=== PATIENT | male | born 1955 | race African-American/Black ===

== ENCOUNTER 2021-04-16 12:46 | Observation (INO) | payer OTHER, SELFPAY ==
[2021-04-16] VITALS (10 sets, daily range): BP systolic 133–192; BP diastolic 94–118; PULSE 87–108; RESP 16–20; TEMP 36.3–36.4; O2SAT 94–100
--- NOTE | ~2021-04-16 | US_ITS ---
EXAMINATION: US arterial ankle brachial ind DATE: 04/17/2021 14:16 INDICATION: Wounds at the bilateral lower limbs TECHNIQUE: Segmental pressures and plethysmographic and Doppler waveforms of the brachial and lower e xtremity arteries were obtained. COMPARISON: None. FINDINGS: Right and left brachial artery pressures of 91 mm Hg and 89 mm Hg, respectively, are concordant (norm al difference <= 30 mmHg). The right ankle-brachial index (HOLDEN) is 1.09 (normal >= 0.9-1.0). The right great toe-brachial index (TBI) is 0.36 (normal >= 0.65). Arterial Doppler waveforms are biphasic with brisk systolic upstrokes at both the right posterior tibial and dorsalis pedis arteries. The left HOLDEN is 1.18. The left TBI is 0.37. Arterial Doppler waveforms are biphasic with brisk systol ic upstrokes at both the left posterior tibial and dorsalis pedis arteries. IMPRESSION: 1. Arterial occlusive disease to the bilateral lower limbs with normal bilateral ABIs but moderately decreased bilateral TBIs Reviewed, dictated and finalized at location A. NT SERVICE ADMINISTRATOR IMPRESSION: 1. Arterial occlusive disease to the bilateral lower limbs with normal bilatera l ABIs but moderately decreased bilateral TBIs
--- NOTE | ~2021-04-16 | XR_ITS ---
EXAMINATION: XR chest 1V portable DATE: 04/17/2021 14:40 INDICATION: Shortness of breath TECHNIQUE: frontal view of the chest was obtained. COMPARISON: Chest radiograph dated 04/16/2021 FINDINGS: Of likely symmetric bilateral nipple shadows project over the anterior fifth ribs. No airspace opacit ies, pulmonary edema, pleural effusion or pneumothorax. The cardiomediastinal silhouette is normal. L eft pectoral implantable brazer furnace. IMPRESSION: 1. No acute cardiopulmonary disease. Reviewed, dictated and finalized at location A. I TUBE BENDER
--- NOTE | ~2021-04-16 | CT_ITS ---
EXAMINATION: CT brain wo con EXAM DATE: 04/16/2021 13:51 INDICATION: Altered mental status. Fell yesterday, found unresponsive today. TECHNIQUE: Spiral CT of the head was performed without contrast. Axial, coronal and sagittal images were reviewed. The dose-length product (DLP) for this examination was 756.67 mGy-cm. The exposure w as tailored according to patient size, and iterative reconstruction (ASIR) was used as additional dos e reduction technique. There is no prior study for comparison. FINDINGS: There is region of decreased attenuation in the right frontoparietal region, possibly a mod erate-sized acute infarction, but there our limitations from patient motion and patient's arm behind his head. There is an old small left frontal lobe infarction. No acute intracranial hemorrhage. Front al scalp contusion/hematoma without swelling. No extra-axial collections or obstructive hydrocephalus suspected. IMPRESSION: 1. Suspect moderate-sized right frontoparietal lobe acute infarction. 2. Old left frontal lobe infarction. 3. Frontal scalp contusion. Reviewed, dictated and finalized at location B. ING MANAGER
--- NOTE | ~2021-04-16 | US_ITS ---
EXAMINATION: US carotid duplex BI EXAM DATE: 04/17/2021 14:34 INDICATION: Stroke TECHNIQUE: Grayscale, color and pulsed Doppler images of the cervical carotid arteries were obtained . The degree of vessel stenosis is placed in one of the following categories: normal, <50% stenosis, 50-69% stenosis, >=70% stenosis but less than near-occlusion, near-occlusion, or occlusion. Note that percent stenosis relative to normal distal artery lumen diameter is indirectly measured from velocit y measurements as described by Quan, et al. Radiology 2003; 229:340-346. There is no prior study fo r comparison. FINDINGS: RIGHT SIDE: Right common carotid artery peak systolic velocity (PSV in cm/s): 97 Right bulb/internal carotid artery peak systolic velocity (PSV in cm/s): 64 Right internal carotid artery end diastolic velocity (EDV in cm/s): 31 Right ICA/CCA peak systolic ratio: 0.7 Right external carotid artery peak systolic velocity (PSV in cm/s): 114 Right vertebral artery antegrade flow: yes There is minimal carotid bulb plaque. Velocity and Doppler waveforms in the common and internal carotid arteries is normal. LEFT SIDE: Left common carotid artery peak systolic velocity (PSV in cm/s): 90 Left bulb/internal carotid artery peak systolic velocity (PSV in cm/s): 75 Left internal carotid artery end diastolic velocity (EDV in cm/s): 15 Left ICA/CCA peak systolic ratio: 0.8 Left external carotid artery peak systolic velocity (PSV in cm/s): 92 Left vertebral artery antegrade flow: yes There is mild to moderate carotid bulb plaque. Velocity and Doppler waveforms in the common and internal carotid arteries is normal. IMPRESSION: 1. Less than 50 percent stenosis in the right internal carotid artery. 2. Less than 50 percent stenosis in the left internal carotid artery. > Reviewed, dictated and finalized at location B. RIAL WORKER
--- NOTE | ~2021-04-16 | XR_ITS ---
EXAMINATION: XR chest 1V portable EXAM DATE: 04/16/2021 14:46 INDICATION: Transient alteration of awareness. TECHNIQUE: Portable AP frontal chest x-ray was obtained. There is no prior study for comparison. FINDINGS: There is left-sided cardiac monitoring device. The lungs are clear. There are no pleural e ffusions. Cardiac silhouette is prominent but magnified on this AP technique. There is no pneumoth orax suspected. The bones and soft tissues are unremarkable. IMPRESSION: No acute cardiopulmonary findings. Reviewed, dictated and finalized at location B. ERCIAL REAL ESTATE AGENT
--- NOTE | ~2021-04-16 | US_ITS ---
EXAMINATION: US venous doppler LE EXAM DATE: 04/18/2021 09:30 INDICATION: Stroke. Leg wounds. TECHNIQUE: Multiple grayscale, color flow and Doppler images of the lower extremity deep venous syste ms bilaterally were obtained and reviewed. There is no prior study for comparison. FINDINGS: Right side: The right common femoral, femoral and profunda veins demonstrate normal color flow, respi ratory variation, augmentation and compressibility. Compressibility, color flow confirmed within the right popliteal, posterior tibial, peroneal, and greater saphenous veins. Reactive right inguinal l ymph nodes. Left side: The left common femoral, femoral and profunda veins demonstrate normal color flow, respira tory variation, augmentation and compressibility. Compressibility, color flow confirmed within the l eft popliteal, posterior tibial, peroneal, and greater saphenous veins. IMPRESSION: 1. No lower extremity deep venous thrombosis bilaterally. Reviewed, dictated and finalized at location B. L DATABASE ADMINISTRATOR
--- NOTE | 2021-04-16 13:30 | ECG_ITS ---
Measurements Intervals [place] Rate: 79 P: 65 W[place]: 165 QRS: 63 QRSD: 108 T: 69 QT: 412 QTc: 474 Interpretive Statements SINUS RHYTHM POSSIBLE LEFT VENTRICULAR HYPERTROPHY BASELINE ARTIFACT- I, II, III, AVR, AVL, AVF, V1-V6 BORDERLINE ECG Electronically Signed On 04-16-2021 15:03:48 HOUSE FURNISHINGS SUPERVISOR by Forrest Jade D.O.
--- NOTE | 2021-04-16 13:34 | PC.NURSE ---
PT'S DAUGHTER CALLED FOR UPDATE ON HER FATHER. STATES WILL COME VISIT A LITTLE LATER TODAY
--- NOTE | 2021-04-16 14:18 | ED.GENADULT ---
HPI - General Adult General Chief complaint: Altered Mental Status <Zachary Maldonado PA-C - Last Filed: 04/16/21 19:47> Stated complaint: AMS <Zachary Maldonado PA-C - Last Filed: 04/16/21 19:47> Time Seen by Provider: 04/16/21 12:53 <Zachary Maldonado PA-C - Last Filed: 04/16/21 19:47> Source: family (daughter) and EMS <Zachary Maldonado PA-C - Last Filed: 04/16/21 19:47> Mode of arrival: EMS <Zachary Maldonado PA-C - Last Filed: 04/16/21 19:47> Limitations: dementia <Zachary Maldonado PA-C - Last Filed: 04/16/21 19:47> History of Present Illness HPI narrative: Patient is a 66 yo male with dementia who at baseline isn't generally a&ox1. He was seen at [facility] yesterday after falling out of the bed. Patient had a CT performed, which daughter states was normal, and patient was sent back to the alf. She states he is generally alert with speech that doesn't make sense and not follow ing commands at baseline but at breakfast they called and told her he was unresponsive so they brought him to [place] due to being closer. They report the patient woke up when IV was placed and has been alert since. Patient is awake at this time. She denies being informed of an additional fall. <Zachary Maldonado PA-C - Last Filed: 04/16/21 19:47> Related Data Home medications: Home Medications Medication Instructions Recorded Confirmed amoxicillin 500 mg PO QID 04/16/21 04/16/21 aspirin [Adult Aspirin EC Low 81 mg PO DAILY 04/16/21 04/16/21 Strength] docusate sodium [Colace] 100 mg PO DAILY 04/16/21 04/16/21 doxycycline monohydrate 100 mg PO BID 04/16/21 04/16/21 famotidine 20 mg PO BID 04/16/21 04/16/21 insulin NPH isoph U-100 human 6 unit SUBCUT Q8H 04/16/21 04/16/21 [Humulin N NPH Insulin KwikPen] insulin lispro 1 sliding scale dose SUBCUT 04/16/21 04/16/21 USEASDIRECTD lisinopril 20 mg PO DAILY 04/16/21 04/16/21 metoprolol tartrate 25 mg PO BID 04/16/21 04/16/21 multivit with min-folic acid 1 tablet PO DAILY 04/16/21 04/16/21 [Adult One Daily Multivitamin] polyethylene glycol 1 ea MISCELLANEOUS DAILY 04/16/21 04/16/21 silver sulfadiazine [Silvadene] 1 applic TOPICAL DAILY 04/16/21 04/16/21 <Zachary Maldonado PA-C - Last Filed: 04/16/21 19:47> Allergies/adverse reactions: Allergies Allergy/AdvReac Type Severity Reaction Status Date / Time No Known Allergies Allergy Verified 04/16/21 15:39 <Zachary Maldonado PA-C - Last Filed: 04/16/21 19:47> Review of Systems Review of Systems: CONSTITUTIONAL: Denies fever, chills, or sweats. EYES: Denies visual changes, redness, or discharge. ENT: Denies rhinorrhea, congestion, sore throat, or otalgia. CARDIOVASCULAR: Denies chest pain, palpitations, or edema. RESPIRATORY: Denies cough or dyspnea. GASTROINTESTINAL: Denies abdominal pain, nausea, vomiting, or diarrhea. GENITOURINARY: Denies dysuria or hematuria. SKIN: Denies rash or itching. MUSCULOSKELETAL: Denies back pain, joint pain, or myalgia. NEUROLOGIC: Reports unresponsive episode denies headache, numbness, dizziness, or weakness. PSYCHIATRIC: Denies anxiety or depression. <Zachary Maldonado PA-C - Last Filed: 04/16/21 19:47> [facility] Family History Family History: Family History (Updated 04/16/21 @ 21:31 by Hailey Sequeira RN) Other Unknown family medical history <Zachary Maldonado PA-C - Last Filed: 04/16/21 19:47> Social History Social History: Social History Smoking status: Unknown if ever smoked Alcohol intake: unknown Substance use: unknown Substance use type: unknown Spiritual care concerns: No <Zachary Maldonado PA-C - Last Filed: 04/16/21 19:47> Exam Narrative: GENERAL: Appears elderly, frail, slightly unkempt. HEAD: Swelling to parietal area. EYES: PERRLA and EOMI. ENT: Nares clear, no rhinorrhea or epistaxis. Mucous membranes moist. Oropharynx without tonsillar hypertrophy exudate or other lesions. TM normal CHEST: Clear to
[2021-04-16 14:40] LABS: Basophils Percent Auto 0.2 % (0.2-1.2); Eosinophils Absolute Auto 0.1 K/mm3 (0-0.3); Eosinophils Percent Auto 0.9 % (0-4.4); Hematocrit 33.3 % (42.0-52.0); Hemoglobin 10.7 g/dL (14.0-18.0); Immature Granulocyte Absolute 0.04 K/mm3 (0.00-0.031); Immature Granulocyte Percent A 0.5 % (0-0.5); Lymphocytes Absolute Auto 2.17 K/mm3 (0.9-3.2); Lymphocytes Percent Auto 25.7 % (18.3-44.2); Mean Corpuscular HGB Conc 32.1 g/dl (32-36); Mean Corpuscular Hemoglobin 28.7 pg (26-34); Mean Corpuscular Volume 89.3 fl (80-100); Mean Platelet Volume 8.9 fl (7.4-10.4); Monocytes Absolute Auto 0.7 K/mm3 (0.1-0.6); Monocytes Percent Auto 7.9 % (2.6-8.5); Neutrophils Absolute Auto 5.5 K/mm3 (1.3-6.7); Neutrophils Percent Auto 64.8 % (45.5-73.1); Platelet Count Result 376 k/mm3 (150-375); Red Blood Count 3.73 M/mm3 (4.6-6.20); Red Cell Distribution Width 15.9 % (11.5-14.5); White Blood Count 8.5 K/mm3 (4.5-10.0)
[2021-04-16 15:00] LABS: Alanine Aminotransferase 41 U/L (4-50); Albumin Level 4.1 g/dL (3.5-5.1); Alkaline Phosphatase 114 U/L (38-126); Anion Gap 5 mmol/L (8-16); Aspartate Amino Transferase 39 U/L (17-59); Bilirubin,Total 0.5 mg/dL (0.2-1.3); Blood Urea Nitrogen 19 mg/dL (9-20); Calcium 9.5 mg/dL (8.4-10.2); Carbon Dioxide 27 mmol/L (22-30); Chloride 103 mmol/L (98-107); Estimated Glomerular Filt Rate > 60; Glucose 48 mg/dL (65-110); Potassium 3.8 mmol/L (3.4-5.0); Sodium 135 mmol/L (137-145)
[2021-04-16] MEDS: DEXTROSE 5%/0.45% SOD CHL 1,000 ML 100 ML IV CONT (15:44)
[2021-04-16 17:16] LABS: Add Urine Microscopic? YES; Appearance Urine Clear (Clear); Bacteria Urine Trace /hpf; Bilirubin Urine Negative (Negative); Blood Urine Negative (Negative); Calcium Oxalate Crystals Urine Present /hpf; Color Urine Yellow (Yellow); Glucose Urine UA 1+ mg/dL (Negative); Ketones Urine Negative (Negative); Leukocyte Esterase Ur Negative LEU/UL (Negative); Mucus Urine Rare /lpf; Nitrate Urine Negative (Negative); Protein Urine 1+ mg/dL (Negative); Specific Grav Ur 1.018 (1.001-1.035); Squamous Epithelial Cell Urine Rare /hpf (Few); Urobilinogen Urine Negative mg/dL (<2.0); WBC Urine 0-3 /hpf
[2021-04-16 19:13] LABS: Glucose Point of Care 122 mg/dl (65-105)
[2021-04-16 20:19] LABS: SARS-CoV-2 RNA PCR Negative
[2021-04-16] MEDS: hydrALAZINE HCL 20 MG/ML VIAL 10 MG IV PUSH (20:57)
--- NOTE | 2021-04-16 21:31 | ADMGEN ---
This patient, Norman Hickey, was admitted to Medical Room 242-. Patient/family oriented to hospital policies and general routines including ID bracelet, bed and alarms, visiting hours, pain management, procedures, bathroom and other care routines, personal items, smoking policy, room service/diet, and visiting hours. Information on how to activate the Rapid Response Team has been discussed. Patient/Family are encouraged to report perceived risks to care and to ask questions if they do not understand what they are told or what they should do.
[2021-04-16 23:17] LABS: Glucose Point of Care 153 mg/dl (65-105)
--- NOTE | 2021-04-17 | ECHO_ITS ---
Patient Info Name: Norman Hickey Age: 66 years : 1955 Gender: Male Ht: 67 in Wt: 128 lbs BSA: 1.65 m2 HR: 91 bpm BP: 124 / 79 mmHg Technical Quality: Good Exam Date: 04/17/2021 9:49 AM Exam Location: [facility] Patient Status: Outpatient Admit Date: 04/16/2021 Staff Ordering Physician: Pardeep Ford MD Corrective Therapy Aide Teacher: Tayla Ghotra RDCS Attending Provider: Karley Camacho MD Referring Physician: [facility] ; Exam Type: CA echo doppler color flow Study Info Indications - STROKE Complete two-dimensional, color flow and Doppler transthoracic echocardiogram is performed. Summary 1. Complete two-dimensional, color flow and Doppler transthoracic echocardiogram is performed. 2. Left ventricular systolic function is normal, estimated at 50-55%. Hypokinesis of anteroseptum. Limited views. 3. There is mildly increased left ventricular wall thickness. 4. The left ventricular diastolic function is grade I diastolic dysfunction. 5. There is mild aortic valve sclerosis. 6. There is mild tricuspid valve regurgitation. 7. No pulmonary hypertension, estimated pulmonary arterial systolic pressure is 34 mmHg. Left Ventricle Left ventricular chamber dimension is normal. Left ventricular systolic function is normal, estimated at 50-55%. Hypokinesis of anteroseptum. Limited views. There is mildly increased left ventricular wall thickness. Left ventricular septal wall motion is normal. The left ventricular diastolic function is grade I diastolic dysfunction. Right Ventricle Right ventricular chamber dimension is normal. Right ventricular systolic function is normal. Left Atria Left atrial chamber dimension is normal. Right Atria Right atrial chamber dimension is normal. Atrial Septum Intact interatrial septum visualized by color flow imaging. Aortic Valve The aortic valve is trileaflet. There is mild aortic valve sclerosis. There is no aortic valve stenosis. There is no aortic valve regurgitation. Pulmonic Valve The pulmonic valve is normal. There is no pulmonic valve stenosis. There is no pulmonic regurgitation. Mitral Valve The mitral valve has normal leaflets. There is no mitral valve stenosis. There is no mitral valve regurgitation. Tricuspid Valve The tricuspid valve leaflets are normal. There is no significant tricuspid valve stenosis. There is mild tricuspid valve regurgitation. No pulmonary hypertension, estimated pulmonary arterial systolic pressure is 34 mmHg. Pericardium/Pleural The pericardium appears normal. There is no pericardial effusion. Inferior Vena Cava Normal inferior vena cava with >50% collapse upon inspiration consistent with normal right atrial pressure, 5 mmHg. Aorta The aortic root size at the sinus of Valsalva is normal. The prox ascending aorta size is normal. Left Ventricular Outflow Tract Name Value Normal LVOT 2D LVOT Diameter 2.0 cm LVOT Doppler LVOT Peak Gradient 10 mmHg LVOT Mean Gradient 5 mmHg LVOT VTI 22 cm
[2021-04-17] MEDS: SODIUM CHLORIDE 0.9% IV 1,000 ML 60 ML IV CONT ×2 (00:34→20:39)
--- NOTE | 2021-04-17 01:17 | PM.IMHP ---
H&P: HPI History of Present Illness Date/Time: 04/16/2021 11:30 PM Chief Complaint: Altered mental status Narrative: Patient is a 66 yo male with dementia who at baseline is a&ox1. He apparently fell out of bed yesterday and was taken to [facility] where CT head was done reported to be normal. He was then sent back to the long-term. Today he was noted to have garbled speech and increased confusion not following commands and hence was brought to the hospital for further evaluation. Patient is confused and very poor historian and hence most of the history is taken from the medical records. He was unresponsive when he was brought to the ER however when IV line was placed that woke him up and he became more alert and awake since then. He is noted to have multiple source and his body. Evaluation in the ED reveals stable vitals except for hypertension. Chest x-ray with no acute cardiopulmonary findings. Mild anemia at 10.7 blood glucose of 48 which was treated with dextrose SARs COVID negative. CT head was positive for suspected moderate size right frontoparietal lobe acute infarction. There is also old left frontal lobe infarction along with frontal scalp contusion. He is getting admitted for further evaluation and management. Review of Systems Review of Systems: ROS unobtainable: Yes unobtainable due to mental status [facility] Family History Family History (Updated 04/16/21 @ 21:31 by Hailey Sequeira RN) Other Unknown family medical history Social History Social History Smoking status: Unknown if ever smoked Alcohol intake: unknown Substance use: unknown Substance use type: unknown Spiritual care concerns: No Meds Home Medications and Allergies Home Medications Medication Instructions Recorded Confirmed Type amoxicillin 500 mg PO QID 04/16/21 04/16/21 History aspirin [Adult Aspirin EC Low 81 mg PO DAILY 04/16/21 04/16/21 History Strength] docusate sodium [Colace] 100 mg PO DAILY 04/16/21 04/16/21 History doxycycline monohydrate 100 mg PO BID 04/16/21 04/16/21 History famotidine 20 mg PO BID 04/16/21 04/16/21 History insulin NPH isoph U-100 human 6 unit SUBCUT Q8H 04/16/21 04/16/21 History [Humulin N NPH Insulin KwikPen] insulin lispro 1 sliding scale dose SUBCUT 04/16/21 04/16/21 History USEASDIRECTD lisinopril 20 mg PO DAILY 04/16/21 04/16/21 History metoprolol tartrate 25 mg PO BID 04/16/21 04/16/21 History multivit with min-folic acid 1 tablet PO DAILY 04/16/21 04/16/21 History [Adult One Daily Multivitamin] polyethylene glycol 1 ea MISCELLANEOUS DAILY 04/16/21 04/16/21 History silver sulfadiazine [Silvadene] 1 applic TOPICAL DAILY 04/16/21 04/16/21 History Allergies Allergy/AdvReac Type Severity Reaction Status Date / Time No Known Allergies Allergy Verified 04/16/21 15:39 Vital Signs Vital Signs - 24 hr 04/16/21 12:45 04/16/21 12:50 04/16/21 15:45 Temperature 97.3 F L Pulse Rate Respiratory Rate 18 Blood Pressure 133/94 H 133/94 H 170/99 H Pulse Oximetry 95 100 04/16/21 16:30 04/16/21 17:31 04/16/21 19:09 Temperature Pulse Rate 95 Respiratory Rate 19 Blood Pressure 192/113 H 147/107 H 164/113 H Pulse Oximetry 04/16/21 20:45 04/16/21 20:59 04/16/21 21:05 Temperature Pulse Rate 108 H 99 99 Respiratory Rate 20 17 18 Blood Pressure 169/118 H 150/107 H 150/107 H Pulse Oximetry 99 100 99 04/16/21 21:29 Temperature 97.6 F Pulse Rate 87 Respiratory Rate 16 Blood Pressure 152/109 H Pulse Oximetry 94 Exam Narrative: GENERAL: Appears elderly, frail, unkempt confused HEAD: Normocephalic some swelling to the parietal area EYES: PERRLA and EOMI. ENT: Nares clear, no rhinorrhea or epistaxis. Mucous membranes dry. CHEST: Clear to auscultation. No respiratory distress. No wheezes rales or rhonchi HEART: Regular rate and rhythm. S1-S2 ABDOMEN: Soft, nontender, nondistended, normal active bowel sounds. EXT
[2021-04-17] MEDS: ASPIRIN 325 MG TABLET PO (03:40)
[2021-04-17 05:26] VITALS: BP 124/79; PULSE 91; RESP 16; TEMP 36.6; O2SAT 99
[2021-04-17 06:03] LABS: Basophils Percent Auto 0.5 % (0.2-1.2); Eosinophils Absolute Auto 0.1 K/mm3 (0-0.3); Eosinophils Percent Auto 2.2 % (0-4.4); Hemoglobin 9.6 g/dL (14.0-18.0); Immature Granulocyte Absolute 0.02 K/mm3 (0.00-0.031); Immature Granulocyte Percent A 0.3 % (0-0.5); Lymphocytes Absolute Auto 1.98 K/mm3 (0.9-3.2); Lymphocytes Percent Auto 30.6 % (18.3-44.2); Mean Corpuscular Hemoglobin 28.6 pg (26-34); Mean Corpuscular Volume 89.3 fl (80-100); Monocytes Absolute Auto 0.6 K/mm3 (0.1-0.6); Monocytes Percent Auto 9.4 % (2.6-8.5); Neutrophils Absolute Auto 3.7 K/mm3 (1.3-6.7); Platelet Count Result 355 k/mm3 (150-375); Red Blood Count 3.36 M/mm3 (4.6-6.20); Red Cell Distribution Width 15.7 % (11.5-14.5); White Blood Count 6.5 K/mm3 (4.5-10.0)
[2021-04-17 06:18] LABS: Anion Gap 5 mmol/L (8-16); Blood Urea Nitrogen 12 mg/dL (9-20); Calcium 9.5 mg/dL (8.4-10.2); Carbon Dioxide 27 mmol/L (22-30); Chloride 104 mmol/L (98-107); Cholesterol 136 mg/dL (0-200); Estimated CRCL calculation 66 ml/min; Estimated Glomerular Filt Rate > 60; Glucose 89 mg/dL (65-110); HDL Direct 45 mg/dL; Potassium 3.9 mmol/L (3.4-5.0); Sodium 136 mmol/L (137-145); Triglycerides 76 mg/dL (<150)
[2021-04-17 06:24] LABS: LDL Cholesterol Direct 63 mg/dL
[2021-04-17 07:48] LABS: Glucose Point of Care 97 mg/dl (65-105)
[2021-04-17 08:37] VITALS: PULSE 86
[2021-04-17] MEDS: lisinopriL 20 MG TABLET PO (08:37)
[2021-04-17] MEDS: FAMOTIDINE 20 MG TABLET PO ×2 (08:37→17:00)
[2021-04-17] MEDS: ENOXAPARIN 40 MG/0.4 ML SYRINGE SUB-Q (08:37)
[2021-04-17] MEDS: METOPROLOL TARTRATE 25 MG TABLET PO ×2 (08:37→20:02)
[2021-04-17] MEDS: THERAPEUTIC MULTIVITAMINS/MINERALS TAB (*BKC) 1 TABLET PO (08:39)
[2021-04-17] MEDS: polyethylene glycoL 3350 17 GM POWD.PACK PO (08:39)
[2021-04-17] MEDS: SILVER SULFADIAZINE 1% CR 400 GM JAR (*BKC) 1 APPLIC TOPICAL (08:39)
[2021-04-17] MEDS: DOCUSATE SODIUM LIQ 100 MG/10 ML UDC PO (08:39)
--- NOTE | 2021-04-17 09:00 | PM.IMPN ---
Progress Note: A&P Assessment and Plan (1) Acute ischemic stroke: Code(s): I63.9 - Cerebral infarction, unspecified Status: Acute Assessment and Plan: fall 04/15/[address] Right frontoparietal lobe acute stroke and old left frontal lobe infarct Continue aspirin will give 325 mg daily Atorvastatin 40mg PO at night MRI brain ordered and pending Echo and carotid duplex ordered and pending Neurology consultation thank you for consultation Fall precautions PT/OT (2) Head injury: Qualifiers: Encounter type: initial encounter Qualified Code(s): S09.90XA - Unspecified injury of head, initial encounter Code(s): S09.90XA - Unspecified injury of head, initial encounter Status: Acute Assessment and Plan: See above (3) Dementia: Code(s): F03.90 - Unspecified dementia without behavioral disturbance Status: Acute Assessment and Plan: Does not seem to be on any home medications Trend mood and behavior Consider adding therapy if indication (4) Hypertension: Code(s): I10 - Essential (primary) hypertension Status: Acute Assessment and Plan: Current BP 124/79 Continue home lisinopril and metoprolol Trend blood pressure Ok to be a bit high due to current diagnosis adjust therapy as indicated (5) Type 2 diabetes mellitus: Code(s): E11.9 - Type 2 diabetes mellitus without complications Status: Acute Assessment and Plan: hypoglycemic at 49 upon admission Current glucose is 89 hold home insulin NPH 6 units Q8hr sliding scale insulin if needed low-dose trend glucose adjust therapy as indicated (6) Long-term insulin use: Code(s): Z79.4 - moth exterminator (current) use of insulin Status: Acute Assessment and Plan: See above (7) Pressure ulcer: Code(s): L89.90 - Pressure ulcer of unspecified site, unspecified stage Status: Acute Assessment and Plan: Multiple ulcers noted bilateral legs Wound care consult thank you for your help Follow wound care recommendation Frequent turning Multiple wounds noted (8) Schizophrenia: Code(s): F20.9 - Schizophrenia, unspecified Status: Acute Assessment and Plan: Hx of schizophrenia No home medications Assess for psychosis consider adding medication as indicated (9) Hypoglycemia: Code(s): E16.2 - Hypoglycemia, unspecified Status: Acute Assessment and Plan: Glucose 49 upon admission Currently 89 Home insulins on hold Continue to trend glucose Q4h accu-cheks hypoglycemia protocol (10) Anemia: Code(s): D64.9 - Anemia, unspecified Status: Acute Assessment and Plan: H/H 9.3/30.0 anemia labs Supplement if indicated Trend H/H transfuse if below 7 (11) Urinary obstruction: Code(s): N13.9 - Obstructive and reflux uropathy, unspecified Status: Acute Assessment and Plan: Chronic urinary catheter Catheter changed on 04/17/21 Found to be in the urethra blocking outflow Catheter changed out Trend output Look like clear yellow drainage (12) PAD (peripheral artery disease): Code(s): I73.9 - Peripheral vascular disease, unspecified Status: Acute Assessment and Plan: Brachial index and arterial Doppler ordered Seems to be the problem since the patient has multiple well approximated wounds bilateral lower extremities Time Spent With Patient Time with patient: Greater than 35 minutes Subjective Date/time seen: 04/17/21 0900 Interval history: Date/Time: 04/16/2021 11:30 PM Narrative: Patient is a 66 yo male with dementia who at baseline is a&ox1. He apparently fell out of bed yesterday and was taken to [facility] where CT head was done reported to be normal. [facility] Today
--- NOTE | 2021-04-17 09:00 | P.PNIM_ITS ---
Progress Note: A&P Assessment and Plan (1) Acute ischemic stroke: Code(s): I63.9 - Cerebral infarction, unspecified Status: Acute Assessment and Plan: * fall 04/15/2021 * Head CT Right frontoparietal lobe acute stroke and old left frontal lobe infarct * Continue aspirin will give 325 mg daily * Atorvastatin 40mg PO at night * MRI brain ordered and pending * Echo and carotid duplex ordered and pending * Neurology consultation thank you for consultation * Fall precautions * PT/OT (2) Head injury: Qualifiers: Encounter type: initial encounter Qualified Code(s): S09.90XA - Unspecified injury of head, initial encounter Code(s): S09.90XA - Unspecified injury of head, initial encounter Status: Acute Assessment and Plan: * See above (3) Dementia: Code(s): F03.90 - Unspecified dementia without behavioral disturbance Status: Acute Assessment and Plan: * Does not seem to be on any home medications * Trend mood and behavior * Consider adding therapy if indication (4) Hypertension: Code(s): I10 - Essential (primary) hypertension Status: Acute Assessment and Plan: * Current BP 124/79 * Continue home lisinopril and metoprolol * Trend blood pressure * Ok to be a bit high due to current diagnosis * adjust therapy as indicated (5) Type 2 diabetes mellitus: Code(s): E11.9 - Type 2 diabetes mellitus without complications Status: Acute Assessment and Plan: * hypoglycemic at 49 upon admission * Current glucose is 89 * hold home insulin NPH 6 units Q8hr * sliding scale insulin if needed low-dose * trend glucose * adjust therapy as indicated (6) Long-term insulin use: Code(s): Z79.4 - retirement (current) use of insulin Status: Acute Assessment and Plan: * See above (7) Pressure ulcer: Code(s): L89.90 - Pressure ulcer of unspecified site, unspecified stage Status: Acute Assessment and Plan: * Multiple ulcers noted bilateral legs * Wound care consult thank you for your help * Follow wound care recommendation * Frequent turning * Multiple wounds noted (8) Schizophrenia: Code(s): F20.9 - Schizophrenia, unspecified Status: Acute Assessment and Plan: * Hx of schizophrenia * No home medications * Assess for psychosis * consider adding medication as indicated (9) Hypoglycemia: Code(s): E16.2 - Hypoglycemia, unspecified Status: Acute Assessment and Plan: * Glucose 49 upon admission * Currently 89 * Home insulins on hold * Continue to trend glucose * Q4h accu-cheks * hypoglycemia protocol (10) Anemia: Code(s): D64.9 - Anemia, unspecified Status: Acute Assessment and Plan: * H/H 9.3/30.0 * anemia labs * Supplement if indicated * Trend H/H * transfuse if below 7 (11) Urinary obstruction: Code(s): N13.9 - Obstructive and reflux uropathy, unspecified Status: Acute Assessment and Plan: * Chronic urinary catheter * Catheter changed on 04/17/21 * Found to be in the urethra blocking outflow * Catheter changed out * Trend output * Look like clear yellow drainage (12) PAD (peripheral artery disease): Code(s): I73.9 - Peripheral vas
--- NOTE | 2021-04-17 09:53 | WPDNEURCNPN ---
Assessment and Plan Additional Plan 1 Right hemispheric stroke with visual neglect and plantar responses abnormal on the left. 2. As per the CT scan old left frontal lobe infarction as well 3. SARS-CoV-2 id negative 4. Plan is to obtain the Doppler study of the carotid and echocardiogram and in the meantime continue the aspirin 81 mg daily and also the diabetic care Consult date: 04/17/21 HPI: Norman Hickey is a 66 year old maleHas been admitted to the hospital through the emergency room with the complaints of change in the mental status with ongoing diagnosis of dementia. Reportedly he fell out of bed day before was taken to [facility] where his CT scan was done and was reportedly normal he was [facility] where he was noted to have garbled speech with increasing confusion and unable to follow the verbal commands Debra was brought to the hospital for again further evaluation on initial evaluation he was confused very poor historian most of the history was taken from the medical records he was unresponsive and was brought to the ER however when IV line was placed that woke him up and became more alert and awake he was noted to multiple sores on his body initial evaluation in the emergency room revealed hypertension, chest x-ray was negative, mild anemia on the CBC blood sugar 48 and starts COVID was negative, patient has been on the medication such as amoxicillin 500 q.i.d. aspirin 81 mg daily insulin for the diabetes. Review of Systems Review of Systems: All systems reviewed & are unremarkable except as noted in HPI and below PMFSH Family History Family History Other Unknown family medical history Social History Social History Smoking status: Unknown if ever smoked Alcohol intake: unknown Substance use: unknown Substance use type: unknown Spiritual care concerns: No Meds Home Medications and Allergies Home Medications Medication Instructions Recorded Confirmed Type amoxicillin 500 mg PO QID 04/16/21 04/16/21 History aspirin [Adult Aspirin EC Low 81 mg PO DAILY 04/16/21 04/16/21 History Strength] docusate sodium [Colace] 100 mg PO DAILY 04/16/21 04/16/21 History doxycycline monohydrate 100 mg PO BID 04/16/21 04/16/21 History famotidine 20 mg PO BID 04/16/21 04/16/21 History insulin NPH isoph U-100 human 6 unit SUBCUT Q8H 04/16/21 04/16/21 History [Humulin N NPH Insulin KwikPen] insulin lispro 1 sliding scale dose SUBCUT 04/16/21 04/16/21 History USEASDIRECTD lisinopril 20 mg PO DAILY 04/16/21 04/16/21 History metoprolol tartrate 25 mg PO BID 04/16/21 04/16/21 History multivit with min-folic acid 1 tablet PO DAILY 04/16/21 04/16/21 History [Adult One Daily Multivitamin] polyethylene glycol 1 ea MISCELLANEOUS DAILY 04/16/21 04/16/21 History silver sulfadiazine [Silvadene] 1 applic TOPICAL DAILY 04/16/21 04/16/21 History Allergies Allergy/AdvReac Type Severity Reaction Status Date / Time No Known Allergies Allergy Verified 04/16/21 15:39 Vital Signs Vital Signs - 24 hr 04/16/21 12:45 04/16/21 12:50 04/16/21 15:45 Temperature 36.3 C L Pulse Rate Respiratory Rate 18 Blood Pressure 133/94 H 133/94 H 170/99 H Pulse Oximetry 95 100 04/16/21 16:30 04/16/21 17:31 04/16/21 19:09 Temperature Pulse Rate 95 Respiratory Rate 19 Blood Pressure 192/113 H 147/107 H 164/113 H Pulse Oximetry 04/16/21 20:45 04/16/21 20:59 04/16/21 21:05 Temperature Pulse Rate 108 H 99 99 Respiratory Rate 20 17 18 Blood Pressure 169/118 H 150/107 H 150/107 H Pulse Oximetry 99 100 99 04/16/21 21:29 04/17/21 05:26 04/17/21 08:37 Temperature 36.4 C 36.6 C Pulse Rate 87 91 86 Respiratory Rate 16 16 Blood Pressure 152/109 H 124/79 Pulse Oximetry 94 99 Exam Narrative: Awake alert cooperative in no obvious acute distress but intermitte
[2021-04-17 12:04] LABS: Glucose Point of Care 97 mg/dl (65-105)
[2021-04-17 13:35] LABS: Iron 38 ug/dL (49-181)
[2021-04-17 13:50] LABS: Percent Iron Saturation 19 % (20-50)
[2021-04-17 14:00] VITALS: BP 94/62; PULSE 83; RESP 16; TEMP 36.2; O2SAT 97
[2021-04-17 14:06] LABS: Thyroid Stimulating Hormone Reflex 0.763 uIU/mL (0.465-4.68)
[2021-04-17 14:54] LABS: Lactate Dehydrogenase 532 U/L (313-618); Transferrin 155 mg/dL (206-381)
--- NOTE | 2021-04-17 15:06 | PC.NURSE ---
On 04/17/21, the student, [Antonino Abraham], provided care and completed [facility] documentation on this patient. I have reviewed the student's documentation and agree with the findings.
[2021-04-17 15:37] LABS: Folic Acid > 20.0 ng/mL (2.76->20)
[2021-04-17 16:39] LABS: Glucose Point of Care 90 mg/dl (65-105)
[2021-04-17 20:02] VITALS: PULSE 72
[2021-04-17] MEDS: ATORVASTATIN 40 MG TABLET PO (20:02)
[2021-04-17 20:10] VITALS: O2SAT 92
[2021-04-17 22:00] VITALS: BP 145/87; PULSE 83; RESP 16; TEMP 37.2; O2SAT 100
[2021-04-17 22:20] LABS: Glucose Point of Care 79 mg/dl (65-105)
[2021-04-18 06:00] VITALS: BP 122/79; PULSE 94; RESP 16; TEMP 36.6; O2SAT 100
[2021-04-18 06:09] LABS: Basophils Percent Auto 0.8 % (0.2-1.2); Eosinophils Absolute Auto 0.1 K/mm3 (0-0.3); Eosinophils Percent Auto 2.9 % (0-4.4); Hematocrit 28.2 % (42.0-52.0); Immature Granulocyte Absolute 0.03 K/mm3 (0.00-0.031); Immature Granulocyte Percent A 0.6 % (0-0.5); Lymphocytes Absolute Auto 2.25 K/mm3 (0.9-3.2); Lymphocytes Percent Auto 46.2 % (18.3-44.2); Mean Corpuscular HGB Conc 31.9 g/dl (32-36); Mean Corpuscular Hemoglobin 29.2 pg (26-34); Mean Corpuscular Volume 91.6 fl (80-100); Mean Platelet Volume 9.4 fl (7.4-10.4); Monocytes Absolute Auto 0.6 K/mm3 (0.1-0.6); Monocytes Percent Auto 11.7 % (2.6-8.5); Neutrophils Absolute Auto 1.8 K/mm3 (1.3-6.7); Neutrophils Percent Auto 37.8 % (45.5-73.1); Platelet Count Result 324 k/mm3 (150-375); Red Blood Count 3.08 M/mm3 (4.6-6.20); Red Cell Distribution Width 15.9 % (11.5-14.5); White Blood Count 4.9 K/mm3 (4.5-10.0)
--- NOTE | 2021-04-18 06:16 | P.PNIM_ITS ---
Progress Note: A&P Assessment and Plan (1) Acute ischemic stroke: Code(s): I63.9 - Cerebral infarction, unspecified Status: Acute Assessment and Plan: * fall 04/15/2021 * Head CT Right frontoparietal lobe acute stroke and old left frontal lobe infarct * Continue aspirin will give 325 mg daily * Atorvastatin 40mg PO at night * MRI brain patient is unable to get completed as he looks to have a loop recorder * Echo EF is 50-55% with grade 1 diastolic dysfunction * Carotid duplex <50% stenosed bilaterally * Venous doppler ordered * Neurology consultation thank you for consultation * Fall precautions * PT/OT (2) Head injury: Qualifiers: Encounter type: initial encounter Qualified Code(s): S09.90XA - Unspecified injury of head, initial encounter Code(s): S09.90XA - Unspecified injury of head, initial encounter Status: Acute Assessment and Plan: * See above (3) Dementia: Code(s): F03.90 - Unspecified dementia without behavioral disturbance Status: Acute Assessment and Plan: * Does not seem to be on any home medications * Trend mood and behavior * Consider adding therapy if indication (4) Hypertension: Code(s): I10 - Essential (primary) hypertension Status: Acute Assessment and Plan: * Current BP 145/87 * Continue home lisinopril and metoprolol * Trend blood pressure * Seems to be stable at this time * adjust therapy as indicated (5) Type 2 diabetes mellitus: Code(s): E11.9 - Type 2 diabetes mellitus without complications Status: Acute Assessment and Plan: * hypoglycemic at 49 upon admission * Current glucose is 88 * hold home insulin NPH 6 units Q8hr * sliding scale insulin if needed low-dose * trend glucose * adjust therapy as indicated (6) Long-term insulin use: Code(s): Z79.4 - alf (current) use of insulin Status: Acute Assessment and Plan: * See above (7) Pressure ulcer: Code(s): L89.90 - Pressure ulcer of unspecified site, unspecified stage Status: Acute Assessment and Plan: * Multiple ulcers noted bilateral legs * Wound care consult thank you for your help * Follow wound care recommendation * Frequent turning * Multiple wounds noted (8) Schizophrenia: Code(s): F20.9 - Schizophrenia, unspecified Status: Acute Assessment and Plan: * Hx of schizophrenia * No home medications * No psychosis noted * consider adding medication as indicated (9) Hypoglycemia: Code(s): E16.2 - Hypoglycemia, unspecified Status: Acute Assessment and Plan: * Glucose 49 upon admission * Currently 88 * Home insulins on hold * Continue to trend glucose * Q4h accu-cheks * hypoglycemia protocol (10) Anemia: Code(s): D64.9 - Anemia, unspecified Status: Acute Assessment and Plan: * H/H 9.0/28.2 * anemia labs: iron 38, TIBC 200, % saturation 19, Transferrin 155, Ferritin 277, B12 937, Folate >20.0 * Ferrous sulfate 324mg PO BID * Trend H/H * transfuse if below 7 (11) Urinary obstruction: Code(s): N13.9 - Obstructive and reflux uropathy, unspecified Status: Acute Assessment and Plan: * Chronic urinary catheter * Catheter changed on 04/17/21 * Found to be in the
--- NOTE | 2021-04-18 06:16 | PM.IMPN ---
Progress Note: A&P Assessment and Plan (1) Acute ischemic stroke: Code(s): I63.9 - Cerebral infarction, unspecified Status: Acute Assessment and Plan: fall 04/15/[address] Right frontoparietal lobe acute stroke and old left frontal lobe infarct Continue aspirin will give 325 mg daily Atorvastatin 40mg PO at night MRI brain patient is unable to get completed as he looks to have a loop recorder Echo EF is 50-55% with grade 1 diastolic dysfunction Carotid duplex <50% stenosed bilaterally Venous doppler ordered Neurology consultation thank you for consultation Fall precautions PT/OT (2) Head injury: Qualifiers: Encounter type: initial encounter Qualified Code(s): S09.90XA - Unspecified injury of head, initial encounter Code(s): S09.90XA - Unspecified injury of head, initial encounter Status: Acute Assessment and Plan: See above (3) Dementia: Code(s): F03.90 - Unspecified dementia without behavioral disturbance Status: Acute Assessment and Plan: Does not seem to be on any home medications Trend mood and behavior Consider adding therapy if indication (4) Hypertension: Code(s): I10 - Essential (primary) hypertension Status: Acute Assessment and Plan: Current BP 145/87 Continue home lisinopril and metoprolol Trend blood pressure Seems to be stable at this time adjust therapy as indicated (5) Type 2 diabetes mellitus: Code(s): E11.9 - Type 2 diabetes mellitus without complications Status: Acute Assessment and Plan: hypoglycemic at 49 upon admission Current glucose is 88 hold home insulin NPH 6 units Q8hr sliding scale insulin if needed low-dose trend glucose adjust therapy as indicated (6) Long-term insulin use: Code(s): Z79.4 - residential (current) use of insulin Status: Acute Assessment and Plan: See above (7) Pressure ulcer: Code(s): L89.90 - Pressure ulcer of unspecified site, unspecified stage Status: Acute Assessment and Plan: Multiple ulcers noted bilateral legs Wound care consult thank you for your help Follow wound care recommendation Frequent turning Multiple wounds noted (8) Schizophrenia: Code(s): F20.9 - Schizophrenia, unspecified Status: Acute Assessment and Plan: Hx of schizophrenia No home medications No psychosis noted consider adding medication as indicated (9) Hypoglycemia: Code(s): E16.2 - Hypoglycemia, unspecified Status: Acute Assessment and Plan: Glucose 49 upon admission Currently 88 Home insulins on hold Continue to trend glucose Q4h accu-cheks hypoglycemia protocol (10) Anemia: Code(s): D64.9 - Anemia, unspecified Status: Acute Assessment and Plan: H/H 9.0/28.2 anemia labs: iron 38, TIBC 200, % saturation 19, Transferrin 155, Ferritin 277, B12 937, Folate >20.0 Ferrous sulfate 324mg PO BID Trend H/H transfuse if below 7 (11) Urinary obstruction: Code(s): N13.9 - Obstructive and reflux uropathy, unspecified Status: Acute Assessment and Plan: Chronic urinary catheter Catheter changed on 04/17/21 Found to be in the urethra blocking outflow Catheter changed out Trend output Look like clear yellow drainage (12) PAD (peripheral artery disease): Code(s): I73.9 - Peripheral vascular disease, unspecified Status: Acute Assessment and Plan: Brachial index and arterial Doppler found Arterial occlusive disease to the bilateral lower limbs with normal bilateral ABIs but moderately decreased bilateral TBIs Left HOLDEN 1.18, TBI 0.37 Would probably benefit from vascular follow up, however, due to current health status, would not seem to be a good candidate for any type of intervention Seems to be the problem since the
[2021-04-18 06:20] LABS: Alanine Aminotransferase 30 U/L (4-50); Albumin Level 3.4 g/dL (3.5-5.1); Alkaline Phosphatase 96 U/L (38-126); Anion Gap 5 mmol/L (8-16); Aspartate Amino Transferase 34 U/L (17-59); Bilirubin,Total 0.6 mg/dL (0.2-1.3); Blood Urea Nitrogen 15 mg/dL (9-20); Calcium 9.4 mg/dL (8.4-10.2); Carbon Dioxide 30 mmol/L (22-30); Chloride 101 mmol/L (98-107); Estimated CRCL calculation 74 ml/min; Estimated Glomerular Filt Rate > 60; Glucose 88 mg/dL (65-110); Magnesium 1.8 mg/dL (1.6-2.3); Potassium 4.1 mmol/L (3.4-5.0); Sodium 136 mmol/L (137-145)
[2021-04-18 07:59] LABS: Glucose Point of Care 89 mg/dl (65-105)
[2021-04-18] MEDS: MAGNESIUM SULF 2 GM/WATER 50ML 2 GM/50 ML BAG IVPB (08:32)
[2021-04-18] MEDS: ENOXAPARIN 40 MG/0.4 ML SYRINGE SUB-Q (08:33)
[2021-04-18] MEDS: COLLAGENASE OINT 30 GM TUBE 1 APPLIC TOPICAL (08:33)
[2021-04-18] MEDS: ASPIRIN 325 MG TABLET PO (08:33)
[2021-04-18] MEDS: DOCUSATE SODIUM LIQ 100 MG/10 ML UDC PO (08:33)
[2021-04-18] MEDS: FERROUS SULFATE 324 MG TABLET PO ×2 (08:33→17:51)
[2021-04-18 08:34] VITALS: PULSE 84
[2021-04-18] MEDS: METOPROLOL TARTRATE 25 MG TABLET PO (08:34)
[2021-04-18] MEDS: THERAPEUTIC MULTIVITAMINS/MINERALS TAB (*BKC) 1 TABLET PO (08:34)
[2021-04-18] MEDS: FAMOTIDINE 20 MG TABLET PO ×2 (08:34→17:51)
[2021-04-18] MEDS: polyethylene glycoL 3350 17 GM POWD.PACK PO (08:34)
[2021-04-18] MEDS: lisinopriL 20 MG TABLET PO (08:34)
[2021-04-18 10:09] VITALS: O2SAT 94
--- NOTE | 2021-04-18 10:27 | WPDNEUROPN ---
Progress Note: A&P Additional Plan will need the continuation of the treatment as such with further physical therapy Time Spent With Patient Time with patient: 15 - 25 minutes Subjective Date/time seen: 04/18/21 10:27Right hemispheric stroke with visual neglect and abnormal plantar responses on the left in addition to the CT scan revealing left frontal lobe infarct and additionally COVID test negative since admission routine lab studies are fairly unremarkable except the hemoglobin of 9.0, normal BMP, UA with 1+ protein and glucose only 6 to 10 RBCs, CT of the head with moderate size right frontoparietal lobe acute infarct in addition to old left frontal lobe infarct, Doppler study of the carotids less than 50% stenosis bilaterally involving the internal carotid arteries, ultrasound venous Doppler lower extremities bilaterally negative, remains otherwise stable and at present on aspirin MRI of the brain cannot be obtained because of the loop recorder echo with 50 to 55% grade 1 systolic dysfunction, and ongoing diagnosis of schizophrenia for which he is not receiving any home medications additional chronic urinary catheter, peripheral arterial disease Review of Systems Review of Systems: All systems reviewed & are unremarkable except as noted in HPI and below Exam Narrative: remains in no obvious acute distress, neck is supple with no thyromegaly no lymphadenopathy no restriction of the range of motions, heart regular lungs without rhonchi or crepitations, abdomen soft nontender, and neurological examination reveals him to be not very responsive to the verbal commands or to the visitor, response to the visual stimuli moves upper and lower extremities spontaneously, reflexes are sluggish and plantars are questionable Objective Data Vital Signs Vital Signs: Vital Signs - 24 hr 04/17/21 14:00 04/17/21 20:02 04/17/21 20:10 Temperature 36.2 C L Pulse Rate 83 72 Respiratory Rate 16 Blood Pressure 94/62 L Pulse Oximetry 97 92 04/17/21 22:00 04/18/21 06:00 04/18/21 08:34 Temperature 37.2 C 36.6 C Pulse Rate 83 94 84 Respiratory Rate 16 16 Blood Pressure 145/87 H 122/79 Pulse Oximetry 100 100 Intake/Output Intake/Output: Intake & Output 04/15/21 04/16/21 04/17/21 04/18/21 23:59 23:59 23:59 23:59 Intake Total 1000 2860 780 Output Total 3100 1800 Balance 1000 -240 -1020 Meds/Results Medications: Active Medications Generic Name Dose Route Start Last Admin Trade Name Freq PRN Reason Stop Dose Admin Aspirin 325 mg 04/17/21 02:40 04/18/21 08:33 Aspirin 325 Mg Tablet PO 325 mg DAILY@0800 ALVARO Administration Atorvastatin Calcium 40 mg 04/17/21 21:00 04/17/21 20:02 Atorvastatin 40 Mg Tablet PO 40 mg HS ALVARO Administration Collagenase 1 applic 04/18/21 09:00 04/18/21 08:33 Collagenase Oint 30 Gm Tube TOPICAL 1 applic QAM ALVARO Administration Dextrose 12.5 gm 04/17/21 04:19 Dextrose 50% 25 Gm/50 Ml Syringe IV PUSH PRN PRN Hypoglycemia Protocol Docusate Sodium 100 mg 04/17/21 09:00 04/18/21 08:33 Docusate Sodium Liq 100 Mg/10 Ml Udc PO 100 mg DAILY ALVARO Administration Enoxaparin Sodium 40 mg 04/17/21 09:00 04/18/21 08:33 Enoxaparin 40 Mg/0.4 Ml Syringe SUB-Q 40 mg DAILY ALVARO Administration Famotidine 20 mg 04/17/21 09:00 04/18/21 08:34 Famotidine 20 Mg Tablet PO 20 mg BID ALVARO Administration Ferrous Sulfate 324 mg 04/18/21 08:00 04/18/21 08:33 Ferrous Sulfate 324 Mg Tablet PO 324 mg BIDWM ALVARO Administration Glucagon 1 mg 04/17/21 04:19 Glucagon For Inj 1 Mg Vial IM PRN PRN Hypoglycemia Protocol Glucose 15 gm 04/17/21 04:19 Glucose Oral Gel 15 Gm Of Glucse In 37.5 Gm Tube PO PRN PRN Hypoglycemia Protocol Sodium Chloride 1,000 mls @ 60 mls/hr 04/17/21 00:15 04/17/21 20:39 Normal Saline Iv IV CONT 60 mls/hr .[id number] ALVARO Administration Dextrose 1,000 mls
[2021-04-18 11:05] LABS: Glucose Point of Care 121 mg/dl (65-105)
--- NOTE | 2021-04-18 11:49 | WPDNEUROLOGY ---
Neurology EEG Report General Information Date of Study: 04/17/21 TEST eeg DIAGNOSIS change in mental status CONDITION OF RECORDING awake drowsy and sleep EEG NUMBER [id number] CLINICAL HISTORY patient reportedly confused and unable to give any history EEG DESCRIPTION background rhythm consists of low-voltage 15 to 21 hertz per 2nd beta admixed with intermittent low to medium voltage 3 to 4 hertz per 2nd delta activity and superimposed by intermittent regular EKG artifact. Bihemispheric symmetrical sleep activity seen during sleep admixed with low to medium voltage 3 to 4 hertz per 2nd delta activity intermittently. Hyperventilation not done. Photic stimulation not done. Non paroxysmal. Nonfocal. Nonlateralizing. IMPRESSION Abnormal record due to the presence of bihemispheric delta activity these abnormalities are suggestive of underlying organic a metabolic encephalopathy clinical correlation recommended. There is no evidence of paroxysmal discharge on this tracing
--- NOTE | 2021-04-18 13:04 | PM.DS ---
DS: Admitting Diagnosis Discharge Date 04/18/21 1300 Admitting Diagnosis Acute CVA DS: Discharge Diagnosis Discharge Diagnosis (1) Acute ischemic stroke: Code(s): I63.9 - Cerebral infarction, unspecified Status: Acute Assessment and Plan: fall 04/15/[address] Right frontoparietal lobe acute stroke and old left frontal lobe infarct Continue aspirin will give 325 mg daily Atorvastatin 40mg PO at night MRI brain patient is unable to get completed as he looks to have a loop recorder Echo EF is 50-55% with grade 1 diastolic dysfunction Carotid duplex <50% stenosed bilaterally Venous doppler ordered Neurology consultation thank you for consultation Fall precautions PT/OT (2) Head injury: Qualifiers: Encounter type: initial encounter Qualified Code(s): S09.90XA - Unspecified injury of head, initial encounter Code(s): S09.90XA - Unspecified injury of head, initial encounter Status: Acute Assessment and Plan: See above (3) Dementia: Code(s): F03.90 - Unspecified dementia without behavioral disturbance Status: Acute Assessment and Plan: Does not seem to be on any home medications Trend mood and behavior Consider adding therapy if indication (4) Hypertension: Code(s): I10 - Essential (primary) hypertension Status: Acute Assessment and Plan: Current BP 145/87 Continue home lisinopril and metoprolol Trend blood pressure Seems to be stable at this time adjust therapy as indicated (5) Type 2 diabetes mellitus: Code(s): E11.9 - Type 2 diabetes mellitus without complications Status: Acute Assessment and Plan: hypoglycemic at 49 upon admission Current glucose is 88 hold home insulin NPH 6 units Q8hr sliding scale insulin if needed low-dose trend glucose adjust therapy as indicated (6) Long-term insulin use: Code(s): Z79.4 - exterminator (current) use of insulin Status: Acute Assessment and Plan: See above (7) Pressure ulcer: Code(s): L89.90 - Pressure ulcer of unspecified site, unspecified stage Status: Acute Assessment and Plan: Multiple ulcers noted bilateral legs Wound care consult thank you for your help Follow wound care recommendation Frequent turning Multiple wounds noted (8) Schizophrenia: Code(s): F20.9 - Schizophrenia, unspecified Status: Acute Assessment and Plan: Hx of schizophrenia No home medications No psychosis noted consider adding medication as indicated (9) Hypoglycemia: Code(s): E16.2 - Hypoglycemia, unspecified Status: Acute Assessment and Plan: Glucose 49 upon admission Currently 88 Home insulins on hold Continue to trend glucose Q4h accu-cheks hypoglycemia protocol (10) Anemia: Code(s): D64.9 - Anemia, unspecified Status: Acute Assessment and Plan: H/H 9.0/28.2 anemia labs: iron 38, TIBC 200, % saturation 19, Transferrin 155, Ferritin 277, B12 937, Folate >20.0 Ferrous sulfate 324mg PO BID Trend H/H transfuse if below 7 (11) Urinary obstruction: Code(s): N13.9 - Obstructive and reflux uropathy, unspecified Status: Acute Assessment and Plan: Chronic urinary catheter Catheter changed on 04/17/21 Found to be in the urethra blocking outflow Catheter changed out Trend output Look like clear yellow drainage (12) PAD (peripheral artery disease): Code(s): I73.9 - Peripheral vascular disease, unspecified Status: Acute Assessment and Plan: Brachial index and arterial Doppler found Arterial occlusive disease to the bilateral lower limbs with normal bilateral ABIs but moderately decreased bilateral TBIs Left HOLDEN 1.18, TBI 0.37 Would probably benefit from vascular follow up, however, due to current health status, would n
--- NOTE | 2021-04-18 13:04 | P.DS_ITS ---
DS: Admitting Diagnosis Discharge Date 04/18/21 1300 Admitting Diagnosis Acute CVA DS: Discharge Diagnosis Discharge Diagnosis (1) Acute ischemic stroke: Code(s): I63.9 - Cerebral infarction, unspecified Status: Acute Assessment and Plan: * fall 04/15/2021 * Head CT Right frontoparietal lobe acute stroke and old left frontal lobe infarct * Continue aspirin will give 325 mg daily * Atorvastatin 40mg PO at night * MRI brain patient is unable to get completed as he looks to have a loop re vicente * Echo EF is 50-55% with grade 1 diastolic dysfunction * Carotid duplex <50% stenosed bilaterally * Venous doppler ordered * Neurology consultation thank you for consultation * Fall precautions * PT/OT (2) Head injury: Qualifiers: Encounter type: initial encounter Qualified Code(s): S09.90XA - Unspecified injury of head, initial encounter Code(s): S09.90XA - Unspecified injury of head, initial encounter Status: Acute Assessment and Plan: * See above (3) Dementia: Code(s): F03.90 - Unspecified dementia without behavioral disturbance Status: Acute Assessment and Plan: * Does not seem to be on any home medications * Trend mood and behavior * Consider adding therapy if indication (4) Hypertension: Code(s): I10 - Essential (primary) hypertension Status: Acute Assessment and Plan: * Current BP 145/87 * Continue home lisinopril and metoprolol * Trend blood pressure * Seems to be stable at this time * adjust therapy as indicated (5) Type 2 diabetes mellitus: Code(s): E11.9 - Type 2 diabetes mellitus without complications Status: Acute Assessment and Plan: * hypoglycemic at 49 upon admission * Current glucose is 88 * hold home insulin NPH 6 units Q8hr * sliding scale insulin if needed low-dose * trend glucose * adjust therapy as indicated (6) Long-term insulin use: Code(s): Z79.4 - jail (current) use of insulin Status: Acute Assessment and Plan: * See above (7) Pressure ulcer: Code(s): L89.90 - Pressure ulcer of unspecified site, unspecified stage Status: Acute Assessment and Plan: * Multiple ulcers noted bilateral legs * Wound care consult thank you for your help * Follow wound care recommendation * Frequent turning * Multiple wounds noted (8) Schizophrenia: Code(s): F20.9 - Schizophrenia, unspecified Status: Acute Assessment and Plan: * Hx of schizophrenia * No home medications * No psychosis noted * consider adding medication as indicated (9) Hypoglycemia: Code(s): E16.2 - Hypoglycemia, unspecified Status: Acute Assessment and Plan: * Glucose 49 upon admission * Currently 88 * Home insulins on hold * Continue to trend glucose * Q4h accu-cheks * hypoglycemia protocol (10) Anemia: Code(s): D64.9 - Anemia, unspecified Status: Acute Assessment and Plan: * H/H 9.0/28.2 * anemia labs: iron 38, TIBC 200, % saturation 19, Transferrin 155, Ferritin 277, B12 937, Folate >20.0 * Ferrous sulfate 324mg PO BID * Trend H/H * transfuse if below 7 (11) Urinary obstruction: Code(s): N13.9 - Obstructive and reflux uropathy, unspecified Status: Acute
[2021-04-18 14:00] VITALS: BP 135/89; PULSE 75; RESP 16; TEMP 36.7; O2SAT 100
[2021-04-18 15:32] LABS: EDCOVIDSCREEN Negative (Negative)
[2021-04-18 16:53] LABS: Glucose Point of Care 128 mg/dl (65-105)
== END 2021-04-18 18:00 | disposition home or self-care (01) ==
LOC: ANHED 17:58 → ANH2MED 04-17 09:35
PROVIDERS: Family Medicine; Internal Medicine; Nurse Practitioner; Physician Assistant; Admitting Provider Family Medicine; Emergency Provider Family Medicine; PCP Internal Medicine; Visit Provider Hospitalist
DX: I63.9 Cerebral infarction, unspecified (principal); S09.90XA Unspecified injury of head, initial encounter; I10 Essential (primary) hypertension; E11.649 Type 2 diabetes mellitus with hypoglycemia without coma; E11.51 Type 2 diabetes mellitus with diabetic peripheral angiopathy without gangrene; E11.59 Type 2 diabetes mellitus with other circulatory complications; F20.9 Schizophrenia, unspecified; N13.9 Obstructive and reflux uropathy, unspecified; K21.9 Gastro-esophageal reflux disease without esophagitis; D64.9 Anemia, unspecified; L89.899 Pressure ulcer of other site, unspecified stage; F03.90 Unspecified dementia, unspecified severity, without behavioral disturbance, psychotic disturbance, mood disturbance, and anxiety; Z91.81 History of falling; I36.1 Nonrheumatic tricuspid (valve) insufficiency; I35.8 Other nonrheumatic aortic valve disorders; Z66 Do not resuscitate; Z79.82 Long term (current) use of aspirin; Z79.4 Long term (current) use of insulin; Z96.0 Presence of urogenital implants; Z86.14 Personal history of Methicillin resistant Staphylococcus aureus infection; Z20.822 Contact with and (suspected) exposure to COVID-19
CPT/HCPCS: 36415; 70450; 71045; 80048; 80053; 80061; 81001; 82607; 82728; 82746; 82948; 83540; 83550; 83615; 83735; 84443; 84466; 85025; 87426; 92523; 93005; 93306; 93880; 93922; 93970; 95816; 96360; 96361; 96372; 96374; 97161; 97165; 99285; A9270; C9803; G0378; J0360; J1650; J3475; J7030; U0003; U0005

== ENCOUNTER 2021-05-02 13:29 | Emergency (ER) | payer OTHER, SELFPAY ==
[2021-05-02] VITALS (9 sets, daily range): BP systolic 110–128; BP diastolic 78–103; PULSE 80–105; RESP 14–19; TEMP 36.3; O2SAT 75–94
--- NOTE | ~2021-05-02 | CT_ITS ---
EXAMINATION: CT cervical spine wo con DATE: 05/02/2021 13:51 INDICATION: Head injury. TECHNIQUE: Computed tomography (CT) of the cervical spine was performed without intravenous contrast. Automated exposure control and iterative reconstruction technique were employed. The dose-length pro duct was 312.79 mGy-cm. COMPARISON: None FINDINGS: There is mild emphysema. There is kyphosis of cervical spine. Vertebral body heights are no rmal. There is severely decreased disc height at C5-C6 and C6-C7 with endplate remodeling. There is o ssification of posterior longitudinal ligament at C5 and C6. Osseous central spinal canal is developm entally small from C1 to C6. The following disc levels are specifically discussed: C2-C3: There is mild right and moderate left uncovertebral joint osteoarthritis. There is mild right and severe left facet joint osteoarthritis. There is mild left neural foraminal stenosis. There is mi ld central canal stenosis. C3-C4: There is mild bilateral uncovertebral joint osteoarthritis. There is mild bilateral facet join t osteoarthritis. There is no neural foraminal stenosis. There is mild central canal stenosis. C4-C5: There is no uncovertebral joint osteoarthritis. There is mild bilateral facet joint osteoarthr itis. There is no neural foraminal stenosis. There is mild central canal stenosis. C5-C6: There is severe bilateral uncovertebral joint osteoarthritis. There is mild bilateral facet vishnu int osteoarthritis. There is mild bilateral neural foraminal stenosis. There is mild central canal st enosis. C6-C7: There is severe bilateral uncovertebral joint osteoarthritis. There is mild right and moderate left facet joint osteoarthritis. There is mild right and moderate left neural foraminal stenosis. Th ere is mild central canal stenosis. C7-T1: There is no uncovertebral joint osteoarthritis. There is mild bilateral facet joint osteoarthr itis. There is no neural foraminal stenosis. There is no central canal stenosis. IMPRESSION: 1. No fracture. 2. Severe cervical spondylosis. Reviewed, dictated and finalized at location A. DRY MANAGER
--- NOTE | ~2021-05-02 | CT_ITS ---
EXAMINATION: CT brain wo con DATE: 05/02/2021 13:51 INDICATION: Head injury TECHNIQUE: Computed tomography (CT) of the head was performed without intravenous contrast. The dose- length product was 605.33 mGy-cm. Automated exposure control and iterative reconstruction technique w ere employed. COMPARISON: None FINDINGS: There are chronic bilateral parietal lobe infarctions with encephalomalacia. There is a chr onic right lacunar infarction. There are scattered mild periventricular and subcortical white matter changes, most likely related to small vessel ischemic disease (microangiopathy). No acute intracrania l hemorrhage, infarction, mass or mass effect. No ventriculomegaly or midline shift. Basilar cisterns are patent. Paranasal sinuses and mastoids are pneumatized. There is a small left mastoid effusion. No depressed skull fractures. There is intracranial atherosclerosis. IMPRESSION: 1. No acute intracranial abnormality. 2: Chronic bilateral parietal lobe and right lacunar infarctions. 3: Chronic age-related findings. Reviewed, dictated and finalized at location B. TECHNICIAN
--- NOTE | 2021-05-02 13:39 | ED.HEATRA ---
HPI - Head Injury General Chief complaint: Head Injury Stated complaint: fall History of Present Illness HPI Narrative: 66-year-old wheelchair-bound patient presents to the emergency room status post head injury. Patient states he was transferring to the wheelchair to his bed when he slipped and struck his head. Denies LOC, dizziness, or lightheadedness. Denies vision or hearing changes. Denies nausea. Denies neck pain. No other injuries. Related Data Home Medications Medication Instructions Recorded Confirmed docusate sodium 100 mg PO DAILY 04/16/21 04/16/21 famotidine 20 mg PO BID 04/16/21 04/16/21 insulin lispro 1 sliding scale dose SUBCUT 04/16/21 04/16/21 USEASDIRECTD lisinopril 20 mg PO DAILY 04/16/21 04/16/21 metoprolol tartrate 25 mg PO BID 04/16/21 04/16/21 multivit with min-folic acid 1 tablet PO DAILY 04/16/21 04/16/21 polyethylene glycol 1 ea MISCELLANEOUS DAILY 04/16/21 04/16/21 silver sulfadiazine [Silvadene] 1 applic TOPICAL DAILY 04/16/21 04/16/21 Allergies Allergy/AdvReac Type Severity Reaction Status Date / Time No Known Allergies Allergy Verified 04/16/21 15:39 Review of Systems Review of Systems: CONSTITUTIONAL: Denies fever, chills, or sweats. EYES: Denies visual changes, redness, or discharge. ENT: Denies rhinorrhea, congestion, sore throat, or otalgia. CARDIOVASCULAR: Denies chest pain, palpitations, or edema. RESPIRATORY: Denies cough or dyspnea. GASTROINTESTINAL: Denies abdominal pain, nausea, vomiting, or diarrhea. GENITOURINARY: Denies dysuria or hematuria. SKIN: Denies rash or itching. MUSCULOSKELETAL: Denies back pain, joint pain, or myalgia. NEUROLOGIC: Denies headache, numbness, dizziness, or weakness. PSYCHIATRIC: Denies anxiety or depression. [facility] Family History Family History Other Unknown family medical history Social History Social History Smoking status: Unknown if ever smoked Alcohol intake: unknown Substance use: unknown Substance use type: unknown Spiritual care concerns: No Exam Narrative: GENERAL: Well-appearing, well-nourished, and in no acute distress. HEAD: Normocephalic, large hematoma to right frontal scalp. EYES: PERRLA and EOMI. ENT: Nares clear, no rhinorrhea or epistaxis. Mucous membranes moist. Oropharynx without tonsillar hypertrophy exudate or other lesions. Bilateral TMs pearly pate nonbulging NECK: Supple. No adenopathy or masses. No carotid bruits or JVD CHEST: Clear to auscultation. No respiratory distress. No wheezes rales or rhonchi HEART: Regular rate and rhythm. No murmur heard. Normal peripheral pulses. ABDOMEN: Soft, nontender, nondistended, normal active bowel sounds. EXTREMITIES: Normal range of motion. No edema. SKIN: Warm, dry, no rash. NEURO: No focal deficits. Alert and oriented x3. PSYCH: Normal mood and affect. Course Course Emergency Course: Head CT C-spine CT both demonstrate no acute abnormalities. Will discharge patient back to long-term care facility with fall precautions. Vital Signs Vital signs: Vital Signs Temperature 36.3 C L 05/02/21 13:32 Pulse Rate 99 05/02/21 13:32 Respiratory Rate 16 05/02/21 13:32 Blood Pressure 110/78 05/02/21 13:32 Pulse Oximetry 94 05/02/21 13:32 Temperature 36.3 C L 05/02/21 13:32 Pulse Rate 105 H 05/02/21 13:32 Respiratory Rate 17 05/02/21 13:32 Blood Pressure 110/78 05/02/21 13:32 Pulse Oximetry 92 05/02/21 13:32 Discharge Plan Discharge Clinical Impression: Head injury Qualifiers: Encounter type: initial encounter Qualified Code(s): S09.90XA - Unspecified injury of head, initial encounter Fall with injury Qualifiers: Encounter type: initial encounter Qualified Code(s): W19.XXXA - Unspecified fall, initial encounter Prescriptions: No Action polyethylene glycol Powder 1 ea miscellaneous DAILY RF: 0
--- NOTE | 2021-05-02 16:11 | PC.NURSE ---
made contact with [facility] to transfer pt to [facility]. ETA 1800
--- NOTE | 2021-05-02 16:35 | PC.NURSE ---
[facility] has arrived
--- NOTE | 2021-05-02 16:40 | PC.NURSE ---
This nurse gave report to Karla at [facility].
== END 2021-05-02 16:53 ==
LOC: ANHED 14:18
PROVIDERS: Emergency Provider Nurse Practitioner Family; PCP Internal Medicine
DX: S09.90XA Unspecified injury of head, initial encounter (principal); Z79.4 Long term (current) use of insulin; Z99.3 Dependence on wheelchair; W05.0XXA Fall from non-moving wheelchair, initial encounter
CPT/HCPCS: 70450; 72125; 99284

== ENCOUNTER 2021-05-30 09:11 | Outpatient (CLI) | payer OTHER, SELFPAY | END 2021-05-30 09:12 | disposition home or self-care (01) | LOC: ANHAUDIO 09:12 | PROVIDERS: PCP Internal Medicine; Visit Provider Internal Medicine | DX: H90.3 Sensorineural hearing loss, bilateral (principal) | CPT/HCPCS: 92557; 92567 ==

== ENCOUNTER 2022-01-06 17:37 | Emergency (ER) | payer OTHER, SELFPAY ==
[2022-01-06 17:28] VITALS: BP 105/82; PULSE 88; RESP 18; TEMP 36.1; O2SAT 100
[2022-01-06] MEDS: LIDOCAINE HCL 2% GEL UROJET 10 ML PKG MUCOUS MEM (18:45)
[2022-01-06 18:48] LABS: Appearance Urine Cloudy (Clear); Bilirubin Urine Negative (Negative); Blood Urine 2+ (Negative); Color Urine Yellow (Yellow); Glucose Urine UA Negative (Negative); Ketones Urine Trace mg/dL (Negative); Leukocyte Esterase Ur 3+ LEU/UL (Negative); Nitrate Urine Negative (Negative); Protein Urine 2+ mg/dL (Negative); Urobilinogen Urine 0.2 mg/dL (<2.0); pH Urine >=9.0 (5.0-9.0)
[2022-01-06 18:54] LABS: Bacteria Urine 3+ /hpf; Mucus Urine Rare /lpf; RBC Urine >75 /hpf (0-2); Squamous Epithelial Cell Urine Rare /hpf (Few); WBC Urine >75 /hpf
[2022-01-06 18:56] LABS: Add Urine Microscopic? YES
--- NOTE | 2022-01-06 19:23 | PC.NURSE ---
[facility]ya ems was call at 1914. Will be here at 2000.
--- NOTE | 2022-01-06 19:26 | ED.MALEGU ---
HPI - Male Genitourinary General Chief complaint: Urogenital-Male Stated complaint: pulled out urinary catheter History of Present Illness HPI Narrative: Pt had rendon catheter removed and attempted to reinsert and pt complained of pain to tip of penis. Pt was able to void afterwards somewhat and complained of burning when he did. Pt was sent here for reinsertion of catheter and UA. Related Data Home Medications Medication Instructions Recorded Confirmed docusate sodium 50 mg/5 mL oral 100 mg PO DAILY 04/16/21 04/16/21 liquid famotidine 20 mg tablet 20 mg PO BID 04/16/21 04/16/21 insulin lispro 100 unit/mL 1 sliding scale dose subcut 04/16/21 04/16/21 subcutaneous solution USEASDIRECTD lisinopril 20 mg tablet 20 mg PO DAILY 04/16/21 04/16/21 metoprolol tartrate 25 mg tablet 25 mg PO BID 04/16/21 04/16/21 multivitamin with minerals-folic 1 tablet PO DAILY 04/16/21 04/16/21 acid 0.4 mg tablet polyethylene glycol 1 ea miscellaneous DAILY 04/16/21 04/16/21 silver sulfadiazine 1 % topical 1 applic topical DAILY 04/16/21 04/16/21 cream (Silvadene) Allergies Allergy/AdvReac Type Severity Reaction Status Date / Time No Known Allergies Allergy Verified 04/16/21 15:39 Review of Systems Review of Systems: All systems reviewed & are unremarkable except as noted in HPI and below PMFSH Family History Family History Other Unknown family medical history Social History Social History Smoking status: Unknown if ever smoked Alcohol intake: unknown Substance use: unknown Substance use type: unknown Spiritual care concerns: No Exam Const: General: healthy appearing Nutritional Appearance: well nourished Limitations: no limitations Resp: Effort & Inspection: normal respiratory effort Auscultation: clear to auscultation bilaterally Cardio: Rate: regular rate Rhythm: regular rhythm GI: GI Palp: Yes Soft to palpation Auscultation: normal bowel sounds Skin: General skin exam: normal color Rashes: no rashes Neuro: General: patient oriented x3, moves all extremities, no meningeal signs and no focal motor deficits Cranial nerves: Yes CN's II-XII intact bilaterally Speech: normal speech Extrem: General: normal to inspection and no clubbing, cyanosis or edema Psych: Mental Status: mental status grossly normal Affect: normal affect Attitude: cooperative Course Vital Signs Vital signs: Vital Signs Temperature 97 F L 01/06/22 17:28 Pulse Rate 88 01/06/22 17:28 Respiratory Rate 18 01/06/22 17:28 Blood Pressure 105/82 01/06/22 17:28 Pulse Oximetry 100 01/06/22 17:28 Temperature 97 F L 01/06/22 17:28 Pulse Rate 74 01/06/22 20:08 Respiratory Rate 16 01/06/22 20:08 Blood Pressure 107/74 01/06/22 20:08 Pulse Oximetry 98 01/06/22 20:08 MDM - Male Genitourinary Lab Data Labs: Lab Results 01/06/22 Range/Units 18:41 Urine Color Yellow (Yellow) Urine Appearance Cloudy H (Clear) Urine pH >=9.0 H (5.0-9.0) Ur Specific [place] 1.010 (1.001-1.035) Urine Protein 2+ H (Negative) mg/dL Urine Glucose (UA) Negative (Negative) mg/dL Urine Ketones Trace (Negative) mg/dL Ur Blood (Man) 2+ H (Negative) Urine Nitrate Negative (Negative) Urine Bilirubin Negative (Negative) Urine Urobilinogen 0.2 (<2.0) mg/dL Leukocyte Esterase Rfl 3+ H (Negative) ULYSSES/UL Urine RBC >75 H (0-2) /hpf Urine WBC >75 H /hpf Ur Squamous Epith Cells Rare (Few) /hpf Urine Bacteria 3+ H /hpf Urine Mucus Rare /lpf Urine Characteristics Cloudy Discharge Plan Discharge Clinical Impression: Urinary tract infection Patient Disposition: Home, Self-Care Condition: Stable Instructions: Antibiotic Form, Urinary Tract Infection in Men (ED) Prescriptions:
[2022-01-06 20:08] VITALS: BP 107/74; PULSE 74; RESP 16; O2SAT 98
== END 2022-01-06 20:15 ==
PROVIDERS: Emergency Provider Emergency Medicine; PCP Internal Medicine
DX: N39.0 Urinary tract infection, site not specified (principal); E11.9 Type 2 diabetes mellitus without complications; Z79.4 Long term (current) use of insulin
CPT/HCPCS: 51702; 81001; 87077; 87086; 87186; 99283

== ENCOUNTER 2022-06-10 16:23 | Emergency (ER) | payer OTHER, SELFPAY ==
[2022-06-10] VITALS (9 sets, daily range): BP systolic 124–131; BP diastolic 84–107; PULSE 55–81; RESP 18; TEMP 36.4; O2SAT 100
--- NOTE | 2022-06-10 17:40 | ED.MALEGU ---
HPI - Male Genitourinary General Chief complaint: Urogenital-Male Stated complaint: Rendon cath has blood in urine after changing rendon Time Seen by Provider: 06/10/22 16:23 History of Present Illness HPI Narrative: Pt had rendon catheter changed today ant [place] and they noted blood in bag later today. Pt says has some pressure in bladder. Related Data Home Medications Medication Instructions Recorded Confirmed docusate sodium 50 mg/5 mL oral 100 mg PO DAILY 04/16/21 04/16/21 liquid famotidine 20 mg tablet 20 mg PO BID 04/16/21 04/16/21 insulin lispro 100 unit/mL 1 sliding scale dose subcut 04/16/21 04/16/21 subcutaneous solution USEASDIRECTD lisinopril 20 mg tablet 20 mg PO DAILY 04/16/21 04/16/21 metoprolol tartrate 25 mg tablet 25 mg PO BID 04/16/21 04/16/21 multivitamin with minerals-folic 1 tablet PO DAILY 04/16/21 04/16/21 acid 0.4 mg tablet polyethylene glycol 1 ea miscellaneous DAILY 04/16/21 04/16/21 silver sulfadiazine 1 % topical 1 applic topical DAILY 04/16/21 04/16/21 cream (Silvadene) Allergies Allergy/AdvReac Type Severity Reaction Status Date / Time No Known Allergies Allergy Verified 06/10/22 16:34 Review of Systems Review of Systems: All systems reviewed & are unremarkable except as noted in HPI and below PMFSH Family History Family History Other Unknown family medical history Social History Social History Smoking status: Unknown if ever smoked Alcohol intake: unknown Substance use: unknown Substance use type: unknown Spiritual care concerns: No Exam Const: General: healthy appearing and no acute distress Resp: Effort & Inspection: normal respiratory effort Auscultation: clear to auscultation bilaterally Cardio: Rate: regular rate Rhythm: regular rhythm GI: GI Palp: Yes Soft to palpation and Yes Tenderness to palpation present (GI) (minimal suprapubic tenderness) Skin: General skin exam: normal color Wounds: no wounds Neuro: General: patient oriented x3 and moves all extremities Speech: normal speech Extrem: General: normal to inspection Psych: Mental Status: mental status grossly normal Affect: normal affect Course Vital Signs Vital signs: Vital Signs Temperature 97.6 F 06/10/22 16:29 Pulse Rate 81 06/10/22 16:29 Respiratory Rate 18 06/10/22 16:29 Pulse Oximetry 100 06/10/22 16:29 Oxygen Delivery Room Air 06/10/22 16:29 Temperature 97.6 F 06/10/22 16:29 Pulse Rate 81 06/10/22 16:29 Respiratory Rate 18 06/10/22 16:29 Blood Pressure 124/84 06/10/22 16:33 Pulse Oximetry 100 06/10/22 16:29 Oxygen Delivery Room Air 06/10/22 16:29 MDM - Male Genitourinary MDM Narrative Medical decision making narrative: will order ua to determine if traumatic or uti. ua looks like uti with positive LE and >100wbc. will treat for uti Lab Data Labs: Lab Results 06/10/22 Range/Units 17:56 Urine Color Margaux (Yellow) Urine Appearance Cloudy H (Clear) Urine pH 6.0 (5.0-9.0) Ur Specific [place] >= 1.030 (1.001-1.035) Urine Protein 3+ H (Negative) mg/dL Urine Glucose (UA) Negative (Negative) mg/dL Urine Ketones Negative (Negative) mg/dL Ur Blood (Man) 3+ H (Negative) Urine Nitrate Negative (Negative) Urine Bilirubin 1+ H (Negative) Urine Urobilinogen 1.0 (<2.0) mg/dL Leukocyte Esterase Rfl 2+ H (Negative) ULYSSES/UL Urine RBC >100 H (0-2) /hpf Urine WBC >100 H /hpf Ur Squamous Epith Cells None seen (Few) /hpf Urine Bacteria None seen /hpf Urine Casts 0-2 Urine Characteristics Clots,Cloudy Discharge Plan Discharge Clinical Impression: Acute UTI, Hematuria Patient Disposition: Home, Self-Care Condition: Stable Instructions: Antibiotic Form, Urinary Tract Infection in Men (ED) Pr
[2022-06-10 18:06] LABS: Bacteria Urine None Seen /hpf; Non Pathogenic Casts 0-2; RBC Urine >100 /hpf (0-2); Squamous Epithelial Cell Urine None seen /hpf (Few); WBC Urine >100 /hpf
[2022-06-10 18:28] LABS: Appearance Urine Cloudy (Clear); Bilirubin Urine 1+ (Negative); Blood Urine 3+ (Negative); Color Urine Amber (Yellow); Glucose Urine UA Negative (Negative); Ketones Urine Negative (Negative); Leukocyte Esterase Ur 2+ LEU/UL (Negative); Nitrate Urine Negative (Negative); Protein Urine 3+ mg/dL (Negative); Specific Grav Ur >= 1.030 (1.001-1.035)
[2022-06-10 18:39] LABS: Add Urine Microscopic? YES
--- NOTE | 2022-06-10 19:03 | PC.NURSE ---
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
--- NOTE | 2022-06-10 20:31 | PC.NURSE ---
Kya here with transfer back to [facility]. Pt moved self from stretcher to EMS stretcher at this time without issues. [facility] notified at this time of ETA and that pt is leaving facility.
--- NOTE | 2022-06-10 22:07 | PC.NURSE ---
Daughter notified of pt d/c and transfer back to facility at this time.
== END 2022-06-10 20:33 | disposition home or self-care (01) ==
PROVIDERS: Emergency Provider Emergency Medicine; PCP Internal Medicine
DX: N39.0 Urinary tract infection, site not specified (principal); R31.9 Hematuria, unspecified
CPT/HCPCS: 81001; 87086; 87088; 99283

== ENCOUNTER 2023-10-05 13:46 | Emergency (ER) | payer OTHER, SELFPAY ==
[2023-10-05] VITALS (11 sets, daily range): BP systolic 96–139; BP diastolic 64–96; PULSE 85; RESP 16; TEMP 36.2; O2SAT 97–100
--- NOTE | 2023-10-05 15:49 | ED.RECABL ---
HPI - Recheck/Abnormal Lab/Rx General Chief Complaint: Recheck/Abnormal Lab/Rx <PAPITO Corado Last Filed: 10/05/23 15:51> Stated Complaint: abnormal kidney funct labs <PAPITO Corado Last Filed: 10/05/23 15:51> Time Seen by Provider: 10/05/23 15:45 <PAPITO Corado Last Filed: 10/05/23 15:51> Focused HPI: Patient is a 68-year-old male who presents to the ED via EMS for abnormal labs. Patient is resident of [facility]. Per EMS report patient had outpatient labs drawn yesterday which showed elevated creatinine compared to baseline. He was noted to be slightly hypotensive at the facility and facility doctor ordered fluids overnight however they were unable to give these. Patient is a poor historian. Reports pain and swelling to his L lower jaw over the past few days. No other complaints. GENERAL: Elderly, frail, thin, and in no acute distress. HEAD: Normocephalic, atraumatic. ENT: Diffuse dental decay, scattered dental caries. L lower gumline with area of fluctuance, induration, focal TTP - concerning for abscess. MMs dry. CHEST: Clear to auscultation. ?No respiratory distress. HEART: Regular rate and rhythm.? NEURO: ?Alert and oriented x3. Patient screened in triage and initial orders placed.? ?Additional care and disposition to be based upon?diagnostic testing and treatment. <Sakshi Melendez PA-C - Last Filed: 10/05/23 15:51> Source: patient and old records reviewed <PAPITO Corado Last Filed: 10/05/23 15:51> Mode of arrival: EMS <PAPITO Corado Last Filed: 10/05/23 15:51> Limitations: no limitations <PAPITO Corado Last Filed: 10/05/23 15:51> History of Present Illness HPI narrative: This is a 68-year-old male presenting from his skilled care facility for concerns of some dehydration. Patient had laboratory studies that showed a moderately elevated creatinine at 2.1 which is above his baseline. Patient was ordered to get IV fluids at his care facility however they were unable to do this as a symptom into the ED for hydration. Patient is awake alert answers my questions appropriately. He states he has no acute complaints and otherwise has been in his normal state of health. Denies any fever, chills, rigors. Denies any urinary complaints. Cc been eating and drinking appropriately. <Lyle Suggs MD - Last Filed: 10/05/23 23:19> Related Data Home Medications: Home Medications Medication Instructions Recorded Confirmed docusate sodium 50 mg/5 mL oral 100 mg PO DAILY 04/16/21 04/16/21 liquid famotidine 20 mg tablet 20 mg PO BID 04/16/21 04/16/21 insulin lispro 100 unit/mL 1 sliding scale dose subcut 04/16/21 04/16/21 subcutaneous solution USEASDIRECTD lisinopril 20 mg tablet 20 mg PO DAILY 04/16/21 04/16/21 metoprolol tartrate 25 mg tablet 25 mg PO BID 04/16/21 04/16/21 multivitamin with minerals-folic 1 tablet PO DAILY 04/16/21 04/16/21 acid 0.4 mg tablet polyethylene glycol 1 ea miscellaneous DAILY 04/16/21 04/16/21 silver sulfadiazine 1 % topical 1 applic topical DAILY 04/16/21 04/16/21 cream (Silvadene) <Sakshi Melendez PA-C - Last Filed: 10/05/23 15:51> Allergies/Adverse Reactions: Allergies Allergy/AdvReac Type Severity Reaction Status Date / Time No Known Allergies Allergy Verified 06/10/22 16:34 <Sakshi Melendez PA-C - Last Filed: 10/05/23 15:51> Review of Systems Review of Systems: As reviewed above in the HPI <Lyle Suggs MD - Last Filed: 10/05/23 23:19> [facility] Family History Family History: Family History Other Unknown family medical history <Sakshi Melendez PA-C - Last Filed: 07/30/24 15:51> Social History Social History: Social History Smoking stat
[2023-10-05 16:01] LABS: Basophils Percent Auto 0.5 % (0.2-1.2); Eosinophils Absolute Auto 0.2 K/mm3 (0-0.3); Eosinophils Percent Auto 2.7 % (0-4.4); Hematocrit 39.1 % (42.0-52.0); Hemoglobin 12.3 g/dL (14.0-18.0); Immature Granulocyte Absolute 0.02 K/mm3 (0.00-0.031); Immature Granulocyte Percent A 0.3 % (0-0.5); Lymphocytes Absolute Auto 2.16 K/mm3 (0.9-3.2); Lymphocytes Percent Auto 33.8 % (18.3-44.2); Mean Corpuscular HGB Conc 31.5 g/dl (32-36); Mean Corpuscular Hemoglobin 28.1 pg (26-34); Mean Corpuscular Volume 89.5 fl (80-100); Mean Platelet Volume 9.8 fl (7.4-10.4); Monocytes Absolute Auto 0.7 K/mm3 (0.1-0.6); Monocytes Percent Auto 10.3 % (2.6-8.5); Neutrophils Absolute Auto 3.4 K/mm3 (1.3-6.7); Neutrophils Percent Auto 52.4 % (45.5-73.1); Platelet Count Result 318 k/mm3 (150-375); Red Blood Count 4.37 M/mm3 (4.6-6.20); Red Cell Distribution Width 13.9 % (11.5-14.5); White Blood Count 6.4 K/mm3 (4.5-10.0)
[2023-10-05 16:13] LABS: Appearance Urine Cloudy (Clear); Bacteria Urine 4+ /hpf; Bilirubin Urine Negative (Negative); Blood Urine Negative (Negative); Color Urine Yellow (Yellow); Glucose Urine UA Negative (Negative); Ketones Urine Negative (Negative); Leukocyte Esterase Ur 2+ LEU/UL (Negative); Need Manual Microscopic Reviewed; Nitrate Urine Positive (Negative); Protein Urine Trace mg/dL (Negative); Specific Grav Ur 1.019 (1.001-1.035); Squamous Epithelial Cell Urine Occasional /hpf (Few); pH Urine 5.5 (5.0-9.0)
[2023-10-05 16:14] LABS: Add Urine Microscopic? YES
[2023-10-05] MEDS: SODIUM CHLORIDE 0.9% IV 1,000 ML 999 ML IV CONT ×2 (16:50→18:02)
--- NOTE | 2023-10-05 17:16 | ED.RECABL ---
HPI - Recheck/Abnormal Lab/Rx General Chief Complaint: Recheck/Abnormal Lab/Rx Stated Complaint: abnormal kidney funct labs Time Seen by Provider: 10/05/23 15:45 Source: patient and old records reviewed Mode of arrival: EMS Limitations: no limitations Related Data Home Medications Medication Instructions Recorded Confirmed docusate sodium 50 mg/5 mL oral 100 mg PO DAILY 04/16/21 04/16/21 liquid famotidine 20 mg tablet 20 mg PO BID 04/16/21 04/16/21 insulin lispro 100 unit/mL 1 sliding scale dose subcut 04/16/21 04/16/21 subcutaneous solution USEASDIRECTD lisinopril 20 mg tablet 20 mg PO DAILY 04/16/21 04/16/21 metoprolol tartrate 25 mg tablet 25 mg PO BID 04/16/21 04/16/21 multivitamin with minerals-folic 1 tablet PO DAILY 04/16/21 04/16/21 acid 0.4 mg tablet polyethylene glycol 1 ea miscellaneous DAILY 04/16/21 04/16/21 silver sulfadiazine 1 % topical 1 applic topical DAILY 04/16/21 04/16/21 cream (Silvadene) Allergies Allergy/AdvReac Type Severity Reaction Status Date / Time No Known Allergies Allergy Verified 06/10/22 16:34 [facility] Family History Family History Other Unknown family medical history Social History Social History Smoking status: Unknown if ever smoked Alcohol intake: unknown Substance use: unknown Substance use type: unknown Spiritual care concerns: No Course Vital Signs Vital signs: Vital Signs Temperature 36.2 C L 10/05/23 13:58 Pulse Rate 85 10/05/23 13:58 Respiratory Rate 16 10/05/23 13:58 Blood Pressure 96/64 L 10/05/23 13:58 Pulse Oximetry 99 10/05/23 13:58 Oxygen Delivery Room Air 10/05/23 13:58 Temperature 36.2 C L 10/05/23 13:58 Pulse Rate 85 10/05/23 13:58 Respiratory Rate 16 10/05/23 13:58 Blood Pressure 96/64 L 10/05/23 13:58 Pulse Oximetry 99 10/05/23 13:58 Oxygen Delivery Room Air 10/05/23 13:58 MDM - Recheck/Abnormal Lab/Rx Lab Data 10/05/23 15:54 10/05/23 17:29 Labs: Lab Results 10/05/23 10/05/23 Range/Units 15:54 17:29 WBC 6.4 (4.5-10.0) K/mm3 RBC 4.37 L (4.6-6.20) M/mm3 Hgb 12.3 L D (14.0-18.0) g/dL Hct 39.1 L (42.0-52.0) % MCV 89.5 (80-100) fl MCH 28.1 (26-34) pg MCHC 31.5 L (32-36) g/dl RDW 13.9 (11.5-14.5) % Plt Count 318 (150-375) k/mm3 MPV 9.8 (7.4-10.4) fl Immature Gran % (Auto) 0.3 (0-0.5) % Neut % (Auto) 52.4 (45.5-73.1) % Lymph % (Auto) 33.8 (18.3-44.2) % [place] % (Auto) 10.3 H (2.6-8.5) % Eos % (Auto) 2.7 (0-4.4) % Baso % (Auto) 0.5 (0.2-1.2) % Lymph # (Auto) 2.16 (0.9-3.2) K/mm3 [place] # (Auto) 0.7 H (0.1-0.6) K/mm3 Eos # (Auto) 0.2 (0-0.3) K/mm3 Baso # (Auto) 0.0 (0.0-0.1) K/mm3 Abs Immat Gran (auto) 0.02 (0.00-0.031) K/mm3 Absolute Neuts (auto) 3.4 (1.3-6.7) K/mm3 Absolute Nucleated RBC 0.000 (0.0-0.012) K/mm3 Nucleated RBC % 0.0 (0.0-0.2) % Sodium 138 (137-145) mmol/L Potassium 4.4 (3.4-5.0) mmol/L Chloride 101 (98-107) mmol/L Carbon Dioxide 28 (22-30) mmol/L Anion Gap 9 (4-12) mmol/L BUN 53 H D (9-20) mg/dL Creatinine 1.60 H (0.7-1.3) mg/dL Estim Creat Clear Calc 39 ml/min Estimated GFR 53 L (59 - ) Glucose 97 (65-110) mg/dL Calcium 8.8 (8.4-10.2) mg/dL Magnesium Cancelled 2.6 H Total Bilirubin 0.6 (0.2-1.3) mg/dL AST 31 (17-59) U/L ALT 26 (6-50) U/L Alkaline Phosphatase 98 (38-126) U/L Total Creatine Kinase Cancelled 158 Total Protein 8.0 (6.3-8.2) g/dL Albumin 4.3 (3.5-5.1) g/dL Urine Color Yellow (Yellow) Urine Appearance Cloudy H (Clear) Urine pH 5.5 (5.0-9.0) Ur Specific [place] 1.019 (1.001-1.035) Urine Protein Trace (Negative) mg/dL Urine Glucose (UA) Negative (Negative) mg/dL Urine Ketones Negative (Negative) mg/dL Ur Blood
[2023-10-05 17:53] LABS: Alanine Aminotransferase 26 U/L (6-50); Albumin Level 4.3 g/dL (3.5-5.1); Alkaline Phosphatase 98 U/L (38-126); Anion Gap 9 mmol/L (4-12); Aspartate Amino Transferase 31 U/L (17-59); Bilirubin,Total 0.6 mg/dL (0.2-1.3); Blood Urea Nitrogen 53 mg/dL (9-20); Calcium 8.8 mg/dL (8.4-10.2); Carbon Dioxide 28 mmol/L (22-30); Chloride 101 mmol/L (98-107); Creatine Kinase 158 U/L (55-170); Estimated CRCL calculation 39 ml/min; Estimated Glomerular Filt Rate 53; Glucose 97 mg/dL (65-110); Magnesium 2.6 mg/dL (1.6-2.3); Potassium 4.4 mmol/L (3.4-5.0); Sodium 138 mmol/L (137-145)
[2023-10-05] MEDS: SULFAMETHOXAZOLE/TRIMETHOPRIM 800/160 MG DS TABLET 1 TAB PO (19:26)
== END 2023-10-05 20:15 ==
PROVIDERS: Physician Assistant; Emergency Provider Student in an Organized Health Care Education/Training Program; PCP Internal Medicine
DX: N39.0 Urinary tract infection, site not specified (principal); E86.0 Dehydration; E11.9 Type 2 diabetes mellitus without complications; I10 Essential (primary) hypertension; Z79.4 Long term (current) use of insulin; Z79.82 Long term (current) use of aspirin; Z79.899 Other long term (current) drug therapy
CPT/HCPCS: 36415; 80053; 81001; 82550; 83735; 85025; 87077; 87086; 87088; 87186; 96360; 99283; A9270; J7030

== ENCOUNTER 2024-08-21 08:00 | Inpatient (IN) | payer OTHER, SELFPAY ==
[2024-08-21] VITALS (21 sets, daily range): BP systolic 76–139; BP diastolic 46–82; PULSE 99–155; RESP 18–30; TEMP 36.8–38.8; O2SAT 97–100; BMI 21.4
--- NOTE | ~2024-08-21 | XR_ITS ---
EXAMINATION: XR chest 1V portable DATE: 08/21/2024 08:50 INDICATION: Weakness TECHNIQUE: frontal view of the chest was obtained. COMPARISON: Chest radiograph dated 04/17/2021 FINDINGS: Discoid atelectasis/scarring at the right costophrenic angle. No other airspace opacities, pulmonary edema, pleural effusion or pneumothorax. The cardiomediastinal silhouette is normal. Left pectoral im plantable cardiac monitor technician. IMPRESSION: 1. Mild right basilar discoid atelectasis. Reviewed, dictated and finalized at location A.
--- NOTE | ~2024-08-21 | XR_ITS ---
MODIFIED ESOPHAGRAM HISTORY: Dysphagia. TECHNIQUE: Modified barium esophagram was performed on 08/28/2024. I administered fluoroscopy and perf ormed the exam with speech pathologist. Patient was seated for lateral fluoroscopic imaging for kamar stion of thin liquids, pudding, solids and quantified amounts, followed by thin liquids in uncontroll ed amounts. This was recorded on tape. A single fluoroscopic spot image was also recorded. The DAP fo r this procedure was 2.089 Gycm2. The amount of fluoroscopy time used during this procedure was 2.3 m inutes. FINDINGS: Oral stage: Adequate function. Pharyngeal stage: Reduced laryngeal adduction. Single episode of laryngeal penetration and aspiration with thin liquids.. Cervical/esophageal stage: Adequate function. 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 Please correlate with speech pathologist findings and specific feeding recommendations. Reviewed, dictated and finalized at location A. IMPRESSION: Congenital dysphagia with single episode of laryngeal penetration a nd aspiration with thin liquids. Please correlate with speech pathologist find ings and specific feeding recommendations.
--- NOTE | ~2024-08-21 | XR_ITS ---
XR retrograde pyelo w/stent LT Ordering provider: Gareth Kent MD History: . CYSTO LT RETROGRADE LT STENT PLACEMENT . Comparison: None. FINDINGS/impression: Left retrograde with stent placement was noted. Fluoroscopy time is 80 seconds. Cumulative dose is 23.35 mGy. Reviewed, dictated and finalized at location A.
--- NOTE | ~2024-08-21 | XR_ITS ---
XR abdomen/kub 1V Ordering provider: Sary Harris History: . ureteral calculus s/p stent placement . Comparison: None. FINDINGS: BOWEL: Nonobstructive bowel gas pattern. ORGANOMEGALY: None. SIGNIFICANT PATHOLOGIC CALCIFICATIONS: Left double-J stent. OTHER: No free air is seen under the diaphragm. IMPRESSION: NO ACUTE ABDOMINAL FINDINGS. Left double-J stent. Reviewed, dictated and finalized at location A.
--- NOTE | ~2024-08-21 | CT_ITS ---
CT Scan of the Chest without Contrast: Clinical Indication: Aspiration pneumonia Technique: Contiguous sections were acquired throughout the chest without intravenous contrast. Dose reduction technique was used on this scan by utilizing automated exposure control and iterative recon struction technique. The dose-length product (DLP) was 246.77 mGy-cm. COMPARISON: 08/22/2024 Findings: There is no evidence of any significant mediastinal, hilar or axillary lymphadenopathy. The mediastin al soft tissues appear normal. No pericardial effusion. Small bilateral pleural effusions are present. Stable 8 mm right upper lobe pulmonary nodule (axial i mage 37). There is mild right basilar atelectatic change. Images through the upper abdomen reveal moderate left hydronephrosis with left ureteral stent in plac e. Impression: Small bilateral pleural effusions with bibasilar atelectatic change. Stable 8 mm right upper lobe pulmonary nodule. Moderate left hydronephrosis with left ureteral stent. Reviewed, dictated and finalized at location . Impression: Small bilateral pleural effusions with bibasilar atelectatic change. Stable 8 mm right upper lobe pulmonary nodule. Moderate left hydronephrosis with left ureteral stent.
--- NOTE | ~2024-08-21 | CT_ITS ---
Non-contrast CT scan of the Abdomen and Pelvis Clinical indication: Ureteral stone, stent placement Technique: 2.5 mm axial scans were obtained through the abdomen and pelvis without intravenous or or al contrast. Dose reduction technique was used on this scan by utilizing automated exposure control a nd iterative reconstruction technique. The dose-length product (DLP) was 469.46 mGy-cm. COMPARISON: 08/22/2024 Findings: Images through the lung bases reveal increasing small bilateral pleural effusions, with mi nimal bibasilar atelectatic change. Minimal pericardial effusion present. Left ureteral stent in place. There is moderate left hydroureteronephrosis. 5 mm distal ureteral ston e present adjacent to the stent (axial image 148). There is an additional possible 3 mm stone just di stal to this also within the left ureter (axial image 153). Stable 1.3 cm left renal hyperdense cyst versus other mass. Right kidney unremarkable. Right ureter unremarkable. The liver, spleen, pancreas, gallbladder, and adrenals appear normal. There are atherosclerotic calci fications of the aorta. . There is no evidence of bowel obstruction. Images through the pelvis were performed. There is no evidence of ascites or lymphadenopathy. Walker c atheter present in the urinary bladder with questionable wall thickening versus underdistention. No p elvic mass seen. No ascites. Impression: Moderate left hydroureteronephrosis with left ureteral stent in place. 5 mm and 3 mm stones are prese nt in the distal left ureter. Suspected cystitis versus bladder underdistention. Correlate with urinalysis and clinical symptomatol ogy. Increasing small bilateral pleural effusions. Reviewed, dictated and finalized at location . Impression: Moderate left hydroureteronephrosis with left ureteral stent in place. 5 mm and 3 mm stones are present in the distal left ureter. Suspected cystitis versus bladder underdistention. Correlate with urinalysis an d clinical symptomatology. Increasing small bilateral pleural effusions.
--- NOTE | ~2024-08-21 | CT_ITS ---
Clinical Indication: Septic shock, abnormal LFTs CT Scan of the Chest, Abdomen, and Pelvis without Contrast: Technique: Contiguous sections were acquired throughout the chest, abdomen, and pelvis without IV con trast administration. Dose reduction technique was used on this scan by utilizing automated exposure control and iterative reconstruction technique. The dose-length product (DLP) was 482.47 mGy-cm. Findings: There is no evidence of any significant mediastinal, hilar or axillary lymphadenopathy. Coronary john ry calcifications are present. Minimal pericardial fluid present. There are also minimal bilateral pleural effusions. 8 mm medial right upper lobe pulmonary nodule present (axial image 37). 4 mm left basilar pulmonary n odule present (axial image 110). There is mild emphysema in the upper lobes. The liver, spleen, pancreas, gallbladder, adrenals and right kidney are within normal limits. 7 mm di stal left ureteral stone present, with moderate left hydroureteronephrosis. 1.3 cm hyperdense lesion at the peripheral aspect of left kidney most likely represents a hyperdense cyst. No evidence of aort ic aneurysm. No lymphadenopathy. No bowel obstruction or bowel wall thickening. There is no evidence to suggest acute appendicitis. Possible urinary bladder wall thickening, despite Walker catheter decompression. No pelvic mass eviden t. No ascites. Impression: 7 mm distal left ureteral stone with moderate left hydroureteronephrosis. 1.3 cm probable hyperdense left renal cysts, though solid mass is not excluded. Consider follow-up pr e and postcontrast MR to further evaluate. Possible cystitis versus under distention of the urinary bladder. Correlate with urinalysis. Pulmonary nodules, largest measuring 8 mm, as above. According to Fleischner Society criteria, for a low-risk patient, recommend follow-up CT scan in 3-6 months, then consider additional 18-[address] For a high-risk patient, follow-up CT scans at both 3-6 months and 18-24 months are recommended. Minimal bilateral pleural effusions. Reviewed, dictated and finalized at [facility]. Impression: 7 mm distal left ureteral stone with moderate left hydroureteronephrosis. 1.3 cm probable hyperdense left renal cysts, though solid mass is not excluded. Consider follow-up pre and postcontrast MR to further evaluate. Possible cystitis versus under distention of the urinary bladder. Correlate wit h urinalysis. Pulmonary nodules, largest measuring 8 mm, as above. According to Fleischner So ciety criteria, for a low-risk patient, recommend follow-up CT scan in 3-6 david hs, then consider additional 18-[address] For a high-risk patient, follow-up CT scans at both 3-6 months and 18-24 months are recommended. Minimal bilateral pleural effusions.
--- NOTE | 2024-08-21 08:04 | ECG_ITS ---
Test Date: 2024-08-21 08:10:43 Measurements Intervals [place] Rate: 142 P: 74 WA: 144 QRS: 71 QRSD: 88 T: 71 QT: 277 QTc: 426 Interpretive Statements SINUS TACHYCARDIA, POSSIBLE ATRIAL FLUTTER DELAYED PRECORDIAL R/S TRANSITION BORDERLINE ST-T WAVE ABNORMALITY- LATERAL LEADS BASELINE ARTIFACT- I, II, III, AVR, AVL, AVF, V1-V2, V5-V6 ABNORMAL ECG No previous ECG available for comparison Electronically Signed On 08-21-2024 08:33:56 CDT by Forrest Jade D.O.
--- OUTSIDE RECORDS SUMMARY | 2024-08-21 08:18 | XMS_ITS | Encounter Summary ---
Author Organization [facility] Healthcare Address [address] [place] [address] Care Team Providers Care Grips Name Role Phone Ean Lane MD Primary Care Provider [phone] Delia Merritt RN Unavailable Unavailabl Roslyn Alonso LCSW Unavailable Unavaila Bg Stern MD Unavailable [phone] Sharmila Oconnor MD Unavailable [phone] Lucio Jenkins MD Unavailable [phone] MD Primary Care Provider [phone] Encounter Details Date Type Department Care Team (Late st Contact Info) Description 03/16/2024 Telephone [facility] [address] [place] [address] [address] [place] [address] Helena Sharma Social History Tobacco Use Types Packs/Day Years Used Date Smoking Tobacco: Never Assessed [facility] Utilities Answer Date Recorded In the past 12 months has [employer], gas, oil, or water [employer] threatened to shut off services in your home? No 03/16/2024 Social Connection and Isolat ion Panel [NHANES] Answer Date Recorded In a typical week, how many times do you talk on the phone with family, friends, or neighbors? More than three times a week 03/16/2024 How often do you get togethe r with friends or relatives? More than three times a week 03/16/2024 How often do you attend chur ch or latter-day services? Never 03/16/2024 Do you belong to any clubs o r organizations such as episcopalian groups, unions, fraternal or athletic groups, or school groups? No 03/16/2024 How often do you attend meet ings of the clubs or organizations you belong to? Never 03/16/2024 Are you , , di vorced, , never , or living with a partner? Never 03/16/2024 AUDIT-C Answer Date Recorded Q1: How often do you have a drink containing alc ohol? Never 08/14/2021 Average Number of Drinks Not on file 022 Q3: How often do you have si x or more drinks on one occasion? Never 08/14/2021 Overall Financial Resource Strain (CARDIA) Answe r Date Recorded How hard is it for you to pa y for the very basics like food, housing, medical care, and heating? Not hard at all 03/16/2024 PHQ-2 Answer Date Recorded PHQ-2 Total Score 0 03/16/2024 Hunger Vital Sign Answer Date Recorded Within the past 12 months, y ou worried that your food would run out before you got the money to buy more. Never true 03/16/19 25 Within the past 12 months, t he food you bought just didn't last and you didn't have money to get more. Never true 03/16/2024 PRAPARE - Transportation Answer Date Re corded In the past 12 months, has l ack of transportation kept you from medical appointments or from getting medications? No 11/2024 In the past 12 months, has l ack of transportation kept you from meetings, work, or from getting things needed for daily living? No 03/16/2024 Housing Stability Vital Sign Answer James e Recorded In the last 12 months, was t here a time when you were not able to pay the mortgage or rent on time? No 03/16/2024 In the past 12 months, how m any times have you moved where you were living? 0 03/16/2024 At any time in the past 12 m [facility], were you homeless or living in a chcf (including now)? 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 [address] [place] [address] Medical Oncologist/Advertising Dispatch Clerk Medical Oncology 03/17/24 Sharmila Oconnor MD [address] [facility] OT[facility], [address] [place] [id number] Referring Physician Otolaryngology 03/17/24 Lucio Jenkins MD [address] [address] Radiation Oncologist Radiation Oncology 05/22/24 documented as of this encounter
--- OUTSIDE RECORDS SUMMARY | 2024-08-21 08:18 | XMS_ITS | Referral Summary ---
Author Organization [facility] Address [address] [place] [address] Care Team Providers Care Design Teacher Name Role Phone Delia Merritt RN Unavailable UnavailRoslyn Reyez LCSW Unavailable Unavaila Bg Stern MD Unavailable Sharmila Oconnor MD Unavailable [phone] Lucio Jenkins MD Unavailable [phone] MD Primary Care Provider [phone] Encounters Date Type Department Care Team Description 08/16/2024 Telephone [facility] [address] [facility] Advanced Medicine 8th [place] [address] [place] [phone] Morris Baeza 08/16/2024 Telephone [facility] [address] [facility] Advanced Medicine 8th [place] [address] [place] [address] Liliana Hinojosa 08/14/2024 Telephone [facility] [address] [facility] 4th [place] [address] Delia Merritt, supervisor dental laboratory Treatment End Check In 07/17/2024 Completion of Therapy [facility] Medical Office Building 2 Radiation Oncology [address] [place] [address] [phone] Lucio Jenkins MD 07/17/2024 Orders Only RAD ONC TREATMENTS Miscellaneous, Not In File 07/17/2024 3:45 PM CDT Treatment [facility] Medical Office Building 2 Radiation Oncology [address] [place] [address] [phone] Lucio Jenkins MD 07/14/2024 OTV [facility] Medical Office Building 2 Radiation Oncology [address] [place] [address] [phone] Lucio Jenkins MD 07/14/2024 Orders Only RAD ONC TREATMENTS Miscellaneous, Not In File 07/14/2024 8:45 AM CDT Treatment [facility] Medical Office Building 2 Radiation Oncology [address] [place] [address] [phone] 07/13/2024 Orders Only RAD ONC TREATMENTS Miscellaneous, Not In File 07/13/2024 8:45 AM CDT Treatment [facility] Medical Office Building 2 Radiation Oncology [address] [place] [address] 18748 07/12/2024 Orders Only RAD ONC TREATMENTS Miscellaneous, Not In File 07/12/2024 9:00 AM CDT Clinical Support [facility] Office Building 2 Radiation Oncology [address] [place] [address] 67858 Malignant neoplasm of larynx, unspecified (HCC) (Primary Dx); Moderate malnutrition (CMS/HCC) 07/12/2024 8:45 AM CDT Treatment [facility] Office Building 2 Radiation Oncology [address] [place] [address] 24554 07/11/2024 Orders Only RAD ONC TREATMENTS Miscellaneous, Not In File 07/11/2024 8:45 AM CDT Treatment [facility] Medical Office Building 2 Radiation Oncology [address] [place] [address] 80756 07/10/2024 Orders Only RAD ONC TREATMENTS Miscellaneous, Not In File 07/10/2024 Telephone [facility] [address] [place] [phone] Delia Merritt, supervisor dental laboratory Treatment Check In 07/10/2024 3:45 PM CDT Treatment [facility] Medical Office Building 2 Radiation Oncology [address] [place] [address] [phone] 07/07/2024 OTV [facility] Medical Office Building 2 Radiation Oncology [address] [place] [address] 43955 Lucio Jenkins MD 07/07/2024 Orders Only RAD ONC TREATMENTS Miscellaneous, Not In File 07/07/2024 8:45 AM CDT Treatment [facility] Medical Office Building 2 Radiation Oncology [address] [place] [address] 10090 07/06/2024 Orders Only RAD ONC TREATMENTS Miscellaneous, Not In File 07/06/2024 8:45 AM CDT Treatment [facility] Office Building 2 Radiation Oncology [address] [place] [address] 97856 07/05/2024 Documentation [facility] Office Building 2 Radiation Oncology [address] [place] [address] [phone] Renata Escobar RN Difficulty Urinating 07/05/2024 Orders Only RAD ONC TREATMENTS Miscellaneous, Not In File 07/05/2024 8:45 AM CDT Treatment [facility] Medical Office Building 2 Radiation Oncology [address] [place] [address] 94175 07/04/2024 Orders Only RAD ONC TREATMENTS Miscellaneous, Not In File 07/04/2024 8:45 AM CDT Treatment [facility] Office Building 2 Radiation Oncology [address] [place] [address] 68054 07/03/2024 Orders Only RAD ONC TREATMENTS Miscellaneous, Not In File 07/03/2024 9:00 AM CDT Clinical Support [facility] Medical Office Building 2 Radiation Oncology [address] [place] [address] 85469 Malignant neoplasm of larynx, unspecified (HCC) (Primary Dx); Altered mental status, unspecified altered mental status type 07/03/2024 8:45 AM CDT Treatment [facility] Office Building 2 Radiation Oncology [address] [place] [address] 55856 06/30/2024 Orders Only [facility] Office Building 2 Radiation Oncology [address] [place] [address] [phone] Lucio Jenkins MD 06/30/2024 9:15 AM CDT [facility] at [address] [phone] Malignant neoplasm of larynx, unspecified (HCC) (Primary Dx) 06/30/2024 Orders Only [facility] Office Building 2 Radiation Oncology [address] [place] [address] 61798 Lucio Jenkins MD Malignant neoplasm of larynx, unspecified (HCC) (Primary Dx) 06/30/2024 OTV [facility] Medical Office Building 2 Radiation Oncology [address] [place] [address] 19414 Lucio Jenkins MD 06/30/2024 Orders Only RAD ONC TREATMENTS Miscellaneous, Not In File 06/30/2024 8:45 AM CDT Treatment [facility] Medical Office Building 2 Radiation Oncology [address] [place] [address] 25865 06/29/2024 Orders Only RAD ONC TREATMENTS Miscellaneous, Not In File 06/29/2024 2:30 PM CDT Treatment [facility] Medical Office Building 2 Radiation Oncology [address] [place] [address] 79461 06/27/2024 Orders Only RAD ONC TREATMENTS Miscellaneous, Not In File 06/27/2024 8:45 AM CDT Treatment [facility] Office Building 2 Radiation Oncology [address] [place] [address] 25412 06/26/2024 Orders Only RAD ONC TREATMENTS Miscellaneous, Not In File 06/26/2024 8:45 AM CDT Treatment [facility] Office Building 2 Radiation Oncology [address] [place] [address] 14365 [facility] [address] [place] [address] 34935 Lucio Jenkins MD 06/23/2024 Orders Only RAD ONC TREATMENTS Miscellaneous, Not In File 06/23/2024 9:00 AM CDT Clinical Support [facility] Office Building 2 Radiation Oncology [address] [place] [address] 25277 Malignant neoplasm of larynx, unspecified (HCC) (Primary Dx); Moderate malnutrition (CMS/HCC) 06/23/2024 8:45 AM CDT Treatment [facility] Medical Office Building 2 Radiation Oncology [address] [place] [address] 06857 06/22/2024 Orders Only RAD ONC TREATMENTS Miscellaneous, Not In File 06/22/2024 8:45 AM CDT Treatment [facility] Office Building 2 Radiation Oncology [address] [place] [address] 98330 06/21/2024 Orders Only RAD ONC TREATMENTS Miscellaneous, Not In File 06/21/2024 2:00 PM CDT Treatment [facility] Medical Office Building 2 Radiation Oncology [address] [place] [address] 19277 06/20/2024 Orders Only RAD ONC TREATMENTS Miscellaneous, Not In File 06/20/2024 8:45 AM CDT Treatment [facility] Office Building 2 Radiation Oncology [address] [place] [address] 69685 06/19/2024 Orders Only RAD ONC TREATMENTS Miscellaneous, Not In File 06/19/2024 8:45 AM CDT Treatment [facility] Office Building 2 Radiation Oncology [address] [place] [address] [phone] 06/16/2024 Orders Only [facility] Office Building 2 Radiation Oncology [address] [place] [address] [phone] Lucio Jenkins MD Larynx cancer (HCC) (Primary Dx) 06/16/2024 OTV [facility] Medical Office Building 2 Radiation Oncology [address] [place] [address] [phone] Lucio Jenkins MD 06/16/2024 Orders Only RAD ONC TREATMENTS Miscellaneous, Not In File 06/16/2024 8:45 AM CDT Treatment [facility] Office Building 2 Radiation Oncology [address] [place] [address] 83175 06/15/2024 Orders Only RAD ONC TREATMENTS Miscellaneous, Not In File 06/15/2024 7:45 AM CDT Treatment [facility] Medical Office Building 2 Radiation Oncology [address] [place] [address] 84751 06/14/2024 Orders Only RAD ONC TREATMENTS Miscellaneous, Not In File 06/14/2024 8:45 AM CDT Treatment [facility] Medical Office Building 2 Radiation Oncology [address] [place] [address] 43448 06/13/2024 Orders Only RAD ONC TREATMENTS Miscellaneous, Not In File 06/13/2024 9:00 AM CDT Clinical Support [facility] Office Building 2 Radiation Oncology [address] [place] [address] 17156 Moderate malnutrition (CMS/HCC) (Primary Dx); Malignant neoplasm of larynx, unspecified (HCC) 06/13/2024 8:45 AM CDT Treatment [facility] Medical Office Building 2 Radiation Oncology [address] [place] [address] 44349 06/12/2024 Orders Only RAD ONC TREATMENTS Miscellaneous, Not In File 06/12/2024 2:45 PM CDT Treatment [facility] Office Building 2 Radiation Oncology [address] [place] [address] [phone] Lucio Jenkins MD 06/12/2024 2:30 PM CDT Treatment [facility] Office Building 2 Radiation Oncology [address] [place] [address] 32241 Lucio Jenkins MD 06/09/2024 Telephone [facility] [address] [place] [phone] Delia Merritt, supervisor dental laboratory Treatment Start Check In 06/06/2024 7:30 PM CDT Treatment [facility] Office Building 2 Radiation Oncology [address] [place] [address] 48236 05/29/2024 3:30 PM CDT Treatment [facility] Office Building 2 Radiation Oncology [address] [place] [address] 15559 Lucio Jenkins MD 05/29/2024 2:00 PM CDT Clinical Support [facility] Office Building 2 Radiation Oncology [address] [place] [address] 85029 Moderate malnutrition (CMS/HCC) (Primary Dx); Malignant neoplasm of larynx, unspecified (HCC); Larynx cancer (HCC) 05/29/2024 2:30 PM CDT Consult [facility] Medical Office Building 2 Radiation Oncology [address] [place] [address] [phone] Lucio Jenkins MD Supraglottic mass (Primary Dx) 05/25/2024 Telephone [facility] [address] [place] [address] from Last 3 Months Allergies No known active allergies Medications multivit with min-folic acid (Adult One Daily Multivitamin) 0.4 mg tablet Take 1 tablet by mouth daily 2 Active aspirin 81 mg chewable tablet Take 1 tablet (81 mg total) by mouth daily 2 Active docusate (COLACE) liquid 50 mg/5 mLIndications:const ipation Take 10 mL (100 mg total) by mouth daily 473 mL 1 2 Active doxycycline monohydrate (MONODOX) 100 mg capsuleIndications: Blood Stream/Endovascular Infection Take 1 capsule (100 mg total) by mouth 2 (two) times a day 8 capsule 2 Active famotidine (PEPCID) 20 mg tabletIndications:P revention of Stress Ulcer Take 1 tablet (20 mg total) by mouth 2 (two) times a day 60 tablet 11 2 Active lisinopriL (PRINIVIL,ZESTRIL) 20 mg tablet Take 1 tablet (20 mg total) by mouth daily 30 tablet 11 2 Active metoprolol tartrate (LOPRESSOR) 25 mg immediate release tablet Take 1 tablet (25 mg total) by mouth 2 (two) times a day 60 tablet 11 2 Active polyethylene glycol (MIRALAX) 17 gram packetIndications:c onstipation Take 1 packet (17 g total) by mouth daily 30 packet 1 2 Active atorvastatin (LIPITOR) 20 mg tablet Take 1 tablet (20 mg total) by mouth daily Active ondansetron ODT (ZOFRAN-ODT) 4 mg disintegrating tabletIndications:L arynx cancer (HCC) Take 1 tablet (4 mg total) by mouth every 8 (eight) hours as needed for nausea or vomiting 20 tablet 5 Active oxyCODONE (ROXICODONE) 5 mg immediate release tabletIndications:P ain Take 1 tablet (5 mg total) by mouth every 4 (four) hours as needed for pain 30 tablet 5 Active Active Problems Problem Noted Date Diagnosed Date LAD (lymphadenopathy) 04/03/2024 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 Malignant neoplasm of larynx, unspecified 2024 Cancer Staging:Clinical stage from 03/15/2024:Stage III(cT3, cN0, cM0) - Unsigned Stricture of urethral meatus in male 08/13/2021 Cardiomyopathy, idiopathic 03/27/2021 Bacteremia 03/27/2021 Essential hypertension, benign 03/27/2021 Mixed hyperlipidemia 03/27/2021 Moderate malnutrition 03/23/2021 Altered mental status 03/21/2021 Social History Tobacco Use Types Packs/Day Years Used Date Smoking Tobacco: Every Day Cigarettes 0.1 53.5 Started: 1970 Smokeless Tobacco: Never Tobacco Cessation:Ready to Q uit: Not Asked; Counseling Given: Not Answered [facility] Utilities Answer Date Recorded In the past 12 months has [employer], [employer], or water [employer] threatened to shut off services in your [...] week 03/16/2024 How often do you attend [facility] or quaker services? Never 03/16/2024 Do you belong to any clubs o r organizations such as advent groups, unions, fraternal or athletic groups, or school groups? No 03/16/2024 How often do you attend meet ings of the clubs or organizations you belong to? Never 03/16/2024 Are you , , di vorced, , never , or living with a partner? Never 03/16/2024 AUDIT-C Answer Date Recorded Q1: How often do you have a drink containing alcohol? Never 05/29/2024 Q2: How many drinks containi ng alcohol do you have on a typical day when you are drinking? Patient does not drink Frequency of Binge Drinking Not on file 05/07 Overall Financial Resource Strain (CARDIA) Answe r [...] the money to buy more. Never true 04/10/19 25 Within the past 12 months, t he food you bought just didn't last and you didn't have money to get more. Never true 04/10/2024 PRAPARE - Transportation Answer Date Re corded [...] any time in the past 12 m [facility], were you homeless or living in a long term (including now)? No 03/16/2024 Personal Safety Answer Date Recorded Have you ever been in or are you currently in a harmful physical or emotional relationship or is someone making you feel afraid or unsafe? Denies 04/10/2024 Sex and Gender Information Value Date Recorded Sex Assigned at Not on file Legal Sex Male 8:39 PM [employer] Gender Identity Not on file Sexual Orientation Not on file Last Filed Vital Signs Vital Sign Reading Time Taken Comments Blood Pressure 86/56 07/14/2024 8:56 AM CDT Pulse 81 07/14/2024 8:56 AM CDT Temperature 37.1 C (98.7 F) 06/30/2024 9:43 AM CDT Respiratory Rate 16 06/30/2024 9:43 AM CDT Oxygen Saturation 100% 07/14/2024 8:56 AM CDT Inhaled Oxygen Concentration - - Weight 71.3 kg (157 lb 3.2 oz) 06/30/2024 9:43 A M CDT w/shoes Height 177.8 cm (5' 10) 04/13/2024 3:35 PM [employer] Body Mass Index 22.56 04/13/2024 3:35 PM [employer] Plan of Treatment Not on file Procedures Procedure Name Priority Date/Time Associated Diagnosis Comments RAD ONC ARIA SESSION SUMMARY 07/17/2024 4:04 PM CDT RAD ONC ARIA SESSION SUMMARY 07/14/2024 8:52 AM CDT RAD ONC ARIA SESSION SUMMARY 07/13/2024 9:00 AM CDT RAD ONC ARIA SESSION SUMMARY 07/12/2024 8:44 AM CDT RAD ONC ARIA SESSION SUMMARY 07/11/2024 8:50 AM CDT RAD ONC ARIA SESSION SUMMARY 07/10/2024 3:57 PM CDT RAD ONC ARIA SESSION SUMMARY 07/07/2024 8:49 AM CDT RAD ONC ARIA SESSION SUMMARY 07/06/2024 8:44 AM CDT RAD ONC ARIA SESSION SUMMARY 07/05/2024 8:47 AM CDT RAD ONC ARIA SESSION SUMMARY 07/04/2024 8:49 AM CDT RAD ONC ARIA SESSION SUMMARY 07/03/2024 8:54 AM CDT RAD ONC ARIA SESSION SUMMARY 06/30/2024 8:56 AM CDT RAD ONC ARIA SESSION SUMMARY 06/29/2024 2:49 PM CDT RAD ONC ARIA SESSION SUMMARY 06/27/2024 8:52 AM CDT RAD ONC ARIA SESSION SUMMARY 06/26/2024 8:50 AM CDT RAD ONC ARIA SESSION SUMMARY 06/23/2024 8:44 AM CDT RAD ONC ARIA SESSION SUMMARY 06/22/2024 8:47 AM CDT RAD ONC ARIA SESSION SUMMARY 06/21/2024 2:26 PM CDT RAD ONC ARIA SESSION SUMMARY 06/20/2024 9:01 AM CDT RAD ONC ARIA SESSION SUMMARY 06/19/2024 9:03 AM CDT RAD ONC ARIA SESSION SUMMARY 06/16/2024 8:58 AM CDT RAD ONC ARIA SESSION SUMMARY 06/15/2024 7:47 AM CDT RAD ONC ARIA SESSION SUMMARY 06/14/2024 8:59 AM CDT RAD ONC ARIA SESSION SUMMARY 06/13/2024 9:08 AM CDT RAD ONC ARIA SESSION SUMMARY 06/12/2024 2:26 PM CDT POCT CREATININE FOR CONTRAST EVALUATION Routine 05/29/2024 3:[address] ABDOMEN PELVIS W CONTRAST ED 08/13/2021 4:14 PM CDT from Last 3 Months or Most Recently Relevant to Health Maintenance Results * RAD ONC ARIA SESSION SUMMARY (07/17/2024 4:04 PM CDT) Course Name [id number] ARIA Course Plan Date 05/29/2024 4:39 PM ARIA Elapsed Days 35 ARIA Treatment Start Date 06/12/2024 ARIA Treatment Site BILAT HN ARIA Dose Given To Date (cGy) 6,000 ARIA Session Dosage Given (cGy) 240 ARIA Plan ID BILAT HN ARIA Fractions Treated 25 ARIA Prescribed Dose Per Fraction (cGy) 240 ARIA Prescribed Total Dose (cGy) 6,000 ARIA 07/17/2024 4:04 PM CDT us Not In File Miscellaneous RADIATION ONCOLOGY ORD ERABLES Final Result Performing Organization Address City/[facility] Co de Phone Number ARINoemi * RAD ONC ARIA SESSION SUMMARY (07/14/2024 8:52 AM CDT) Course Name ARIA Course Plan Date 05/29/2024 4:39 PM ARIA Elapsed Days 32 ARIA Treatment Start Date 06/12/2024 ARIA Treatment Site BILAT HN ARIA Dose Given To Date (cGy) 5,760 ARIA Session Dosage Given (cGy) 240 ARIA Plan ID BILAT HN ARIA Fractions Treated 24 ARIA Prescribed Dose Per Fraction (cGy) 240 ARIA Prescribed Total Dose (cGy) 6,000 ARIA 07/14/2024 8:52 AM CDT us Not In File Miscellaneous RADIATION ONCOLOGY ORD ERABLES Final Result JAMAA * RAD ONC ARIA SESSION SUMMARY (07/13/2024 9:00 AM CDT) Course Name ARIA Course Plan Date 05/29/2024 4:39 PM ARIA Elapsed Days 31 ARIA Treatment Start Date 06/12/2024 ARIA Treatment Site BILAT HN ARIA Dose Given To Date (cGy) 5,520 ARIA Session Dosage Given (cGy) 240 ARIA Plan ID BILAT HN ARIA Fractions Treated 23 ARIA Prescribed Dose Per Fraction (cGy) 240 ARIA Prescribed Total Dose (cGy) 6,000 ARIA 07/13/2024 9:00 AM CDT us Not In File Miscellaneous RADIATION ONCOLOGY ORD ERABLES Final Result ARIA * RAD ONC ARIA SESSION SUMMARY (07/12/2024 8:44 AM CDT) Course Name [id number] ARIA Course Plan Date 05/29/2024 4:39 PM ARIA Elapsed Days 30 ARIA Treatment Start Date 06/12/2024 ARIA Treatment Site BILAT HN ARIA Dose Given To Date (cGy) 5,280 ARIA Session Dosage Given (cGy) 240 ARIA Plan ID BILAT HN ARIA Fractions Treated 22 ARIA Prescribed Dose Per Fraction (cGy) 240 ARIA Prescribed Total Dose (cGy) 6,000 ARIA 07/12/2024 8:44 AM CDT us Not In File Miscellaneous RADIATION ONCOLOGY ORD ERABLES Final Result ARIA * RAD ONC ARIA SESSION SUMMARY (07/11/2024 8:50 AM CDT) Course Name [id number] ARIA Course Plan Date 05/29/2024 4:39 PM ARIA Elapsed Days 29 ARIA Treatment Start Date 06/12/2024 ARIA Treatment Site BILAT HN ARIA Dose Given To Date (cGy) 5,040 ARIA Session Dosage Given (cGy) 240 ARIA Plan ID BILAT HN ARIA Fractions Treated 21 ARIA Prescribed Dose Per Fraction (cGy) 240 ARIA Prescribed Total Dose (cGy) 6,000 ARIA 07/11/2024 8:50 AM CDT us Not In File Miscellaneous RADIATION ONCOLOGY ORD ERABLES Final Result JAMAA * RAD ONC ARIA SESSION SUMMARY (07/10/2024 3:57 PM CDT) Course Name [id number] ARIA Course Plan Date 05/29/2024 4:39 PM ARIA Elapsed Days 28 ARIA Treatment Start Date 06/12/2024 ARIA Treatment Site BILAT HN ARIA Dose Given To Date (cGy) 4,800 ARIA Session Dosage Given (cGy) 240 ARIA Plan ID BILAT HN ARIA Fractions Treated 20 ARIA Prescribed Dose Per Fraction (cGy) 240 ARIA Prescribed Total Dose (cGy) 6,000 ARIA 07/10/2024 3:57 PM CDT us Not In File Miscellaneous RADIATION ONCOLOGY ORD ERABLES Final Result ARIA * RAD ONC ARIA SESSION SUMMARY (07/07/2024 8:49 AM CDT) Course Name [id number] ARIA Course Plan Date 05/29/2024 4:39 PM ARIA Elapsed Days 25 ARIA Treatment Start Date 06/12/2024 ARIA Treatment Site BILAT HN ARIA Dose Given To Date (cGy) 4,560 ARIA Session Dosage Given (cGy) 240 ARIA Plan ID BILAT HN ARIA Fractions Treated 19 ARIA Prescribed Dose Per Fraction (cGy) 240 ARIA Prescribed Total Dose (cGy) 6,000 ARIA 07/07/2024 8:49 AM CDT us Not In File Miscellaneous RADIATION ONCOLOGY ORD ERABLES Final Result ARIA * RAD ONC ARIA SESSION SUMMARY (07/06/2024 8:44 AM CDT) Course Name [id number] ARIA Course Plan Date 05/29/2024 4:39 PM ARIA Elapsed Days 24 ARIA Treatment Start Date 06/12/2024 ARIA Treatment Site BILAT HN ARIA Dose Given To Date (cGy) 4,320 ARIA Session Dosage Given (cGy) 240 ARIA Plan ID BILAT HN ARIA Fractions Treated 18 ARIA Prescribed Dose Per Fraction (cGy) 240 ARIA Prescribed Total Dose (cGy) 6,000 ARIA 07/06/2024 8:44 AM CDT us Not In File Miscellaneous RADIATION ONCOLOGY ORD ERABLES Final Result RENÉ * RAD ONC ARIA SESSION SUMMARY (07/05/2024 8:47 AM CDT) Course Name [id number] ARIA Course Plan Date 05/29/2024 4:39 PM ARIA Elapsed Days 23 ARIA Treatment Start Date 06/12/2024 ARIA Treatment Site BILAT HN ARIA Dose Given To Date (cGy) 4,080 ARIA Session Dosage Given (cGy) 240 ARIA Plan ID BILAT HN ARIA Fractions Treated 17 ARIA Prescribed Dose Per Fraction (cGy) 240 ARIA Prescribed Total Dose (cGy) 6,000 ARIA 07/05/2024 8:47 AM CDT us Not In File Miscellaneous RADIATION ONCOLOGY ORD ERABLES Final Result ARINoeim * RAD ONC ARIA SESSION SUMMARY (07/04/2024 8:49 AM CDT) Course Name [id number] ARIA Course Plan Date 05/29/2024 4:39 PM ARIA Elapsed Days 22 ARIA Treatment Start Date 06/12/2024 ARIA Treatment Site BILAT HN ARIA Dose Given To Date (cGy) 3,840 ARIA Session Dosage Given (cGy) 240 ARIA Plan ID BILAT HN ARIA Fractions Treated 16 ARIA Prescribed Dose Per Fraction (cGy) 240 ARIA Prescribed Total Dose (cGy) 6,000 ARIA 07/04/2024 8:49 AM CDT us Not In File Miscellaneous RADIATION ONCOLOGY ORD ERABLES Final Result JAMAA * RAD ONC ARIA SESSION SUMMARY (07/03/2024 8:54 AM CDT) Course Name [id number] ARIA Course Plan Date 05/29/2024 4:39 PM ARIA Elapsed Days 21 ARIA Treatment Start Date 06/12/2024 ARIA Treatment Site BILAT HN ARIA Dose Given To Date (cGy) 3,600 ARIA Session Dosage Given (cGy) 240 ARIA Plan ID BILAT HN ARIA Fractions Treated 15 ARIA Prescribed Dose Per Fraction (cGy) 240 ARIA Prescribed Total Dose (cGy) 6,000 ARIA 07/03/2024 8:54 AM CDT us Not In File Miscellaneous RADIATION ONCOLOGY ORD ERABLES Final Result ARIA * RAD ONC ARIA SESSION SUMMARY (06/30/2024 8:56 AM CDT) Course Name [id number] ARIA Course Plan Date 05/29/2024 4:39 PM ARIA Elapsed Days 18 ARIA Treatment Start Date 06/12/2024 ARIA Treatment Site BILAT HN ARIA Dose Given To Date (cGy) 3,360 ARIA Session Dosage Given (cGy) 240 ARIA Plan ID BILAT HN ARIA Fractions Treated 14 ARIA Prescribed Dose Per Fraction (cGy) 240 ARIA Prescribed Total Dose (cGy) 6,000 ARIA 06/30/2024 8:56 AM CDT us Not In File Miscellaneous RADIATION ONCOLOGY ORD ERABLES Final Result ARIA * RAD ONC ARIA SESSION SUMMARY (06/29/2024 2:49 PM CDT) Course Name [id number] ARIA Course Plan Date 05/29/2024 4:39 PM ARIA Elapsed Days 17 ARIA Treatment Start Date 06/12/2024 ARIA Treatment Site BILAT HN ARIA Dose Given To Date (cGy) 3,120 ARIA Session Dosage Given (cGy) 240 ARIA Plan ID BILAT HN ARIA Fractions Treated 13 ARIA Prescribed Dose Per Fraction (cGy) 240 ARIA Prescribed Total Dose (cGy) 6,000 ARIA 06/29/2024 2:49 PM CDT us Not In File Miscellaneous RADIATION ONCOLOGY ORD ERABLES Final Result ARIA * RAD ONC ARIA SESSION SUMMARY (06/27/2024 8:52 AM CDT) Course Name [id number] ARIA Course Plan Date 05/29/2024 4:39 PM ARIA Elapsed Days 15 ARIA Treatment Start Date 06/12/2024 ARIA Treatment Site BILAT HN ARIA Dose Given To Date (cGy) 2,880 ARIA Session Dosage Given (cGy) 240 ARIA Plan ID BILAT HN ARIA Fractions Treated 12 ARIA Prescribed Dose Per Fraction (cGy) 240 ARIA Prescribed Total Dose (cGy) 6,000 ARIA 06/27/2024 8:52 AM CDT us Not In File Miscellaneous RADIATION ONCOLOGY ORD ERABLES Final Result ARIA * RAD ONC ARIA SESSION SUMMARY (06/26/2024 8:50 AM CDT) Course Name C1HN ARIA Course Plan Date 05/29/2024 4:39 PM ARIA Elapsed Days 14 ARIA Treatment Start Date 06/12/2024 ARIA Treatment Site BILAT HN ARIA Dose Given To Date (cGy) 2,640 ARIA Session Dosage Given (cGy) 240 ARIA Plan ID BILAT HN ARIA Fractions Treated 11 ARIA Prescribed Dose Per Fraction (cGy) 240 ARIA Prescribed Total Dose (cGy) 6,000 ARIA 06/26/2024 8:50 AM CDT us Not In File Miscellaneous RADIATION ONCOLOGY ORD ERABLES Final Result ARIA * RAD ONC ARIA SESSION SUMMARY (06/23/2024 8:44 AM CDT) Course Name C1_HN ARIA Course Plan Date 05/29/2024 4:39 PM ARIA Elapsed Days 11 ARIA Treatment Start Date 06/12/2024 ARIA Treatment Site BILAT HN ARIA Dose Given To Date (cGy) 2,400 ARIA Session Dosage Given (cGy) 240 ARIA Plan ID BILAT HN ARIA Fractions Treated 10 ARIA Prescribed Dose Per Fraction (cGy) 240 ARIA Prescribed Total Dose (cGy) 6,000 ARIA 06/23/2024 8:44 AM CDT us Not In File Miscellaneous RADIATION ONCOLOGY ORD ERABLES Final Result Performing Organization Address [facility] Co de Phone Number ARIA * RAD ONC ARIA SESSION SUMMARY (06/22/2024 8:47 AM CDT) Course Name C1_HN ARIA Course Plan Date 05/29/2024 4:39 PM ARIA Elapsed Days 10 ARIA Treatment Start Date 06/12/2024 ARIA Treatment Site BILAT HN ARIA Dose Given To Date (cGy) 2,160 ARIA Session Dosage Given (cGy) 240 ARIA Plan ID BILAT HN ARIA Fractions Treated 9 ARIA Prescribed Dose Per Fraction (cGy) 240 ARIA Prescribed Total Dose (cGy) 6,000 ARIA 06/22/2024 8:47 AM CDT us Not In File Miscellaneous RADIATION ONCOLOGY ORD ERABLES Final Result ARIA * RAD ONC ARIA SESSION SUMMARY (06/21/2024 2:26 PM CDT) Course Name C1HN ARIA Course Plan Date 05/29/2024 4:39 PM ARIA Elapsed Days 9 ARIA Treatment Start Date 06/12/2024 ARIA Treatment Site BILAT HN ARIA Dose Given To Date (cGy) 1,920 ARIA Session Dosage Given (cGy) 240 ARIA Plan ID BILAT HN ARIA Fractions Treated 8 ARIA Prescribed Dose Per Fraction (cGy) 240 ARIA Prescribed Total Dose (cGy) 6,000 ARIA 06/21/2024 2:26 PM CDT us Not In File Miscellaneous RADIATION ONCOLOGY ORD ERABLES Final Result Performing Organization Address [facility] Co de Phone Number ARIA * RAD ONC ARIA SESSION SUMMARY (06/20/2024 9:01 AM CDT) Course Name C1HN ARIA Course Plan Date 05/29/2024 4:39 PM ARIA Elapsed Days 8 ARIA Treatment Start Date 06/12/2024 ARIA Treatment Site BILAT HN ARIA Dose Given To Date (cGy) 1,680 ARIA Session Dosage Given (cGy) 240 ARIA Plan ID BILAT HN ARIA Fractions Treated 7 ARIA Prescribed Dose Per Fraction (cGy) 240 ARIA Prescribed Total Dose (cGy) 6,000 ARIA 06/20/2024 9:01 AM CDT us Not In File Miscellaneous RADIATION ONCOLOGY ORD ERABLES Final Result ARIA * RAD ONC ARIA SESSION SUMMARY (06/19/2024 9:03 AM CDT) Course Name C1HN ARIA Course Plan Date 05/29/2024 4:39 PM ARIA Elapsed Days 7 ARIA Treatment Start Date 06/12/2024 ARIA Treatment Site BILAT HN ARIA Dose Given To Date (cGy) 1,440 ARIA Session Dosage Given (cGy) 240 ARIA Plan ID BILAT HN ARIA Fractions Treated 6 ARIA Prescribed Dose Per Fraction (cGy) 240 ARIA Prescribed Total Dose (cGy) 6,000 ARIA 06/19/2024 9:03 AM CDT us Not In File Miscellaneous RADIATION ONCOLOGY ORD ERABLES Final Result RENÉ * RAD ONC ARIA SESSION SUMMARY (06/16/2024 8:58 AM CDT) Course Name C1_HN ARIA Course Plan Date 05/29/2024 4:39 PM ARIA Elapsed Days 4 ARIA Treatment Start Date 06/12/2024 ARIA Treatment Site BILAT HN ARIA Dose Given To Date (cGy) 1,200 ARIA Session Dosage Given (cGy) 240 ARIA Plan ID BILAT HN ARIA Fractions Treated 5 ARIA Prescribed Dose Per Fraction (cGy) 240 ARIA Prescribed Total Dose (cGy) 6,000 ARIA 06/16/2024 8:58 AM CDT us Not In File Miscellaneous RADIATION ONCOLOGY ORD ERABLES Final Result Performing Organization Address [facility] de Phone Number RENÉ * RAD ONC ARIA SESSION SUMMARY (06/15/2024 7:47 AM CDT) Course Name C1_HN ARIA Course Plan Date 05/29/2024 4:39 PM ARIA Elapsed Days 3 ARIA Treatment Start Date 06/12/2024 ARIA Treatment Site BILAT HN ARIA Dose Given To Date (cGy) 960 ARIA Session Dosage Given (cGy) 240 ARIA Plan ID BILAT HN ARIA Fractions Treated 4 ARIA Prescribed Dose Per Fraction (cGy) 240 ARIA Prescribed Total Dose (cGy) 6,000 ARIA 06/15/2024 7:47 AM CDT us Not In File Miscellaneous RADIATION ONCOLOGY ORD ERABLES Final Result ARIA * RAD ONC ARIA SESSION SUMMARY (06/14/2024 8:59 AM CDT) Course Name C1HN ARIA Course Plan Date 05/29/2024 4:39 PM ARIA Elapsed Days 2 ARIA Treatment Start Date 06/12/2024 ARIA Treatment Site BILAT HN ARIA Dose Given To Date (cGy) 720 ARIA Session Dosage Given (cGy) 240 ARIA Plan ID BILAT HN ARIA Fractions Treated 3 ARIA Prescribed Dose Per Fraction (cGy) 240 ARIA Prescribed Total Dose (cGy) 6,000 ARIA 06/14/2024 8:59 AM CDT us Not In File Miscellaneous RADIATION ONCOLOGY ORD ERABLES Final Result Performing Organization Address [facility] de Phone Number ARIA * RAD ONC ARIA SESSION SUMMARY (06/13/2024 9:08 AM CDT) Course Name C1HN ARIA Course Plan Date 05/29/2024 4:39 PM ARIA Elapsed Days 1 ARIA Treatment Start Date 06/12/2024 ARIA Treatment Site BILAT HN ARIA Dose Given To Date (cGy) 480 ARIA Session Dosage Given (cGy) 240 ARIA Plan ID BILAT HN ARIA Fractions Treated 2 ARIA Prescribed Dose Per Fraction (cGy) 240 ARIA Prescribed Total Dose (cGy) 6,000 ARIA 06/13/2024 9:08 AM CDT us Not In File Miscellaneous RADIATION ONCOLOGY ORD ERABLES Final Result Performing Organization Address City/State/[facility] Co de Phone Number ARIA * RAD ONC ARIA SESSION SUMMARY (06/12/2024 2:26 PM CDT) Course Name C1_HN ARIA Course Plan Date 05/29/2024 4:39 PM ARIA Elapsed Days 0 ARIA Treatment Start Date 06/12/2024 ARIA Treatment Site BILAT HN ARIA Dose Given To Date (cGy) 240 ARIA Session Dosage Given (cGy) 240 ARIA Plan ID BILAT HN ARIA Fractions Treated 1 ARIA Prescribed Dose Per Fraction (cGy) 240 ARIA Prescribed Total Dose (cGy) 6,000 ARIA 06/12/2024 2:26 PM CDT us Not In File Miscellaneous RADIATION ONCOLOGY ORD ERABLES Final Result RENÉ * (ABNORMAL) POCT creatinine for contrast evaluation (05/29/2024 3:34 PM CDT) Creatinine POC 1.40(H) 0.80 - 1.30 mg/dL Comment:Testing performed by : [facility], [address] [place] [address]., [address] Blood 05/29/2024 3:34 PM CDT 05/29/2024 3:34 PM CDT us Lucio Jenkins MD POINT OF CARE TEST ORDERABLES Final Result [place] [id number] [facility] Department [place] [address] * CT Abdomen Pelvis W Contrast (08/13/2021 4:14 PM CDT) Anatomical Region Laterality Modality Body N/A Computed Tomogra phy 08/13/2021 4:17 PM CDT Narrative 08/13/2021 4:32 PM CDT EXAM DESCRIPTION: CT ABDOMEN PELVIS W CONTRAST REASON FOR STUDY: Hematuria. Recent unsuccessful Walker catheter placement today. Unable to urinate. TECHNIQUE: CT scan of the abdomen and pelvis performed with intravenous and without oral contrast using helical scanning technique with dynamic intravenous contrast injection. Reconstructed coronal and sagittal MPR images reviewed. All images stored on PACS. Automated exposure control was used as a dose optimization technique for this examination. CONTRAST TYPE/DOSE: 100mL of IOVERSOL 350 MG IODINE/ML INTRAVENOUS SYRINGE injected via intravenous COMPARISON: CT abdomen and pelvis 03/21/2021 FINDINGS: LOWER CHEST: No significant pulmonary abnormalities. No effusion. LIVER: Normal size. No identified cystic or solid masses. GALLBLADDER: Normal. BILE DUCTS: No intrahepatic or extrahepatic ductal dilatation. SPLEEN: Normal size. 1.4 cm hypodense lesion in the superior upper pole of the spleen, could be a cyst. PANCREAS: No identified cystic or solid masses. No significant calcifications. No adjacent inflammation or peripancreatic fluid collections. Pancreatic duct not dilated. ADRENALS: Normal. KIDNEYS/URINARY TRACT: No hydronephrosis. Parenchymal scar posterior mid left kidney. 3 mm nonobstructing stone posterior mid left kidney. 7 mm hypodense cortical lesion posterior lower pole left kidney axial image 63, could be a hemorrhagic or proteinaceous cyst, but is technically indeterminate. Consider follow-up left renal ultrasound for further characterization. No ureteral dilatation. Diffuse urinary bladder wall thickening, likely accentuated by bladder decompression. There is also mild fat stranding about the bladder. Findings are consistent with cystitis. Recommend correlation to urinalysis. GI: No bowel dilatation. Normal appendix. Moderate amount of stool in the colon and rectum. PERITONEUM: No ascites or free air. RETROPERITONEUM: No mass or adenopathy. REPRODUCTIVE: Patchy hyperdensity along the peroneal margin of the base of the penis, measuring close to 3.5 cm in maximal dimension, axial image 159. This could be secondary to hemorrhage or blood pooling. Correlation to physical exam findings and patient's symptoms is recommended. VASCULATURE: Severe atherosclerotic stenosis proximal left superficial femoral artery axial image 180. MUSCULOSKELETAL: No significant abnormality. OTHER: No other abnormality. IMPRESSION: Diffuse urinary bladder wall thickening with adjacent fat stranding, compatible with cystitis. Recommend correlation to urinalysis. The bladder is decompressed. No hydronephrosis. Patchy hyperdensity along the peroneal margin of the base of the penis measures close to 3.5 cm in maximal dimension, and could be secondary to hemorrhage, or blood pooling. Correlation to physical exam findings and the patient's symptoms is recommended. 7 mm indeterminate cortical lesion posterior lower pole left kidney could be hemorrhagic or proteinaceous cyst. Consider nonemergent follow-up left renal ultrasound for further characterization. THIS IS AN ELECTRONICALLY VERIFIED FINAL REPORT 08/13/2021 4:32 PM - Electronically signed by Franklin Addison M.D. DL T: Report ID: [id number] Reading Location: [place] [address] Procedure Note Franklin Addison MD - 08/13/2021 EXAM DESCRIPTION: CT ABDOMEN PELVIS W CONTRAST REASON FOR STUDY: Hematuria. Recent unsuccessful Walker catheter placement today. Unable to urinate. TECHNIQUE: CT scan of the abdomen and pelvis performed with intravenousand without oral contrast using helical scanning technique with dynamic intravenous contrast injection. Reconstructed coronal and sagittal MPRimages reviewed. All images stored on PACS. Automated exposure control was used as a dose optimization technique forthis examination. CONTRAST TYPE/DOSE: 100mL of IOVERSOL 350 MG IODINE/ML INTRAVENOUSSYRINGE injected via intravenous COMPARISON: CT abdomen and pelvis 03/21/2021 FINDINGS: LOWER CHEST: No significant pulmonary abnormalities. Noeffusion. LIVER: Normal size. No identified cystic or solid masses. GALLBLADDER: Normal. BILE DUCTS: No intrahepatic or extrahepatic ductal dilatation. SPLEEN: Normal size. 1.4 cm hypodense lesion in the superior upper poleof the spleen, could be a cyst. PANCREAS: No identified cystic or solid masses. No significant calcifications. No adjacent inflammation or peripancreatic fluidcollections. Pancreatic duct not dilated. ADRENALS: Normal. KIDNEYS/URINARY TRACT: No hydronephrosis. Parenchymal scar posteriormid left kidney. 3 mm nonobstructing stone posterior mid left kidney. 7 mm hypodense cortical lesion posterior lower pole left kidney axial image 63, could be a hemorrhagic or proteinaceous cyst, but is technically indeterminate. Consider follow-up left renal ultrasound for further characterization. No ureteral dilatation. Diffuse urinary bladder wall thickening, likely accentuated by bladder decompression. There is alsomild fat stranding about the bladder. Findings are consistent with cystitis. Recommend correlation to urinalysis. GI: No bowel dilatation. Normal appendix. Moderate amount of stool inthe colon and rectum. PERITONEUM: No ascites or free air. RETROPERITONEUM: No mass or adenopathy. REPRODUCTIVE: Patchy hyperdensity along the peroneal margin of the baseof the penis, measuring close to 3.5 cm in maximal dimension, axial . This could be secondary to hemorrhage or blood pooling. Correlation to physical exam findings and patient's symptoms is recommended. VASCULATURE: Severe atherosclerotic stenosis proximal left superficial femoral artery axial image 180. MUSCULOSKELETAL: No significant abnormality. OTHER: No other abnormality. IMPRESSION: Diffuse urinary bladder wall thickening with adjacent fat stranding, compatible with cystitis. Recommend correlation to urinalysis. The bladder is decompressed. No hydronephrosis. Patchy hyperdensity along the peroneal margin of the base of the penis measures close to 3.5 cm in maximal dimension, and could be secondary to hemorrhage, or blood pooling. Correlation to physical exam findings andthe patient's symptoms is recommended. 7 mm indeterminate cortical lesion posterior lower pole left kidney couldbe hemorrhagic or proteinaceous cyst. Consider nonemergent follow-up leftrenal ultrasound for further characterization. THIS IS AN ELECTRONICALLY VERIFIED FINAL REPORT 08/13/2021 4:32 PM - Electronically signed by Franklin HAMMOND T: Report ID: [id number] Reading Location: [place] [address] Anita Arriola DO IMG CT PROCEDURES Final Result from Last 3 Months or Most Recently Relevant to Health Maintenance Insurance [facility] Advance Directives For more information, please contact: [phone] Documents on File Type Date Recorded Patient Solutions Analyst Expl anation Power of Public Health Microbiologist 08/13/2021 5:19 PM * Full Code (Latest Code Status on File) Date Activated Date Inactivated Comments 03/22/2021 10:55 AM 04/08/2021 5:12 AM Care Teams Design Teacher Relationship Specialty Start Date End Date Ean Lane MD [address] [place] [id number] PCP - General Internal Medicine 05/29/24 Deila Merritt RN Nurse Navigator 03/16/24 Roslyn Burnham LCSW Sales Teacher 03/16/24 Bg Ireland MD [address] [facility] [address] [place] [address] Medical Oncologist/Structural Analyst Medical Oncology 03/17/24 Sharmila Oconnor MD [address] [facility] OT[facility]OLOGY, [address] [place] [address] Referring Physician Otolaryngology 03/17/24 Lucio Jenkins MD [address] [place] [id number] Radiation Oncologist Radiation Oncology 05/22/24
--- OUTSIDE RECORDS SUMMARY | 2024-08-21 08:18 | XMS_ITS ---
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 Malignant neoplasm of larynx, unspecified 2024 Cancer Staging:Clinical stage from 03/15/2024:Stage III(cT3, cN0, cM0) - Unsigned Stricture of urethral meatus in male 08/13/2021 Cardiomyopathy, idiopathic 03/27/2021 Bacteremia 03/27/2021 Essential hypertension, benign 03/27/2021 Mixed hyperlipidemia 03/27/2021 Moderate malnutrition 03/23/2021 Altered mental status 03/21/2021 Current Treatment and Therapy Plans Hydration Therapy Plan* Plan Start Date:06/30/2024 Plan Provider:Lucio Jenkins MD Linked Problems Malignant neoplasm of larynx , unspecified (HCC) Treatment Medications No medications scheduled. Past Treatment and Therapy Plans Oncology Chemotherapy Treatment Plan Name Start Date Discontinue Date Treatment Medications Discontinue Reason Plan Provider Cycles Cetuximab Weekly (D1, D8, D15, D22) 28 day Cycles - Head and Neck 04/13/2024 cetuximab (ERBITUX) Patient Preference Bg Ireland MD Treatment not started Current Radiation Episodes * Radiation Oncology - Radiation Therapy - May 2024Overview* First Treatment Date Latest Treatment Date Treatment Site Technique Goal Episode Provider 06/12/2024 07/17/2024 Treatment Courses* Course [id number]/12/2024 - 07/17/2024 Treatment Period Fraction Dose Fractions Total Dose Plans Planned BIL HN 06/12/2024 - 07/17/2024 240 25 / 6 ,000 Reference Points Delivered BIL HN 06/12/2024 - 07/17/2024 6,000 Lifetime Dose Tracking * Chemical Lifetime Dose Automatic Entry Manual Entr y DLP 3,629.1 mGycm 3,629.1 mGycm 0 mGycm
--- OUTSIDE RECORDS SUMMARY | 2024-08-21 08:18 | XMS_ITS | Encounter Summary ---
Author Organization [facility] Address [address] [place] [address] Phone Care Team Providers Care Drill Runner Helper Name Role Phone Delia Merritt RN Unavailable Unavailabl Roslyn Alonso LCSW Unavailable Unavaila Bg Stern MD Unavailable [phone] Sharmila Oconnor MD Unavailable [phone] Lucio Jenkins MD Unavailable [phone] MD Primary Care Provider [phone] Encounter Details Date Type Department Care Team (Late st Contact Info) Description 08/16/2024 Telephone [facility] Cardiology [address] [facility] 8th [place] [address] [place] [address] Morris Baeza Social History Tobacco Use Types Packs/Day Years Used Date Smoking Tobacco: Every Day Cigarettes 0.1 53.5 Started: 1970 Smokeless Tobacco: Never [facility] Utilities Answer Date Recorded In the past 12 months has [employer], gas, oil, or water [employer] threatened to shut off services in your [...] 03/16/2024 How often do you attend chur or restorationism services? Never 03/16/2024 Do you belong to any clubs o r organizations such as tenriism groups, unions, fraternal or athletic groups, or [...] any time in the past 12 m [facility], were you homeless or living in a fpc (including now)? No 03/16/2024 Personal Safety Answer Date Recorded Have you ever been in or are you currently in a harmful physical or emotional relationship or is someone making you feel afraid or unsafe? Denies 04/10/2024 Sex and Gender Information Value Date Recorded Sex Assigned at Not on file Legal Sex Male 8:39 PM DEPOSITION OPERATOR Gender Identity Not on file Sexual Orientation Not on file documented as of this encounter Plan of Treatment Not on file documented as of this encounter Visit Diagnoses Not on filedocumented in this encounter Care Teams Drill Runner Helper Relationship Specialty Start Date End Date Ean Lane MD [address] [place] [address] PCP - General Internal Medicine 05/29/24 Delia Merritt, RN Nurse Navigator 03/16/24 Roslyn Burnham LCSW Position Classifier 03/16/24 Bg Ireland MD [address] [facility] [address] [place] [address] Medical Oncologist/Ornamental Brick Installer Medical Oncology 03/17/24 Sharmila Oconnor MD [address] [facility] OT[facility]OLOGY, [address] [place] [address] Referring Physician Otolaryngology 03/17/24 Lucio Jenkins MD [address] [address] Radiation Oncologist Radiation Oncology 05/22/24 documented as of this encounter
--- OUTSIDE RECORDS SUMMARY | 2024-08-21 08:18 | XMS_ITS | Clinical Summary ---
Author Organization [facility] Address [address] [place] [address] Care Team Providers Care Teacher Private Name Role Phone Delia Merritt RN Unavailable UnavailRoslyn Reyez LCSW Unavailable Unavaila Bg Stern MD Unavailable [phone] Sharmila Oconnor MD Unavailable [phone] Lucio Jenkins MD Unavailable [phone] MD Primary Care Provider [phone] Allergies No known active allergies Medications multivit [...] Moderate malnutrition 03/23/2021 Altered mental status 03/21/2021 Encounters Date Type Department Care Team Description 08/16/2024 Telephone [facility] [address] [facility] 8th [place] [address] [place] [address] Morris Baeza 08/16/2024 Telephone [facility] [address] [facility] Advanced [facility] 8th [place] [address] [place] [address] Liliana Hinojosa 08/14/2024 Telephone [facility] [address] [facility] 4th [place] [address] Delia Merritt, business systems analyst Treatment End Check In 07/17/2024 3:45 PM CDT Treatment [facility] 2 Radiation Oncology [address] [place] [address] 11926 Lucio Jenkins MD 07/17/2024 Completion of Therapy [facility] 2 Radiation Oncology [address] [place] [address] 65401 Lucio Jenkins MD 07/17/2024 Orders Only RAD ONC TREATMENTS Miscellaneous, Not In File 07/14/2024 8:45 AM CDT Treatment [facility] 2 Radiation Oncology [address] [place] [address] 45668 07/14/2024 OTV [facility] 2 Radiation Oncology [address] [place] [address] 30484 Lucio Jenkins MD 07/14/2024 Orders Only RAD ONC TREATMENTS Miscellaneous, Not In File 07/13/2024 8:45 AM CDT Treatment [facility] 2 Radiation Oncology [address] [place] [address] 49446 07/13/2024 Orders Only RAD ONC TREATMENTS Miscellaneous, Not In File 07/12/2024 9:00 AM CDT Clinical Support [facility] 2 Radiation Oncology [address] [place] [address] 91382 Malignant neoplasm of larynx, unspecified (HCC) (Primary Dx); Moderate malnutrition (CMS/HCC) 07/12/2024 8:45 AM CDT Treatment [facility] 2 Radiation Oncology [address] [place] [address] 76338 07/12/2024 Orders Only RAD ONC TREATMENTS Miscellaneous, Not In File 07/11/2024 8:45 AM CDT Treatment [facility] 2 Radiation Oncology [address] [place] [address] 69933 07/11/2024 Orders Only RAD ONC TREATMENTS Miscellaneous, Not In File 07/10/2024 3:45 PM CDT Treatment [facility] 2 Radiation Oncology [address] [place] [address] 27224 07/10/2024 Orders Only RAD ONC TREATMENTS Miscellaneous, Not In File 07/10/2024 Telephone [facility] [address] [address] Delia Merritt, business systems analyst Treatment Check In 07/07/2024 8:45 AM CDT Treatment [facility] 2 Radiation Oncology [address] [place] [address] 51678 07/07/2024 OTV [facility] 2 Radiation Oncology [address] [place] [address] 92814 Lucio Jenkins MD 07/07/2024 Orders Only RAD ONC TREATMENTS Miscellaneous, Not In File 07/06/2024 8:45 AM CDT Treatment [facility] 2 Radiation Oncology [address] [place] [address] 47965 07/06/2024 Orders Only RAD ONC TREATMENTS Miscellaneous, Not In File 07/05/2024 8:45 AM CDT Treatment [facility] 2 Radiation Oncology [address] [place] [address] 64501 07/05/2024 Documentation [facility] 2 Radiation Oncology [address] [place] [address] 76744 Renata Escobar RN Difficulty Urinating 07/05/2024 Orders Only RAD ONC TREATMENTS Miscellaneous, Not In File 07/04/2024 8:45 AM CDT Treatment [facility] 2 Radiation Oncology [address] [place] [address] 25348 07/04/2024 Orders Only RAD ONC TREATMENTS Miscellaneous, Not In File 07/03/2024 9:00 AM CDT Clinical Support [facility] 2 Radiation Oncology [address] [place] [address] 71704 Malignant neoplasm of larynx, unspecified (HCC) (Primary Dx); Altered mental status, unspecified altered mental status type 07/03/2024 8:45 AM CDT Treatment [facility] 2 Radiation Oncology [address] [place] [address] 94136 07/03/2024 Orders Only RAD ONC TREATMENTS Miscellaneous, Not In File 06/30/2024 9:15 AM CDT Infusion [facility] [id number] [facility] [address] [place] [address] Malignant neoplasm of larynx, unspecified (HCC) (Primary Dx) 06/30/2024 8:45 AM CDT Treatment [facility] 2 Radiation Oncology [address] [place] [address] 34161 06/30/2024 Orders Only [facility] 2 Radiation Oncology [address] [place] [address] 26039 Lucio eJnkins MD 06/30/2024 Orders Only [facility] 2 Radiation Oncology [address] [place] [address] [phone] Lucio Jenkins MD Malignant neoplasm of larynx, unspecified (HCC) (Primary Dx) 06/30/2024 OTV [facility] 2 Radiation Oncology [address] [place] [address] 06581 Lucio Jenkins MD 06/30/2024 Orders Only RAD ONC TREATMENTS Miscellaneous, Not In File 06/29/2024 2:30 PM CDT Treatment [facility] 2 Radiation Oncology [address] [place] [address] 89703 06/29/2024 Orders Only RAD ONC TREATMENTS Miscellaneous, Not In File 06/27/2024 8:45 AM CDT Treatment [facility] 2 Radiation Oncology [address] [place] [address] 86710 06/27/2024 Orders Only RAD ONC TREATMENTS Miscellaneous, Not In File 06/26/2024 8:45 AM CDT Treatment [facility] 2 Radiation Oncology [address] [place] [address] 34195 06/26/2024 Orders Only RAD ONC TREATMENTS Miscellaneous, Not In File 06/23/2024 9:00 AM CDT Clinical Support [facility] 2 Radiation Oncology [address] [place] [address] 73679 Malignant neoplasm of larynx, unspecified (HCC) (Primary Dx); Moderate malnutrition (CMS/HCC) 06/23/2024 8:45 AM CDT Treatment [facility] 2 Radiation Oncology [address] [place] [address] 93376 06/23/2024 OTV [facility] 2 Radiation Oncology [address] [place] [address] 64009 Lucio Jenkins MD 06/23/2024 Orders Only RAD ONC TREATMENTS Miscellaneous, Not In File 06/22/2024 8:45 AM CDT Treatment [facility] 2 Radiation Oncology [address] [place] [address] 27097 06/22/2024 Orders Only RAD ONC TREATMENTS Miscellaneous, Not In File 06/21/2024 2:00 PM CDT Treatment [facility] 2 Radiation Oncology [address] [place] [address] 56266 06/21/2024 Orders Only RAD ONC TREATMENTS Miscellaneous, Not In File 06/20/2024 8:45 AM CDT Treatment [facility] 2 Radiation Oncology [address] [place] [address] 66447 06/20/2024 Orders Only RAD ONC TREATMENTS Miscellaneous, Not In File 06/19/2024 8:45 AM CDT Treatment [facility] 2 Radiation Oncology [address] [place] [address] 80088 06/19/2024 Orders Only RAD ONC TREATMENTS Miscellaneous, Not In File 06/16/2024 8:45 AM CDT Treatment [facility] 2 Radiation Oncology [address] [place] [address] 77352 06/16/2024 Orders Only [facility] 2 Radiation Oncology [address] [place] [address] 05924 Lucio Jenkins MD Larynx cancer (HCC) (Primary Dx) 06/16/2024 OTV [facility] 2 Radiation Oncology [address] [place] [address] 97920 Lucio Jenkins MD 06/16/2024 Orders Only RAD ONC TREATMENTS Miscellaneous, Not In File 06/15/2024 7:45 AM CDT Treatment [facility] 2 Radiation Oncology [address] [place] [address] 00362 06/15/2024 Orders Only RAD ONC TREATMENTS Miscellaneous, Not In File 06/14/2024 8:45 AM CDT Treatment [facility] 2 Radiation Oncology [address] [place] [address] 03692 06/14/2024 Orders Only RAD ONC TREATMENTS Miscellaneous, Not In File 06/13/2024 9:00 AM CDT Clinical Support [facility] 2 Radiation Oncology [address] [place] [address] 49652 Moderate malnutrition (CMS/HCC) (Primary Dx); Malignant neoplasm of larynx, unspecified (HCC) 06/13/2024 8:45 AM CDT Treatment [facility] 2 Radiation Oncology [address] [place] [address] 97858 06/13/2024 Orders Only RAD ONC TREATMENTS Miscellaneous, Not In File 06/12/2024 2:45 PM CDT Treatment [facility] 2 Radiation Oncology [address] [place] [address] 43712 Lucio Jenkins MD 06/12/2024 2:30 PM CDT Treatment [facility] 2 Radiation Oncology [address] [place] [address] 68876 Lucio Jenkins MD 06/12/2024 Orders Only RAD ONC TREATMENTS Miscellaneous, Not In File 06/09/2024 [facility] [address] [place] [phone] Delia Merritt, business systems analyst Treatment Start Check In 06/06/2024 7:30 PM CDT Treatment [facility] 2 Radiation Oncology [address] [place] [address] 79636 05/29/2024 3:30 PM CDT Treatment [facility] 2 Radiation Oncology [address] [place] [address] 92809 Lucio Jenkins MD 05/29/2024 2:30 PM CDT Consult [facility] 2 Radiation Oncology [address] [place] [address] 21907 Lucio Jenkins MD Supraglottic mass (Primary Dx) 05/29/2024 2:00 PM CDT Clinical Support [facility] 2 Radiation Oncology [address] [place] [address] 18127 Moderate malnutrition (CMS/HCC) (Primary Dx); Malignant neoplasm of larynx, unspecified (HCC); Larynx cancer (HCC) 05/25/2024 Telephone [facility] [address] [place] [address] from Last 3 Months Surgical History Surgery Date Site/Laterality Comments KNEE ARTHROSCOPY Left Medical History Medical History Date Comments Chronic anemia Diabetes (HCC) MRSA (methicillin resistant Staphylococcus aureu s) Schizophrenia (HCC) COPD (chronic obstructive pulmonary disease) (HC C) Hypertension Stroke (HCC) Family History Medical History Relation Name Comments Heart attack Sister Relation Name Status Comments Sister Social History Tobacco Use Types Packs/Day Years Used Date Smoking Tobacco: Every Day Cigarettes 0.1 53.5 Started: 1971 Smokeless Tobacco: Never Tobacco Cessation:Ready to Q uit: Not Asked; Counseling Given: Not Answered [facility] Utilities Answer Date Recorded In the past 12 months has [employer], gas, oil, or water Social DJ threatened to shut off services in your [...] any clubs o r organizations such as episcopal groups, unions, fraternal or athletic groups, or [...] any time in the past [address] [place], were you homeless or living in a alf (including now)? No 03/16/2024 Personal Safety Answer Date Recorded Have you ever been in or are you currently in a harmful physical or emotional relationship or is someone making you feel afraid or unsafe? Denies 04/10/2024 Sex and Gender Information Value Date Recorded Sex Assigned at Not on file Legal Sex Male 8:39 PM [employer]OOK P[employer] Gender Identity Not on file Sexual Orientation Not on file Obstetrics History Last Filed Vital Signs Vital Sign Reading [...] 177.8 cm (5' 10) 04/13/2024 3:35 PM BOOK P[employer]ER Body Mass Index 22.56 04/13/2024 3:35 PM BOOK PACKER Plan of Treatment Health Maintenance Due Date Last Done Comments Colon Cancer Screening-Colonoscopy 1955 Hepatitis C Screening 1955 Prostate Cancer Screening-PSA 1956 DTaP/Tdap/Td Vaccine (1 - Tdap) 1967 Hepatitis B Screening 1974 Pneumococcal vaccine 65+ (1 of 2 - PCV) 1975 Zoster Vaccine (1 of 2) 1975 Well Visit 65+ 2021 Covid-19 Vaccine (4 - 2023-2 5 season) 2023 12/17/2022, 04/30/2022, 09/23/2020 Influenza Vaccine (Season Ended) 2024 12/25/19 13 Depression Screening 03/16/2025 03/16/2024 Fall Risk Assessment 04/10/2025 04/10/2024, 03/30/19 25 Abdominal Aortic Aneurysm (A AA) Screen Completed 08/13/2021, 03/21/2021, 02/03/2021, Additional history exists Procedures Procedure Name Priority Date/Time Associated Diagnosis [...] SUMMARY (07/17/2024 4:04 PM CDT) Course Name [id number]_[id number]_2024 ARIA Course Plan [...] RENÉ * RAD ONC ARIA SESSION SUMMARY (07/14/2024 8:52 AM CDT) Course Name C1_HN ARIA Course [...] ORD ERABLES Final Result Performing Organization Address City/[facility] Co de Phone Number ARINoemi * RAD ONC ARIA SESSION SUMMARY (07/13/2024 9:00 AM CDT) Course Name C1HN ARIA Course [...] RENÉ * RAD ONC ARIA SESSION SUMMARY (07/12/2024 8:44 AM CDT) Course Name C1HN ARIA Course [...] SUMMARY (07/11/2024 8:50 AM CDT) Course Name C1_HN ARIA Course [...] ARIA * RAD ONC ARIA SESSION SUMMARY (07/10/2024 3:57 PM CDT) Course Name [id number]_HN_2024 ARIA Course Plan [...] ARIA * RAD ONC ARIA SESSION SUMMARY (07/05/2024 8:47 AM CDT) Course Name C1_HN ARIA [...] Prescribed Total Dose (cGy) 6,000 ARIA 07/05/2024 8:4 7 AM CDT us Not In File Miscellaneous RADIATION ONCOLOGY ORD ERABLES Final Result RENÉ * RAD ONC ARIA SESSION SUMMARY (07/04/2024 8:49 AM CDT) Course Name C1_HN ARIA [...] ARIA * RAD ONC ARIA SESSION SUMMARY (07/03/2024 [...] SUMMARY (06/29/2024 2:49 PM CDT) Course Name C1_HN ARIA Course [...] Organization Address [facility] Co de Phone Number ARIA [...] SUMMARY (06/23/2024 8:44 AM CDT) Course Name C1HN ARIA Course [...] Organization Address [facility] de Phone Number ARIA * RAD ONC ARIA SESSION SUMMARY (06/21/2024 2:26 PM CDT) Course Name C1_HN ARIA [...] ORD ERABLES Final Result Performing Organization Address City/State/[facility] Co de Phone Number ARIA * RAD ONC ARIA SESSION SUMMARY (06/20/2024 9:01 AM CDT) Course Name C1_HN ARIA Course [...] Organization Address [facility] Co de Phone Number ARIA [...] ARIA * RAD ONC ARIA SESSION SUMMARY (06/16/2024 8:58 AM CDT) Course Name HN ARIA Course Plan Date 05/29/2024 4:39 PM [...] Organization Address [facility] de Phone Number RENÉ * RAD ONC ARIA SESSION SUMMARY (06/14/2024 8:59 AM CDT) Course Name C1_HN ARIA Course [...] ORD ERABLES Final Result Performing Organization Address City/State/[facility] Co de Phone Number ARINoemi * RAD ONC ARIA SESSION SUMMARY (06/13/2024 9:08 AM CDT) Course Name C1_HN ARIA Course [...] Organization Address [facility] de Phone Number ARIA * RAD ONC [...] ORD ERABLES Final Result Performing Organization Address City/State/[facility] Co de Phone Number RENÉ * (ABNORMAL) POCT creatinine for contrast evaluation (05/29/2024 3:34 PM CDT) Pathologist [facility] Creatinine POC 1.40(H) 0.80 - 1.30 mg/dL Comment:Testing performed by : [facility], [address] [place] [address], [place]., [address] Blood 05/29/2024 3:34 PM CDT 05/29/2024 3:34 PM CDT us Lucio Jenkins MD POINT OF CARE TEST ORDERABLES Final Result ELLIE MH [address] [facility] Department [place] [address] * CT Abdomen Pelvis W Contrast (08/13/2021 [...] Franklin Addison M.D. DL T: Report ID: [id number] Reading Location: [id number] Procedure Note Franklin Addison MD - 08/13/2021 [...] to 3.5 cm in maximal dimension, axial [id number]. This could be secondary to hemorrhage or [...] signed by Franklin HAMMOND T: Report ID: [id number] Reading Location: [place] [address] us Anita Arriola DO IMG CT PROCEDURES Final Result from Last 3 Months or Most Recently Relevant to Health Maintenance Insurance [facility] Advance Directives For more information, please contact: [phone] Documents on File Type Date Recorded Patient Hot Bread Baker Expl anation Power of Supervisor Wet End 08/13/2021 5:19 PM * Full Code (Latest Code Status on File) Date Activated Date Inactivated Comments 03/22/2021 10:55 AM 04/08/2021 5:12 AM Care Teams Teacher Private Relationship Specialty Start Date End Date Ean Lane MD [address] [place] [address] PCP - General Internal Medicine 05/29/24 Delia Merritt, RN Nurse Navigator 03/16/24 Roslyn Burnham LCSW Lieutenant Firefighter 03/16/24 Bg Ireland MD [address] [facility] [address] [place] [address] Medical Oncologist/[employer] Medical Oncology 03/17/24 Sharmila Oconnor MD [address] [facility] DEPT OTOLARYNGOLOGY, [address] [place] [address] Referring Physician Otolaryngology 03/17/24 Lucio Jenkins MD [address] [place] [address] Radiation Oncologist Radiation Oncology 05/22/24
--- NOTE | 2024-08-21 08:21 | ED_ITS ---
HPI - General Adult General Chief complaint: Weakness Stated complaint: hypotensive, tachycardic History of Present Illness HPI narrative: 69-year-old male with history of type 2 diabetes, dementia, CVA, chronic urinary obstruction with chronic indwelling Rendon presents to the emergency department for evaluation tachycardia, hypotension and fever. Patient does have an indwelling Rendon catheter as passing dark brown urine. EMS was called due to hypotension and tachycardia patient was found to have a blood pressure of 90 systolic and heart rate in the 150s Related Data Home Medications ?Medication ?Instructions ?Recorded ?Confirmed ?Last Taken ?Type docusate sodium 50 mg/5 mL oral 100 mg PO DAILY 04/16/21 08/21/24 Unknown History liquid lisinopril 20 mg tablet 20 mg PO DAILY 04/16/21 08/21/24 Unknown History metoprolol tartrate 25 mg tablet 25 mg PO BID 04/16/21 08/21/24 Unknown History multivitamin with minerals-folic 1 tablet PO DAILY 04/16/21 08/21/24 Unknown History acid 0.4 mg tablet Lactobacillus acidophilus 10 mg PO DAILY 08/21/24 08/21/24 Unknown History (Acidophilus capsule) aspirin 81 mg capsule 81 mg PO DAILY 08/21/24 08/21/24 Unknown History cholecalciferol (vitamin D3) 50 2,000 unit PO ONCE 08/21/24 08/21/24 Unknown History mcg (2,000 unit) capsule (D3-2000) ferrous sulfate 325 mg (65 mg 325 mg PO BID 08/21/24 08/21/24 Unknown History iron) tablet (Feosol) loratadine 10 mg tablet (Allergy 10 mg PO DAILY 08/21/24 08/21/24 Unknown History Relief (loratadine)) ondansetron 4 mg disintegrating 4 mg PO Q8H PRN gerd 08/21/24 08/21/24 Unknown History tablet polyethylene glycol 3350 17 8.5 g PO DAILY PRN constipation 08/21/24 08/21/24 Unknown History gram/dose oral powder (ClearLax) risperidone 0.5 mg tablet 0.5 mg PO BID 08/21/24 08/21/24 Unknown History (Risperdal) Allergies Allergy/AdvReac Type Severity Reaction Status Date / Time No Known Allergies Allergy Verified 08/21/24 15:01 Review of Systems 2 Review of Systems: All systems reviewed & are unremarkable except as noted in HPI and below [facility] Past Medical History Medical History Long-term insulin use Urinary obstruction chronic, rendon in place CVA (cerebral vascular accident) Dementia Anemia Type 2 diabetes mellitus PAD (peripheral artery disease) Hypertension Schizophrenia Family History Family History Other Unknown family medical history Social History Social History Smoking status: Former smoker Alcohol intake: unknown Substance use: unknown Substance use type: unknown Spiritual care concerns: No Exam 2 Narrative: APPEARANCE: Ill-appearing HEAD: normocephalic, atraumatic. EYES: PERRLA/EOMI, conjunctivae clear. NOSE: Normal no drainage EARS:TMS clear with good light reflex. THROAT: Pharynx clear, no exudate. NECK: Supple. No adenopathy, no masses. RESPIRATORY: Airway patent, respirations nonlabored. Clear to auscultation bilaterally, no rales, rhonchi, wheezing. CARDIOVASCULAR: Sinus tachycardia ABDOMINAL: Soft, nontender, nondistended, normal bowel sounds, urinary catheter with excessive amounts of sediment and dark urine MUSCULOSKELETAL: Moves all extremities. Strength/ROM intact, No edema, No calf tenderness. NEURO: Alert. Cranial nerves II through XII intact. Good gait. Good coordination SKIN: Warm, dry. Normal Color Course Vital Signs Vital signs: Vital Signs Temperature 100.7 F H 08/21/24 08:04 Pulse Rate 147 H 08/21/24 08:04 Respiratory Rate 26 H 08/21/24 08:04 Blood Pressure 139/82 08/21/24 08:04 Pulse Oximetry 97 08/21/24 08:04 Oxygen Delivery Room Air 08/21/24 08:04 Temperature 100.3 F H 08/21/24 18:32 Pulse Rate 155 H 08/21/24 17:49 Respiratory Rate 18 08/21/24 16:10 Blood Pressure 98/72 L 08/21/24 16:10 Pulse Oximetry 98 08/21/24 16:10 Oxygen Delivery Room Air 08/21/24 08:04 Medical Decision Making MDM Narrative Medical decision making narrative: 61-year-old male presented to the emergency department for evaluation for suspected UTI with sepsis. Patient's Rendon catheter was exchanged shortly after arrival. Urine was ordered off the new Rendon catheter. Patient was treated with 1 g of p.o. Tylenol for the low-grade fever urine culture and blood cultures were ordered. Patient was treated with 1 L IV fluids to start. Patient did receive 3 L of lactated Ringer's due to hypotension tachycardia and acute kidney injury. Patient's heart rate was initially 147 on arrival but did improved to 94. Patient's initial blood pressure is suspected to be incorrect at 139/82. Patient's typical blood pressures were in the low 90s to mid 80s. Patient's mentation did improve with rehydration along with his blood pressure. Patient's last blood pressure by going to the floor 98/66 at time of re- evaluation patient states he does feel improved. Patient was no longer getting fluid boluses but had been on maintenance fluids for 1 hour prior to going to the floor. Patient is afebrile with no leukocytosis hemoglobin of 10.7. Patient's INR is 1.1. Patient does have acute kidney injury on his CMP patient's initial lactic acid was 2.2 and repeat was down to 1.2. Patient's urine and his Rendon catheter was very significant for urinary tract infection. Patient was leukocyte esterase positive had 03/27/2051 red blood cells and greater than 100 white blood cells with high bacteria. Patient's most recent urine culture was from 10/05/2023 and was positive for Pseudomonas aeruginosa that was pansensitive. Patient was started on IV Rocephin the emergency department. Patient will be admitted to the IMU. Differential Diagnosis Differential Diagnosis: Colitis, diverticulitis, appendicitis, cholecystitis, pneumonia, pyelonephritis, sepsis, COVID, RSV, influenza Vital Signs Vital Signs: Vital Signs Temperature 100.7 F H 08/21/24 08:04 Pulse Rate 147 H 08/21/24 08:04 Respiratory Rate 26 H 08/21/24 08:04 Blood Pressure 139/82 08/21/24 08:04 Pulse Oximetry 97 08/21/24 08:04 Oxygen Delivery Room Air 08/21/24 08:04 Temperature 100.3 F H 08/21/24 18:32 Pulse Rate 155 H 08/21/24 17:49 Respiratory Rate 18 08/21/24 16:10 Blood Pressure 98/72 L 08/21/24 16:10 Pulse Oximetry 98 08/21/24 16:10 Oxygen Delivery Room Air 08/21/24 08:04 Lab Data Lab results reviewed: Yes I reviewed the patient's lab results. 08/21/24 09:07 08/21/24 09:07 Labs: Lab Results 08/21/24 08/21/24 08/21/24 Range/Units 08:35 09:07 11:24 WBC 9.8 (4.5-10.0) K/mm3 RBC 3.85 L (4.6-6.20) M/mm3 Hgb 10.7 L (14.0-18.0) g/dL Hct 33.1 L (42.0-52.0) % MCV 86.0 (80-100) fl MCH 27.8 (26-34) pg MCHC 32.3 (32-36) g/dl RDW 16.5 H (11.5-14.5) % Plt Count 175 (150-375) k/mm3 MPV 10.4 (7.4-10.4) fl Immature Gran % (Auto) 1.9 H (0-0.5) % Neut % (Auto) 94.1 H (45.5-73.1) % Lymph % (Auto) 1.1 L (18.3-44.2) % [place] % (Auto) 2.0 L (2.6-8.5) % Eos % (Auto) 0.3 (0-4.4) % Baso % (Auto) 0.6 (0.2-1.2) % Lymph # (Auto) 0.11 L (0.9-3.2) K/mm3 [place] # (Auto) 0.2 (0.1-0.6) K/mm3 Eos # (Auto) 0.0 (0-0.3) K/mm3 Baso # (Auto) 0.1 (0.0-0.1) K/mm3 Abs Immat Gran (auto) 0.19 H (0.00-0.031) K/mm3 Absolute Neuts (auto) 9.2 H (1.3-6.7) K/mm3 Absolute Nucleated RBC 0.000 (0.0-0.012) K/mm3 Nucleated RBC % 0.0 (0.0-0.2) % PT 14.4 (11.1-14.7) Seconds INR 1.1 APTT 32.3 (22.3-36.8) Seconds Sodium 139 (137-145) mmol/L Potassium 4.0 (3.4-5.0) mmol/L Chloride 106 (98-107) mmol/L Carbon Dioxide 19 L (22-30) mmol/L Anion Gap 14 H (4-12) mmol/L BUN 98 H D (9-20) mg/dL Creatinine 4.13 H (0.7-1.3) mg/dL Estim Creat Clear Calc 16 ml/min Estimated GFR 14 L (59 - ) Glucose 101 (65-110) mg/dL Lactic Acid 2.2 H 1.2 (0.7-2.0) mmol/L Calcium 8.8 (8.4-10.2) mg/dL Total Bilirubin 0.6 (0.2-1.3) mg/dL AST 209 H (17-59) U/L ALT 171 H (6-50) U/L Alkaline Phosphatase 255 H (38-126) U/L Total Creatine Kinase 853 H (55-170) U/L C-Reactive Protein 26.8 H (<1.0) mg/dL Total Protein 7.3 (6.3-8.2) g/dL Albumin 3.6 (3.5-5.1) g/dL Procalcitonin > 100.0 ng/mL Urine Color Yellow (Yellow) Urine Appearance Turbid H (Clear) Urine pH 8.5 (5.0-9.0) Ur Specific [place] 1.014 (1.001-1.035) Urine Protein 3+ H (Negative) mg/dL Urine Glucose (UA) Negative (Negative) mg/dL Urine Ketones Negative (Negative) mg/dL Ur Blood (Man) 2+ H (Negative) Urine Nitrate Negative (Negative) Urine Bilirubin Negative (Negative) Urine Urobilinogen 1.0 (<2.0) mg/dL Add Ur Microanalysis Reviewed Leukocyte Esterase Rfl 3+ H (Negative) ULYSSES/UL Urine RBC 21-50 H (0-2) /hpf Urine WBC >100 H (0-3) /hpf Ur Squamous Epith Cells None seen (Few) /hpf Triple Phos Crystals Present H (None) /hpf Urine Bacteria 4+ H /hpf Urine Casts 6-10 Imaging Data Radiologist's impression: Impressions Chest X-Ray 08/21/24 08:57 IMPRESSION: 1. Mild right basilar discoid atelectasis. Critical Care Time Critical Care Time Critical Care Time: Yes Total Critical Care Time: 35 Discharge Plan Discharge Clinical Impression: Urinary tract infection, Acute kidney injury Sepsis Qualifiers: Sepsis type: sepsis due to unspecified organism Sepsis acute organ dysfunction status: with acute organ dysfunction Severe sepsis acute organ dysfunction type: acute renal failure Acute renal failure type: unspecified Severe sepsis shock status: with septic shock Qualified Code(s): A41.9 - Sepsis, unspecified organism Patient Disposition: Still a Patient Condition: Serious
[2024-08-21] MEDS: ACETAMINOPHEN 500 MG TABLET 1000 MG PO ×2 (08:45→17:29)
[2024-08-21 08:58] LABS: Add Urine Microscopic? YES; Appearance Urine Turbid (Clear); Bacteria Urine 4+ /hpf; Bilirubin Urine Negative (Negative); Blood Urine 2+ (Negative); Color Urine Yellow (Yellow); Glucose Urine UA Negative (Negative); Ketones Urine Negative (Negative); Leukocyte Esterase Ur 3+ LEU/UL (Negative); Need Manual Microscopic Reviewed; Nitrate Urine Negative (Negative); Protein Urine 3+ mg/dL (Negative); RBC Urine 21-50 /hpf (0-2); Specific Grav Ur 1.014 (1.001-1.035); Squamous Epithelial Cell Urine None Seen /hpf (Few); Triple Phosphate Crystal Urine Present /hpf; WBC Urine >100 /hpf (0-3); pH Urine 8.5 (5.0-9.0)
[2024-08-21] MEDS: LACTATED RINGERS 1,000 ML 999 ML IV CONT ×4 (09:12→12:23)
[2024-08-21 09:13] LABS: Basophils Absolute Auto 0.1 K/mm3 (0.0-0.1); Basophils Percent Auto 0.6 % (0.2-1.2); Eosinophils Percent Auto 0.3 % (0-4.4); Hematocrit 33.1 % (42.0-52.0); Hemoglobin 10.7 g/dL (14.0-18.0); Immature Granulocyte Absolute 0.19 K/mm3 (0.00-0.031); Immature Granulocyte Percent A 1.9 % (0-0.5); Lymphocytes Absolute Auto 0.11 K/mm3 (0.9-3.2); Lymphocytes Percent Auto 1.1 % (18.3-44.2); Mean Corpuscular HGB Conc 32.3 g/dl (32-36); Mean Corpuscular Hemoglobin 27.8 pg (26-34); Mean Platelet Volume 10.4 fl (7.4-10.4); Monocytes Absolute Auto 0.2 K/mm3 (0.1-0.6); Neutrophils Absolute Auto 9.2 K/mm3 (1.3-6.7); Neutrophils Percent Auto 94.1 % (45.5-73.1); Platelet Count Result 175 k/mm3 (150-375); Red Blood Count 3.85 M/mm3 (4.6-6.20); Red Cell Distribution Width 16.5 % (11.5-14.5); White Blood Count 9.8 K/mm3 (4.5-10.0)
[2024-08-21 09:22] LABS: Lactic Acid Reflex 2.2 mmol/L (0.7-2.0)
[2024-08-21 09:25] LABS: Alanine Aminotransferase 171 U/L (6-50); Albumin Level 3.6 g/dL (3.5-5.1); Alkaline Phosphatase 255 U/L (38-126); Anion Gap 14 mmol/L (4-12); Aspartate Amino Transferase 209 U/L (17-59); Bilirubin,Total 0.6 mg/dL (0.2-1.3); Blood Urea Nitrogen 98 mg/dL (9-20); Calcium 8.8 mg/dL (8.4-10.2); Carbon Dioxide 19 mmol/L (22-30); Chloride 106 mmol/L (98-107); Estimated CRCL calculation 16 ml/min; Estimated Glomerular Filt Rate 14; Glucose 101 mg/dL (65-110); Sodium 139 mmol/L (137-145); Total Protein 7.3 g/dL (6.3-8.2)
[2024-08-21 09:27] LABS: INR 1.1; Prothrombin Time 14.4 Seconds (11.1-14.7)
[2024-08-21 09:28] LABS: Partial Thromboplastin Time 32.3 Seconds (22.3-36.8)
[2024-08-21 09:35] LABS: CRP 26.8 mg/dL (<1.0)
[2024-08-21 11:10] LABS: Reflex Lactic Acid Yes or No Add Lactic
[2024-08-21 11:37] LABS: Lactic Acid 1.2 mmol/L (0.7-2.0)
--- NOTE | 2024-08-21 13:15 | PM.IMHP ---
H&P: HPI History of Present Illness Date/Time: 08/21/24 13:15 Chief Complaint: Fever Narrative: 69 y/o M with PMH of DM2, chronic urinary obstruction with chronic indwelling Rnedon, dementia, and CVA presents here with fever. The patient presents here [facility] via EMS for further evaluation of fever, tachycardia, and general malaise. He reports he PN being unwell a few days ago. Sent to the ER for their evaluation after he was noted to be febrile today and tachycardic in the 130s at his facility. He currently chronic indwelling Rendon due to chronic urinary obstruction and arrived emergency department with a very strong urinary odor. Patient is also undergoing radiation for cancer, he is unsure what kind but states he is undergoing testing to see what kind and should have results on the ? Follows with [facility] for his oncology care. Along with general malaise, he reports chills. Denies abdominal pain, nausea, vomiting, diarrhea, constipation. Patient is currently a poor historian. Initial VS at presentation: 100.7? F, HR 147, R 26, 139/82, and 97% on room air. ED workup showed: Leukocytosis, hemoglobin 10.7, plan 4.1 3 and GFR 14 (previously ), lactic 2.2, AST 209, ALT 171, CRP 26.8, and UA consistent with UTI. CXR showed mild right basilar discoid atelectasis. EKG showed sinus tachycardia (rate 142), possible atrial flutter, delayed precordial R/S transition, borderline ST-T wave abnormality lateral leads. Review of Systems Review of Systems: All systems reviewed & are unremarkable except as noted in HPI and below PMF[facility] Past Medical History Medical History Long-term insulin use Urinary obstruction chronic, rendon in place CVA (cerebral vascular accident) Dementia Anemia Type 2 diabetes mellitus PAD (peripheral artery disease) Hypertension Schizophrenia Family History Family History Other Unknown family medical history Social History Social History Smoking status: Former smoker Alcohol intake: unknown Substance use: unknown Substance use type: unknown Spiritual care concerns: No Meds Home Medications and Allergies Home Medications ?Medication ?Instructions ?Recorded ?Confirmed ?Type docusate sodium 50 mg/5 mL oral 100 mg PO DAILY 04/16/21 08/21/24 History liquid lisinopril 20 mg tablet 20 mg PO DAILY 04/16/21 08/21/24 History metoprolol tartrate 25 mg tablet 25 mg PO BID 04/16/21 08/21/24 History multivitamin with minerals-folic 1 tablet PO DAILY 04/16/21 08/21/24 History acid 0.4 mg tablet atorvastatin 40 mg tablet 40 mg PO HS #30 tabs 04/18/21 08/21/24 Rx Lactobacillus acidophilus 10 mg PO DAILY 08/21/24 08/21/24 History (Acidophilus capsule) aspirin 81 mg capsule 81 mg PO DAILY 08/21/24 08/21/24 History cholecalciferol (vitamin D3) 50 2,000 unit PO ONCE 08/21/24 08/21/24 History mcg (2,000 unit) capsule (D3-2000) ferrous sulfate 325 mg (65 mg 325 mg PO BID 08/21/24 08/21/24 History iron) tablet (Feosol) loratadine 10 mg tablet (Allergy 10 mg PO DAILY 08/21/24 08/21/24 History Relief (loratadine)) ondansetron 4 mg disintegrating 4 mg PO Q8H PRN gerd 08/21/24 08/21/24 History tablet polyethylene glycol 3350 17 8.5 g PO DAILY PRN constipation 08/21/24 08/21/24 History gram/dose oral powder (ClearLax) risperidone 0.5 mg tablet 0.5 mg PO BID 08/21/24 08/21/24 History (Risperdal) Allergies Allergy/AdvReac Type Severity Reaction Status Date / Time No Known Allergies Allergy Verified 08/21/24 15:01 Vital Signs Vital Signs - 24 hr 08/21/24 08:04 08/21/24 10:05 08/21/24 11:03 Temperature 100.7 F H Pulse Rate 147 H 115 H 108 H Respiratory Rate 26 H 20 Blood Pressure 139/82 94/61 L Pulse Oximetry 97 99 Oxygen Delivery Room Air 08/21/24 12:22 Temperature Pulse Rate 100 Respiratory Rate 20 Blood Pressure 88/70 L Pulse Oximetry 100 Oxygen Delivery Exam Const: General: comfortable and no acute distress Other: , male, ill-appearing HENMT: Face/Nose/Sinus: Normal nares present Mouth: Yes moist mucous membranes Eyes: General: appearance normal, both eyes and all related structures Sclera: sclerae normal Pupils: Equal, round and reactive pupils present EOM: EOMs intact bilaterally Resp: Effort & Inspection: normal respiratory effort Other: Diminished at bases bilaterally. No wheezing or crackles. Cardio: Rate: tachycardic Rhythm: regular rhythm Other: S1-S2 present without murmur, rub, ectopy GI: Other: Abdomen soft, nondistended, nontender. Normoactive bowel sounds in all quadrants. Urinary Catheter: Urinary Catheter: patent and draining, urine dark, urine red and other (Heavy sediment) Skin: General skin exam: normal color and no rashes or lesions noted Wounds: no wounds Neuro: Speech: normal speech Motor exam (neuro): 5/5 motor strength present throughout Sensory Exam: normal sensation Other: A/O self, place, time. Poor situational recall at present. Extrem: General: normal to inspection Psych: Mental Status: mental status grossly normal Other: Blunted affect. Fair insight and judgment. H&P: Results Labs Labs: Short CBC 08/21/24 Range/Units 09:07 WBC 9.8 (4.5-10.0) K/mm3 Hgb 10.7 L (14.0-18.0) g/dL Hct 33.1 L (42.0-52.0) % Plt Count 175 (150-375) k/mm3 BMP 08/21/24 09:07 Sodium 139 Potassium 4.0 Chloride 106 Carbon Dioxide 19 L BUN 98 H D Creatinine 4.13 H Glucose 101 Calcium 8.8 Liver Function 08/21/24 Range/Units 09:07 Total Bilirubin 0.6 (0.2-1.3) mg/dL AST 209 H (17-59) U/L ALT 171 H (6-50) U/L Alkaline Phosphatase 255 H (38-126) U/L Albumin 3.6 (3.5-5.1) g/dL Urine 08/21/24 Range/Units 08:35 Urine Color Yellow (Yellow) Urine Appearance Turbid H (Clear) Urine pH 8.5 (5.0-9.0) Ur Specific [place] 1.014 (1.001-1.035) Urine Protein 3+ H (Negative) mg/dL Urine Glucose (UA) Negative (Negative) mg/dL Assessment and Plan Assessment and plan (1) Sepsis: Qualifiers: Acute renal failure type: unspecified Sepsis acute organ dysfunction status: with acute organ dysfunction Sepsis type: sepsis due to unspecified organism Severe sepsis acute organ dysfunction type: acute renal failure Severe sepsis shock status: with septic shock Qualified Code(s): A41.9 - Sepsis, unspecified organism; R65.21 - Severe sepsis with septic shock; N17.9 - Acute kidney failure, unspecified Code(s): A41.9 - Sepsis, unspecified organism Status: Acute Assessment and Plan: - meets SIRS criteria: HR, RR. Initially hypoTN, responded well to fluids and now 101/73 - lactic acid: 2.2 -> 1.2 - lactic elevated, procalcitonin added -> >100 - 30 mL/kg = 2L, given 4L bolus in the ED. - suspected source: UTI - started on ceftriaxone, transitioned to meropenem on 08/21 - blood cultures drawn on 08/21, follow - UA consistent with UTI, see below - CXR: Mild right basilar discoid atelectasis. - admit to IMU for close hemodynamic monitoring Recurrent hypoTN, MAP >60. [place]et[place] performed this evening, no longer fluid responsive. trial albumin bolus, if no response will consult silk spotter and discuss possible central line placement/pressors with patient. (2) Urinary tract infection: Qualifiers: Urinary tract infection type: catheter-associated UTI Indwelling urinary catheter type: indwelling urethral catheter Encounter type: initial encounter Qualified Code(s): T83.511A - Infection and inflammatory reaction due to indwelling urethral catheter, initial encounter; N39.0 - Urinary tract infection, site not specified Code(s): N39.0 - Urinary tract infection, site not specified Status: Acute Assessment and Plan: - UA: Turbid, 3+ protein, 2+ blood, 3+ leuk esterase, 21-50 RBC, greater than 100 WBC, no epithelial cells, triple phosphate crystals present and 4+ bacteria present - UC pending - previous micro reviewed, grew Pseudomonas on 10/05/2023 which was intermediate to Cipro/Levaquin/imipenem. - started on Ceftriaxone on 08/21, transitioned to meropenem on 08/21 (3) Acute kidney injury: Code(s): N17.9 - Acute kidney failure, unspecified Status: Acute Assessment and Plan: - creatinine 4.13, GFR 14, BUN 98. Previously 1.6, GFR 53, BUN 53 on 10/05/2023.] - check CK, urine sodium, protein/creatinine, urea - suspect injury secondary to sepsis/UTI. treat with IV fluids over the next 24 hours, if no improvement consider nephrology consultation. - trend renal function - trend electrolytes, correct as needed (4) Type 2 diabetes mellitus: Qualifiers: Diabetes mellitus snf insulin use: without snf use Diabetes mellitus complication status: without complication Qualified Code(s): E11.9 - Type 2 diabetes mellitus without complications Code(s): E11.9 - Type 2 diabetes mellitus without complications Status: Chronic Assessment and Plan: - hypoglycemia protocol - POC blood glucose ACHS - no current home medications - correct regimen ordered - low dose TIDWM, based off BMI - A1C ordered, no previous on file (5) Anemia: Qualifiers: Anemia type: unspecified type Qualified Code(s): D64.9 - Anemia, unspecified Code(s): D64.9 - Anemia, unspecified Status: Chronic Assessment and Plan: - Hgb 10.7, previously 12.1. suspect slight reduction secondary to significant CANDIS. - transfuse if <7 - monitor (6) Hypertension: Qualifiers: Hypertension type: primary hypertension Qualified Code(s): I10 - Essential (primary) hypertension Code(s): I10 - Essential (primary) hypertension Status: Chronic Assessment and Plan: - chronic, currently 101/73. initially hypoTN requiring significant IV fluids. - hold home medications: lisinopril, metoprolol - monitor Plan Receives his oncology care at [facility] through [facility], request most recent visit note. Diet: Heart healthy GI Prophylaxis: Pantoprazole IV DVT Prophylaxis: Lovenox SQ IV fluids: 4L bolus Lines/Tubes: Peripheral IV, Rendon catheter Code Status: DNR Quality VTE Prophylaxis VTE prophylaxis: pharmacologic ordered Critical Care Time: I personally spent 35 minutes of direct patient care including (but not limited to) the physical examination, decision-making, bedside evaluation, review of medical records, review of labs and imaging, discussion with nursing staff and other providers for collaborative, critical care management of this patient. Hospitalist [facility] Advance Care Plan I have confirmed that the patient's Advanced Care Plan is present, code status is documented, or surrogate decision maker is listed in patient medical record.: Yes Medication Reconciliation I have utilized all available resources to obtain, update and review the patients current medications (includes all prescriptions, OTC, herbals, cannabis, and nutritional supplements).: Yes
[2024-08-21] MEDS: MEROPENEM 1 GM/NS 100 ML 1 GM/100 ML BAG IVPB ×2 (13:24→14:33)
[2024-08-21] MEDS: LACTATED RINGERS 1,000 ML 125 ML IV CONT (14:33)
[2024-08-21 15:02] LABS: Creatine Kinase 853 U/L (55-170)
[2024-08-21 15:14] LABS: Procalcitonin > 100.0 ng/mL
--- OUTSIDE RECORDS SUMMARY | 2024-08-21 16:02 | XMS_ITS | Referral Summary ---
Author Organization [facility] Address [address] [place] [address] Care Team Providers Care Nuclear Scientist Name Role Phone Delia Merritt RN Unavailable UnavailRoslyn Reyez LCSW Unavailable Unavaila Bg Stern MD Unavailable Sharmila Oconnor MD Unavailable [phone] Lucio Jenkins MD Unavailable [phone] MD Primary Care Provider [phone] Encounters Date Type Department Care Team Description 08/16/2024 Telephone [facility] [address] [facility] Advanced Medicine 8th [place] [address] [place] [id number] Morris Baeza 08/16/2024 Telephone [facility] [address] [facility] Advanced Medicine 8th [place] [address] [place] [address] Liliana Hinojosa 08/14/2024 Telephone [facility] [address] [facility] 4th [place] [address] Delia Merritt, shovel log loader operator Treatment End Check In 07/17/2024 Completion of Therapy [facility] Medical Office Building 2 Radiation Oncology [address] [place] [address] Lucio Jenkins MD 07/17/2024 Orders Only RAD ONC TREATMENTS Miscellaneous, Not In File 07/17/2024 3:45 PM CDT Treatment [facility] Office Building 2 Radiation Oncology [address] [place] [address] Lucio Jenkins MD 07/14/2024 OTV [facility] Office Building 2 Radiation Oncology [address] [place] [address] 28133 Lucio Jenkins MD 07/14/2024 Orders Only RAD ONC TREATMENTS Miscellaneous, Not In File 07/14/2024 8:45 AM CDT Treatment [facility] Medical Office Building 2 Radiation Oncology [address] [place] [address] 90382 07/13/2024 Orders Only RAD ONC TREATMENTS Miscellaneous, Not In File 07/13/2024 8:45 AM CDT Treatment [facility] Office Building 2 Radiation Oncology [address] [place] [address] 524[address] 07/12/2024 Orders Only RAD ONC TREATMENTS Miscellaneous, Not In File 07/12/2024 9:00 AM CDT Clinical Support [facility] Office Building 2 Radiation Oncology [address] [place] [address] 09205 Malignant neoplasm of larynx, unspecified (HCC) (Primary Dx); Moderate malnutrition (CMS/HCC) 07/12/2024 8:45 AM CDT Treatment [facility] Office Building 2 Radiation Oncology [address] [place] [address] 32605 07/11/2024 Orders Only RAD ONC TREATMENTS Miscellaneous, Not In File 07/11/2024 8:45 AM CDT Treatment [facility] Office Building 2 Radiation Oncology [address] [place] [address] 611[address] 07/10/2024 Orders Only RAD ONC TREATMENTS Miscellaneous, Not In File 07/10/2024 Telephone [facility] [address] [place] [phone] Delia Merrtit, shovel log loader operator Treatment Check In 07/10/2024 3:45 PM CDT Treatment [facility] Office Building 2 Radiation Oncology [address] [place] [address] 306[address] 07/07/2024 OTV [facility] Office Building 2 Radiation Oncology [address] [place] [address] 84609 Lucio Jenkins MD 07/07/2024 Orders Only RAD ONC TREATMENTS Miscellaneous, Not In File 07/07/2024 8:45 AM CDT Treatment [facility] Office Building 2 Radiation Oncology [address] [place] [address] 67[address] 07/06/2024 Orders Only RAD ONC TREATMENTS Miscellaneous, Not In File 07/06/2024 8:45 AM CDT Treatment [facility] Office Building 2 Radiation Oncology [address] [place] [address] 93[address] 07/05/2024 Documentation [facility] Office Building 2 Radiation Oncology [address] [place] [address] 87[address] Renata Escobar RN Difficulty Urinating 07/05/2024 Orders Only RAD ONC TREATMENTS Miscellaneous, Not In File 07/05/2024 8:45 AM CDT Treatment [facility] Office Building 2 Radiation Oncology [address] [place] [address] 8[address] 07/04/2024 Orders Only RAD ONC TREATMENTS Miscellaneous, Not In File 07/04/2024 8:45 AM CDT Treatment [facility] Office Building 2 Radiation Oncology [address] [place] [address] 08355 07/03/2024 Orders Only RAD ONC TREATMENTS Miscellaneous, Not In File 07/03/2024 9:00 AM CDT Clinical Support [facility] Office Building 2 Radiation Oncology [address] [place] [address]27 Malignant neoplasm of larynx, unspecified (HCC) (Primary Dx); Altered mental status, unspecified altered mental status type 07/03/2024 8:45 AM CDT Treatment [facility] Office Building 2 Radiation Oncology [address] [place] [address] 06/30/2024 Orders Only [facility] Building 2 Radiation Oncology [address] [place] [address] Lucio Jenkins MD 06/30/2024 9:15 AM CDT [facility] at [address] [address] Malignant neoplasm of larynx, unspecified (HCC) (Primary Dx) 06/30/2024 Orders Only [facility] Building 2 Radiation Oncology [address] [place] [address]307 Lucio Jenkins MD Malignant neoplasm of larynx, unspecified (HCC) (Primary Dx) 06/30/2024 OTV [facility] Office Building 2 Radiation Oncology [address] [place] [address] Lucio Jenkins MD 06/30/2024 Orders Only RAD ONC TREATMENTS Miscellaneous, Not In File 06/30/2024 8:45 AM CDT Treatment [facility] Office Building 2 Radiation Oncology [address] [place] [address] 30362 06/29/2024 Orders Only RAD ONC TREATMENTS Miscellaneous, Not In File 06/29/2024 2:30 PM CDT Treatment [facility] Office Building 2 Radiation Oncology [address] [place] [address] 31014 06/27/2024 Orders Only RAD ONC TREATMENTS Miscellaneous, Not In File 06/27/2024 8:45 AM CDT Treatment [facility] Office Building 2 Radiation Oncology [address] [place] [address] 24913 06/26/2024 Orders Only RAD ONC TREATMENTS Miscellaneous, Not In File 06/26/2024 8:45 AM CDT Treatment [facility] Office Building 2 Radiation Oncology [address] [place] [address] 26225 06/23/2024 [facility] Medical Office Building 2 Radiation Oncology [address] [place] [address]404 Lucio Jenkins MD 06/23/2024 Orders Only RAD ONC TREATMENTS Miscellaneous, Not In File 06/23/2024 9:00 AM CDT Clinical Support [facility] Medical Office Building 2 Radiation Oncology [address] [place] [address]2001 Malignant neoplasm of larynx, unspecified (HCC) (Primary Dx); Moderate malnutrition (CMS/HCC) 06/23/2024 8:45 AM CDT Treatment [facility] Office Building 2 Radiation Oncology [address] [place] [address] 07201 06/22/2024 Orders Only RAD ONC TREATMENTS Miscellaneous, Not In File 06/22/2024 8:45 AM CDT Treatment [facility] Office Building 2 Radiation Oncology [address] [place] [address] 27118 06/21/2024 Orders Only RAD ONC TREATMENTS Miscellaneous, Not In File 06/21/2024 2:00 PM CDT Treatment [facility] Office Building 2 Radiation Oncology [address] [place] [address] 92905 06/20/2024 Orders Only RAD ONC TREATMENTS Miscellaneous, Not In File 06/20/2024 8:45 AM CDT Treatment [facility] Office Building 2 Radiation Oncology [address] [place] [address] 52255 06/19/2024 Orders Only RAD ONC TREATMENTS Miscellaneous, Not In File 06/19/2024 8:45 AM CDT Treatment [facility] Office Building 2 Radiation Oncology [address] [place] [address] 22677 06/16/2024 Orders Only [facility] Office Building 2 Radiation Oncology [address] [place] [address] 82162 Lucio Jenkins MD Larynx cancer (HCC) (Primary Dx) 06/16/2024 OTV [facility] Office Building 2 Radiation Oncology [address] [place] [address] 67427 Lucio Jenkins MD 06/16/2024 Orders Only RAD ONC TREATMENTS Miscellaneous, Not In File 06/16/2024 8:45 AM CDT Treatment [facility] Office Building 2 Radiation Oncology [address] [place] [address] 45558 06/15/2024 Orders Only RAD ONC TREATMENTS Miscellaneous, Not In File 06/15/2024 7:45 AM CDT Treatment [facility] Office Building 2 Radiation Oncology [address] [place] [address] 33465 06/14/2024 Orders Only RAD ONC TREATMENTS Miscellaneous, Not In File 06/14/2024 8:45 AM CDT Treatment [facility] Office Building 2 Radiation Oncology [address] [place] [address] 80184 06/13/2024 Orders Only RAD ONC TREATMENTS Miscellaneous, Not In File 06/13/2024 9:00 AM CDT Clinical Support [facility] Office Building 2 Radiation Oncology [address] [place] [address] 80911 Moderate malnutrition (CMS/HCC) (Primary Dx); Malignant neoplasm of larynx, unspecified (HCC) 06/13/2024 8:45 AM CDT Treatment [facility] Office Building 2 Radiation Oncology [address] [place] [address] 42092 06/12/2024 Orders Only RAD ONC TREATMENTS Miscellaneous, Not In File 06/12/2024 2:45 PM CDT Treatment [facility] Office Building 2 Radiation Oncology [address] [place] [address] 44109 Lucio Jenkins MD 06/12/2024 2:30 PM CDT Treatment [facility] Office Building 2 Radiation Oncology [address] [place] [address]49[address] Lucio Jenkins MD 06/09/2024 Telephone [facility] [address] [place] [phone] Delia Merritt, shovel log loader operator Treatment Start Check In 06/06/2024 7:30 PM CDT Treatment [facility] Office Building 2 Radiation Oncology [address] [place] [address] 945[address] 05/29/2024 3:30 PM CDT Treatment [facility] Office Building 2 Radiation Oncology [address] [place] [address] 21082 Lucio Jenkins MD 05/29/2024 2:00 PM CDT Clinical Support [facility] Office Building 2 Radiation Oncology [address] [place] [address] 60819 Moderate malnutrition (CMS/HCC) (Primary Dx); Malignant neoplasm of larynx, unspecified (HCC); Larynx cancer (HCC) 05/29/2024 2:30 PM CDT Consult [facility] Office Building 2 Radiation Oncology [address] [place] [address]75 Lucio Jenkins MD Supraglottic mass (Primary Dx) 05/25/2024 Telephone [facility] Nutrition Counseling [address] [place] [address] from Last [...] uit: Not Asked; Counseling Given: Not Answered [facility] Utilities Answer Date Recorded In the past 12 months has [employer], [employer], or water [employer] threatened to shut off services in your [...] week 03/16/2024 How often do you attend [facility] or protestant services? Never 03/16/2024 Do you belong to any clubs o r organizations such as anabaptist groups, unions, fraternal or athletic groups, or [...] any time in the past 12 m [facility], were you homeless or living in a alf (including now)? No 03/16/2024 Personal Safety Answer Date Recorded Have you ever been in or are you currently in a harmful physical or emotional relationship or is someone making you feel afraid or unsafe? Denies 04/10/2024 Sex and Gender Information Value Date Recorded Sex Assigned at Not on file Legal Sex Male 8:39 PM EXTENSION ASSOCIATE Gender Identity Not on file Sexual Orientation [...] 177.8 cm (5' 10) 04/13/2024 3:35 PM EXTENSION ASSOCIATE Body Mass Index 22.56 04/13/2024 3:35 PM EXTENSION ASSOCIATE Plan of Treatment Not on file Procedures [...] Organization Address City/[facility] Co de Phone Number ARINoemi * RAD [...] Miscellaneous RADIATION ONCOLOGY ORD ERABLES Final Result ARINoemi * RAD ONC ARIA SESSION SUMMARY (07/04/2024 [...] ORD ERABLES Final Result Performing Organization Address [facility] Co de Phone Number ARIA * RAD [...] ORD ERABLES Final Result Performing Organization Address [facility] Co de Phone Number ARIA * RAD [...] ORD ERABLES Final Result Performing Organization Address [facility] de Phone Number RENÉ * [...] ORD ERABLES Final Result Performing Organization Address [facility] de Phone Number ARIA * [...] ORD ERABLES Final Result Performing Organization Address City/State/[facility] Co de Phone Number ARIA * RAD [...] - 1.30 mg/dL Comment:Testing performed by : [facility], [address] [place] [address]., [address] Blood 05/29/2024 3:34 PM CDT 05/29/2024 3:34 PM CDT us Lucio Jenkins MD POINT OF CARE TEST ORDERABLES Final Result [place] [address] [facility] Department [place] [address] * CT Abdomen Pelvis W [...] Franklin Addison M.D. DL T: Report ID: [id number] Reading Location: [place] [address] Procedure Note Franklin Addison MD - 08/13/2021 [...] to 3.5 cm in maximal dimension, axial [id number]. This could be secondary to hemorrhage or [...] signed by Franklin HAMMOND T: Report ID: [id number] Reading Location: [place] [address] Anita Arriola DO IMG CT PROCEDURES Final Result from Last 3 Months or Most Recently Relevant to Health Maintenance Insurance [facility] Advance Directives For more information, please contact: [phone] Documents on File Type Date Recorded Patient Organic Lab Worker Expl anation Power of Sand Technologist 08/13/2021 5:19 PM * Full Code (Latest Code Status on File) Date Activated Date Inactivated Comments 03/22/2021 10:55 AM 04/08/2021 5:12 AM Care Teams Nuclear Scientist Relationship Specialty Start Date End Date Ean Lane MD [address] [place] [address] PCP - General Internal Medicine 05/29/24 Delia Merritt RN Nurse Navigator 03/16/24 Roslyn Burnham LCSW Inside Sales Account Manager 03/16/24 Bg Ireland MD 4921 [facility] [address] [place] [address] Medical Oncologist/Sheet Metal Duct Installer Medical Oncology 03/17/24 Sharmila Oconnor MD 4506 [facility], [address] [place] [address] Referring Physician Otolaryngology 03/17/24 Lucio Jenkins MD [address] [place] [address] Radiation Oncologist Radiation Oncology 05/22/24
--- OUTSIDE RECORDS SUMMARY | 2024-08-21 16:02 | XMS_ITS | Encounter Summary ---
Author Organization [facility] Healthcare Address [address] [place] [address] Care Team Providers Care Senior Medical Billing Specialist Name Role Phone Ean Lane MD Primary Care Provider [phone] Delia Merritt RN Unavailable Unavailabl Roslyn Alonso LCSW Unavailable Unavaila Bg Stern MD Unavailable [phone] Sharmila Oconnor MD Unavailable [phone] Lucio Jenkins MD Unavailable [phone] MD Primary Care Provider [phone] Encounter Details Date Type Department Care Team (Late st Contact Info) Description 03/16/2024 Telephone [facility] Head and Neck Tumor [facility] [address] [place] [address] 4th [place] [address] Helena Sharma Social History Tobacco Use Types Packs/Day Years Used Date Smoking Tobacco: Never Assessed [facility] Utilities Answer Date Recorded In the past 12 months has [employer], gas, oil, or water [employer] threatened to shut off services in your [...] often do you attend chur ch or voodoo services? Never 03/16/2024 Do you belong to any clubs o r organizations such as jain groups, unions, fraternal or athletic groups, or [...] any time in the past 12 m [facility], were you homeless or living in a senior care (including now)? 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 Gender Identity Not on file Sexual Orientation Not on file documented as of this encounter Plan of Treatment Not on file documented as of this encounter Visit Diagnoses Not on filedocumented in this encounter Care Teams Senior Medical Billing Specialist Relationship Specialty Start Date End Date Ean Lane MD PCP - General Internal Medicine 03/18/21 05/28/[address] MD [address] [place] [address] PCP - General Internal Medicine 05/29/24 Delia Merritt, RN Nurse Navigator 03/16/24 Roslyn Burnham LCSW Social Organization Professor 03/16/24 Bg Ireland MD 49[address] [facility] [address] [place] [address] Medical Oncologist/Salt Machine Operator Medical Oncology 03/17/24 Sharmila Oconnor MD 4500 [facility], [address] [place] [address] Referring Physician Otolaryngology 03/17/24 Lucio Jenkins MD [address] [address] Radiation Oncologist Radiation Oncology 05/22/24 documented as of this encounter
--- OUTSIDE RECORDS SUMMARY | 2024-08-21 16:02 | XMS_ITS | Encounter Summary ---
Author Organization [facility] Address [address] [place] [address] Phone Care Team Providers Care Associate Director Name Role Phone Delia Merritt RN Unavailable Unavailabl Roslyn Alonso LCSW Unavailable Unavaila Bg Stern MD Unavailable [phone] Sharmila Oconnor MD Unavailable [phone] Lucio Jenkins MD Unavailable [phone] MD Primary Care Provider [phone] Encounter Details Date Type Department Care Team (Late st Contact Info) Description 08/16/2024 Telephone [facility] Cardiology [address] [facility] 8th [place] [address] [place] [address] Morris Baeza Social History Tobacco Use Types Packs/Day Years Used Date Smoking Tobacco: Every Day Cigarettes 0.1 53.5 Started: 1970 Smokeless Tobacco: Never [facility] Utilities Answer Date Recorded In the past 12 months has [employer], gas, oil, or water [employer] threatened to shut off services in your [...] How often do you attend chur or holiness services? Never 03/16/2024 Do you belong to [...] any time in the past 12 m [facility], were you homeless or living in a jail (including now)? No 03/16/2024 Personal Safety Answer Date Recorded Have you ever been in or are you currently in a harmful physical or emotional relationship or is someone making you feel afraid or unsafe? 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 Gender Identity Not on file Sexual Orientation Not on file documented as of this encounter Plan of Treatment Not on file documented as of this encounter Visit Diagnoses Not on filedocumented in this encounter Care Teams Associate Director Relationship Specialty Start Date End Date Ean Lane MD [address] [place] [address] PCP - General Internal Medicine 05/29/24 Delia Merritt, RN Nurse Navigator 03/16/24 Roslyn Burnham LCSW Truck Assembler 03/16/24 Bg Ireland MD 4921 [facility] [address] [place] [address] Medical Oncologist/Warning Coordination Meteorologist Medical Oncology 03/17/24 Sharmila Oconnor MD 4500 [facility] DEPT OTOLARYNGOLOGY, [address] [place] [address] Referring Physician Otolaryngology 03/17/24 Lucio Jenkins MD [address] [address] Radiation Oncologist Radiation Oncology 05/22/24 documented as of this encounter
--- OUTSIDE RECORDS SUMMARY | 2024-08-21 16:02 | XMS_ITS | Clinical Summary ---
Author Organization [facility] Address [address] [place] [address] Care Team Providers Care Fraud Representative Name Role Phone Delia Merritt RN Unavailable UnavailRoslyn Reyez LCSW Unavailable Unavaila Bg Stern MD Unavailable [phone] Sharmila Oconnor MD Unavailable [phone] Lucio Jenkins MD Unavailable [phone] MD Primary Care Provider [phone] Allergies No known active allergies Medications multivit [...] Type Department Care Team Description 08/16/2024 Telephone [facility] Cardiology [address] [facility] 8th [place] [address] [place] [address] Morris Baeza 08/16/2024 Telephone [facility] Cardiology [address] [facility] 8th [place] [address] [place] [address] Liliana Hinojosa 08/14/2024 Telephone [facility] Neck Tumor Center [address] [facility] 4th [place] [address] Delia Merritt, editor book Treatment End Check In 07/17/2024 3:45 PM CDT Treatment [facility] Medical Office Building 2 Radiation Oncology [address] [place] [address] 51112 Lucio Jenkins MD 07/17/2024 Completion of Therapy [facility] Medical Office Building 2 Radiation Oncology [address] [place] [address] 68090 Lucio Jenkins MD 07/17/2024 Orders Only RAD ONC TREATMENTS Miscellaneous, Not In File 07/14/2024 8:45 AM CDT Treatment [facility] Medical Office Building 2 Radiation Oncology [address] [place] [address] 15705 07/14/2024 OTV [facility] Medical Office Building 2 Radiation Oncology [address] [place] [address] 80751 Lucio Jenkins MD 07/14/2024 Orders Only RAD ONC TREATMENTS Miscellaneous, Not In File 07/13/2024 8:45 AM CDT Treatment [facility] Medical Office Building 2 Radiation Oncology [address] [place] [address] 95523 07/13/2024 Orders Only RAD ONC TREATMENTS Miscellaneous, Not In File 07/12/2024 9:00 AM CDT Clinical Support [facility] Office Building 2 Radiation Oncology [address] [place] [address] 57120 Malignant neoplasm of larynx, unspecified (HCC) (Primary Dx); Moderate malnutrition (CMS/HCC) 07/12/2024 8:45 AM CDT Treatment [facility] Medical Office Building 2 Radiation Oncology [address] [place] [address] 12299 07/12/2024 Orders Only RAD ONC TREATMENTS Miscellaneous, Not In File 07/11/2024 8:45 AM CDT Treatment [facility] Medical Office Building 2 Radiation Oncology [address] [place] [address] 95385 07/11/2024 Orders Only RAD ONC TREATMENTS Miscellaneous, Not In File 07/10/2024 3:45 PM CDT Treatment [facility] Medical Office Building 2 Radiation Oncology [address] [place] [address] 06706 07/10/2024 Orders Only RAD ONC TREATMENTS Miscellaneous, Not In File 07/10/2024 Telephone [facility] Head [facility] Center [address] [address] Delia Merritt, editor book Treatment Check In 07/07/2024 8:45 AM CDT Treatment [facility] Medical Office Building 2 Radiation Oncology [address] [place] [address] 93147 07/07/2024 OTV [facility] Medical Office Building 2 Radiation Oncology [address] [place] [address] 42482 Lucio Jenkins MD 07/07/2024 Orders Only RAD ONC TREATMENTS Miscellaneous, Not In File 07/06/2024 8:45 AM CDT Treatment [facility] Medical Office Building 2 Radiation Oncology [address] [place] [address] 97145 07/06/2024 Orders Only RAD ONC TREATMENTS Miscellaneous, Not In File 07/05/2024 8:45 AM CDT Treatment [facility] Medical Office Building 2 Radiation Oncology [address] [place] [address] 99690 07/05/2024 Documentation [facility] Office Building 2 Radiation Oncology [address] [place] [address] 64611 Rentaa Escobar RN Difficulty Urinating 07/05/2024 Orders Only RAD ONC TREATMENTS Miscellaneous, Not In File 07/04/2024 8:45 AM CDT Treatment [facility] Medical Office Building 2 Radiation Oncology [address] [place] [address] 79245 07/04/2024 Orders Only RAD ONC TREATMENTS Miscellaneous, Not In File 07/03/2024 9:00 AM CDT Clinical Support [facility] Office Building 2 Radiation Oncology [address] [place] [address] 91516 Malignant neoplasm of larynx, unspecified (HCC) (Primary Dx); Altered mental status, unspecified altered mental status type 07/03/2024 8:45 AM CDT Treatment [facility] Office Building 2 Radiation Oncology [address] [place] [address] 82321 07/03/2024 Orders Only RAD ONC TREATMENTS Miscellaneous, Not In File 06/30/2024 9:[address] [facility] [id number] [facility] [address] [place] [address] Malignant neoplasm of larynx, unspecified (HCC) (Primary Dx) 06/30/2024 8:45 AM CDT Treatment [facility] Office Building 2 Radiation Oncology [address] [place] [address] 63134 06/30/2024 Orders Only [facility] Office Building 2 Radiation Oncology [address] [place] [address] 70853 Lucio Jenkins MD 06/30/2024 Orders Only [facility] Office Building 2 Radiation Oncology [address] [place] [address] 44340 Lucio Jenkins MD Malignant neoplasm of larynx, unspecified (HCC) (Primary Dx) 06/30/2024 OTV [facility] Medical Office Building 2 Radiation Oncology [address] [place] [address] 39978 Lucio Jenkins MD 06/30/2024 Orders Only RAD ONC TREATMENTS Miscellaneous, Not In File 06/29/2024 2:30 PM CDT Treatment [facility] Medical Office Building 2 Radiation Oncology [address] [place] [address] 45452 06/29/2024 Orders Only RAD ONC TREATMENTS Miscellaneous, Not In File 06/27/2024 8:45 AM CDT Treatment [facility] Office Building 2 Radiation Oncology [address] [place] [address] 69433 06/27/2024 Orders Only RAD ONC TREATMENTS Miscellaneous, Not In File 06/26/2024 8:45 AM CDT Treatment [facility] Office Building 2 Radiation Oncology [address] [place] [address] 47830 06/26/2024 Orders Only RAD ONC TREATMENTS Miscellaneous, Not In File 06/23/2024 9:00 AM CDT Clinical Support [facility] Office Building 2 Radiation Oncology [address] [place] [address] 31466 Malignant neoplasm of larynx, unspecified (HCC) (Primary Dx); Moderate malnutrition (CMS/HCC) 06/23/2024 8:45 AM CDT Treatment [facility] Office Building 2 Radiation Oncology [address] [place] [address] 01023 06/23/2024 OTV [facility] Office Building 2 Radiation Oncology [address] [place] [address] 24539 Lucio Jenkins MD 06/23/2024 Orders Only RAD ONC TREATMENTS Miscellaneous, Not In File 06/22/2024 8:45 AM CDT Treatment [facility] Office Building 2 Radiation Oncology [address] [place] [address] 32873 06/22/2024 Orders Only RAD ONC TREATMENTS Miscellaneous, Not In File 06/21/2024 2:00 PM CDT Treatment [facility] Office Building 2 Radiation Oncology [address] [place] [address] 41201 06/21/2024 Orders Only RAD ONC TREATMENTS Miscellaneous, Not In File 06/20/2024 8:45 AM CDT Treatment [facility] Office Building 2 Radiation Oncology [address] [place] [address] 34323 06/20/2024 Orders Only RAD ONC TREATMENTS Miscellaneous, Not In File 06/19/2024 8:45 AM CDT Treatment [facility] Office Building 2 Radiation Oncology [address] [place] [address] 24007 06/19/2024 Orders Only RAD ONC TREATMENTS Miscellaneous, Not In File 06/16/2024 8:45 AM CDT Treatment [facility] Office Building 2 Radiation Oncology [address] [place] [address] 39746 06/16/2024 Orders Only [facility] Office Building 2 Radiation Oncology [address] [place] [address] 97009 Lucio Jenkins MD Larynx cancer (HCC) (Primary Dx) 06/16/2024 OTV [facility] Office Building 2 Radiation Oncology [address] [place] [address] 94733 Lucio Jenkins MD 06/16/2024 Orders Only RAD ONC TREATMENTS Miscellaneous, Not In File 06/15/2024 7:45 AM CDT Treatment [facility] Office Building 2 Radiation Oncology [address] [place] [address] 54368 06/15/2024 Orders Only RAD ONC TREATMENTS Miscellaneous, Not In File 06/14/2024 8:45 AM CDT Treatment [facility] Office Building 2 Radiation Oncology [address] [place] [address] 99153 06/14/2024 Orders Only RAD ONC TREATMENTS Miscellaneous, Not In File 06/13/2024 9:00 AM CDT Clinical Support [facility] Office Building 2 Radiation Oncology [address] [place] [address] 62364 Moderate malnutrition (CMS/HCC) (Primary Dx); Malignant neoplasm of larynx, unspecified (HCC) 06/13/2024 8:45 AM CDT Treatment [facility] Office Building 2 Radiation Oncology [address] [place] [address] 09636 06/13/2024 Orders Only RAD ONC TREATMENTS Miscellaneous, Not In File 06/12/2024 2:45 PM CDT Treatment [facility] Office Building 2 Radiation Oncology [address] [place] [address] 53965 Lucio Jenkins MD 06/12/2024 2:30 PM CDT Treatment [facility] Office Building 2 Radiation Oncology [address] [place] [address] 70537 Lucio Jenkins MD 06/12/2024 Orders Only RAD ONC TREATMENTS Miscellaneous, Not In File 06/09/2024 [facility] [address] [place] [address] Delia Merritt, editor book Treatment Start Check In 06/06/2024 7:30 PM CDT Treatment [facility] Office Building 2 Radiation Oncology [address] [place] [address] 95399 05/29/2024 3:30 PM CDT Treatment [facility] Medical Office Building 2 Radiation Oncology [address] [place] [address] 61077 Lucio Jenkins MD 05/29/2024 2:30 PM CDT Consult [facility] Medical Office Building 2 Radiation Oncology [address] [place] [address] 24141 Lucio Jenkins MD Supraglottic mass (Primary Dx) 05/29/2024 2:00 PM CDT Clinical Support [facility] Office Building 2 Radiation Oncology [address] [place] [address] 15870 Moderate malnutrition (CMS/HCC) (Primary Dx); Malignant neoplasm of larynx, unspecified (HCC); Larynx cancer (HCC) 05/25/2024 Telephone [facility] Nutrition Counseling [address] [place] [address] from Last 3 Months [...] uit: Not Asked; Counseling Given: Not Answered [facility] Utilities Answer Date Recorded In the past 12 months has [employer], gas, oil, or water [employer] threatened to shut off services in your [...] often do you attend chur ch or mormon services? Never 03/16/2024 Do you belong to any clubs o r organizations such as sikhism groups, unions, fraternal or athletic groups, or [...] any time in the past 12 m [facility], were you homeless or living in a care home (including now)? No 03/16/2024 Personal Safety Answer Date Recorded Have you ever been in or are you currently in a harmful physical or emotional relationship or is someone making you feel afraid or unsafe? 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 Gender Identity Not on file Sexual Orientation [...] 177.8 cm (5' 10) 04/13/2024 3:35 PM INVESTMENT ADVISOR Body Mass Index 22.56 04/13/2024 3:35 PM INVESTMENT ADVISOR Plan of Treatment Health Maintenance Due Date [...] ORD ERABLES Final Result Performing Organization Address City/[facility] Co de Phone Number ARINoemi * [...] ORD ERABLES Final Result Performing Organization Address [facility] Co de Phone Number ARIA * [...] ORD ERABLES Final Result Performing Organization Address [facility] de Phone Number ARIA * RAD ONC [...] ORD ERABLES Final Result Performing Organization Address City/State/[facility] Co de Phone Number ARIA * [...] ORD ERABLES Final Result Performing Organization Address [facility] Co de Phone Number ARIA * [...] ORD ERABLES Final Result Performing Organization Address [facility] de Phone Number RENÉ * RAD ONC [...] ORD ERABLES Final Result Performing Organization Address City/State/[facility] Co de Phone Number ARINoemi * [...] ORD ERABLES Final Result Performing Organization Address [facility] de Phone Number ARIA * RAD ONC [...] ORD ERABLES Final Result Performing Organization Address City/State/[facility] Co de Phone Number RENÉ * (ABNORMAL) POCT creatinine for contrast evaluation (05/29/2024 3:34 PM CDT) Pathologist [facility] Creatinine POC 1.40(H) 0.80 - 1.30 mg/dL Comment:Testing performed by : [facility], [address] [place] [address], [place]., [address] Blood 05/29/2024 3:34 PM CDT 05/29/2024 3:34 PM CDT us Lucio Jenkins MD POINT OF CARE TEST ORDERABLES Final Result [facility] [address] [facility] Department [place] [address] * CT Abdomen Pelvis W Contrast (08/13/2021 [...] Franklin Addison M.D. DL T: Report ID: [id number] Reading Location: [id number] Procedure Note Franklin Addison MD - 08/13/2021 [...] to 3.5 cm in maximal dimension, axial [id number]. This could be secondary to hemorrhage or [...] signed by Franklin HAMMOND T: Report ID: [id number] Reading Location: [place] [address] us Anita Arriola DO IMG CT PROCEDURES Final Result from Last 3 Months or Most Recently Relevant to Health Maintenance Insurance [facility] Advance Directives For more information, please contact: [phone] Documents on File Type Date Recorded Patient Ward Supervisor Expl anation Power of Delivery Truck Driver 08/13/2021 5:19 PM * Full Code (Latest Code Status on File) Date Activated Date Inactivated Comments 03/22/2021 10:55 AM 04/08/2021 5:12 AM Care Teams Fraud Representative Relationship Specialty Start Date End Date Ean Lane MD [address] [place] [address] PCP - General Internal Medicine 05/29/24 Delia Merritt, RN Nurse Navigator 03/16/24 Roslyn Burnham LCSW Still Operator Helper 03/16/24 Bg Ireland MD [address] [facility] [address] [place] [address] Medical Oncologist/Atmospheric Physics Professor Medical Oncology 03/17/24 Sharmila Oconnor MD [address] [facility] DEPT OTOLARYNGOLOGY, [address] [place] [address] Referring Physician Otolaryngology 03/17/24 Lucio Jenkins MD [address] [place] [address] Radiation Oncologist Radiation Oncology 05/22/24
--- OUTSIDE RECORDS SUMMARY | 2024-08-21 16:02 | XMS_ITS ---
Author Organization [facility] Address [address] [place] [address] Care Team Providers Care Mining Speculator Name Role Phone Delia Merritt RN Unavailable UnavailRoslyn Reyez LCSW Unavailable Unavaila Bg Stern MD Unavailable [phone] Sharmila Oconnor MD Unavailable [phone] Lucio Jenkins MD Unavailable Ean Lane MD Primary Care Provider [phone] Active Problems Problem Noted Date Diagnosed Date [...]
--- NOTE | 2024-08-21 16:04 | ADMGEN ---
This patient, Norman Hickey, was admitted to IMU Room 205-02. Patient/family oriented to hospital policies and general routines including ID bracelet, bed and alarms, visiting hours, pain management, procedures, bathroom and other care routines, personal items, smoking policy, room service/diet, and visiting hours. Information on how to activate the Rapid Response Team has been discussed. Patient/Family are encouraged to report perceived risks to care and to ask questions if they do not understand what they are told or what they should do.
--- NOTE | 2024-08-21 17:29 | PC.NURSE ---
Updated Fani Prieto NP on pt's HR of 150 and temp of 101.8. Order for Tylenol
--- NOTE | 2024-08-21 18:44 | ECG_ITS ---
Test Date: 2024-08-21 18:55:34 Measurements Intervals [place] Rate: 144 P: 0 CO: 0 QRS: 71 QRSD: 91 T: 72 QT: 277 QTc: 429 Interpretive Statements SINUS TACHYCARDIA BASELINE WANDER- II, III, AVF, V3, V5-V6 ABNORMAL ECG Compared to ECG 08/21/2024 08:10:43 NO SIGNIFICANT CHANGE Electronically Signed On 08-22-2024 08:32:30 CDT by Forrest Jade D.O.
--- NOTE | 2024-08-21 18:45 | PC.NURSE ---
Notified Chantale Prieto pt's HR remains 145-150. Order for EKG
[2024-08-21 19:52] LABS: Glucose Point of Care 106 mg/dl (65-105)
[2024-08-21] MEDS: ALBUMIN HUMAN 25% 25 GM/100 ML 200 ML IVPB (20:31)
--- NOTE | 2024-08-21 22:45 | PC.NURSE ---
Pt's BP continues to be low after Albumin infusion. Chantale Prieto, KAYCEE aware. Discussed with pt the need to move to ICU for further treatment/management of BP. Pt states he does not want a central line at this time, but is agreeable to move to ICU. Staff spoke with pt's daughter, Ruthy, who states she is POA. Ruthy is also agreeable for pt to be moved to ICU for further treatment.
[2024-08-21] MEDS: PHENYLEPHRINE HCL INJ 50 MG in SODIUM CHLORIDE 0.9% IV 245 ML 12 ML IV CONT (23:14)
--- NOTE | 2024-08-21 23:24 | PC.NURSE ---
This patient, Norman Hickey, was transferred to [ICU room 5 ] on 08/21/24 at 2244. Personal belongings sent with patient. Report given to [GALA Eldridge ]. Appropriate documentation sent with patient. Family notified of transfer.
--- NOTE | 2024-08-21 23:35 | PC.NURSE ---
This patient, Norman Hickey, was received from [facility] on 08/21/24 at 2250 via bed. Patient/family oriented to unit policies and routines
[2024-08-22] VITALS (26 sets, daily range): BP systolic 88–147; BP diastolic 57–92; PULSE 92–133; RESP 16–35; TEMP 36.6–38.8; O2SAT 96–100
[2024-08-22] MEDS: MEROPENEM 1 GM/NS 100 ML 1 GM/100 ML BAG IVPB ×2 (02:19→14:50)
[2024-08-22] MEDS: ACETAMINOPHEN 500 MG TABLET 1000 MG PO ×3 (05:44→21:00)
[2024-08-22 06:20] LABS: Hematocrit 29.8 % (42.0-52.0); Hemoglobin 9.7 g/dL (14.0-18.0); Mean Corpuscular HGB Conc 32.6 g/dl (32-36); Mean Corpuscular Hemoglobin 27.8 pg (26-34); Mean Corpuscular Volume 85.4 fl (80-100); Mean Platelet Volume 10.9 fl (7.4-10.4); Platelet Count Result 142 k/mm3 (150-375); Red Blood Count 3.49 M/mm3 (4.6-6.20); Red Cell Distribution Width 16.5 % (11.5-14.5); White Blood Count 15.4 K/mm3 (4.5-10.0)
[2024-08-22 06:30] LABS: Lactic Acid Reflex 1.8 mmol/L (0.7-2.0)
[2024-08-22 06:32] LABS: Alanine Aminotransferase 131 U/L (6-50); Albumin Level 3.4 g/dL (3.5-5.1); Alkaline Phosphatase 313 U/L (38-126); Anion Gap 11 mmol/L (4-12); Aspartate Amino Transferase 150 U/L (17-59); Bilirubin,Total 0.9 mg/dL (0.2-1.3); Blood Urea Nitrogen 70 mg/dL (9-20); Calcium 8.8 mg/dL (8.4-10.2); Carbon Dioxide 18 mmol/L (22-30); Chloride 112 mmol/L (98-107); Creatine Kinase 533 U/L (55-170); Estimated CRCL calculation 24 ml/min; Estimated Glomerular Filt Rate 23; Glucose 94 mg/dL (65-110); Phosphorus 2.7 mg/dL (2.5-4.5); Potassium 3.9 mmol/L (3.4-5.0); Sodium 141 mmol/L (137-145); Total Protein 6.6 g/dL (6.3-8.2)
[2024-08-22 06:55] LABS: Hemoglobin A1C 5.9 % (<5.7)
[2024-08-22 06:56] LABS: Band Neutrophils Percent 16 % (0-6); Lymphocytes Absolute Manual 0.46 K/mm3 (1.1-4.5); Lymphocytes Percent Manual 3 % (18-44); Monocytes Absolute Manual 0.92 K/mm3 (0.1-0.90); Monocytes Percent Manual 6 % (3-9); Neutrophils Absolute Manual 14.01 K/mm3 (1.3-6.7); Neutrophils Percent Manual 75 % (46-73); Platelet Estimate Slightly Decreased (Adequate); Schistocytes None Seen; Total Cells Counted 100
[2024-08-22 07:37] LABS: Glucose Point of Care 81 mg/dl (65-105)
[2024-08-22] MEDS: PANTOPRAZOLE SODIUM IV 40 MG VIAL IV PUSH (08:22)
[2024-08-22] MEDS: FERROUS SULFATE 325 MG TABLET DR BY MOUTH ×2 (08:22→16:49)
[2024-08-22] MEDS: risperiDONE 0.5 MG TABLET PO ×2 (08:22→16:48)
[2024-08-22] MEDS: THERAPEUTIC MULTIVITAMINS/MINERALS TAB (*BKC) 1 TABLET PO (08:22)
[2024-08-22] MEDS: ENOXAPARIN 30 MG/0.3 ML SYRINGE SUB-Q (08:22)
[2024-08-22] MEDS: ASPIRIN 81 MG ENTERIC TABLET PO (08:22)
[2024-08-22] MEDS: ACIDOPHILUS/BULGARICUS CHEWABLE TABLET 1 TABLET PO (08:22)
[2024-08-22] MEDS: LORATADINE 10 MG TABLET PO (08:23)
--- NOTE | 2024-08-22 09:26 | P.CONIN_ITS ---
Assessment and Plan Assessment and plan (1) Septic shock: Code(s): A41.9 - Sepsis, unspecified organism; R65.21 - Severe sepsis with septic shock Status: Acute Assessment and Plan: Septic shock secondary to UTI in a patient with chronic indwelling Rendon. CT scan shows left ureteral stone with ureteral hydronephrosis History of resistant Pseudomonas and urine in the past Patient has received IV fluid bolus. Continue maintenance IV fluids with bicarb Patient was started on Jose-Synephrine through peripheral IV as he diffuse central venous catheter placement. Jose-Synephrine has been weaned off. Monitor blood pressure Urine and blood culture sent Continue empiric meropenem Rendon catheter was replaced in the ER Consult Urology for management of left ureteral stone and hydronephrosis Is lactic acid level has normalized (2) Acute kidney injury: Code(s): N17.9 - Acute kidney failure, unspecified Status: Acute Assessment and Plan: Last recorded baseline creatinine is 1.6 in the chart. Presented with creatinine 4.13 Likely acute kidney injury above chronic kidney disease. CANDIS secondary to sepsis, shock, rhabdo, left ureteral stone causing obstruction Continue IV fluids. Monitor urine output electrolytes and creatinine. Monitor CK level Ureteral stone and hydronephrosis management as above (3) Urinary tract infection: Qualifiers: Encounter type: initial encounter Indwelling urinary catheter type: i ndwelling urethral catheter Urinary tract infection type: catheter-associated UTI Qualified Code(s): T83.511A - Infection and inflammatory reaction due to indwelling urethral catheter, initial encounter; N39.0 - Urinary tract infection, site not specified Code(s): N39.0 - Urinary tract infection, site not specified Status: Acute Assessment and Plan: See above (4) Ureteral stone with hydronephrosis: Code(s): N13.2 - Hydronephrosis with renal and ureteral calculous obstruction Status: Acute Assessment and Plan: See above (5) Type 2 diabetes mellitus: Qualifiers: Diabetes mellitus longwall machine operator helper insulin use: without skilled nursing use Diabetes mellitus complication status: without complication Qualified Code(s): E11.9 - Type 2 diabetes mellitus without complications Code(s): E11.9 - Type 2 diabetes mellitus without complications Status: Chronic Assessment and Plan: Sliding scale insulin (6) Rhabdomyolysis: Code(s): M62.82 - Rhabdomyolysis Status: Acute Assessment and Plan: Monitor CK level IV fluids with bicarb (7) Pulmonary nodules: Code(s): R91.8 - Other nonspecific abnormal finding of lung field Status: Acute Assessment and Plan: 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 CT scan shows multiple pulmonary nodules largest measuring 8 mm. Patient states that he is being currently evaluated for cancer and site [facility] although results are not available. Records obtained from [facility] where he had bronchoscopy and fine-needle aspiration which were negative for malignancy. I would defer further evaluation and treatment. He (8) Squamous cell carcinoma of supraglottis: Code(s): C32.1 - Malignant neoplasm of supraglottis Status: Acute Plan DVT prophylaxis -Lovenox Stress ulcer prophylaxis -Protonix Nutrition -diet ordered Code Status -patient's code status was recorded DNR in the chart by ER physician. There is no documentation regarding it. I will speak to patient's family was again here. Patient himself does not appear to have clear understanding of his medical issues. Total Critical Care Time - 35 minutes Due to a high probability of clinically significant, life threatening deterioration, the patient required my highest level of preparedness to intervene emergently and I personally spent this critical care time directly and personally managing the patient. This critical care time included obtaining a history; examining the patient; pulse oximetry; ordering and review of studies; arranging urgent treatment with development of a management plan; evaluation of patient's response to treatment; frequent reassessment; and discussions with other providers. It was exclusive of separately billable procedures and treating other patients and teaching time. Please see Assessment and Plan section and the rest of the note for further information on patient assessment and treatment Food Preparation Supervisor Consult Note Consult date: 08/22/24 HPI: Norman Hickey is a 69 year old male with history of type 2 diabetes, chronic urinary obstruction status post chronic indwelling Rendon, dementia, CVA who was [facility] [place] [facility] yesterday with fever tachycardia and weakness. Patient provides limited history and states that he did had fever at [facility] and he was told by the nursing staff that he had low blood pressure hence he was being sent to ER. He also complains of chills and rigors. He also felt weak and tired. Apart from that he denies any specific complaints. All other systems were reviewed and were negative. He states that he is being checked out for some sort of cancer by [facility] although he does not know any of detailed. He also is not currently on any treatment. Workup in the ER showed patient to be tachycardic, hypotensive and febrile Lab work showed Leukocytosis, hemoglobin 10.7, creatinine 4.1 3 and GFR 14 (previously ), lactic 2.2, AST 209, ALT 171, CRP 26.8, and UA consistent with UTI. CXR showed mild right basilar discoid atelectasis. EKG showed sinus tachycardia (rate 142), possible atrial flutter, delayed precordial R/S transition, borderline ST-T wave abnormality lateral leads. Patient was given IV fluids started on peripheral Jose-Synephrine and antibiotics. And admitted to ICU for further evaluation management. This morning patient states he feels much better. He he is eating his breakfast and denies any new complaints. Review of Systems 2 Review of Systems: All systems reviewed & are unremarkable except as noted in HPI and below (HPI) [facility] Past Medical History Medical History (Updated 08/22/24 @ 09:42 by Jani Brown MD) Squamous cell carcinoma of supraglottis Long-term insulin use Urinary obstruction chronic, rendon in place CVA (cerebral vascular accident) Dementia Anemia Type 2 diabetes mellitus PAD (peripheral artery disease) Hypertension Schizophrenia Family History Family History Other Unknown family medical history Social History Social History Smoking status: Former smoker Alcohol intake: unknown Substance use: unknown Substance use type: unknown Spiritual care concerns: No Meds Home Medications and Allergies Home Medications ?Medication ?Instructions ?Recorded ?Confirmed ?Type docusate sodium 50 mg/5 mL oral 100 mg PO DAILY 04/16/21 08/21/24 History liquid lisinopril 20 mg tablet 20 mg PO DAILY 04/16/21 08/21/24 History metoprolol tartrate 25 mg tablet 25 mg PO BID 04/16/21 08/21/24 History multivitamin with minerals-folic 1 tablet PO DAILY 04/16/21 08/21/24 History acid 0.4 mg tablet atorvastatin 40 mg tablet 40 mg PO HS #30 tabs 04/18/21 08/21/24 Rx Lactobacillus acidophilus 10 mg PO DAILY 08/21/24 08/21/24 History (Acidophilus capsule) aspirin 81 mg capsule 81 mg PO DAILY 08/21/24 08/21/24 History cholecalciferol (vitamin D3) 50 2,000 unit PO ONCE 08/21/24 08/21/24 History mcg (2,000 unit) capsule (D3-2000) ferrous sulfate 325 mg (65 mg 325 mg PO BID 08/21/24 08/21/24 History iron) tablet (Feosol) loratadine 10 mg tablet (Allergy 10 mg PO DAILY 08/21/24 08/21/24 History Relief (loratadine)) ondansetron 4 mg disintegrating 4 mg PO Q8H PRN gerd 08/21/24 08/21/24 History tablet polyethylene glycol 3350 17 8.5 g PO DAILY PRN constipation 08/21/24 08/21/24 History gram/dose oral powder (ClearLax) risperidone 0.5 mg tablet 0.5 mg PO BID 08/21/24 08/21/24 History (Risperdal) Allergies Allergy/AdvReac Type Severity Reaction Status Date / Time No Known Allergies Allergy Verified 08/21/24 15:01 Vital Signs Vital Signs - 24 hr 08/21/24 10:05 08/21/24 11:03 08/21/24 12:22 Temperature Pulse Rate 115 H 108 H 100 Respiratory Rate 20 20 Blood Pressure 94/61 L 88/70 L Pulse Oximetry 99 100 Oxygen Delivery 08/21/24 13:20 08/21/24 13:26 08/21/24 14:33 Temperature 37.1 C 36.8 C Pulse Rate 110 H 100 Respiratory Rate 19 20 Blood Pressure 101/73 98/77 L Pulse Oximetry 100 100 Oxygen Delivery 08/21/24 16:00 08/21/24 16:10 08/21/24 17:12 Temperature 36.8 C 38.8 C H Pulse Rate 110 H 103 H Respiratory Rate 18 Blood Pressure 98/72 L Pulse Oximetry 98 Oxygen Delivery 08/21/24 17:29 08/21/24 17:37 08/21/24 17:49 Temperature 38.8 C H Pulse Rate 155 H 155 H Respiratory Rate Blood Pressure Pulse Oximetry Oxygen Delivery 08/21/24 18:32 08/21/24 19:42 08/21/24 20:00 Temperature 37.9 C H 37.9 C H Pulse Rate 99 Respiratory Rate 20 Blood Pressure 85/52 L Pulse Oximetry 97 Oxygen Delivery Room Air 08/21/24 20:00 08/21/24 20:19 08/21/24 22:00 Temperature 37.1 C Pulse Rate 126 H 126 H 116 H Respiratory Rate 30 H Blood Pressure 81/60 L Pulse Oximetry 100 Oxygen Delivery 08/21/24 22:31 08/21/24 23:14 08/21/24 23:50 Temperature Pulse Rate 116 H 116 H 111 H Respiratory Rate 28 H Blood Pressure 76/46 L 86/56 L 79/52 L Pulse Oximetry Oxygen Delivery 08/22/24 00:00 08/22/24 00:00 08/22/24 00:00 Temperature 37.3 C Pulse Rate 111 H 111 H Respiratory Rate 18 Blood Pressure 104/66 104/66 Pulse Oximetry 100 97 Oxygen Delivery Room Air 08/22/24 00:00 08/22/24 02:00 08/22/24 02:00 Temperature Pulse Rate 112 H 100 100 Respiratory Rate 16 Blood Pressure 102/68 102/68 Pulse Oximetry 99 Oxygen Delivery 08/22/24 02:00 08/22/24 02:21 08/22/24 03:06 Temperature Pulse Rate 100 100 99 Respiratory Rate Blood Pressure 110/76 137/92 H Pulse Oximetry Oxygen Delivery 08/22/24 04:00 08/22/24 04:00 08/22/24 04:00 Temperature 37.3 C Pulse Rate 103 H 103 H Respiratory Rate 23 H Blood Pressure 114/82 114/82 Pulse Oximetry 100 100 Oxygen Delivery Room Air 08/22/24 04:00 08/22/24 04:12 08/22/24 05:44 Temperature 37.9 C H Pulse Rate 105 H 109 H Respiratory Rate Blood Pressure 126/79 Pulse Oximetry Oxygen Delivery 08/22/24 06:00 08/22/24 06:00 08/22/24 06:00 Temperature Pulse Rate 125 H 125 H 125 H Respiratory Rate 20 Blood Pressure 113/69 113/69 Pulse Oximetry 97 Oxygen Delivery 08/22/24 06:44 08/22/24 08:00 08/22/24 08:00 Temperature 37.8 C H 37.1 C Pulse Rate 111 H 111 H Respiratory Rate 18 Blood Pressure 99/61 L 99/61 L Pulse Oximetry 99 Oxygen Delivery 08/22/24 08:00 Temperature Pulse Rate Respiratory Rate Blood Pressure Pulse Oximetry Oxygen Delivery Room Air Exam 2 Narrative: General: Pt is alert awake and in NAD Lungs/Chest: Trachea central Clear BS B/L, No crackles or wheezing. Cardiac: RRR. Normal S1 S2. No murmurs Circulation: Pedal pulses are intact and symmetrical. Abdomen: Normal bowel sounds.. Soft. NT. ND. Extremities: No clubbing, cyanosis or edema. Warm : Rendon in place with blood-tinged urine Neurologic: Follows commands. 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 AO x3 Skin: No Rash Results Labs 08/22/24 06:07 08/22/24 06:07 Labs: Impressions Chest/Abdomen/Pelvis CT 08/22/24 05:33 Impression: 7 mm distal left ureteral stone with moderate left hydroureteronephrosis. 1.3 cm probable hyperdense left renal cysts, though solid mass is not excluded. Consider follow-up pre and postcontrast MR to further evaluate. Possible cystitis versus under distention of the urinary bladder. Correlate with urinalysis. Pulmonary nodules, largest measuring 8 mm, as above. According to Fleischner Society criteria, for a low-risk patient, recommend follow-up CT scan in 3-6 months, then consider additional 18-[address] For a high-risk patient, follow-up CT scans at both 3-6 months and 18-24 months are recommended. Minimal bilateral pleural effusions. Short CBC 08/21/24 08/22/24 Range/Units 09:07 06:07 WBC 9.8 15.4 H (4.5-10.0) K/mm3 Hgb 10.7 L 9.7 L (14.0-18.0) g/dL Hct 33.1 L 29.8 L (42.0-52.0) % Plt Count 175 142 L (150-375) k/mm3 BMP 08/22/24 06:07 Sodium 141 Potassium 3.9 Chloride 112 H Carbon Dioxide 18 L BUN 70 H D Creatinine 2.78 H Glucose 94 Calcium 8.8 Cardiac Enzymes 08/21/24 08/22/24 Range/Units 09:07 06:07 Total Creatine Kinase 853 H 533 H (55-170) U/L Liver Function 08/22/24 Range/Units 06:07 Total Bilirubin 0.9 (0.2-1.3) mg/dL AST 150 H (17-59) U/L ALT 131 H (6-50) U/L Alkaline Phosphatase 313 H (38-126) U/L Albumin 3.4 L (3.5-5.1) g/dL Hospitalist MIPS Advance Care Plan I have confirmed that the patient's Advanced Care Plan is present, code status is documented, or surrogate decision maker is listed in patient medical record.: Yes Medication Reconciliation I have utilized all available resources to obtain, update and review the patients current medications (includes all prescriptions, OTC, herbals, cannabis, and nutritional supplements).: Yes
--- NOTE | 2024-08-22 09:26 | WPDURCON ---
Assessment and Plan Assessment and plan (1) Ureteral stone with hydronephrosis: Code(s): N13.2 - Hydronephrosis with renal and ureteral calculous obstruction Status: Acute (2) Urinary tract infection: Qualifiers: Encounter type: initial encounter Indwelling urinary catheter type: indwelling urethral catheter Urinary tract infection type: catheter-associated UTI Qualified Code(s): T83.511A - Infection and inflammatory reaction due to indwelling urethral catheter, initial encounter; N39.0 - Urinary tract infection, site not specified Code(s): N39.0 - Urinary tract infection, site not specified Status: Acute Assessment and Plan: CAUTI, present on admission (3) Acute kidney injury: Code(s): N17.9 - Acute kidney failure, unspecified Status: Acute (4) Septic shock: Code(s): A41.9 - Sepsis, unspecified organism; R65.21 - Severe sepsis with septic shock Status: Acute (5) Chronic indwelling Rendon catheter: Code(s): Z97.8 - Presence of other specified devices Status: Acute Plan - Septic shock likley secondary to obstructive pyelonephritis from 7 mm left distal ureteral stone and CAUTI - Acute kidney injury, improved from admission - Chronic indwelling Rendon catheter, suspect prostate enlargement - Multiple comorbidities including type 2 diabetes, dementia, CVA, schizophrenia Plan: - Keep NPO for possible cystoscopy with left ureteral stent placement either today or tomorrow as an add-on case in the OR - If today, will be added as late afternoon surgical case given breakfast consumption this morning around 0815 - Plan for definitive stone treatment and stent management as outpatient after infection resolves Case discussed with Dr. Kent and [employer]. No family present. Urology Consult Note HPI Date Seen: 08/22/24 Requesting Physician: Luanne Ramirez MD Primary Care Provider: Ean Lane, Consult Narrative Reason for consult: Obstructing left ureteral stone, severe sepsis, CAUTI Narrative: Norman Hickey is a 69-year-old male admitted to the ICU on 08/21/2024 for management of septic shock. He presented with fever, tachycardia, and hypotension requiring IV antibiotics, pressor support. He has a chronic indwelling Rendon catheter due to chronic urinary obstruction. CT abdomen and pelvis without contrast on 08/22/2024 revealed a 7 mm left distal ureteral stone with associated moderate left hydronephrosis, a 1.3 cm hyperdense left renal cyst, and possible cystitis with bladder wall thickening. His medical history includes type 2 diabetes mellitus, dementia, CVA, peripheral artery disease, hypertension, schizophrenia, and anemia. He is diaphoretic and tachycardic on exam this morning. He is not requiring pressor support this morning. He denies previous history of stones. He is not established with outpatient urology. Last oral intake was around [id number] this morning, ate a full breakfast. -PERTINENT LABS: 08/21/2024 - UA: 2+ blood, 3+ leukocyte esterase, 21-50 RBC, >100 WBC, 4+ bacteria 08/21/2024 - WBC 9.8, Hgb 10.7, Cr 4.13 (baseline 1.6 in September 2023) 08/22/2024 - WBC 15.4, Hgb 9.7, Platelets 142, Cr 2.8 -PERTINENT IMAGIN08/22/2024 CT Abdomen/Pelvis (without contrast) - 7 mm left distal ureteral stone with moderate left hydroureteronephrosis, 1.3 cm hyperdense left renal cyst, possible cystitis Review of Systems Constitutional: Constitutional: Reports fatigue Cardiovascular: Cardiovascular: Denies chest pain Respiratory: Respiratory: Reports cough and Denies dyspnea Gastrointestinal: Gastrointestinal: Reports abdominal pain and Reports nausea Genitourinary: Genitourinary: Reports hematuria Psychiatric: Psychiatric: Reports no additional psychiatric complaints [facility] Past Medical History Medical History (Updated 08/22/24 @ 10:25 by Kasey Byrd APRN) Squamous cell carcinoma of supraglottis Long-term insulin use Urinary obstruction chronic, rendon in place CVA (cerebral vascular accident) Dementia Anemia Type 2 diabetes mellitus PAD (peripheral artery disease) Hypertension Schizophrenia Family History Family History Other Unknown family medical history Social History Social History Smoking status: Former smoker Alcohol intake: unknown Substance use: unknown Substance use type: unknown Spiritual care concerns: No Meds Home Medications and Allergies Home Medications ?Medication ?Instructions ?Recorded ?Confirmed ?Type docusate sodium 50 mg/5 mL oral 100 mg PO DAILY 04/16/21 08/21/24 History liquid lisinopril 20 mg tablet 20 mg PO DAILY 04/16/21 08/21/24 History metoprolol tartrate 25 mg tablet 25 mg PO BID 04/16/21 08/21/24 History multivitamin with minerals-folic 1 tablet PO DAILY 04/16/21 08/21/24 History acid 0.4 mg tablet atorvastatin 40 mg tablet 40 mg PO HS #30 tabs 04/18/21 08/21/24 Rx Lactobacillus acidophilus 10 mg PO DAILY 08/21/24 08/21/24 History (Acidophilus capsule) aspirin 81 mg capsule 81 mg PO DAILY 08/21/24 08/21/24 History cholecalciferol (vitamin D3) 50 2,000 unit PO ONCE 08/21/24 08/21/24 History mcg (2,000 unit) capsule (D3-2000) ferrous sulfate 325 mg (65 mg 325 mg PO BID 08/21/24 08/21/24 History iron) tablet (Feosol) loratadine 10 mg tablet (Allergy 10 mg PO DAILY 08/21/24 08/21/24 History Relief (loratadine)) ondansetron 4 mg disintegrating 4 mg PO Q8H PRN gerd 08/21/24 08/21/24 History tablet polyethylene glycol 3350 17 8.5 g PO DAILY PRN constipation 08/21/24 08/21/24 History gram/dose oral powder (ClearLax) risperidone 0.5 mg tablet 0.5 mg PO BID 08/21/24 08/21/24 History (Risperdal) Allergies Allergy/AdvReac Type Severity Reaction Status Date / Time No Known Allergies Allergy Verified 08/21/24 15:01 Vital Signs Vital Signs - 24 hr 08/21/24 10:05 08/21/24 11:03 08/21/24 12:22 Temperature Pulse Rate 115 H 108 H 100 Respiratory Rate 20 20 Blood Pressure 94/61 L 88/70 L Pulse Oximetry 99 100 Oxygen Delivery 08/21/24 13:20 08/21/24 13:26 08/21/24 14:33 Temperature 98.8 F 98.3 F Pulse Rate 110 H 100 Respiratory Rate 19 20 Blood Pressure 101/73 98/77 L Pulse Oximetry 100 100 Oxygen Delivery 08/21/24 16:00 08/21/24 16:10 08/21/24 17:12 Temperature 98.2 F 101.8 F H Pulse Rate 110 H 103 H Respiratory Rate 18 Blood Pressure 98/72 L Pulse Oximetry 98 Oxygen Delivery 08/21/24 17:29 08/21/24 17:37 08/21/24 17:49 Temperature 101.8 F H Pulse Rate 155 H 155 H Respiratory Rate Blood Pressure Pulse Oximetry Oxygen Delivery 08/21/24 18:32 08/21/24 19:42 08/21/24 20:00 Temperature 100.3 F H 100.3 F H Pulse Rate 99 Respiratory Rate 20 Blood Pressure 85/52 L Pulse Oximetry 97 Oxygen Delivery Room Air 08/21/24 20:00 08/21/24 20:19 08/21/24 22:00 Temperature 98.8 F Pulse Rate 126 H 126 H 116 H Respiratory Rate 30 H Blood Pressure 81/60 L Pulse Oximetry 100 Oxygen Delivery 08/21/24 22:31 08/21/24 23:14 08/21/24 23:50 Temperature Pulse Rate 116 H 116 H 111 H Respiratory Rate 28 H Blood Pressure 76/46 L 86/56 L 79/52 L Pulse Oximetry Oxygen Delivery 08/22/24 00:00 08/22/24 00:00 08/22/24 00:00 Temperature 99.2 F Pulse Rate 111 H 111 H Respiratory Rate 18 Blood Pressure 104/66 104/66 Pulse Oximetry 100 97 Oxygen Delivery Room Air 08/22/24 00:00 08/22/24 02:00 08/22/24 02:00 Temperature Pulse Rate 112 H 100 100 Respiratory Rate 16 Blood Pressure 102/68 102/68 Pulse Oximetry 99 Oxygen Delivery 08/22/24 02:00 08/22/24 02:21 08/22/24 03:06 Temperature Pulse Rate 100 100 99 Respiratory Rate Blood Pressure 110/76 137/92 H Pulse Oximetry Oxygen Delivery 08/22/24 04:00 08/22/24 04:00 08/22/24 04:00 Temperature 99.1 F Pulse Rate 103 H 103 H Respiratory Rate 23 H Blood Pressure 114/82 114/82 Pulse Oximetry 100 100 Oxygen Delivery Room Air 08/22/24 04:00 08/22/24 04:12 08/22/24 05:44 Temperature 100.3 F H Pulse Rate 105 H 109 H Respiratory Rate Blood Pressure 126/79 Pulse Oximetry Oxygen Delivery 08/22/24 06:00 06/17/25 06:00 08/22/24 06:00 Temperature Pulse Rate 125 H 125 H 125 H Respiratory Rate 20 Blood Pressure 113/69 113/69 Pulse Oximetry 97 Oxygen Delivery 08/22/24 06:44 08/22/24 08:00 08/22/24 08:00 Temperature 100.0 F H 98.8 F Pulse Rate 111 H 111 H Respiratory Rate 18 Blood Pressure 99/61 L 99/61 L Pulse Oximetry 99 Oxygen Delivery 08/22/24 08:00 Temperature Pulse Rate Respiratory Rate Blood Pressure Pulse Oximetry Oxygen Delivery Room Air Exam Const: General: uncomfortable Other: Diaphoretic HENMT: Face/Nose/Sinus: Normal nares present Cardio: Rate: tachycardic GI: Other: LLQ tenderness Urinary Catheter: Urinary Catheter: patent and draining and urine red Neuro: Speech: normal speech Extrem: General: no edema Psych: Speech and movement: Normal speech and movement present Results Labs 08/22/24 06:07 08/22/24 06:07 Labs: Short CBC 08/21/24 08/22/24 Range/Units 09:07 06:07 WBC 9.8 15.4 H (4.5-10.0) K/mm3 Hgb 10.7 L 9.7 L (14.0-18.0) g/dL Hct 33.1 L 29.8 L (42.0-52.0) % Plt Count 175 142 L (150-375) k/mm3 BMP 08/22/24 06:07 Sodium 141 Potassium 3.9 Chloride 112 H Carbon Dioxide 18 L BUN 70 H D Creatinine 2.78 H Glucose 94 Calcium 8.8 Cardiac Enzymes 08/21/24 08/22/24 Range/Units 09:07 06:07 Total Creatine Kinase 853 H 533 H (55-170) U/L Liver Function 08/22/24 Range/Units 06:07 Total Bilirubin 0.9 (0.2-1.3) mg/dL AST 150 H (17-59) U/L ALT 131 H (6-50) U/L Alkaline Phosphatase 313 H (38-126) U/L Albumin 3.4 L (3.5-5.1) g/dL
--- NOTE | 2024-08-22 10:13 | WPDHPUPDATE1 ---
History and Physical Update Update Date/Time: 08/22/24 10:13 History and Physical has been reviewed, including an updated exam of the patient. There are NO changes in the patient's condition. Risks, benefits, and alternatives have been discussed and questions answered. Patient agrees to proceed with procedure. Proceed with cystoscopy, left retrograde, left stent placement on an emergent basis given his sepsis.
[2024-08-22] MEDS: SODIUM BICARBONATE 8.4% 150 MEQ in WATER, STERILE FOR INJECTION 950 ML 100 MEQ IV CONT ×2 (10:18→21:05)
--- NOTE | 2024-08-22 10:40 | PC.NURSE ---
Patient departed the ICU at 1040 via stretcher to OR for cystoscopy. Patient transported per urology OR team with monitors in place. Patient hemodynamically stable at time of transfer. OR team to resume patient care at this time.
[2024-08-22] MEDS: LACTATED RINGERS 1,000 ML 30 ML IV CONT ×2 (11:00→12:30)
--- NOTE | 2024-08-22 11:22 | WPDANESEPPF ---
Anes - Initial Pre Proc Eval Procedure: Operation Date: 08/22/24 11:45 Proposed Procedures p Cystoscopy, Left Retrograde Pyelogram, Left Ureteral Stent Placement - Gareth Kent MD Date/Time: 08/22/24 11:22 Surgeon: Luanne Ramirez MD Pre Op Diagnosis: hypotensive, tachycardic Patient Data Age: 69 Gender: M Height: 1.83 m Weight: 71.2 kg Last Vital Signs Temp 37.1 C 08/22/24 08:00 Pulse 120 H 08/22/24 10:00 Resp 23 H 08/22/24 10:00 BP 100/87 08/22/24 10:00 Pulse Ox 100 08/22/24 10:00 O2 Del Method Room Air 08/22/24 08:00 Allergies Allergy/AdvReac Type Severity Reaction Status Date / Time No Known Allergies Allergy Verified 08/21/24 15:01 Home Medications ?Medication ?Instructions ?Recorded ?Confirmed ?Type docusate sodium 50 mg/5 mL oral 100 mg PO DAILY 04/16/21 08/21/24 History liquid lisinopril 20 mg tablet 20 mg PO DAILY 04/16/21 08/21/24 History metoprolol tartrate 25 mg tablet 25 mg PO BID 04/16/21 08/21/24 History multivitamin with minerals-folic 1 tablet PO DAILY 04/16/21 08/21/24 History acid 0.4 mg tablet atorvastatin 40 mg tablet 40 mg PO HS #30 tabs 04/18/21 08/21/24 Rx Lactobacillus acidophilus 10 mg PO DAILY 08/21/24 08/21/24 History (Acidophilus capsule) aspirin 81 mg capsule 81 mg PO DAILY 08/21/24 08/21/24 History cholecalciferol (vitamin D3) 50 2,000 unit PO ONCE 08/21/24 08/21/24 History mcg (2,000 unit) capsule (D3-2000) ferrous sulfate 325 mg (65 mg 325 mg PO BID 08/21/24 08/21/24 History iron) tablet (Feosol) loratadine 10 mg tablet (Allergy 10 mg PO DAILY 08/21/24 08/21/24 History Relief (loratadine)) ondansetron 4 mg disintegrating 4 mg PO Q8H PRN gerd 08/21/24 08/21/24 History tablet polyethylene glycol 3350 17 8.5 g PO DAILY PRN constipation 08/21/24 08/21/24 History gram/dose oral powder (ClearLax) risperidone 0.5 mg tablet 0.5 mg PO BID 08/21/24 08/21/24 History (Risperdal) Laboratory Tests 08/21/24 08/21/24 08/21/24 09:07 11:24 19:49 WBC RBC Hgb Hct MCV MCH MCHC RDW Plt Count MPV Immature Gran % (Auto) Neut % (Auto) Lymph % (Auto) [place]ulloch % (Auto) Eos % (Auto) Baso % (Auto) Lymph # (Auto) [place] # (Auto) Eos # (Auto) Baso # (Auto) Abs Immat Gran (auto) Absolute Neuts (auto) Absolute Nucleated RBC Total Counted Neutrophils % (Manual) Band Neutrophils % Lymphocytes % (Manual) Monocytes % (Manual) Nucleated RBC % Abs Neuts (Manual) Abs Lymphs (Manual) Abs Monocytes (Manual) Platelet Estimate Schistocytes Sodium Potassium Chloride Carbon Dioxide Anion Gap BUN Creatinine Estim Creat Clear Calc Estimated GFR Glucose POC Capillary Glucose 106 H mg/dl (65-105) Hemoglobin A1c Lactic Acid 1.2 mmol/L (0.7-2.0) Calcium Phosphorus Magnesium Total Bilirubin AST ALT Alkaline Phosphatase Total Creatine Kinase 853 H U/L (55-170) Total Protein Albumin Procalcitonin > 100.0 ng/mL 08/22/24 08/22/24 06:07 07:32 WBC 15.4 H K/mm3 (4.5-10.0) RBC 3.49 L M/mm3 (4.6-6.20) Hgb 9.7 L g/dL (14.0-18.0) Hct 29.8 L % (42.0-52.0) MCV 85.4 fl (80-100) MCH 27.8 pg (26-34) MCHC 32.6 g/dl (32-36) RDW 16.5 H % (11.5-14.5) Plt Count 142 L k/mm3 (150-375) MPV 10.9 H fl (7.4-10.4) Immature Gran % (Auto) Not Reportable Neut % (Auto) Not Reportable Lymph % (Auto) Not Reportable [place] % (Auto) Not Reportable Eos % (Auto) Not Reportable Baso % (Auto) Not Reportable Lymph # (Auto) Not Reportable [place] # (Auto) Not Reportable Eos # (Auto) Not Reportable Baso # (Auto) Not Reportable Abs Immat Gran (auto) Not Reportable Absolute Neuts (auto) Not Reportable Absolute Nucleated RBC Not Reportable Total Counted 100 Neutrophils % (Manual) 75 H % (46-73) Band Neutrophils % 16 H % (0-6) Lymphocytes % (Manual) 3 L % (18-44) Monocytes % (Manual) 6 % (3-9) Nucleated RBC % Not Reportable Abs Neuts (Manual) 14.01 H K/mm3 (1.3-6.7) Abs Lymphs (Manual) 0.46 L K/mm3 (1.1-4.5) Abs Monocytes (Manual) 0.92 H K/mm3 (0.1-0.90) Platelet Estimate Slightly decreased (Adequate) Schistocytes None seen Sodium 141 mmol/L (137-145) Potassium 3.9 mmol/L (3.4-5.0) Chloride 112 H mmol/L (98-107) Carbon Dioxide 18 L mmol/L (22-30) Anion Gap 11 mmol/L (4-12) BUN 70 H D mg/dL (9-20) Creatinine 2.78 H mg/dL (0.7-1.3) Estim Creat Clear Calc 24 ml/min Estimated GFR 23 L (59 - ) Glucose 94 mg/dL (65-110) POC Capillary Glucose 81 mg/dl (65-105) Hemoglobin A1c 5.9 H % (<5.7) Lactic Acid 1.8 mmol/L (0.7-2.0) Calcium 8.8 mg/dL (8.4-10.2) Phosphorus 2.7 mg/dL (2.5-4.5) Magnesium 2.0 mg/dL (1.6-2.3) Total Bilirubin 0.9 mg/dL (0.2-1.3) AST 150 H U/L (17-59) ALT 131 H U/L (6-50) Alkaline Phosphatase 313 H U/L (38-126) Total Creatine Kinase 533 H U/L (55-170) Total Protein 6.6 g/dL (6.3-8.2) Albumin 3.4 L g/dL (3.5-5.1) Procalcitonin Patient hx anesthesia problems: none Family hx anesthesia problems: none Results Review: All pre-operative results and documents have been reviewed as part of the pre-operative evaluation. [facility] Past Medical History Medical History Squamous cell carcinoma of supraglottis Long-term insulin use Urinary obstruction chronic, rendon in place CVA (cerebral vascular accident) Dementia Anemia Type 2 diabetes mellitus PAD (peripheral artery disease) Hypertension Schizophrenia Family History Family History Other Unknown family medical history Social History Social History Smoking status: Former smoker Alcohol intake: unknown Substance use: unknown Substance use type: unknown Spiritual care concerns: No Anes - Eval Final PreProcedure Day of Procedure 08/22/24 11:22 Patient weight: normal Heart: tachycardia Lungs: decreased breath sounds Airway: Mallampati scale class II Neurological: other (alert) Last oral intake: >/= 8 hours ASA classification: IV Emergent: yes Anesthetic plan: proceed Anesthesia type and monitoring: general ETT and standard monitoring Other findings: glidescope since supraglottic ca Results Review: All pre-operative results and documents have been reviewed as part of the pre-operative evaluation. Informed Consent: The patient's anesthetic plan and its attendant risks and benefits were discussed with the patient/family/POA. Questions were solicited and answers provided to the satisfaction of the patient/family/POA.
--- NOTE | 2024-08-22 11:53 | PCFNICU ---
ICU Rounding Note: Pt current nutrition is NPO. Nutrition recommendation: [facility] Last recorded weight is 71.2 kg. Bowel Motility: Last reported BM 08/20 Labs Reviewed:Cr 2.78, BUN 70, Alb 3.4 Meds Noted: Colace, LR, Protonix, MVI Skin: WNL Additional Notes:Patient currently NPO for cystoscopy/stent. Will continue to monitor. Following daily in ICU rounds.
[2024-08-22] MEDS: LIDOCAINE 2% GEL UROJET 10 ML PKG MUCOUS MEM (12:21)
--- NOTE | 2024-08-22 12:22 | SUR.PREOP ---
1200: SPOKE W/ TITLE AGENT KAUSHIK RE: PT CODE STATUS; PT HAS DEMONSTRATED A&OX3: CONVERSANT. AND
--- NOTE | 2024-08-22 12:23 | SUR.PREOP ---
1200: SPOKE W/ KAUSHIK HEALTH AND SAFETY INSTRUCTOR RE: PT CODE STATUS. PT HAS DEMONSTRATED A&OX3 AND ABLE TO VERBALIZE NATURE OF UROLOGIC PROCEDURE AND SIGN CONSENT. PT STATES HE DESIRES FULL CODE STATUS. SPOKE W/ PT'S DTR/MARIA G ESCOBEDO, WHO CONFIRMS THIS. SPOKE W/ HEALTH AND SAFETY INSTRUCTOR TO HAVE HOSPITALIST CHANGE ORDER TO FULL CODE.
--- NOTE | 2024-08-22 12:25 | W.PM.PROC2 ---
Procedure Note - Detailed Date of Procedure 08/22/24 Pre-op Diagnosis Obstructing left ureteral calculus with sepsis/UTI Post-op Diagnosis Same Procedure Performed Cystoscopy, left retrograde pyelogram, left stent placement 6 [place] contour, Walker catheter placement Surgeon Gareth Kent MD Anesthesia General Description of Procedure Patient is taken the operative suite correctly identified. Once anesthesia was obtained was placed in dorsal lithotomy position and prepped and draped usual sterile fashion. Twenty-two [place] scope was inserted the bladder. There were no strictures. Prostate is not obstructive with an open prostatic fossa. Upon entering the bladder there was some debris and clot noted which I evacuated out. Reinspection reveals a significantly erythematous bladder. No discrete tumors were noted however his bladder capped spasming. It was difficult to get a full evaluation. It was also very difficult to locate the ureteral orifices. I never saw the right UO. Not find the found the left UO is able to manipulate a angled Glidewire into it. It was extremely tortuous with J hooking and then very tortuous in the proximal ureter. I was able to finally manipulated up into the kidney. There was purulence coming out of the left UO. I exchanged out the Glidewire for Sensor wire. Six [place] contour stent was then placed proximal end in the kidney and the distal in the bladder. 2% viscous lidocaine was inserted into the urethra and a 16 [place] scope was inserted with 10 cc in the balloon. He is taken back to the ICU. Patient will need to get over his acute events as well as repeat a CT KUB at some point prior to any definitive stone management. This completes dictation. Please send a copy of op note to my office Estimated Blood Loss 0 Drains Yes Packing No Pathology None sent Complications No immediate complications Condition Stable Disposition PACU
[2024-08-22 12:44] LABS: Glucose Point of Care 134 mg/dl (65-105)
--- NOTE | 2024-08-22 13:49 | PC.NURSE ---
Patient arrived back to ICU room 5 from the PACU at 1345. Bedside report given. This RN to resume patient care.
[2024-08-22 17:24] LABS: Glucose Point of Care 106 mg/dl (65-105)
[2024-08-22] MEDS: ATORVASTATIN 40 MG TABLET PO (21:00)
[2024-08-22 23:03] LABS: Sodium Urine Random 62 meq/L; Urea Random Urine 784 MG/DL
[2024-08-22 23:04] LABS: Creatinine Urine 48.1 mg/dL
[2024-08-22 23:18] LABS: Total Protein Urine Random 339 mg/dL; Ur Ttl Prot Creatinine Ratio 7.05 mg/mg (0-0.20)
[2024-08-23] VITALS (14 sets, daily range): BP systolic 94–119; BP diastolic 60–92; PULSE 94–125; RESP 20–28; TEMP 36.8–37.3; O2SAT 96–100
[2024-08-23] MEDS: MEROPENEM 1 GM/NS 100 ML 1 GM/100 ML BAG IVPB ×2 (02:57→13:21)
[2024-08-23 04:59] LABS: Hematocrit 28.4 % (42.0-52.0); Hemoglobin 9.1 g/dL (14.0-18.0); Mean Corpuscular Hemoglobin 27.7 pg (26-34); Mean Corpuscular Volume 86.3 fl (80-100); Mean Platelet Volume 11.2 fl (7.4-10.4); Platelet Count Result 111 k/mm3 (150-375); Red Blood Count 3.29 M/mm3 (4.6-6.20); Red Cell Distribution Width 16.7 % (11.5-14.5); White Blood Count 23.1 K/mm3 (4.5-10.0)
[2024-08-23 05:15] LABS: Alanine Aminotransferase 87 U/L (6-50); Albumin Level 2.7 g/dL (3.5-5.1); Alkaline Phosphatase 226 U/L (38-126); Anion Gap 6 mmol/L (4-12); Aspartate Amino Transferase 76 U/L (17-59); Bilirubin,Total 0.6 mg/dL (0.2-1.3); Blood Urea Nitrogen 54 mg/dL (9-20); Calcium 7.9 mg/dL (8.4-10.2); Carbon Dioxide 28 mmol/L (22-30); Chloride 106 mmol/L (98-107); Creatine Kinase 152 U/L (55-170); Estimated CRCL calculation 29 ml/min; Estimated Glomerular Filt Rate 29; Glucose 116 mg/dL (65-110); Magnesium 2.1 mg/dL (1.6-2.3); Potassium 3.5 mmol/L (3.4-5.0); Sodium 140 mmol/L (137-145); Total Protein 5.6 g/dL (6.3-8.2)
[2024-08-23] MEDS: SODIUM BICARBONATE 8.4% 150 MEQ in WATER, STERILE FOR INJECTION 950 ML 100 MEQ IV CONT (06:38)
--- NOTE | 2024-08-23 07:33 | WPDINTPN ---
Progress Note: A&P Assessment and Plan (1) Septic shock: Code(s): A41.9 - Sepsis, unspecified organism; R65.21 - Severe sepsis with septic shock Status: Acute Assessment and Plan: Septic shock secondary to UTI and Gram-negative bacteremia in a patient with chronic indwelling Walker. CT scan shows left ureteral stone with ureteral hydronephrosis History of resistant Pseudomonas and urine in the past Blood cultures are growing Gram-negative bacilli Patient has received IV fluid bolus. Currently on maintenance IV fluids with bicarb which I will discontinue Patient was started on Jose-Synephrine through peripheral IV as he diffuse central venous catheter placement. Jose-Synephrine has been weaned off. Monitor blood pressure Continue empiric meropenem Walker catheter was replaced in the ER Urology was consulted and patient underwent Cystoscopy, left retrograde pyelogram, left stent placement 6 [place] contour, Walker catheter placement on 08/22 His lactic acid level has normalized (2) Acute kidney injury: Code(s): N17.9 - Acute kidney failure, unspecified Status: Acute Assessment and Plan: Last recorded baseline creatinine is 1.6 in the chart. Presented with creatinine 4.13 Likely acute kidney injury above chronic kidney disease. CANDIS secondary to sepsis, shock, rhabdo, left ureteral stone causing obstruction Hold further IV fluids. Monitor urine output electrolytes and creatinine. CK level has normalized Ureteral stone and hydronephrosis management as above (3) Urinary tract infection: Qualifiers: Encounter type: initial encounter Indwelling urinary catheter type: indwelling urethral catheter Urinary tract infection type: catheter-associated UTI Qualified Code(s): T83.511A - Infection and inflammatory reaction due to indwelling urethral catheter, initial encounter; N39.0 - Urinary tract infection, site not specified Code(s): N39.0 - Urinary tract infection, site not specified Status: Acute Assessment and Plan: See above (4) Ureteral stone with hydronephrosis: Code(s): N13.2 - Hydronephrosis with renal and ureteral calculous obstruction Status: Acute Assessment and Plan: Status post Cystoscopy, left retrograde pyelogram, left stent placement 6 [place] contour, Walker catheter placement on 08/22 (5) Type 2 diabetes mellitus: Qualifiers: Diabetes mellitus salvage determiner insulin use: without senior living use Diabetes mellitus complication status: without complication Qualified Code(s): E11.9 - Type 2 diabetes mellitus without complications Code(s): E11.9 - Type 2 diabetes mellitus without complications Status: Chronic Assessment and Plan: Sliding scale insulin (6) Rhabdomyolysis: Code(s): M62.82 - Rhabdomyolysis Status: Acute Assessment and Plan: CK level has normalized DC IV fluids with bicarb (7) Pulmonary nodules: Code(s): R91.8 - Other nonspecific abnormal finding of lung field Status: Acute Assessment and Plan: 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 CT scan shows multiple pulmonary nodules largest measuring 8 mm. Patient states that he is being currently evaluated for cancer and [facility] although results are not available. Records obtained from [facility] where he had bronchoscopy and fine-needle aspiration which were negative for malignancy. I would defer further evaluation and treatment to [facility] (8) Squamous cell carcinoma of supraglottis: Code(s): C32.1 - Malignant neoplasm of supraglottis Status: Acute Assessment and Plan: See above Plan DVT prophylaxis -Lovenox Stress ulcer prophylaxis -Protonix Nutrition -diet ordered Code Status -p full code PT OT IS Subjective Date/time seen: 08/23/24 Overnight events reviewed. Afebrile this morning but had a fever last night. On room air. Improved urine output. Continues to be on IV fluids but off vasopressors Denies any new complaints Patient denies fever, chest pain, shortness of breath, cough, nausea vomiting, abdominal pain,, diarrhea, headache or constipation. Review of Systems Review of Systems: All systems reviewed & are unremarkable except as noted in HPI and below (HPI) Exam Narrative: General: Pt is alert awake and in NAD Lungs/Chest: Trachea central Clear BS B/L, No crackles or wheezing. Cardiac: RRR. Normal S1 S2. No murmurs Circulation: Pedal pulses are intact and symmetrical. Abdomen: Normal bowel sounds.. Soft. NT. ND. Extremities: No clubbing, cyanosis or edema. Warm : Walker in place with blood-tinged urine Neurologic: Follows commands. 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 AO x3 Skin: No Rash Objective Data Vital Signs Vital Signs: Vital Signs - 24 hr 08/22/24 08:00 08/22/24 08:00 08/22/24 08:00 Temperature 37.1 C Pulse Rate 111 H 111 H Respiratory Rate 18 Blood Pressure 99/61 L 99/61 L Pulse Oximetry 99 Oxygen Delivery Room Air Oxygen Flow Rate 08/22/24 08:00 08/22/24 10:00 08/22/24 10:00 Temperature Pulse Rate 115 H 120 H 120 H Respiratory Rate Blood Pressure 100/87 Pulse Oximetry Oxygen Delivery Oxygen Flow Rate 08/22/24 10:00 08/22/24 11:00 08/22/24 12:30 Temperature 37.6 C H 36.6 C Pulse Rate 127 H 108 H 108 H Respiratory Rate 23 H 18 30 H Blood Pressure 100/87 90/65 L 105/75 Pulse Oximetry 100 100 100 Oxygen Delivery Room Air Simple Face Mask Oxygen Flow Rate 8 08/22/24 12:45 08/22/24 13:00 08/22/24 13:15 Temperature 36.7 C Pulse Rate 92 102 H 101 H Respiratory Rate 25 H 26 H 27 H Blood Pressure 104/83 118/92 H 118/92 H Pulse Oximetry 100 100 99 Oxygen Delivery Simple Face Mask Room Air Room Air Oxygen Flow Rate 8 08/22/24 13:28 08/22/24 13:50 08/22/24 14:00 Temperature 37.2 C 37.4 C Pulse Rate 109 H 133 H 117 H Respiratory Rate 31 H 26 H Blood Pressure 110/91 H 147/84 H Pulse Oximetry 100 97 Oxygen Delivery Room Air Oxygen Flow Rate 08/22/24 14:00 08/22/24 15:21 08/22/24 16:00 Temperature 37.9 C H Pulse Rate 130 H 112 H Respiratory Rate 35 H 26 H Blood Pressure 145/80 H 95/59 L Pulse Oximetry 99 99 Oxygen Delivery Oxygen Flow Rate 08/22/24 16:00 08/22/24 16:48 08/22/24 18:00 Temperature 37.2 C Pulse Rate 112 H 116 H Respiratory Rate 28 H Blood Pressure 111/71 Pulse Oximetry 100 Oxygen Delivery Oxygen Flow Rate 08/22/24 18:00 08/22/24 20:00 08/22/24 20:00 Temperature 38.1 C H Pulse Rate 117 H 113 H Respiratory Rate 26 H Blood Pressure 88/57 L Pulse Oximetry 98 Oxygen Delivery Room Air Oxygen Flow Rate 08/22/24 20:00 08/22/24 21:00 08/22/24 22:00 Temperature 38.8 C H 37.4 C Pulse Rate 110 H 115 H Respiratory Rate 28 H Blood Pressure 93/62 L Pulse Oximetry 96 Oxygen Delivery Oxygen Flow Rate 08/22/24 22:00 08/22/24 22:00 08/23/24 00:00 Temperature 37.4 C 37.3 C Pulse Rate 115 H 103 H Respiratory Rate 20 Blood Pressure 105/76 Pulse Oximetry 100 Oxygen Delivery Oxygen Flow Rate 08/23/24 00:00 08/23/24 00:00 08/23/24 02:00 Temperature Pulse Rate 101 H 94 Respiratory Rate Blood Pressure Pulse Oximetry Oxygen Delivery Room Air Oxygen Flow Rate 08/23/24 02:00 08/23/24 04:00 08/23/24 04:00 Temperature 37.2 C Pulse Rate 94 98 Respiratory Rate 21 H 20 Blood Pressure 96/73 L 94/66 L Pulse Oximetry 99 99 Oxygen Delivery Room Air Oxygen Flow Rate 08/23/24 04:00 08/23/24 06:00 08/23/24 06:00 Temperature Pulse Rate 97 112 H 112 H Respiratory Rate 23 H Blood Pressure 97/60 L Pulse Oximetry 97 Oxygen Delivery Oxygen Flow Rate Intake/Output Intake/Output: Intake & Output 08/20/24 08/21/24 08/22/24 08/23/24 23:59 23:59 23:59 23:59 Intake Total 5787.2 2794.7 1255 Output Total 1700 1150 800 Balance 4087.2 1644.7 455 Meds/Results Medications: Active Medications Generic Name Dose Route Start Last Admin Trade Name Freq PRN Reason Stop Dose Admin Acetaminophen 1,000 mg 08/21/24 17:17 08/22/24 21:00 Acetaminophen 500 Mg Tablet PO 1,000 mg Q6H PRN Administration Mild Pain (1-3) or Fever Aspirin 81 mg 08/22/24 09:00 08/22/24 08:22 Aspirin 81 Mg Enteric Tablet PO 81 mg QAM ALVARO Administration Atorvastatin Calcium 40 mg 08/22/24 21:00 08/22/24 21:00 Atorvastatin 40 Mg Tablet PO 40 mg HS ALVARO Administration Dextrose 12.5 gm 08/21/24 13:52 Dextrose 50% 25 Gm/50 Ml Syringe IV PUSH PRN PRN Hypoglycemia Protocol Docusate Sodium 100 mg 08/22/24 09:00 08/22/24 08:27 Docusate Sodium Liq 100 Mg/10 Ml Udc PO Not Given DAILY ALVARO Enoxaparin Sodium 30 mg 08/22/24 09:00 08/22/24 08:22 Enoxaparin 30 Mg/0.3 Ml Syringe SUB-Q 30 mg DAILY ALVARO Administration Fentanyl Citrate 25 mcg 08/22/24 11:24 Fentanyl Citrate Inj (*Crx) 100 Mcg/2 Ml Vial IV PUSH Q2M PRN Pain Ferrous Sulfate 325 mg 08/22/24 09:00 08/22/24 16:49 Ferrous Sulfate [address] BY MOUTH 325 mg BID ALVARO Administration Glucagon 1 mg 08/21/24 13:52 Glucagon For Inj 1 Mg Vial IM PRN PRN Hypoglycemia Protocol Glucose 15 gm 08/21/24 13:52 Glucose Oral Gel 15 Gm Of Glucse In 37.5 Gm Tube PO PRN PRN Hypoglycemia Protocol Meropenem 1 gm in 100 mls @ 200 mls/hr 08/21/24 02:00 08/23/24 03:27 IVPB Infused Q12H ALVARO Infusion Dextrose 1,000 mls @ 100 mls/hr 08/21/24 13:52 Dextrose 5% 1,000 Ml IVPB PRN PRN Hypoglycemia Protocol Sodium Bicarbonate 150 meq/ 1,100 mls @ 100 mls/hr 08/22/24 09:35 08/23/24 06:38 Sterile Water IV CONT 08/23/24 09:34 100 mls/hr .Q11H ALVARO Administration Lactated Ringer's 1,000 mls @ 30 mls/hr 08/22/24 11:25 08/22/24 12:30 Lr - Lactated Ringers Iv IV CONT Infused .Q24H ALVARO Infusion Lactated Ringer's 1,000 mls @ 30 mls/hr 08/22/24 11:25 08/22/24 13:32 Lr - Lactated Ringers Iv IV CONT Infused .Q24H ALVARO Infusion Lactobacillus Acidophilus 1 tablet 08/22/24 09:00 08/22/24 08:22 Acidophilus/Bulgaricus Chewable Tablet PO 1 tablet DAILY ALVARO Administration Loratadine 10 mg 08/22/24 09:00 08/22/24 08:23 Loratadine 10 Mg Tablet PO 10 mg DAILY ALVARO Administration Multivitamins/Calcium 1 tablet 08/22/24 09:00 08/22/24 08:22 Therapeutic Multivitamins/Minerals Tab (*Bkc) PO 1 tablet DAILY ALVARO Administration Ondansetron HCl 4 mg 08/22/24 11:24 Ondansetron Inj 4 Mg/2 Ml Vial IV PUSH ONCE PRN Nausea Pantoprazole Sodium 40 mg 08/22/24 09:00 08/22/24 08:22 Pantoprazole Sodium Iv 40 Mg Vial IV PUSH 40 mg QAM ALVARO Administration Polyethylene Glycol 8.5 gm 08/21/24 21:07 Polyethylene Glycol 3350 17 Gm Powd.Pack PO DAILY PRN constipation Risperidone 0.5 mg 08/22/24 09:00 08/22/24 16:48 Risperidone 0.5 Mg Tablet PO 0.5 mg BID ALVARO Administration Radiology Results: ITS Impressions Chest X-Ray 08/21/24 08:57 IMPRESSION: 1. Mild right basilar discoid atelectasis. Chest/Abdomen/Pelvis CT 08/22/24 05:33 Impression: 7 mm distal left ureteral stone with moderate left hydroureteronephrosis. 1.3 cm probable hyperdense left renal cysts, though solid mass is not excluded. Consider follow-up pre and postcontrast MR to further evaluate. Possible cystitis versus under distention of the urinary bladder. Correlate with urinalysis. Pulmonary nodules, largest measuring 8 mm, as above. According to Fleischner Society criteria, for a low-risk patient, recommend follow-up CT scan in 3-6 months, then consider additional 18-[address] For a high-risk patient, follow-up CT scans at both 3-6 months and 18-24 months are recommended. Minimal bilateral pleural effusions. Labs Labs: Laboratory Results - last 24 hr 08/21/24 08/22/24 08/22/24 18:23 07:32 12:42 WBC RBC Hgb Hct MCV MCH MCHC RDW Plt Count MPV Sodium Potassium Chloride Carbon Dioxide Anion Gap BUN Creatinine Estim Creat Clear Calc Estimated GFR Glucose POC Capillary Glucose 81 134 H Calcium Magnesium Total Bilirubin AST ALT Alkaline Phosphatase Total Creatine Kinase Total Protein Albumin U Random Total Protein 339 Ur Random Sodium 62 Ur Random Urea 784 Urine Creatinine 48.1 Protein/Creat Ratio 2 7.05 H 08/22/24 08/23/24 17:20 04:55 WBC 23.1 H RBC 3.29 L Hgb 9.1 L Hct 28.4 L MCV 86.3 MCH 27.7 MCHC 32.0 RDW 16.7 H Plt Count 111 L MPV 11.2 H Sodium 140 Potassium 3.5 Chloride 106 Carbon Dioxide 28 Anion Gap 6 BUN 54 H D Creatinine 2.26 H Estim Creat Clear Calc 29 Estimated GFR 29 L Glucose 116 H POC Capillary Glucose 106 H Calcium 7.9 L Magnesium 2.1 Total Bilirubin 0.6 AST 76 H ALT 87 H Alkaline Phosphatase 226 H Total Creatine Kinase 152 Total Protein 5.6 L Albumin 2.7 L U Random Total Protein Ur Random Sodium Ur Random Urea Urine Creatinine Protein/Creat Ratio 2 Quality VTE Prophylaxis VTE prophylaxis: pharmacologic ordered
[2024-08-23] MEDS: PANTOPRAZOLE SODIUM IV 40 MG VIAL IV PUSH (08:27)
[2024-08-23] MEDS: ENOXAPARIN 30 MG/0.3 ML SYRINGE SUB-Q (08:27)
[2024-08-23] MEDS: ACIDOPHILUS/BULGARICUS CHEWABLE TABLET 1 TABLET PO (08:27)
[2024-08-23] MEDS: FERROUS SULFATE 325 MG TABLET DR BY MOUTH ×2 (08:27→16:13)
[2024-08-23] MEDS: THERAPEUTIC MULTIVITAMINS/MINERALS TAB (*BKC) 1 TABLET PO (08:27)
[2024-08-23] MEDS: risperiDONE 0.5 MG TABLET PO ×2 (08:27→16:13)
[2024-08-23] MEDS: ASPIRIN 81 MG ENTERIC TABLET PO (08:27)
[2024-08-23] MEDS: LORATADINE 10 MG TABLET PO (08:27)
--- NOTE | 2024-08-23 13:22 | P.PNIM_ITS ---
Progress Note: A&P Assessment and Plan (1) Septic shock: Code(s): A41.9 - Sepsis, unspecified organism; R65.21 - Severe sepsis with septic shock Status: Acute Assessment and Plan: Septic shock secondary to UTI and Gram-negative bacteremia in a patient with chronic indwelling Walker. CT scan shows left ureteral stone with ureteral hydronephrosis History of resistant Pseudomonas and urine in the past Blood cultures are growing Gram-negative bacilli Patient has received IV fluid bolus. Currently on maintenance IV fluids with bicarb which I will discontinue Patient was started on Jose-Synephrine through peripheral IV as he diffuse central venous catheter placement. Jose-Synephrine has been weaned off. Monitor blood pressure Continue empiric meropenem Walker catheter was replaced in the ER Urology was consulted and patient underwent Cystoscopy, left retrograde pyelogram, left stent placement 6 Danish contour, Walker catheter placement on 08/22 His lactic acid level has normalized (2) Acute kidney injury: Code(s): N17.9 - Acute kidney failure, unspecified Status: Acute Assessment and Plan: Last recorded baseline creatinine is 1.6 in the chart. Presented with creatinine 4.13 Likely acute kidney injury above chronic kidney disease. CANDIS secondary to sepsis, shock, rhabdo, left ureteral stone causing obstruction Hold further IV fluids. Monitor urine output electrolytes and creatinine. CK level has normalized Ureteral stone and hydronephrosis management as above (3) Urinary tract infection: Qualifiers: Encounter type: initial encounter Indwelling urinary catheter type: indwelling urethral catheter Urinary tract infection type: catheter-associated UTI Qualified Code(s): T83.511A - Infection and inflammatory reaction due to indwelling urethral catheter, initial encounter; N39.0 - Urinary tract infection, site not specified Code(s): N39.0 - Urinary tract infection, site not specified Status: Acute Assessment and Plan: See above (4) Ureteral stone with hydronephrosis: Code(s): N13.2 - Hydronephrosis with renal and ureteral calculous obstruction Status: Acute Assessment and Plan: Status post Cystoscopy, left retrograde pyelogram, left stent placement 6 Danish contour, Walker catheter placement on 08/22 (5) Type 2 diabetes mellitus: Qualifiers: Diabetes mellitus complication status: without complication Diabetes mellitus buttermaker continuous churn insulin use: without buttermaker continuous churn use Qualified Code(s): E11.9 - Type 2 diabetes mellitus without complications Code(s): E11.9 - Type 2 diabetes mellitus without complications Status: Chronic Assessment and Plan: Sliding scale insulin (6) Rhabdomyolysis: Code(s): M62.82 - Rhabdomyolysis Status: Acute Assessment and Plan: CK level has normalized DC IV fluids with bicarb (7) Pulmonary nodules: Code(s): R91.8 - Other nonspecific abnormal finding of lung field Status: Acute Assessment and Plan: 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 CT scan shows multiple pulmonary nodules largest measuring 8 mm. Patient states that he is being currently evaluated for cancer and [facility]coma-[facility] although results are not available. Records obtained from [facility] where he had bronchoscopy and fine-needle aspiration which were negative for malignancy. I would defer further evaluation and treatment to [facility] (8) Squamous cell carcinoma of supraglottis: Code(s): C32.1 - Malignant neoplasm of supraglottis Status: Acute Assessment and Plan: See above Plan DVT prophylaxis -Lovenox Stress ulcer prophylaxis -Protonix Nutrition -diet ordered Code Status -p full code PT OT IS Subjective Date/time seen: 08/23/24 13:22 Interval history: Resting comfortably. Review of Systems Review of Systems: All systems reviewed & are unremarkable except as noted in HPI and below (HPI) Exam Narrative: General: Pt is alert awake and in NAD Lungs/Chest: Trachea central Clear BS B/L, No crackles or wheezing. Cardiac: RRR. Normal S1 S2. No murmurs Circulation: Pedal pulses are intact and symmetrical. Abdomen: Normal bowel sounds.. Soft. NT. ND. Extremities: No clubbing, cyanosis or edema. Warm : Walker in place with blood-tinged urine Neurologic: Follows commands. 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 No wheezing or crackles. Cardio: Rate: tachycardic Rhythm: regular rhythm Other: S1-S2 present without murmur, rub, ectopy GI: Other: Abdomen soft, nondistended, nontender. Normoactive bowel sounds in all quadrants. Urinary Catheter: Urinary Catheter: patent and draining, urine dark, urine red and other (Heavy sediment) Skin: General skin exam: normal color and no rashes or lesions noted Wounds: no wounds Neuro: Cranial nerves: Yes Equal, round and reactive pupils present Speech: normal speech Motor exam (neuro): 5/5 motor strength present throughout Sensory Exam: normal sensation Other: A/O self, place, time. Poor situational recall at present. Extrem: General: normal to inspection Psych: Mental Status: mental status grossly normal Other: Blunted affect. Fair insight and judgment. Objective Data Vital Signs Vital Signs: Vital Signs - 24 hr 08/22/24 13:28 08/22/24 13:50 08/22/24 14:00 Temperature 98.9 F 99.4 F Pulse Rate 109 H 133 H 117 H Respiratory Rate 31 H 26 H Blood Pressure 110/91 H 147/84 H Pulse Oximetry 100 97 Oxygen Delivery Room Air 08/22/24 14:00 08/22/24 15:21 08/22/24 16:00 Temperature 100.2 F H Pulse Rate 130 H 112 H Respiratory Rate 35 H 26 H Blood Pressure 145/80 H 95/59 L Pulse Oximetry 99 99 Oxygen Delivery 08/22/24 16:00 08/22/24 16:48 08/22/24 18:00 Temperature 98.9 F Pulse Rate 112 H 116 H Respiratory Rate 28 H Blood Pressure 111/71 Pulse Oximetry 100 Oxygen Delivery 08/22/24 18:00 08/22/24 20:00 08/22/24 20:00 Temperature 100.6 F H Pulse Rate 117 H 113 H Respiratory Rate 26 H Blood Pressure 88/57 L Pulse Oximetry 98 Oxygen Delivery Room Air 08/22/24 20:00 08/22/24 21:00 08/22/24 22:00 Temperature 101.9 F H 99.4 F Pulse Rate 110 H 115 H Respiratory Rate 28 H Blood Pressure 93/62 L Pulse Oximetry 96 Oxygen Delivery 08/22/24 22:00 08/22/24 22:00 08/23/24 00:00 Temperature 99.4 F 99.2 F Pulse Rate 115 H 103 H Respiratory Rate 20 Blood Pressure 105/76 Pulse Oximetry 100 Oxygen Delivery 08/23/24 00:00 08/23/24 00:00 08/23/24 02:00 Temperature Pulse Rate 101 H 94 Respiratory Rate Blood Pressure Pulse Oximetry Oxygen Delivery Room Air 08/23/24 02:00 08/23/24 04:00 08/23/24 04:00 Temperature 98.9 F Pulse Rate 94 98 Respiratory Rate 21 H 20 Blood Pressure 96/73 L 94/66 L Pulse Oximetry 99 99 Oxygen Delivery Room Air 08/23/24 04:00 08/23/24 06:00 08/23/24 06:00 Temperature Pulse Rate 97 112 H 112 H Respiratory Rate 23 H Blood Pressure 97/60 L Pulse Oximetry 97 Oxygen Delivery 08/23/24 08:00 08/23/24 08:30 08/23/24 10:00 Temperature 98.6 F Pulse Rate 108 H 125 H 106 H Respiratory Rate 24 H Blood Pressure 115/71 Pulse Oximetry 99 Oxygen Delivery 08/23/24 10:00 08/23/24 12:00 08/23/24 12:00 Temperature 98.4 F Pulse Rate 106 H 103 H 103 H Respiratory Rate 28 H 22 H Blood Pressure 96/62 L 114/77 Pulse Oximetry 96 100 Oxygen Delivery Intake/Output Intake/Output: Intake & Output 08/20/24 08/21/24 08/22/24 08/23/24 23:59 23:59 23:59 23:59 Intake Total 5787.2 2794.7 1655 Output Total 1700 1150 800 Balance 4087.2 1644.7 855 Meds/Results Medications: Active Medications Generic Name Dose Route Start Last Admin Trade Name Freq PRN Reason Stop Dose Admin Acetaminophen 1,000 mg 08/21/24 17:17 08/22/24 21:00 Acetaminophen 500 Mg Tablet PO 1,000 mg Q6H PRN Administration Mild Pain (1-3) or Fever Aspirin 81 mg 08/22/24 09:00 08/23/24 08:27 Aspirin 81 Mg Enteric Tablet PO 81 mg QAM ALVARO Administration Atorvastatin Calcium 40 mg 08/22/24 21:00 08/22/24 21:00 Atorvastatin 40 Mg Tablet PO 40 mg HS ALVARO Administration Dextrose 12.5 gm 08/21/24 13:52 Dextrose 50% 25 Gm/50 Ml Syringe IV PUSH PRN PRN Hypoglycemia Protocol Docusate Sodium 100 mg 08/22/24 09:00 08/23/24 08:27 Docusate Sodium Liq 100 Mg/10 Ml Udc PO Not Given DAILY ALVARO Enoxaparin Sodium 30 mg 08/22/24 09:00 08/23/24 08:27 Enoxaparin 30 Mg/0.3 Ml Syringe SUB-Q 30 mg DAILY ALVARO Administration Fentanyl Citrate 25 mcg 08/22/24 11:24 Fentanyl Citrate Inj (*Crx) 100 Mcg/2 Ml Vial IV PUSH Q2M PRN Pain Ferrous Sulfate 325 mg 08/22/24 09:00 08/23/24 08:27 Ferrous Sulfate [address] BY MOUTH 325 mg BID ALVARO Administration Glucagon 1 mg 08/21/24 13:52 Glucagon For Inj 1 Mg Vial IM PRN PRN Hypoglycemia Protocol Glucose 15 gm 08/21/24 13:52 Glucose Oral Gel 15 Gm Of Glucse In 37.5 Gm Tube PO PRN PRN Hypoglycemia Protocol Meropenem 1 gm in 100 mls @ 200 mls/hr 08/21/24 02:00 08/23/24 13:21 IVPB 200 mls/hr Q12H ALVARO Administration Dextrose 1,000 mls @ 100 mls/hr 08/21/24 13:52 Dextrose 5% 1,000 Ml IVPB PRN PRN Hypoglycemia Protocol Lactobacillus Acidophilus 1 tablet 08/22/24 09:00 08/23/24 08:27 Acidophilus/Bulgaricus Chewable Tablet PO 1 tablet DAILY ALVARO Administration Loratadine 10 mg 08/22/24 09:00 08/23/24 08:27 Loratadine 10 Mg Tablet PO 10 mg DAILY ALVARO Administration Multivitamins/Calcium 1 tablet 08/22/24 09:00 08/23/24 08:27 Therapeutic Multivitamins/Minerals Tab (*Bkc) PO 1 tablet DAILY ALVARO Administration Ondansetron HCl 4 mg 08/22/24 11:24 Ondansetron Inj 4 Mg/2 Ml Vial IV PUSH ONCE PRN Nausea Pantoprazole Sodium 40 mg 08/22/24 09:00 08/23/24 08:27 Pantoprazole Sodium Iv 40 Mg Vial IV PUSH 40 mg QAM ALVARO Administration Polyethylene Glycol 8.5 gm 08/21/24 21:07 Polyethylene Glycol 3350 17 Gm Powd.Pack PO DAILY PRN constipation Risperidone 0.5 mg 08/22/24 09:00 08/23/24 08:27 Risperidone 0.5 Mg Tablet PO 0.5 mg BID ALVARO Administration Radiology Results: ITS Impressions Chest X-Ray 08/21/24 08:57 IMPRESSION: 1. Mild right basilar discoid atelectasis. Chest/Abdomen/Pelvis CT 08/22/24 05:33 Impression: 7 mm distal left ureteral stone with moderate left hydroureteronephrosis. 1.3 cm probable hyperdense left renal cysts, though solid mass is not excluded. Consider follow-up pre and postcontrast MR to further evaluate. Possible cystitis versus under distention of the urinary bladder. Correlate with urinalysis. Pulmonary nodules, largest measuring 8 mm, as above. According to Fleischner Society criteria, for a low-risk patient, recommend follow-up CT scan in 3-6 months, then consider additional 18-[address] For a high-risk patient, follow-up CT scans at both 3-6 months and 18-24 months are recommended. Minimal bilateral pleural effusions. Labs Labs: Laboratory Results - last 24 hr 08/21/24 08/22/24 08/23/24 18:23 17:20 04:55 WBC 23.1 H RBC 3.29 L Hgb 9.1 L Hct 28.4 L MCV 86.3 MCH 27.7 MCHC 32.0 RDW 16.7 H Plt Count 111 L MPV 11.2 H Sodium 140 Potassium 3.5 Chloride 106 Carbon Dioxide 28 Anion Gap 6 BUN 54 H D Creatinine 2.26 H Estim Creat Clear Calc 29 Estimated GFR 29 L Glucose 116 H POC Capillary Glucose 106 H Calcium 7.9 L Magnesium 2.1 Total Bilirubin 0.6 AST 76 H ALT 87 H Alkaline Phosphatase 226 H Total Creatine Kinase 152 Total Protein 5.6 L Albumin 2.7 L U Random Total Protein 339 Ur Random Sodium 62 Ur Random Urea 784 Urine Creatinine 48.1 Protein/Creat Ratio 2 7.05 H Quality VTE Prophylaxis VTE prophylaxis: pharmacologic ordered Hospitalist [facility] Advance Care Plan I have confirmed that the patient's Advanced Care Plan is present, code status is documented, or surrogate decision maker is listed in patient medical record.: Yes Medication Reconciliation I have utilized all available resources to obtain, update and review the patients current medications (includes all prescriptions, OTC, herbals, cannabis, and nutritional supplements).: Yes
--- NOTE | 2024-08-23 14:29 | WPDANESPN ---
Anes - Prog Note Post-Op Date/Time: 08/23/24 14:29 Cardiovascular status: other (anemia) Respiratory status: normal Airway patency: baseline Mental status: baseline Post-Op hydration status: normal Vital Signs: Last Vital Signs Temp 98.4 F 08/23/24 12:00 Pulse 103 H 08/23/24 12:00 Resp 22 H 08/23/24 12:00 BP 114/77 08/23/24 12:00 Pulse Ox 100 08/23/24 12:00 O2 Del Method Room Air 08/23/24 04:00 O2 Flow Rate 8 08/22/24 12:45 Pain Score (VAS): 0/10 I/O: Intake & Output 08/22/24 08/23/24 08/23/24 23:59 07:59 15:59 Intake Total 2088.3 1255 400 Output Total 150 800 Balance 1938.3 455 400 Laboratory Tests 08/23/24 04:55 08/23/24 04:55 08/21/24 08/22/24 08/23/24 18:23 17:20 04:55 WBC 23.1 H RBC 3.29 L Hgb 9.1 L Hct 28.4 L MCV 86.3 MCH 27.7 MCHC 32.0 RDW 16.7 H Plt Count 111 L MPV 11.2 H Sodium 140 Potassium 3.5 Chloride 106 Carbon Dioxide 28 Anion Gap 6 BUN 54 H D Creatinine 2.26 H Estim Creat Clear Calc 29 Estimated GFR 29 L Glucose 116 H POC Capillary Glucose 106 H Calcium 7.9 L Magnesium 2.1 Total Bilirubin 0.6 AST 76 H ALT 87 H Alkaline Phosphatase 226 H Total Creatine Kinase 152 Total Protein 5.6 L Albumin 2.7 L U Random Total Protein 339 Ur Random Sodium 62 Ur Random Urea 784 Urine Creatinine 48.1 Protein/Creat Ratio 2 7.05 H Microbiology 08/21/24 09:07 Blood Blood Culture - Preliminary Citrobacter freundii Providencia stuartii Proteus Mirabilis 08/21/24 09:46 Blood Blood Culture - Final Proteus Mirabilis 08/21/24 08:35 Urine Walker Port Urine Culture Reflexed - Final Post-procedural complaints: none Patient Feedback: Patient satisfied with anesthetic care.
[2024-08-23] MEDS: ATORVASTATIN 40 MG TABLET PO (20:05)
[2024-08-24] VITALS (12 sets, daily range): BP systolic 115–144; BP diastolic 75–89; PULSE 96–113; RESP 18–29; TEMP 36.9–37.7; O2SAT 96–100
[2024-08-24] MEDS: MEROPENEM 1 GM/NS 100 ML 1 GM/100 ML BAG IVPB (01:57)
[2024-08-24 03:38] LABS: Hematocrit 26.7 % (42.0-52.0); Hemoglobin 8.8 g/dL (14.0-18.0); Mean Corpuscular Hemoglobin 27.8 pg (26-34); Mean Corpuscular Volume 84.2 fl (80-100); Mean Platelet Volume 11.1 fl (7.4-10.4); Platelet Count Result 128 k/mm3 (150-375); Red Blood Count 3.17 M/mm3 (4.6-6.20); Red Cell Distribution Width 16.3 % (11.5-14.5); White Blood Count 16.4 K/mm3 (4.5-10.0)
[2024-08-24 03:47] LABS: Alanine Aminotransferase 75 U/L (6-50); Albumin Level 2.6 g/dL (3.5-5.1); Alkaline Phosphatase 213 U/L (38-126); Anion Gap 4 mmol/L (4-12); Aspartate Amino Transferase 98 U/L (17-59); Bilirubin,Total 0.7 mg/dL (0.2-1.3); Blood Urea Nitrogen 40 mg/dL (9-20); Calcium 7.9 mg/dL (8.4-10.2); Carbon Dioxide 30 mmol/L (22-30); Chloride 106 mmol/L (98-107); Creatine Kinase 79 U/L (55-170); Estimated CRCL calculation 34 ml/min; Estimated Glomerular Filt Rate 36; Glucose 109 mg/dL (65-110); Potassium 3.3 mmol/L (3.4-5.0); Sodium 140 mmol/L (137-145); Total Protein 5.6 g/dL (6.3-8.2)
--- NOTE | 2024-08-24 05:33 | PC.NURSE ---
This patient, Norman Hickey, was transferred to [facility] on 08/24/24 at 0513 via bed. Personal belongings sent with patient. Report given to Raisa CEDEÑO at bedside. Appropriate documentation sent with patient.
[2024-08-24] MEDS: risperiDONE 0.5 MG TABLET PO ×2 (09:31→17:15)
[2024-08-24] MEDS: LORATADINE 10 MG TABLET PO (09:31)
[2024-08-24] MEDS: THERAPEUTIC MULTIVITAMINS/MINERALS TAB (*BKC) 1 TABLET PO (09:31)
[2024-08-24] MEDS: ACIDOPHILUS/BULGARICUS CHEWABLE TABLET 1 TABLET PO (09:31)
[2024-08-24] MEDS: ENOXAPARIN 30 MG/0.3 ML SYRINGE SUB-Q (09:31)
[2024-08-24] MEDS: PANTOPRAZOLE SODIUM IV 40 MG VIAL IV PUSH (09:31)
[2024-08-24] MEDS: FERROUS SULFATE 325 MG TABLET DR BY MOUTH ×2 (09:32→17:15)
[2024-08-24] MEDS: ASPIRIN 81 MG ENTERIC TABLET PO (09:32)
--- NOTE | 2024-08-24 09:52 | PM.IMPN ---
Progress Note: A&P Assessment and Plan (1) Septic shock: Code(s): A41.9 - Sepsis, unspecified organism; R65.21 - Severe sepsis with septic shock Status: Acute Assessment and Plan: Septic shock secondary to UTI and Gram-negative bacteremia in a patient with chronic indwelling Walker. CT scan shows left ureteral stone with ureteral hydronephrosis History of resistant Pseudomonas and urine in the past Blood cultures are growing Gram-negative bacilli Patient has received IV fluid bolus. Currently on maintenance IV fluids with bicarb which I will discontinue Patient was started on Jose-Synephrine through peripheral IV as he diffuse central venous catheter placement. Jose-Synephrine has been weaned off. Monitor blood pressure Continue empiric meropenem Walker catheter was replaced in the ER Urology was consulted and patient underwent Cystoscopy, left retrograde pyelogram, left stent placement 6 Portuguese contour, Walker catheter placement on 08/22 His lactic acid level has normalized (2) Acute kidney injury: Code(s): N17.9 - Acute kidney failure, unspecified Status: Acute Assessment and Plan: Last recorded baseline creatinine is 1.6 in the chart. Presented with creatinine 4.13 Likely acute kidney injury above chronic kidney disease. CANDIS secondary to sepsis, shock, rhabdo, left ureteral stone causing obstruction Hold further IV fluids. Monitor urine output electrolytes and creatinine. CK level has normalized Ureteral stone and hydronephrosis management as above (3) Urinary tract infection: Qualifiers: Encounter type: initial encounter Indwelling urinary catheter type: indwelling urethral catheter Urinary tract infection type: catheter-associated UTI Qualified Code(s): T83.511A - Infection and inflammatory reaction due to indwelling urethral catheter, initial encounter; N39.0 - Urinary tract infection, site not specified Code(s): N39.0 - Urinary tract infection, site not specified Status: Acute Assessment and Plan: See above (4) Ureteral stone with hydronephrosis: Code(s): N13.2 - Hydronephrosis with renal and ureteral calculous obstruction Status: Acute Assessment and Plan: Status post Cystoscopy, left retrograde pyelogram, left stent placement 6 Portuguese contour, Walker catheter placement on 08/22 (5) Type 2 diabetes mellitus: Qualifiers: Diabetes mellitus complication status: without complication Diabetes mellitus long term care phlebotomist insulin use: without long term care phlebotomist use Qualified Code(s): E11.9 - Type 2 diabetes mellitus without complications Code(s): E11.9 - Type 2 diabetes mellitus without complications Status: Chronic Assessment and Plan: Sliding scale insulin (6) Rhabdomyolysis: Code(s): M62.82 - Rhabdomyolysis Status: Acute Assessment and Plan: CK level has normalized DC IV fluids with bicarb (7) Pulmonary nodules: Code(s): R91.8 - Other nonspecific abnormal finding of lung field Status: Acute Assessment and Plan: 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 CT scan shows multiple pulmonary nodules largest measuring 8 mm. Patient states that he is being currently evaluated for cancer and [facility] although results are not available. Records obtained from [facility] where he had bronchoscopy and fine-needle aspiration which were negative for malignancy. I would defer further evaluation and treatment to [facility] (8) Squamous cell carcinoma of supraglottis: Code(s): C32.1 - Malignant neoplasm of supraglottis Status: Acute Assessment and Plan: See above Plan DVT prophylaxis -Lovenox Stress ulcer prophylaxis -Protonix Nutrition -diet ordered Code Status -p full code PT OT IS Subjective Date/time seen: 08/24/24 09:52 Interval history: Resting comfortably. Continue ceftriaxone until 0 08/30 Review of Systems Review of Systems: All systems reviewed & are unremarkable except as noted in HPI and below (HPI) Exam Narrative: General: Pt is alert awake and in NAD Lungs/Chest: Trachea central Clear BS B/L, No crackles or wheezing. Cardiac: RRR. Normal S1 S2. No murmurs Circulation: Pedal pulses are intact and symmetrical. Abdomen: Normal bowel sounds.. Soft. NT. ND. Extremities: No clubbing, cyanosis or edema. Warm : Walker in place with blood-tinged urine Neurologic: Follows commands. 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 No wheezing or crackles. Cardio: Rate: tachycardic Rhythm: regular rhythm Other: S1-S2 present without murmur, rub, ectopy GI: Other: Abdomen soft, nondistended, nontender. Normoactive bowel sounds in all quadrants. Urinary Catheter: Urinary Catheter: patent and draining, urine dark, urine red and other (Heavy sediment) Skin: General skin exam: normal color and no rashes or lesions noted Wounds: no wounds Neuro: Cranial nerves: Yes Equal, round and reactive pupils present Speech: normal speech Motor exam (neuro): 5/5 motor strength present throughout Sensory Exam: normal sensation Other: A/O self, place, time. Poor situational recall at present. Extrem: General: normal to inspection Psych: Mental Status: mental status grossly normal Other: Blunted affect. Fair insight and judgment. Objective Data Vital Signs Vital Signs: Vital Signs - 24 hr 08/23/24 10:00 08/23/24 10:00 08/23/24 12:00 Temperature Pulse Rate 106 H 106 H 103 H Respiratory Rate 28 H Blood Pressure 96/62 L Pulse Oximetry 96 Oxygen Delivery Fraction of Inspired Oxygen 08/23/24 12:00 08/23/24 14:00 08/23/24 14:00 Temperature 98.4 F Pulse Rate 103 H 101 H 101 H Respiratory Rate 22 H 25 H Blood Pressure 114/77 105/72 Pulse Oximetry 100 97 Oxygen Delivery Fraction of Inspired Oxygen 08/23/24 14:45 08/23/24 16:00 08/23/24 16:00 Temperature 98.3 F Pulse Rate 100 100 Respiratory Rate 25 H Blood Pressure 119/92 H Pulse Oximetry 99 Oxygen Delivery Room Air Fraction of Inspired Oxygen 08/23/24 18:00 08/23/24 20:00 08/23/24 20:00 Temperature Pulse Rate 102 H 104 H Respiratory Rate Blood Pressure Pulse Oximetry Oxygen Delivery Room Air Fraction of Inspired Oxygen 08/23/24 20:00 08/23/24 21:39 08/23/24 22:00 Temperature 98.7 F Pulse Rate 98 97 102 H Respiratory Rate 27 H 22 H Blood Pressure 119/81 Pulse Oximetry 100 98 Oxygen Delivery Room Air Fraction of Inspired Oxygen 08/24/24 00:00 08/24/24 00:00 08/24/24 00:00 Temperature 98.4 F Pulse Rate 107 H 107 H Respiratory Rate 29 H Blood Pressure 124/84 Pulse Oximetry 97 Oxygen Delivery Room Air Fraction of Inspired Oxygen 08/24/24 02:00 08/24/24 04:00 08/24/24 04:00 Temperature Pulse Rate 113 H 104 H Respiratory Rate Blood Pressure Pulse Oximetry Oxygen Delivery Room Air Fraction of Inspired Oxygen 08/24/24 04:00 08/24/24 06:00 08/24/24 08:00 Temperature 98.4 F 99.2 F Pulse Rate 104 H 96 98 Respiratory Rate 27 H 18 Blood Pressure 144/83 H 119/79 Pulse Oximetry 96 100 Oxygen Delivery Fraction of Inspired Oxygen Intake/Output Intake/Output: Intake & Output 08/21/24 08/22/24 08/23/24 08/24/24 23:59 23:59 23:59 23:59 Intake Total 5787.2 2794.7 2755 400 Output Total 1700 1150 1525 800 Balance 4087.2 1644.7 1230 -400 Meds/Results Medications: Active Medications Generic Name Dose Route Start Last Admin Trade Name Freq PRN Reason Stop Dose Admin Acetaminophen 1,000 mg 08/21/24 17:17 08/22/24 21:00 Acetaminophen 500 Mg Tablet PO 1,000 mg Q6H PRN Administration Mild Pain (1-3) or Fever Aspirin 81 mg 08/22/24 09:00 08/24/24 09:32 Aspirin 81 Mg Enteric Tablet PO 81 mg QAM ALVARO Administration Atorvastatin Calcium 40 mg 08/22/24 21:00 08/23/24 20:05 Atorvastatin 40 Mg Tablet PO 40 mg HS ALVARO Administration Dextrose 12.5 gm 08/21/24 13:52 Dextrose 50% 25 Gm/50 Ml Syringe IV PUSH PRN PRN Hypoglycemia Protocol Docusate Sodium 100 mg 08/22/24 09:00 08/24/24 09:38 Docusate Sodium Liq 100 Mg/10 Ml Udc PO Not Given DAILY ALVARO Enoxaparin Sodium 30 mg 08/22/24 09:00 08/24/24 09:31 Enoxaparin 30 Mg/0.3 Ml Syringe SUB-Q 30 mg DAILY ALVARO Administration Fentanyl Citrate 25 mcg 08/22/24 11:24 Fentanyl Citrate Inj (*Crx) 100 Mcg/2 Ml Vial IV PUSH Q2M PRN Pain Ferrous Sulfate 325 mg 08/22/24 09:00 08/24/24 09:32 Ferrous Sulfate [address] BY MOUTH 325 mg BID ALVARO Administration Glucagon 1 mg 08/21/24 13:52 Glucagon For Inj 1 Mg Vial IM PRN PRN Hypoglycemia Protocol Glucose 15 gm 08/21/24 13:52 Glucose Oral Gel 15 Gm Of Glucse In 37.5 Gm Tube PO PRN PRN Hypoglycemia Protocol Meropenem 1 gm in 100 mls @ 200 mls/hr 08/21/24 02:00 08/24/24 02:27 IVPB Infused Q12H ALVARO Infusion Dextrose 1,000 mls @ 100 mls/hr 08/21/24 13:52 Dextrose 5% 1,000 Ml IVPB PRN PRN Hypoglycemia Protocol Lactobacillus Acidophilus 1 tablet 08/22/24 09:00 08/24/24 09:31 Acidophilus/Bulgaricus Chewable Tablet PO 1 tablet DAILY ALVARO Administration Loratadine 10 mg 08/22/24 09:00 08/24/24 09:31 Loratadine 10 Mg Tablet PO 10 mg DAILY ALVARO Administration Multivitamins/Calcium 1 tablet 08/22/24 09:00 08/24/24 09:31 Therapeutic Multivitamins/Minerals Tab (*Bkc) PO 1 tablet DAILY ALVARO Administration Ondansetron HCl 4 mg 08/22/24 11:24 Ondansetron Inj 4 Mg/2 Ml Vial IV PUSH ONCE PRN Nausea Pantoprazole Sodium 40 mg 08/22/24 09:00 08/24/24 09:31 Pantoprazole Sodium Iv 40 Mg Vial IV PUSH 40 mg QAM ALVARO Administration Polyethylene Glycol 8.5 gm 08/21/24 21:07 Polyethylene Glycol 3350 17 Gm Powd.Pack PO DAILY PRN constipation Risperidone 0.5 mg 08/22/24 09:00 08/24/24 09:31 Risperidone 0.5 Mg Tablet PO 0.5 mg BID ALVARO Administration Radiology Results: ITS Impressions Chest X-Ray 08/21/24 08:57 IMPRESSION: 1. Mild right basilar discoid atelectasis. Chest/Abdomen/Pelvis CT 08/22/24 05:33 Impression: 7 mm distal left ureteral stone with moderate left hydroureteronephrosis. 1.3 cm probable hyperdense left renal cysts, though solid mass is not excluded. Consider follow-up pre and postcontrast MR to further evaluate. Possible cystitis versus under distention of the urinary bladder. Correlate with urinalysis. Pulmonary nodules, largest measuring 8 mm, as above. According to Fleischner Society criteria, for a low-risk patient, recommend follow-up CT scan in 3-6 months, then consider additional 18-[address] For a high-risk patient, follow-up CT scans at both 3-6 months and 18-24 months are recommended. Minimal bilateral pleural effusions. Labs Labs: Laboratory Results - last 24 hr 08/24/24 03:32 WBC 16.4 H RBC 3.17 L Hgb 8.8 L Hct 26.7 L MCV 84.2 MCH 27.8 MCHC 33.0 RDW 16.3 H Plt Count 128 L MPV 11.1 H Sodium 140 Potassium 3.3 L Chloride 106 Carbon Dioxide 30 Anion Gap 4 BUN 40 H D Creatinine 1.87 H Estim Creat Clear Calc 34 Estimated GFR 36 L Glucose 109 Calcium 7.9 L Magnesium 2.0 Total Bilirubin 0.7 AST 98 H ALT 75 H Alkaline Phosphatase 213 H Total Creatine Kinase 79 Total Protein 5.6 L Albumin 2.6 L Quality VTE Prophylaxis VTE prophylaxis: pharmacologic ordered Hospitalist [facility] Advance Care Plan I have confirmed that the patient's Advanced Care Plan is present, code status is documented, or surrogate decision maker is listed in patient medical record.: Yes Medication Reconciliation I have utilized all available resources to obtain, update and review the patients current medications (includes all prescriptions, OTC, herbals, cannabis, and nutritional supplements).: Yes
[2024-08-24] MEDS: cefTRIAXone 2 GM/NS 100 ML 2 GM/100 ML BAG IVPB (13:11)
--- NOTE | 2024-08-24 15:42 | WPDUROPN2 ---
Progress Note: A&P Assessment and Plan (1) Ureteral stone with hydronephrosis: Code(s): N13.2 - Hydronephrosis with renal and ureteral calculous obstruction Status: Acute (2) Urinary tract infection: Qualifiers: Encounter type: initial encounter Indwelling urinary catheter type: indwelling urethral catheter Urinary tract infection type: catheter-associated UTI Qualified Code(s): T83.511A - Infection and inflammatory reaction due to indwelling urethral catheter, initial encounter; N39.0 - Urinary tract infection, site not specified Code(s): N39.0 - Urinary tract infection, site not specified Status: Acute Assessment and Plan: CAUTI, present on admission (3) Acute kidney injury: Code(s): N17.9 - Acute kidney failure, unspecified Status: Acute (4) Septic shock: Code(s): A41.9 - Sepsis, unspecified organism; R65.21 - Severe sepsis with septic shock Status: Acute (5) Chronic indwelling Walker catheter: Code(s): Z97.8 - Presence of other specified devices Status: Acute Plan POD1 Cystoscopy, left retrograde pyelogram, left stent placement 6 [place] contour, Walker catheter placement for Obstructing left ureteral calculus with sepsis/UTI. - Septic shock likley secondary to obstructive pyelonephritis from 7 mm left distal ureteral stone and CAUTI: wbc down to 16.4 today from 23.1 - Acute kidney injury, improved from admission: yesterday cr 2.26 down to 1.87 today - Chronic indwelling Walker catheter, suspect prostate enlargement - Multiple comorbidities including type 2 diabetes, dementia, CVA, schizophrenia Plan: - renal ct kub tomorrow - Plan for definitive stone treatment and stent management as outpatient after infection resolves Case discussed with Dr. Kent. No family present. Subjective Subjective Date/Time Seen: 08/24/24 15:42 Interval history: Resting comfortably. Walker draining red urine Review of Systems Constitutional: Constitutional: Reports fatigue Cardiovascular: Cardiovascular: Denies chest pain and Denies dyspnea Respiratory: Respiratory: Reports cough and Denies dyspnea Gastrointestinal: Gastrointestinal: Reports abdominal pain and Reports nausea Genitourinary: Genitourinary: Reports hematuria Psychiatric: Psychiatric: Reports no additional psychiatric complaints Endocrine: Endocrine: Reports fatigue Exam HENMT: Face/Nose/Sinus: Normal nares present GI: Other: LLQ tenderness Urinary Catheter: Urinary Catheter: patent and draining and urine red Neuro: Speech: normal speech Extrem: General: no edema Psych: Speech and movement: Normal speech and movement present Objective Data Vital Signs Vital Signs: Vital Signs - 24 hr 08/23/24 16:00 08/23/24 16:00 08/23/24 18:00 Temperature 98.3 F Pulse Rate 100 100 102 H Respiratory Rate 25 H Blood Pressure 119/92 H Pulse Oximetry 99 Oxygen Delivery Fraction of Inspired Oxygen 08/23/24 20:00 08/23/24 20:00 08/23/24 20:00 Temperature 98.7 F Pulse Rate 104 H 98 Respiratory Rate 27 H Blood Pressure 119/81 Pulse Oximetry 100 Oxygen Delivery Room Air Fraction of Inspired Oxygen 08/23/24 21:39 08/23/24 22:00 08/24/24 00:00 Temperature Pulse Rate 97 102 H Respiratory Rate 22 H Blood Pressure Pulse Oximetry 98 Oxygen Delivery Room Air Room Air Fraction of Inspired Oxygen 21 08/24/24 00:00 08/24/24 00:00 08/24/24 02:00 Temperature 98.4 F Pulse Rate 107 H 107 H 113 H Respiratory Rate 29 H Blood Pressure 124/84 Pulse Oximetry 97 Oxygen Delivery Fraction of Inspired Oxygen 08/24/24 04:00 08/24/24 04:00 08/24/24 04:00 Temperature 98.4 F Pulse Rate 104 H 104 H Respiratory Rate 27 H Blood Pressure 144/83 H Pulse Oximetry 96 Oxygen Delivery Room Air Fraction of Inspired Oxygen 08/24/24 06:00 08/24/24 08:00 08/24/24 08:00 Temperature 99.2 F Pulse Rate 96 98 Respiratory Rate 18 Blood Pressure 119/79 Pulse Oximetry 100 Oxygen Delivery Room Air Fraction of Inspired Oxygen 08/24/24 08:00 08/24/24 10:00 08/24/24 12:00 Temperature 99.9 F H Pulse Rate 100 110 H 97 Respiratory Rate 20 Blood Pressure 115/75 Pulse Oximetry 100 Oxygen Delivery Fraction of Inspired Oxygen 08/24/24 12:00 Temperature Pulse Rate 96 Respiratory Rate Blood Pressure Pulse Oximetry Oxygen Delivery Fraction of Inspired Oxygen Intake/Output Intake/Output: Intake & Output 08/21/24 08/22/24 08/23/24 08/24/24 23:59 23:59 23:59 23:59 Intake Total 5787.2 2794.7 2755 880 Output Total 1700 1150 1525 800 Balance 4087.2 1644.7 1230 80 Meds/Results Medications: Active Medications Generic Name Dose Route Start Last Admin Trade Name Freq PRN Reason Stop Dose Admin Acetaminophen 1,000 mg 08/21/24 17:17 08/22/24 21:00 Acetaminophen 500 Mg Tablet PO 1,000 mg Q6H PRN Administration Mild Pain (1-3) or Fever Aspirin 81 mg 08/22/24 09:00 08/24/24 09:32 Aspirin 81 Mg Enteric Tablet PO 81 mg QAM ALVARO Administration Atorvastatin Calcium 40 mg 08/22/24 21:00 08/23/24 20:05 Atorvastatin 40 Mg Tablet PO 40 mg HS ALVARO Administration Dextrose 12.5 gm 08/21/24 13:52 Dextrose 50% 25 Gm/50 Ml Syringe IV PUSH PRN PRN Hypoglycemia Protocol Docusate Sodium 100 mg 08/22/24 09:00 08/24/24 09:38 Docusate Sodium Liq 100 Mg/10 Ml Udc PO Not Given DAILY ALVARO Enoxaparin Sodium 40 mg 08/25/24 09:00 Enoxaparin 40 Mg/0.4 Ml Syringe SUB-Q DAILY ALVARO Fentanyl Citrate 25 mcg 08/22/24 11:24 Fentanyl Citrate Inj (*Crx) 100 Mcg/2 Ml Vial IV PUSH Q2M PRN Pain Ferrous Sulfate 325 mg 08/22/24 09:00 08/24/24 09:32 Ferrous Sulfate [address] BY MOUTH 325 mg BID ALVARO Administration Glucagon 1 mg 08/21/24 13:52 Glucagon For Inj 1 Mg Vial IM PRN PRN Hypoglycemia Protocol Glucose 15 gm 08/21/24 13:52 Glucose Oral Gel 15 Gm Of Glucse In 37.5 Gm Tube PO PRN PRN Hypoglycemia Protocol Dextrose 1,000 mls @ 100 mls/hr 08/21/24 13:52 Dextrose 5% 1,000 Ml IVPB PRN PRN Hypoglycemia Protocol Ceftriaxone Sodium 2 gm in 100 mls @ 200 mls/hr 08/24/24 13:00 08/24/24 13:11 Rocephin 2 Gm/Ns 100 Ml IVPB 08/30/24 13:29 200 mls/hr Q24H ALVARO Administration Lactobacillus Acidophilus 1 tablet 08/22/24 09:00 08/24/24 09:31 Acidophilus/Bulgaricus Chewable Tablet PO 1 tablet DAILY ALVARO Administration Loratadine 10 mg 08/22/24 09:00 08/24/24 09:31 Loratadine 10 Mg Tablet PO 10 mg DAILY ALVARO Administration Multivitamins/Calcium 1 tablet 08/22/24 09:00 08/24/24 09:31 Therapeutic Multivitamins/Minerals Tab (*Bkc) PO 1 tablet DAILY ALVARO Administration Ondansetron HCl 4 mg 08/22/24 11:24 Ondansetron Inj 4 Mg/2 Ml Vial IV PUSH ONCE PRN Nausea Polyethylene Glycol 8.5 gm 08/21/24 21:07 Polyethylene Glycol 3350 17 Gm Powd.Pack PO DAILY PRN constipation Risperidone 0.5 mg 08/22/24 09:00 08/24/24 09:31 Risperidone 0.5 Mg Tablet PO 0.5 mg BID ALVARO Administration Radiology Results: ITS Impressions Chest X-Ray 08/21/24 08:57 IMPRESSION: 1. Mild right basilar discoid atelectasis. Chest/Abdomen/Pelvis CT 08/22/24 05:33 Impression: 7 mm distal left ureteral stone with moderate left hydroureteronephrosis. 1.3 cm probable hyperdense left renal cysts, though solid mass is not excluded. Consider follow-up pre and postcontrast MR to further evaluate. Possible cystitis versus under distention of the urinary bladder. Correlate with urinalysis. Pulmonary nodules, largest measuring 8 mm, as above. According to Fleischner Society criteria, for a low-risk patient, recommend follow-up CT scan in 3-6 months, then consider additional 18-[address] For a high-risk patient, follow-up CT scans at both 3-6 months and 18-24 months are recommended. Minimal bilateral pleural effusions. Labs Labs: Laboratory Results - last 24 hr 08/24/24 03:32 WBC 16.4 H RBC 3.17 L Hgb 8.8 L Hct 26.7 L MCV 84.2 MCH 27.8 MCHC 33.0 RDW 16.3 H Plt Count 128 L MPV 11.1 H Sodium 140 Potassium 3.3 L Chloride 106 Carbon Dioxide 30 Anion Gap 4 BUN 40 H D Creatinine 1.87 H Estim Creat Clear Calc 34 Estimated GFR 36 L Glucose 109 Calcium 7.9 L Magnesium 2.0 Total Bilirubin 0.7 AST 98 H ALT 75 H Alkaline Phosphatase 213 H Total Creatine Kinase 79 Total Protein 5.6 L Albumin 2.6 L
[2024-08-24] MEDS: ATORVASTATIN 40 MG TABLET PO (20:12)
[2024-08-25] VITALS (11 sets, daily range): BP systolic 99–154; BP diastolic 66–99; PULSE 52–110; RESP 16–20; TEMP 36.8–38.3; O2SAT 99–100
[2024-08-25 04:34] LABS: Hematocrit 25.8 % (42.0-52.0); Hemoglobin 8.4 g/dL (14.0-18.0); Mean Corpuscular HGB Conc 32.6 g/dl (32-36); Mean Corpuscular Hemoglobin 27.3 pg (26-34); Mean Corpuscular Volume 83.8 fl (80-100); Mean Platelet Volume 11.3 fl (7.4-10.4); Platelet Count Result 154 k/mm3 (150-375); Red Blood Count 3.08 M/mm3 (4.6-6.20); Red Cell Distribution Width 15.9 % (11.5-14.5); White Blood Count 11.9 K/mm3 (4.5-10.0)
[2024-08-25 04:47] LABS: Alanine Aminotransferase 109 U/L (6-50); Albumin Level 2.5 g/dL (3.5-5.1); Alkaline Phosphatase 194 U/L (38-126); Anion Gap 4 mmol/L (4-12); Aspartate Amino Transferase 137 U/L (17-59); Bilirubin,Total 0.8 mg/dL (0.2-1.3); Blood Urea Nitrogen 33 mg/dL (9-20); Calcium 8.3 mg/dL (8.4-10.2); Carbon Dioxide 28 mmol/L (22-30); Chloride 107 mmol/L (98-107); Creatine Kinase 39 U/L (55-170); Estimated CRCL calculation 41 ml/min; Estimated Glomerular Filt Rate 45; Glucose 91 mg/dL (65-110); Magnesium 1.7 mg/dL (1.6-2.3); Potassium 3.7 mmol/L (3.4-5.0); Sodium 139 mmol/L (137-145); Total Protein 5.6 g/dL (6.3-8.2)
[2024-08-25] MEDS: DOCUSATE SODIUM LIQ 100 MG/10 ML UDC PO (09:21)
[2024-08-25] MEDS: ACIDOPHILUS/BULGARICUS CHEWABLE TABLET 1 TABLET PO (09:22)
[2024-08-25] MEDS: FERROUS SULFATE 325 MG TABLET DR BY MOUTH ×2 (09:22→18:39)
[2024-08-25] MEDS: THERAPEUTIC MULTIVITAMINS/MINERALS TAB (*BKC) 1 TABLET PO (09:22)
[2024-08-25] MEDS: ENOXAPARIN 40 MG/0.4 ML SYRINGE SUB-Q (09:22)
[2024-08-25] MEDS: ASPIRIN 81 MG ENTERIC TABLET PO (09:22)
[2024-08-25] MEDS: LORATADINE 10 MG TABLET PO (09:22)
[2024-08-25] MEDS: risperiDONE 0.5 MG TABLET PO ×2 (09:22→18:39)
[2024-08-25 11:20] LABS: Glucose Point of Care 100 mg/dl (65-105)
[2024-08-25] MEDS: cefTRIAXone 2 GM/NS 100 ML 2 GM/100 ML BAG IVPB (13:55)
[2024-08-25] MEDS: LIDOCAINE 1% LOCAL INJ 2 ML AMPUL 5 ML INFILTRATE (14:15)
--- NOTE | 2024-08-25 14:35 | P.PNUR_ITS ---
Progress Note: A&P Assessment and Plan (1) Ureteral stone with hydronephrosis: Code(s): N13.2 - Hydronephrosis with renal and ureteral calculous obstruction Status: Acute (2) Urinary tract infection: Qualifiers: Encounter type: initial encounter Indwelling urinary catheter type: indwelling urethral catheter Urinary tract infection type: catheter-associated UTI Qualified Code(s): T83.511A - Infection and inflammatory reaction due to indwelling urethral catheter, initial encounter; N39.0 - Urinary tract infection, site not specified Code(s): N39.0 - Urinary tract infection, site not specified Status: Acute Assessment and Plan: CAUTI, present on admission (3) Acute kidney injury: Code(s): N17.9 - Acute kidney failure, unspecified Status: Acute (4) Septic shock: Code(s): A41.9 - Sepsis, unspecified organism; R65.21 - Severe sepsis with septic shock Status: Acute (5) Chronic indwelling Walker catheter: Code(s): Z97.8 - Presence of other specified devices Status: Acute Plan POD2 Cystoscopy, left retrograde pyelogram, left stent placement 6 [place]an contour, Walker catheter placement for Obstructing left ureteral calculus with sepsis/UTI. - Septic shock likely secondary to obstructive pyelonephritis from 7 mm left distal ureteral stone and CAUTI: wbc down to 11.9 today from 23.1 - Acute kidney injury, improved: yesterday cr 1.87 down to 1.55 today - Chronic indwelling Walker catheter, suspect prostate enlargement - Multiple comorbidities including type 2 diabetes, dementia, CVA, schizophrenia Plan: - CT shows Moderate left hydroureteronephrosis with left ureteral stent in place. 5 mm and 3 mm stones are present in the distal left ureter. but KUB doesnt reveal the stone. -antibiotic therapy per primary team. -repeat urine culture before discharge - Plan for definitive stone treatment and stent management as outpatient after infection resolves with left ureteroscopy. Case discussed with Dr. Kent. No family present. Subjective Subjective Date/Time Seen: 08/25/24 14:35 Interval history: Resting comfortably. denies any pain at this time. Review of Systems Constitutional: Constitutional: Reports fatigue Cardiovascular: Cardiovascular: Denies chest pain and Denies dyspnea Respiratory: Respiratory: Reports cough and Denies dyspnea Gastrointestinal: Gastrointestinal: Reports as per HPI Genitourinary: Genitourinary: Reports hematuria Psychiatric: Psychiatric: Reports no additional psychiatric complaints Endocrine: Endocrine: Reports fatigue Exam HENMT: Face/Nose/Sinus: Normal nares present Cardio: Rate: tachycardic GI: Other: LLQ tenderness Urinary Catheter: Urinary Catheter: patent and draining and urine red Neuro: Speech: normal speech Extrem: General: no edema Psych: Speech and movement: Normal speech and movement present Objective Data Vital Signs Vital Signs: Vital Signs - 24 hr 08/24/24 16:00 08/24/24 16:00 08/24/24 20:00 Temperature 99.6 F Pulse Rate 97 96 104 H Respiratory Rate 22 H Blood Pressure 130/80 Pulse Oximetry 100 Oxygen Delivery Fraction of Inspired Oxygen 08/24/24 20:02 08/24/24 20:18 08/24/24 23:49 Temperature 99.5 F Pulse Rate 111 H 104 H 106 H Respiratory Rate 22 H 20 Blood Pressure 118/89 Pulse Oximetry 100 97 100 Oxygen Delivery Room Air Fraction of Inspired Oxygen 21 08/25/24 00:00 08/25/24 04:00 08/25/24 07:47 Temperature 99.0 F Pulse Rate 103 H 101 H 110 H Respiratory Rate 20 Blood Pressure 130/95 H Pulse Oximetry 100 Oxygen Delivery Fraction of Inspired Oxygen 08/25/24 08:00 Temperature Pulse Rate 110 H Respiratory Rate 20 Blood Pressure Pulse Oximetry 100 Oxygen Delivery Room Air Fraction of Inspired Oxygen 21 Intake/Output Intake/Output: Intake & Output 08/22/24 08/23/24 08/24/24 08/25/24 23:59 23:59 23:59 23:59 Intake Total 2794.7 2755 1620 1312 Output Total 1150 1525 1700 1700 Balance 1644.7 1230 -80 -388 Meds/Results Medications: Active Medications Generic Name Dose Route Start Last Admin Trade Name Freq PRN Reason Stop Dose Admin Acetaminophen 1,000 mg 08/21/24 17:17 08/22/24 21:00 Acetaminophen 500 Mg Tablet PO 1,000 mg Q6H PRN Administration Mild Pain (1-3) or Fever Aspirin 81 mg 08/22/24 09:00 08/25/24 09:22 Aspirin 81 Mg Enteric Tablet PO 81 mg QAM ALVARO Administration Atorvastatin Calcium 40 mg 08/22/24 21:00 08/24/24 20:12 Atorvastatin 40 Mg Tablet PO 40 mg HS ALVARO Administration Dextrose 12.5 gm 08/21/24 13:52 Dextrose 50% 25 Gm/50 Ml Syringe IV PUSH PRN PRN Hypoglycemia Protocol Docusate Sodium 100 mg 08/22/24 09:00 08/25/24 09:21 Docusate Sodium Liq 100 Mg/10 Ml Udc PO 100 mg DAILY ALVARO Administration Enoxaparin Sodium 40 mg 08/25/24 09:00 08/25/24 09:22 Enoxaparin 40 Mg/0.4 Ml Syringe SUB-Q 40 mg DAILY ALVARO Administration Fentanyl Citrate 25 mcg 08/22/24 11:24 Fentanyl Citrate Inj (*Crx) 100 Mcg/2 Ml Vial IV PUSH Q2M PRN Pain Ferrous Sulfate 325 mg 08/22/24 09:00 08/25/24 09:22 Ferrous Sulfate [address] BY MOUTH 325 mg BID ALVARO Administration Glucagon 1 mg 08/21/24 13:52 Glucagon For Inj 1 Mg Vial IM PRN PRN Hypoglycemia Protocol Glucose 15 gm 08/21/24 13:52 Glucose Oral Gel 15 Gm Of Glucse In 37.5 Gm Tube PO PRN PRN Hypoglycemia Protocol Dextrose 1,000 mls @ 100 mls/hr 08/21/24 13:52 Dextrose 5% 1,000 Ml IVPB PRN PRN Hypoglycemia Protocol Ceftriaxone Sodium 2 gm in 100 mls @ 200 mls/hr 08/24/24 13:00 08/25/24 13:55 Rocephin 2 Gm/Ns 100 Ml IVPB 08/30/24 13:29 200 mls/hr Q24H ALVARO Administration Lactobacillus Acidophilus 1 tablet 08/22/24 09:00 08/25/24 09:22 Acidophilus/Bulgaricus Chewable Tablet PO 1 tablet DAILY ALVARO Administration Loratadine 10 mg 08/22/24 09:00 08/25/24 09:22 Loratadine 10 Mg Tablet PO 10 mg DAILY ALVARO Administration Multivitamins/Calcium 1 tablet 08/22/24 09:00 08/25/24 09:22 Therapeutic Multivitamins/Minerals Tab (*Bkc) PO 1 tablet DAILY ALVARO Administration Ondansetron HCl 4 mg 08/22/24 11:24 Ondansetron Inj 4 Mg/2 Ml Vial IV PUSH ONCE PRN Nausea Polyethylene Glycol 8.5 gm 08/21/24 21:07 Polyethylene Glycol 3350 17 Gm Powd.Pack PO DAILY PRN constipation Risperidone 0.5 mg 08/22/24 09:00 08/25/24 09:22 Risperidone 0.5 Mg Tablet PO 0.5 mg BID ALVARO Administration Radiology Results: ITS Impressions Chest X-Ray 08/21/24 08:57 IMPRESSION: 1. Mild right basilar discoid atelectasis. Chest/Abdomen/Pelvis CT 08/22/24 05:33 Impression: 7 mm distal left ureteral stone with moderate left hydroureteronephrosis. 1.3 cm probable hyperdense left renal cysts, though solid mass is not excluded. Consider follow-up pre and postcontrast MR to further evaluate. Possible cystitis versus under distention of the urinary bladder. Correlate with urinalysis. Pulmonary nodules, largest measuring 8 mm, as above. According to Fleischner Society criteria, for a low-risk patient, recommend follow-up CT scan in 3-6 months, then consider additional 18-[address] For a high-risk patient, follow-up CT scans at both 3-6 months and 18-24 months are recommended. Minimal bilateral pleural effusions. Abdomen/Pelvis CT 08/25/24 14:12 Impression: Moderate left hydroureteronephrosis with left ureteral stent in place. 5 mm and 3 mm stones are present in the distal left ureter. Suspected cystitis versus bladder underdistention. Correlate with urinalysis and clinical symptomatology. Increasing small bilateral pleural effusions. Labs Labs: Laboratory Results - last 24 hr 08/25/24 08/25/24 04:18 11:10 WBC 11.9 H RBC 3.08 L Hgb 8.4 L Hct 25.8 L MCV 83.8 MCH 27.3 MCHC 32.6 RDW 15.9 H Plt Count 154 MPV 11.3 H Sodium 139 Potassium 3.7 Chloride 107 Carbon Dioxide 28 Anion Gap 4 BUN 33 H Creatinine 1.55 H Estim Creat Clear Calc 41 Estimated GFR 45 L Glucose 91 POC Capillary Glucose 100 Calcium 8.3 L Magnesium 1.7 Total Bilirubin 0.8 AST 137 H ALT 109 H Alkaline Phosphatase 194 H Total Creatine Kinase 39 L Total Protein 5.6 L Albumin 2.5 L
--- NOTE | 2024-08-25 15:07 | P.DS_ITS ---
DS: Admitting Diagnosis Discharge Date 08/28/2024 Admitting Diagnosis Sepsis due to UTI DS: Discharge Diagnosis Discharge Diagnosis (1) Septic shock: Code(s): A41.9 - Sepsis, unspecified organism; R65.21 - Severe sepsis with septic shock Status: Acute Assessment and Plan: Please refer to hospital course for brief summary Septic shock secondary to UTI and Gram-negative bacteremia in a patient with chronic indwelling Walker. CT scan shows left ureteral stone with ureteral hydronephrosis History of resistant Pseudomonas and urine in the past Blood cultures are growing Gram-negative bacilli Patient has received IV fluid bolus. Currently on maintenance IV fluids with bicarb which I will discontinue Patient was started on Jose-Synephrine through peripheral IV as he diffuse central venous catheter placement. Jose-Synephrine has been weaned off. Monitor blood pressure Continue empiric meropenem Walker catheter was replaced in the ER Urology was consulted and patient underwent Cystoscopy, left retrograde pyelogram, left stent placement 6 Mexican contour, Walker catheter placement on 08/22 His lactic acid level has normalized (2) Acute kidney injury: Code(s): N17.9 - Acute kidney failure, unspecified Status: Acute Assessment and Plan: Last recorded baseline creatinine is 1.6 in the chart. Presented with creatin ine 4.13 Likely acute kidney injury above chronic kidney disease. CANDIS secondary to sepsis, shock, rhabdo, left ureteral stone causing obstruction Hold further IV fluids. Monitor urine output electrolytes and creatinine. CK level has normalized Ureteral stone and hydronephrosis management as above (3) Urinary tract infection: Qualifiers: Encounter type: initial encounter Indwelling urinary catheter type: indwelling urethral catheter Urinary tract infection type: catheter-associated UTI Qualified Code(s): T83.511A - Infection and inflammatory reaction due to indwelling urethral catheter, initial encounter; N39.0 - Urinary tract infection, site not specified Code(s): N39.0 - Urinary tract infection, site not specified Status: Acute Assessment and Plan: See above (4) Ureteral stone with hydronephrosis: Code(s): N13.2 - Hydronephrosis with renal and ureteral calculous obstruction Status: Acute Assessment and Plan: Status post Cystoscopy, left retrograde pyelogram, left stent placement 6 Mexican contour, Walker catheter placement on 08/22 (5) Type 2 diabetes mellitus: Qualifiers: Diabetes mellitus complication status: without complication Diabetes mellitus intermediate frame tender insulin use: without mcfp use Qualified Code(s): E11.9 - Type 2 diabetes mellitus without complications Code(s): E11.9 - Type 2 diabetes mellitus without complications Status: Chronic Assessment and Plan: Sliding scale insulin (6) Rhabdomyolysis: Code(s): M62.82 - Rhabdomyolysis Status: Acute Assessment and Plan: CK level has normalized DC IV fluids with bicarb (7) Pulmonary nodules: Code(s): R91.8 - Other nonspecific abnormal finding of lung field Status: Acute Assessment and Plan: 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 CT scan shows multiple pulmonary nodules largest measuring 8 mm. Patient states that he is being currently evaluated for cancer and [facility] although results are not available. Records obtained from [facility] where he had bronchoscopy and fine-needle aspiration which were negative for malignancy. I would defer further evaluation and t reatment to [facility] (8) Squamous cell carcinoma of supraglottis: Code(s): C32.1 - Malignant neoplasm of supraglottis Status: Acute Assessment and Plan: See above DS: Summary Hospital Course Hospital Course: 69 y/o M with PMH of DM2, chronic urinary obstruction with chronic indwelling Awlker, dementia, and CVA presents here with fever. The patient presents here from [facility] via EMS for further evaluation of fever, tachycardia, and general malaise. He reports he PN being unwell a few days ago. Sent to the ER for their evaluation after he was noted to be febrile today and tachycardic in the 130s at his facility. He currently chronic indwelling Walker due to chronic urinary obstruction and arrived emergency department with a very strong urinary odor. Patient is also undergoing radiation for cancer, he is unsure what kind but states he is undergoing testing to see what kind and should have results on the 7th? Follows with [facility] for his oncology care. Along with general malaise, he reports chills. Denies abdominal pain, nausea, vomiting, diarrhea, constipation. Patient is currently a poor historian. Initial VS at presentation: 100.7? F, HR 147, R 26, 139/82, and 97% on room air. ED workup showed: Leukocytosis, hemoglobin 10.7, plan 4.1 3 and GFR 14 (previously ), lactic 2.2, AST 209, ALT 171, CRP 26.8, and UA consistent with UTI. CXR showed mild right basilar discoid atelectasis. EKG showed sinus tachycardia (rate 142), possible atrial flutter, delayed precordial R/S transition, borderline ST-T wave abnormality lateral leads. During the hospitalization patient was treated for sepsis due to UTI. Patient also underwent cystoscopy left retrograde pyelogram, left stent placement and Walker catheter placement on 08/22/2024. Patient blood culture is positive for Citrobacter freundii, Providencia stuartii,and Proteus mirabilis. Patient was previously on meropenem and was de-escalated to ceftriaxone according to the sensitivity. Unfortunately on the day of discharge 0 08/25 patient is febrile and his antibiotic has been escalated to meropenem. Ordered repeat blood culture and urine culture. Of note Urology as well wanted repeat urine culture before discharge. 08/28:Previously patient antibiotic was deescalated from meropenem to ceftriaxone but unfortunately patient was febrile and was escalated again to meropenem. Patient is currently doing well. Patient can be discharged with the ertapenem until 09/04/2024. Discussed with the Urology regarding hydronephrosis and reported can be followed up as an outpatient. Patient underwent swallow study today and has evidence of aspiration with thin liquids. On the day of discharge, the patient was seen and examined. Vital signs were stable. Physical exam were stable and labs were reviewed at length. Discharge instructions, medications, and follow-up appointments were discussed with the patient at length and all day questions were answered. ER warnings were given. Status at Discharge Cognitive/behavioral status at discharge: Stable Time Spent with Patient Time attestation: Total time spent providing and/or coordinating discharge services: 45 minutes Exam Narrative: General: Pt is alert awake and in NAD Lungs/Chest: Trachea central Clear BS B/L, No crackles or wheezing. Cardiac: RRR. Normal S1 S2. No murmurs Circulation: Pedal pulses are intact and symmetrical. Abdomen: Normal bowel sounds.. Soft. NT. ND. Extremities: No clubbing, cyanosis or edema. Warm : Walker in place with blood-tinged urine Neurologic: Follows commands. 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 No wheezing or crackles. Cardio: Rate: tachycardic Rhythm: regular rhythm Other: S1-S2 present without murmur, rub, ectopy GI: Other: Abdomen soft, nondistended, nontender. Normoactive bowel sounds in all quadrants. Urinary Catheter: Urinary Catheter: patent and draining, urine dark, urine red and other (Heavy sediment) Skin: General skin exam: normal color and no rashes or lesions noted Wounds: no wounds Neuro: Cranial nerves: Yes Equal, round and reactive pupils present Speech: normal speech Motor exam (neuro): 5/5 motor strength present throughout Sensory Exam: normal sensation Other: A/O self, place, time. Poor situational recall at present. Extrem: General: normal to inspection Psych: Mental Status: mental status grossly normal Other: Blunted affect. Fair insight and judgment. DS: Data Data Completed and Pending Labs on day of discharge: Labs from last 24 hours 08/25/24 08/25/24 11:10 04:18 WBC 11.9 H RBC 3.08 L Hgb 8.4 L Hct 25.8 L MCV 83.8 MCH 27.3 MCHC 32.6 RDW 15.9 H Plt Count 154 MPV 11.3 H Sodium 139 Potassium 3.7 Chloride 107 Carbon Dioxide 28 Anion Gap 4 BUN 33 H Creatinine 1.55 H Estim Creat Clear Calc 41 Estimated GFR 45 L Glucose 91 POC Capillary Glucose 100 Calcium 8.3 L Magnesium 1.7 Total Bilirubin 0.8 AST 137 H ALT 109 H Alkaline Phosphatase 194 H Total Creatine Kinase 39 L Total Protein 5.6 L Albumin 2.5 L Preliminary micro results at discharge 08/24/24 12:27 Blood Culture - Preliminary Blood 08/24/24 12:34 Blood Culture - Preliminary Blood Imaging Radiologist's impression: ITS Impressions Chest X-Ray 08/21/24 08:57 IMPRESSION: 1. Mild right basilar discoid atelectasis. Chest/Abdomen/Pelvis CT 08/22/24 05:33 Impression: 7 mm distal left ureteral stone with moderate left hydroureteronephrosis. 1.3 cm probable hyperdense left renal cysts, though solid mass is not excluded. Consider follow-up pre and postcontrast MR to further evaluate. Possible cystitis versus under distention of the urinary bladder. Correlate with urinalysis. Pulmonary nodules, largest measuring 8 mm, as above. According to Fleischner Society criteria, for a low-risk patient, recommend follow-up CT scan in 3-6 months, then consider additional 18-[address] For a high-risk patient, follow-up CT scans at both 3-6 months and 18-24 months are recommended. Minimal bilateral pleural effusions. Abdomen/Pelvis CT 08/25/24 14:12 Impression: Moderate left hydroureteronephrosis with left ureteral stent in place. 5 mm and 3 mm stones are present in the distal left ureter. Suspected cystitis versus bladder underdistention. Correlate with urinalysis and clinical symptomatology. Increasing small bilateral pleural effusions. Abdomen X-Ray 08/25/24 15:25 IMPRESSION: NO ACUTE ABDOMINAL FINDINGS. Left double-J stent. Chest CT 08/27/24 12:00 Impression: Small bilateral pleural effusions with bibasilar atelectatic change. Stable 8 mm right upper lobe pulmonary nodule. Moderate left hydronephrosis with left ureteral stent. 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 Please correlate with speech pathologist findings and specific feeding recommendations. Discharge Plan Discharge Attending physician on discharge: Heriberto Arias Consulting providers: Jenny Sutton; Gareth Kent Discharging Clinician: Heriberto Arias Anticipated Discharge Date/Time: 08/28/24 13:06 Patient Disposition: NH Care Home/Asst Living Activity: as tolerated Diet: other - see discharge instructions Discharge Instructions: Discussed with care coordination and agrees for discharge Patient needs to follow-up with the PCP within week upon discharge Patient will be discharged with ertapenem until 0 09/04 Patient needs to be on level 7 regular but easy to chew with level 2 mildly thick liquids Patient Instructions: Antibiotic Form Patient Language: Telugu Stand Alone Forms: General Discharge Information Follow-up/Referrals: Ariana,MD Ean [Primary Care Provider] - Discharge Medications: New ertapenem 1 gram recon soln 1 g IV DAILY 8 Days Continued docusate sodium 50 mg/5 mL Liquid 100 mg PO DAILY multivit with min-folic acid 0.4 mg Tablet 1 tablet PO DAILY metoprolol tartrate 25 mg Tablet 25 mg PO BID atorvastatin 40 mg Tablet 40 mg PO HS Qty: 30 0RF aspirin 81 mg capsule 81 mg PO DAILY risperidone [Risperdal] 0.5 mg tablet 0.5 mg PO BID Acidophilus Capsule 10 mg PO DAILY ferrous sulfate [Feosol] 325 mg (65 mg iron) tablet 325 mg PO BID cholecalciferol (vitamin D3) [D3-2000] 50 mcg (2,000 unit) capsule 2,000 unit PO ONCE loratadine [Allergy Relief (loratadine)] 10 mg tablet 10 mg PO DAILY ondansetron 4 mg tablet,disintegrating 4 mg PO Q8H PRN (Reason: gerd) polyethylene glycol 3350 [ClearLax] 17 gram/dose powder 8.5 g PO DAILY PRN (Reason: constipation) Held lisinopril 20 mg Tablet 20 mg PO DAILY Hold Instructions: Resume on 10/09/24. Please discuss with your PCP before continuing Date of admission: 08/22/24 08:24 Primary Care Provider: ArianaEan Admitting Provider: Luanne Ramirez Attending physician on admission: Luanne Ramirez Condition: Serious
[2024-08-25 16:21] LABS: Glucose Point of Care 104 mg/dl (65-105)
--- NOTE | 2024-08-25 16:41 | PM.IMPN ---
Progress Note: A&P Assessment and Plan (1) Septic shock: Code(s): A41.9 - Sepsis, unspecified organism; R65.21 - Severe sepsis with septic shock Status: Acute Assessment and Plan: 0 08/25: Repeated blood culture and urine culture. Escalated antibiotic from ceftriaxone to meropenem. Patient is febrile and will be closely monitor vitals and repeat culture. It Septic shock secondary to UTI and Gram-negative bacteremia in a patient with chronic indwelling Walker. CT scan shows left ureteral stone with ureteral hydronephrosis History of resistant Pseudomonas and urine in the past Blood cultures are growing Gram-negative bacilli Patient has received IV fluid bolus. Currently on maintenance IV fluids with bicarb which I will discontinue Patient was started on Jose-Synephrine through peripheral IV as he diffuse central venous catheter placement. Jose-Synephrine has been weaned off. Monitor blood pressure Continue empiric meropenem Walker catheter was replaced in the ER Urology was consulted and patient underwent Cystoscopy, left retrograde pyelogram, left stent placement 6 Indonesian contour, Walker catheter placement on 08/22 His lactic acid level has normalized (2) Acute kidney injury: Code(s): N17.9 - Acute kidney failure, unspecified Status: Acute Assessment and Plan: Last recorded baseline creatinine is 1.6 in the chart. Presented with creatinine 4.13 Likely acute kidney injury above chronic kidney disease. CANDIS secondary to sepsis, shock, rhabdo, left ureteral stone causing obstruction Hold further IV fluids. Monitor urine output electrolytes and creatinine. CK level has normalized Ureteral stone and hydronephrosis management as above (3) Urinary tract infection: Qualifiers: Encounter type: initial encounter Indwelling urinary catheter type: indwelling urethral catheter Urinary tract infection type: catheter-associated UTI Qualified Code(s): T83.511A - Infection and inflammatory reaction due to indwelling urethral catheter, initial encounter; N39.0 - Urinary tract infection, site not specified Code(s): N39.0 - Urinary tract infection, site not specified Status: Acute Assessment and Plan: See above (4) Ureteral stone with hydronephrosis: Code(s): N13.2 - Hydronephrosis with renal and ureteral calculous obstruction Status: Acute Assessment and Plan: Status post Cystoscopy, left retrograde pyelogram, left stent placement 6 Indonesian contour, Walker catheter placement on 6/17 (5) Type 2 diabetes mellitus: Qualifiers: Diabetes mellitus intermediate frame tender insulin use: without retirement use Diabetes mellitus complication status: without complication Qualified Code(s): E11.9 - Type 2 diabetes mellitus without complications Code(s): E11.9 - Type 2 diabetes mellitus without complications Status: Chronic Assessment and Plan: Sliding scale insulin (6) Rhabdomyolysis: Code(s): M62.82 - Rhabdomyolysis Status: Acute Assessment and Plan: CK level has normalized DC IV fluids with bicarb (7) Pulmonary nodules: Code(s): R91.8 - Other nonspecific abnormal finding of lung field Status: Acute Assessment and Plan: 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 CT scan shows multiple pulmonary nodules largest measuring 8 mm. Patient states that he is being currently evaluated for cancer and [email or web address] although results are not available. Records obtained from [facility] where he had bronchoscopy and fine-needle aspiration which were negative for malignancy. I would defer further evaluation and treatment to [facility] (8) Squamous cell carcinoma of supraglottis: Code(s): C32.1 - Malignant neoplasm of supraglottis Status: Acute Assessment and Plan: See above Subjective Date/time seen: 08/25/24 16:41 Interval history: Interval history:69 y/o M with PMH of DM2, chronic urinary obstruction with chronic indwelling Walker, dementia, and CVA presents here with fever. The patient presents here from [facility] via EMS for further evaluation of fever, tachycardia, and general malaise. He reports he PN being unwell a few days ago. Sent to the ER for their evaluation after he was noted to be febrile today and tachycardic in the 130s at his facility. He currently chronic indwelling Walker due to chronic urinary obstruction and arrived emergency department with a very strong urinary odor. Patient is also undergoing radiation for cancer, he is unsure what kind but states he is undergoing testing to see what kind and should have results on the ? Follows with [facility] for his oncology care. Along with general malaise, he reports chills. Denies abdominal pain, nausea, vomiting, diarrhea, constipation. Patient is currently a poor historian. Initial VS at presentation: 100.7? F, HR 147, R 26, 139/82, and 97% on room air. ED workup showed: Leukocytosis, hemoglobin 10.7, plan 4.1 3 and GFR 14 (previously ), lactic 2.2, AST 209, ALT 171, CRP 26.8, and UA consistent with UTI. CXR showed mild right basilar discoid atelectasis. EKG showed sinus tachycardia (rate 142), possible atrial flutter, delayed precordial R/S transition, borderline ST-T wave abnormality lateral leads. During the hospitalization patient was treated for sepsis due to UTI. Patient also underwent cystoscopy left retrograde pyelogram, left stent placement and Walker catheter placement on 08/22/2024. Patient blood culture is positive for Citrobacter freundii, Providencia stuartii,and Proteus mirabilis. Patient was previously on meropenem and was de-escalated to ceftriaxone according to the sensitivity. Unfortunately on the day of discharge 0 08/25 patient is febrile and his antibiotic has been escalated to meropenem. Ordered repeat blood culture and urine culture. Of note Urology as well wanted repeat urine culture before discharge. Review of Systems Review of Systems: All systems reviewed & are unremarkable except as noted in HPI and below (HPI) Exam Narrative: General: Pt is alert awake and in NAD Lungs/Chest: Trachea central Clear BS B/L, No crackles or wheezing. Cardiac: RRR. Normal S1 S2. No murmurs Circulation: Pedal pulses are intact and symmetrical. Abdomen: Normal bowel sounds.. Soft. NT. ND. Extremities: No clubbing, cyanosis or edema. Warm : Walker in place with blood-tinged urine Neurologic: Follows commands. 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 No wheezing or crackles. Cardio: Rate: tachycardic Rhythm: regular rhythm Other: S1-S2 present without murmur, rub, ectopy GI: Other: Abdomen soft, nondistended, nontender. Normoactive bowel sounds in all quadrants. Urinary Catheter: Urinary Catheter: patent and draining, urine dark, urine red and other (Heavy sediment) Skin: General skin exam: normal color and no rashes or lesions noted Wounds: no wounds Neuro: Cranial nerves: Yes Equal, round and reactive pupils present Speech: normal speech Motor exam (neuro): 5/5 motor strength present throughout Sensory Exam: normal sensation Other: A/O self, place, time. Poor situational recall at present. Extrem: General: normal to inspection Psych: Mental Status: mental status grossly normal Other: Blunted affect. Fair insight and judgment. Objective Data Vital Signs Vital Signs: Vital Signs - 24 hr 08/24/24 20:00 08/24/24 20:02 08/24/24 20:18 Temperature 99.5 F Pulse Rate 104 H 111 H 104 H Respiratory Rate 22 H 20 Blood Pressure 118/89 Pulse Oximetry 100 97 Oxygen Delivery Room Air Fraction of Inspired Oxygen 08/24/24 23:49 08/25/24 00:00 08/25/24 04:00 Temperature Pulse Rate 106 H 103 H 101 H Respiratory Rate Blood Pressure Pulse Oximetry 100 Oxygen Delivery Fraction of Inspired Oxygen 08/25/24 07:47 08/25/24 08:00 08/25/24 08:00 Temperature 99.0 F Pulse Rate 110 H 110 H 104 H Respiratory Rate 20 20 Blood Pressure 130/95 H Pulse Oximetry 100 100 Oxygen Delivery Room Air Fraction of Inspired Oxygen 08/25/24 15:46 Temperature 100.8 F H Pulse Rate 99 Respiratory Rate 20 Blood Pressure 154/99 H Pulse Oximetry 99 Oxygen Delivery Fraction of Inspired Oxygen Intake/Output Intake/Output: Intake & Output 08/22/24 08/23/24 08/24/24 08/25/24 23:59 23:59 23:59 23:59 Intake Total 2794.7 2755 1620 1312 Output Total 1150 1525 1700 1700 Balance 1644.7 1230 -80 -388 Meds/Results Medications: Active Medications Generic Name Dose Route Start Last Admin Trade Name Freq PRN Reason Stop Dose Admin Acetaminophen 1,000 mg 08/21/24 17:17 08/22/24 21:00 Acetaminophen 500 Mg Tablet PO 1,000 mg Q6H PRN Administration Mild Pain (1-3) or Fever Aspirin 81 mg 08/22/24 09:00 08/25/24 09:22 Aspirin 81 Mg Enteric Tablet PO 81 mg QAM ALVARO Administration Atorvastatin Calcium 40 mg 08/22/24 21:00 08/24/24 20:12 Atorvastatin 40 Mg Tablet PO 40 mg HS ALVARO Administration Dextrose 12.5 gm 08/21/24 13:52 Dextrose 50% 25 Gm/50 Ml Syringe IV PUSH PRN PRN Hypoglycemia Protocol Docusate Sodium 100 mg 08/22/24 09:00 08/25/24 09:21 Docusate Sodium Liq 100 Mg/10 Ml Udc PO 100 mg DAILY ALVARO Administration Enoxaparin Sodium 40 mg 08/25/24 09:00 08/25/24 09:22 Enoxaparin 40 Mg/0.4 Ml Syringe SUB-Q 40 mg DAILY ALVARO Administration Fentanyl Citrate 25 mcg 08/22/24 11:24 Fentanyl Citrate Inj (*Crx) 100 Mcg/2 Ml Vial IV PUSH Q2M PRN Pain Ferrous Sulfate 325 mg 08/22/24 09:00 08/25/24 09:22 Ferrous Sulfate [address] BY MOUTH 325 mg BID ALVARO Administration Glucagon 1 mg 08/21/24 13:52 Glucagon For Inj 1 Mg Vial IM PRN PRN Hypoglycemia Protocol Glucose 15 gm 08/21/24 13:52 Glucose Oral Gel 15 Gm Of Glucse In 37.5 Gm Tube PO PRN PRN Hypoglycemia Protocol Dextrose 1,000 mls @ 100 mls/hr 08/21/24 13:52 Dextrose 5% 1,000 Ml IVPB PRN PRN Hypoglycemia Protocol Ceftriaxone Sodium 2 gm in 100 mls @ 200 mls/hr 08/24/24 13:00 08/25/24 13:55 Rocephin 2 Gm/Ns 100 Ml IVPB 08/30/24 13:29 200 mls/hr Q24H ALVARO Administration Lactobacillus Acidophilus 1 tablet 08/22/24 09:00 08/25/24 09:22 Acidophilus/Bulgaricus Chewable Tablet PO 1 tablet DAILY ALVARO Administration Loratadine 10 mg 08/22/24 09:00 08/25/24 09:22 Loratadine 10 Mg Tablet PO 10 mg DAILY ALVARO Administration Multivitamins/Calcium 1 tablet 08/22/24 09:00 08/25/24 09:22 Therapeutic Multivitamins/Minerals Tab (*Bkc) PO 1 tablet DAILY ALVARO Administration Ondansetron HCl 4 mg 08/22/24 11:24 Ondansetron Inj 4 Mg/2 Ml Vial IV PUSH ONCE PRN Nausea Polyethylene Glycol 8.5 gm 08/21/24 21:07 Polyethylene Glycol 3350 17 Gm Powd.Pack PO DAILY PRN constipation Risperidone 0.5 mg 08/22/24 09:00 08/25/24 09:22 Risperidone 0.5 Mg Tablet PO 0.5 mg BID ALVARO Administration Sodium Chloride 10 ml 08/25/24 22:00 Saline Lock Flush IV PUSH Q8HR ALVARO Sodium Chloride 10 ml 08/25/24 14:45 Saline Lock Flush IV PUSH PRN PRN Flush Sodium Chloride 20 ml 08/25/24 14:45 Saline Lock Flush IV PUSH PRN PRN after blood draws Radiology Results: ITS Impressions Chest X-Ray 08/21/24 08:57 IMPRESSION: 1. Mild right basilar discoid atelectasis. Chest/Abdomen/Pelvis CT 08/22/24 05:33 Impression: 7 mm distal left ureteral stone with moderate left hydroureteronephrosis. 1.3 cm probable hyperdense left renal cysts, though solid mass is not excluded. Consider follow-up pre and postcontrast MR to further evaluate. Possible cystitis versus under distention of the urinary bladder. Correlate with urinalysis. Pulmonary nodules, largest measuring 8 mm, as above. According to Fleischner Society criteria, for a low-risk patient, recommend follow-up CT scan in 3-6 months, then consider additional 18-[address] For a high-risk patient, follow-up CT scans at both 3-6 months and 18-24 months are recommended. Minimal bilateral pleural effusions. Abdomen/Pelvis CT 08/25/24 14:12 Impression: Moderate left hydroureteronephrosis with left ureteral stent in place. 5 mm and 3 mm stones are present in the distal left ureter. Suspected cystitis versus bladder underdistention. Correlate with urinalysis and clinical symptomatology. Increasing small bilateral pleural effusions. Abdomen X-Ray 08/25/24 15:25 IMPRESSION: NO ACUTE ABDOMINAL FINDINGS. Left double-J stent. Labs Labs: Laboratory Results - last 24 hr 08/25/24 08/25/24 08/25/24 04:18 11:10 16:17 WBC 11.9 H RBC 3.08 L Hgb 8.4 L Hct 25.8 L MCV 83.8 MCH 27.3 MCHC 32.6 RDW 15.9 H Plt Count 154 MPV 11.3 H Sodium 139 Potassium 3.7 Chloride 107 Carbon Dioxide 28 Anion Gap 4 BUN 33 H Creatinine 1.55 H Estim Creat Clear Calc 41 Estimated GFR 45 L Glucose 91 POC Capillary Glucose 100 104 Calcium 8.3 L Magnesium 1.7 Total Bilirubin 0.8 AST 137 H ALT 109 H Alkaline Phosphatase 194 H Total Creatine Kinase 39 L Total Protein 5.6 L Albumin 2.5 L Quality VTE Prophylaxis VTE prophylaxis: pharmacologic ordered Hospitalist [facility] Advance Care Plan I have confirmed that the patient's Advanced Care Plan is present, code status is documented, or surrogate decision maker is listed in patient medical record.: Yes Medication Reconciliation I have utilized all available resources to obtain, update and review the patients current medications (includes all prescriptions, OTC, herbals, cannabis, and nutritional supplements).: Yes
[2024-08-25] MEDS: MEROPENEM 1 GM/NS 100 ML 1 GM/100 ML BAG IVPB (18:39)
[2024-08-25] MEDS: ACETAMINOPHEN 500 MG TABLET 1000 MG PO (18:39)
[2024-08-25] MEDS: ATORVASTATIN 40 MG TABLET PO (20:01)
[2024-08-25] MEDS: SALINE LOCK FLUSH 10 ML IV PUSH (22:00)
--- NOTE | 2024-08-25 22:10 | PC.NURSE ---
Report given to GALA Junior
[2024-08-26] VITALS: PULSE 98
[2024-08-26 04:00] VITALS: PULSE 97
[2024-08-26 04:55] LABS: Hemoglobin 8.9 g/dL (14.0-18.0); Mean Corpuscular HGB Conc 31.8 g/dl (32-36); Mean Corpuscular Hemoglobin 27.2 pg (26-34); Mean Corpuscular Volume 85.6 fl (80-100); Mean Platelet Volume 10.5 fl (7.4-10.4); Platelet Count Result 193 k/mm3 (150-375); Red Blood Count 3.27 M/mm3 (4.6-6.20); White Blood Count 13.1 K/mm3 (4.5-10.0)
[2024-08-26] MEDS: MEROPENEM 1 GM/NS 100 ML 1 GM/100 ML BAG IVPB ×2 (05:18→18:33)
[2024-08-26 05:26] LABS: Alanine Aminotransferase 138 U/L (6-50); Albumin Level 2.6 g/dL (3.5-5.1); Alkaline Phosphatase 213 U/L (38-126); Anion Gap 4 mmol/L (4-12); Aspartate Amino Transferase 171 U/L (17-59); Bilirubin,Total 0.8 mg/dL (0.2-1.3); Blood Urea Nitrogen 30 mg/dL (9-20); Calcium 8.6 mg/dL (8.4-10.2); Carbon Dioxide 29 mmol/L (22-30); Chloride 108 mmol/L (98-107); Creatine Kinase 32 U/L (55-170); Estimated CRCL calculation 47 ml/min; Estimated Glomerular Filt Rate 53; Glucose 93 mg/dL (65-110); Magnesium 1.6 mg/dL (1.6-2.3); Potassium 3.7 mmol/L (3.4-5.0); Sodium 141 mmol/L (137-145); Total Protein 5.8 g/dL (6.3-8.2)
[2024-08-26] MEDS: SALINE LOCK FLUSH 10 ML IV PUSH ×3 (05:27→21:04)
[2024-08-26 08:00] VITALS: BP 140/80; PULSE 94; PULSE 99; RESP 24; TEMP 37.2; O2SAT 100
[2024-08-26] MEDS: ENOXAPARIN 40 MG/0.4 ML SYRINGE SUB-Q (09:07)
[2024-08-26] MEDS: ASPIRIN 81 MG ENTERIC TABLET PO (09:08)
[2024-08-26] MEDS: risperiDONE 0.5 MG TABLET PO ×2 (09:08→17:33)
[2024-08-26] MEDS: LORATADINE 10 MG TABLET PO (09:08)
[2024-08-26] MEDS: THERAPEUTIC MULTIVITAMINS/MINERALS TAB (*BKC) 1 TABLET PO (09:08)
[2024-08-26] MEDS: FERROUS SULFATE 325 MG TABLET DR BY MOUTH ×2 (09:08→17:33)
[2024-08-26] MEDS: ACIDOPHILUS/BULGARICUS CHEWABLE TABLET 1 TABLET PO (09:08)
[2024-08-26] MEDS: DOCUSATE SODIUM LIQ 100 MG/10 ML UDC PO (09:09)
--- NOTE | 2024-08-26 09:44 | PM.IMPN ---
Progress Note: A&P Assessment and Plan (1) Septic shock: Code(s): A41.9 - Sepsis, unspecified organism; R65.21 - Severe sepsis with septic shock Status: Acute Assessment and Plan: 0 08/25: Patient is a febrile and holding discharge. Repeated blood culture and urine culture. Escalated antibiotic from ceftriaxone to meropenem. Patient is febrile and will be closely monitor vitals and repeat culture. 08/26: Ordered swallow study and CT chest to rule out aspiration pneumonia. Pending blood culture and urine culture Septic shock secondary to UTI and Gram-negative bacteremia in a patient with chronic indwelling Walker. CT scan shows left ureteral stone with ureteral hydronephrosis History of resistant Pseudomonas and urine in the past Blood cultures are growing Gram-negative bacilli Patient has received IV fluid bolus. Currently on maintenance IV fluids with bicarb which I will discontinue Patient was started on Jose-Synephrine through peripheral IV as he diffuse central venous catheter placement. Jose-Synephrine has been weaned off. Monitor blood pressure Continue empiric meropenem Walker catheter was replaced in the ER Urology was consulted and patient underwent Cystoscopy, left retrograde pyelogram, left stent placement 6 [place] contour, Walker catheter placement on 08/22 His lactic acid level has normalized (2) Acute kidney injury: Code(s): N17.9 - Acute kidney failure, unspecified Status: Acute Assessment and Plan: Last recorded baseline creatinine is 1.6 in the chart. Presented with creatinine 4.13 Likely acute kidney injury above chronic kidney disease. CANDIS secondary to sepsis, shock, rhabdo, left ureteral stone causing obstruction Hold further IV fluids. Monitor urine output electrolytes and creatinine. CK level has normalized Ureteral stone and hydronephrosis management as above (3) Urinary tract infection: Qualifiers: Encounter type: initial encounter Indwelling urinary catheter type: indwelling urethral catheter Urinary tract infection type: catheter-associated UTI Qualified Code(s): T83.511A - Infection and inflammatory reaction due to indwelling urethral catheter, initial encounter; N39.0 - Urinary tract infection, site not specified Code(s): N39.0 - Urinary tract infection, site not specified Status: Acute Assessment and Plan: See above (4) Ureteral stone with hydronephrosis: Code(s): N13.2 - Hydronephrosis with renal and ureteral calculous obstruction Status: Acute Assessment and Plan: Status post Cystoscopy, left retrograde pyelogram, left stent placement 6 [place] contour, Walker catheter placement on 08/22 (5) Type 2 diabetes mellitus: Qualifiers: Diabetes mellitus complication status: without complication Diabetes mellitus fpc insulin use: without fpc use Qualified Code(s): E11.9 - Type 2 diabetes mellitus without complications Code(s): E11.9 - Type 2 diabetes mellitus without complications Status: Chronic Assessment and Plan: Sliding scale insulin (6) Rhabdomyolysis: Code(s): M62.82 - Rhabdomyolysis Status: Acute Assessment and Plan: CK level has normalized DC IV fluids with bicarb (7) Pulmonary nodules: Code(s): R91.8 - Other nonspecific abnormal finding of lung field Status: Acute Assessment and Plan: 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. CT scan shows multiple pulmonary nodules largest measuring 8 mm. Patient states that he is being currently evaluated for cancer and [facility] although results are not available. Records obtained from [facility] where he had bronchoscopy and fine-needle aspiration which were negative for malignancy. I would defer further evaluation and treatment to [facility] (8) Squamous cell carcinoma of supraglottis: Code(s): C32.1 - Malignant neoplasm of supraglottis Status: Acute Assessment and Plan: See above Subjective Date/time seen: 08/26/24 09:44 Interval history: Interval history:69 y/o M with PMH of DM2, chronic urinary obstruction with chronic indwelling Wakler, dementia, and CVA presents here with fever. The patient presents here from [facility] via EMS for further evaluation of fever, tachycardia, and general malaise. He reports he PN being unwell a few days ago. Sent to the ER for their evaluation after he was noted to be febrile today and tachycardic in the 130s at his facility. He currently chronic indwelling Walker due to chronic urinary obstruction and arrived emergency department with a very strong urinary odor. Patient is also undergoing radiation for cancer, he is unsure what kind but states he is undergoing testing to see what kind and should have results on the ? Follows with [facility] for his oncology care. Along with general malaise, he reports chills. Denies abdominal pain, nausea, vomiting, diarrhea, constipation. Patient is currently a poor historian. Initial VS at presentation: 100.7? F, HR 147, R 26, 139/82, and 97% on room air. ED workup showed: Leukocytosis, hemoglobin 10.7, plan 4.1 3 and GFR 14 (previously ), lactic 2.2, AST 209, ALT 171, CRP 26.8, and UA consistent with UTI. CXR showed mild right basilar discoid atelectasis. EKG showed sinus tachycardia (rate 142), possible atrial flutter, delayed precordial R/S transition, borderline ST-T wave abnormality lateral leads. During the hospitalization patient was treated for sepsis due to UTI. Patient also underwent cystoscopy left retrograde pyelogram, left stent placement and Walker catheter placement on 08/22/2024. Patient blood culture is positive for Citrobacter freundii, Providencia stuartii,and Proteus mirabilis. Patient was previously on meropenem and was de-escalated to ceftriaxone according to the sensitivity. Unfortunately on the day of discharge 0 08/25 patient is febrile and his antibiotic has been escalated to meropenem. Ordered repeat blood culture and urine culture. Of note Urology as well wanted repeat urine culture before discharge. 08/26: Holding discharge due to episodes of fever. Ordered a swallow study and CT chest to rule out aspiration pneumonia Review of Systems Review of Systems: All systems reviewed & are unremarkable except as noted in HPI and below (HPI) Exam Narrative: General: Pt is alert awake and in NAD Lungs/Chest: Trachea central Clear BS B/L, No crackles or wheezing. Cardiac: RRR. Normal S1 S2. No murmurs Circulation: Pedal pulses are intact and symmetrical. Abdomen: Normal bowel sounds.. Soft. NT. ND. Extremities: No clubbing, cyanosis or edema. Warm : Walker in place with blood-tinged urine Neurologic: Follows commands. 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 No wheezing or crackles. Cardio: Rate: tachycardic Rhythm: regular rhythm Other: S1-S2 present without murmur, rub, ectopy GI: Other: Abdomen soft, nondistended, nontender. Normoactive bowel sounds in all quadrants. Urinary Catheter: Urinary Catheter: patent and draining, urine dark, urine red and other (Heavy sediment) Skin: General skin exam: normal color and no rashes or lesions noted Wounds: no wounds Neuro: Cranial nerves: Yes Equal, round and reactive pupils present Speech: normal speech Motor exam (neuro): 5/5 motor strength present throughout Sensory Exam: normal sensation Other: A/O self, place, time. Poor situational recall at present. Extrem: General: normal to inspection Psych: Mental Status: mental status grossly normal Other: Blunted affect. Fair insight and judgment. Objective Data Vital Signs Vital Signs: Vital Signs - 24 hr 08/25/24 15:46 08/25/24 16:00 08/25/24 18:39 Temperature 100.8 F H 100.9 F H Pulse Rate 99 109 H Respiratory Rate 20 Blood Pressure 154/99 H Pulse Oximetry 99 Oxygen Delivery 08/25/24 19:36 08/25/24 20:00 08/25/24 20:00 Temperature 98.7 F Pulse Rate 109 H 106 H Respiratory Rate 20 Blood Pressure Pulse Oximetry 99 Oxygen Delivery Room Air 08/25/24 20:26 08/25/24 23:45 08/26/24 00:00 Temperature 98.7 F 98.2 F Pulse Rate 107 H 52 L 98 Respiratory Rate 20 16 Blood Pressure 99/66 L 118/80 Pulse Oximetry 100 100 Oxygen Delivery 08/26/24 04:00 08/26/24 08:00 Temperature 99.0 F Pulse Rate 97 99 Respiratory Rate 24 H Blood Pressure 140/80 Pulse Oximetry 100 Oxygen Delivery Intake/Output Intake/Output: Intake & Output 08/23/24 08/24/24 08/25/24 08/26/24 23:59 23:59 23:59 23:59 Intake Total 2755 1620 1972 350 Output Total 1525 1700 2200 800 Balance 1230 -80 -228 -450 Meds/Results Medications: Active Medications Generic Name Dose Route Start Last Admin Trade Name Freq PRN Reason Stop Dose Admin Acetaminophen 1,000 mg 08/21/24 17:17 06/20/25 18:39 Acetaminophen 500 Mg Tablet PO 1,000 mg Q6H PRN Administration Mild Pain (1-3) or Fever Aspirin 81 mg 08/22/24 09:00 08/26/24 09:08 Aspirin 81 Mg Enteric Tablet PO 81 mg QAM ALVARO Administration Atorvastatin Calcium 40 mg 08/22/24 21:00 08/25/24 20:01 Atorvastatin 40 Mg Tablet PO 40 mg HS ALVARO Administration Dextrose 12.5 gm 08/21/24 13:52 Dextrose 50% 25 Gm/50 Ml Syringe IV PUSH PRN PRN Hypoglycemia Protocol Docusate Sodium 100 mg 08/22/24 09:00 08/26/24 09:09 Docusate Sodium Liq 100 Mg/10 Ml Udc PO 100 mg DAILY ALAVRO Administration Enoxaparin Sodium 40 mg 08/25/24 09:00 08/26/24 09:07 Enoxaparin 40 Mg/0.4 Ml Syringe SUB-Q 40 mg DAILY ALVARO Administration Fentanyl Citrate 25 mcg 08/22/24 11:24 Fentanyl Citrate Inj (*Crx) 100 Mcg/2 Ml Vial IV PUSH Q2M PRN Pain Ferrous Sulfate 325 mg 08/22/24 09:00 08/26/24 09:08 Ferrous Sulfate [address] BY MOUTH 325 mg BID ALVARO Administration Glucagon 1 mg 08/21/24 13:52 Glucagon For Inj 1 Mg Vial IM PRN PRN Hypoglycemia Protocol Glucose 15 gm 08/21/24 13:52 Glucose Oral Gel 15 Gm Of Glucse In 37.5 Gm Tube PO PRN PRN Hypoglycemia Protocol Dextrose 1,000 mls @ 100 mls/hr 08/21/24 13:52 Dextrose 5% 1,000 Ml IVPB PRN PRN Hypoglycemia Protocol Meropenem 1 gm in 100 mls @ 200 mls/hr 08/25/24 18:00 08/26/24 05:18 IVPB 200 mls/hr Q12H ALVARO Administration Lactobacillus Acidophilus 1 tablet 08/22/24 09:00 08/26/24 09:08 Acidophilus/Bulgaricus Chewable Tablet PO 1 tablet DAILY ALVARO Administration Loratadine 10 mg 08/22/24 09:00 08/26/24 09:08 Loratadine 10 Mg Tablet PO 10 mg DAILY ALVARO Administration Multivitamins/Calcium 1 tablet 08/22/24 09:00 08/26/24 09:08 Therapeutic Multivitamins/Minerals Tab (*Bkc) PO 1 tablet DAILY ALVARO Administration Ondansetron HCl 4 mg 08/22/24 11:24 Ondansetron Inj 4 Mg/2 Ml Vial IV PUSH ONCE PRN Nausea Polyethylene Glycol 8.5 gm 08/21/24 21:07 Polyethylene Glycol 3350 17 Gm Powd.Pack PO DAILY PRN constipation Risperidone 0.5 mg 08/22/24 09:00 08/26/24 09:08 Risperidone 0.5 Mg Tablet PO 0.5 mg BID ALVARO Administration Sodium Chloride 10 ml 08/25/24 22:00 08/26/24 05:27 Saline Lock Flush IV PUSH 10 ml Q8HR ALVARO Administration Sodium Chloride 10 ml 08/25/24 14:45 Saline Lock Flush IV PUSH PRN PRN Flush Sodium Chloride 20 ml 08/25/24 14:45 Saline Lock Flush IV PUSH PRN PRN after blood draws Radiology Results: ITS Impressions Chest X-Ray 08/21/24 08:57 IMPRESSION: 1. Mild right basilar discoid atelectasis. Chest/Abdomen/Pelvis CT 08/22/24 05:33 Impression: 7 mm distal left ureteral stone with moderate left hydroureteronephrosis. 1.3 cm probable hyperdense left renal cysts, though solid mass is not excluded. Consider follow-up pre and postcontrast MR to further evaluate. Possible cystitis versus under distention of the urinary bladder. Correlate with urinalysis. Pulmonary nodules, largest measuring 8 mm, as above. According to Fleischner Society criteria, for a low-risk patient, recommend follow-up CT scan in 3-6 months, then consider additional 18-[address] For a high-risk patient, follow-up CT scans at both 3-6 months and 18-24 months are recommended. Minimal bilateral pleural effusions. Abdomen/Pelvis CT 08/25/24 14:12 Impression: Moderate left hydroureteronephrosis with left ureteral stent in place. 5 mm and 3 mm stones are present in the distal left ureter. Suspected cystitis versus bladder underdistention. Correlate with urinalysis and clinical symptomatology. Increasing small bilateral pleural effusions. Abdomen X-Ray 08/25/24 15:25 IMPRESSION: NO ACUTE ABDOMINAL FINDINGS. Left double-J stent. Labs Labs: Laboratory Results - last 24 hr 08/25/24 08/25/24 08/26/24 11:10 16:17 04:28 WBC 13.1 H RBC 3.27 L Hgb 8.9 L Hct 28.0 L MCV 85.6 MCH 27.2 MCHC 31.8 L RDW 16.0 H Plt Count 193 MPV 10.5 H Sodium 141 Potassium 3.7 Chloride 108 H Carbon Dioxide 29 Anion Gap 4 BUN 30 H Creatinine 1.33 H Estim Creat Clear Calc 47 Estimated GFR 53 L Glucose 93 POC Capillary Glucose 100 104 Calcium 8.6 Magnesium 1.6 Total Bilirubin 0.8 AST 171 H ALT 138 H Alkaline Phosphatase 213 H Total Creatine Kinase 32 L Total Protein 5.8 L Albumin 2.6 L Quality VTE Prophylaxis VTE prophylaxis: pharmacologic ordered Hospitalist MIPS Advance Care Plan I have confirmed that the patient's Advanced Care Plan is present, code status is documented, or surrogate decision maker is listed in patient medical record.: Yes Medication Reconciliation I have utilized all available resources to obtain, update and review the patients current medications (includes all prescriptions, OTC, herbals, cannabis, and nutritional supplements).: Yes
[2024-08-26 13:30] VITALS: BP 146/95; PULSE 92; RESP 20; TEMP 37.3; O2SAT 100
[2024-08-26] MEDS: ATORVASTATIN 40 MG TABLET PO (21:02)
[2024-08-26 22:00] VITALS: BP 139/78; PULSE 104; RESP 20; TEMP 37.1; O2SAT 100
[2024-08-27] MEDS: MEROPENEM 1 GM/NS 100 ML 1 GM/100 ML BAG IVPB ×2 (05:36→17:36)
[2024-08-27] MEDS: SALINE LOCK FLUSH 10 ML IV PUSH ×3 (05:36→22:00)
[2024-08-27 06:00] VITALS: BP 122/77; PULSE 98; RESP 18; TEMP 36.7; O2SAT 98
[2024-08-27 06:50] LABS: Hematocrit 24.9 % (42.0-52.0); Mean Corpuscular HGB Conc 32.1 g/dl (32-36); Mean Corpuscular Hemoglobin 27.8 pg (26-34); Mean Corpuscular Volume 86.5 fl (80-100); Mean Platelet Volume 10.9 fl (7.4-10.4); Platelet Count Result 245 k/mm3 (150-375); Red Blood Count 2.88 M/mm3 (4.6-6.20); Red Cell Distribution Width 15.8 % (11.5-14.5); White Blood Count 10.6 K/mm3 (4.5-10.0)
[2024-08-27 07:06] LABS: Alanine Aminotransferase 103 U/L (6-50); Albumin Level 2.5 g/dL (3.5-5.1); Alkaline Phosphatase 151 U/L (38-126); Anion Gap 4 mmol/L (4-12); Aspartate Amino Transferase 97 U/L (17-59); Bilirubin,Total 0.9 mg/dL (0.2-1.3); Blood Urea Nitrogen 25 mg/dL (9-20); Calcium 8.6 mg/dL (8.4-10.2); Carbon Dioxide 27 mmol/L (22-30); Chloride 108 mmol/L (98-107); Creatine Kinase < 20 U/L (55-170); Estimated CRCL calculation 53 ml/min; Estimated Glomerular Filt Rate 56; Glucose 90 mg/dL (65-110); Magnesium 1.7 mg/dL (1.6-2.3); Sodium 139 mmol/L (137-145); Total Protein 5.6 g/dL (6.3-8.2)
[2024-08-27] MEDS: ASPIRIN 81 MG ENTERIC TABLET PO (09:04)
[2024-08-27] MEDS: THERAPEUTIC MULTIVITAMINS/MINERALS TAB (*BKC) 1 TABLET PO (09:04)
[2024-08-27] MEDS: FERROUS SULFATE 325 MG TABLET DR BY MOUTH ×2 (09:04→15:59)
[2024-08-27] MEDS: LORATADINE 10 MG TABLET PO (09:04)
[2024-08-27] MEDS: ACIDOPHILUS/BULGARICUS CHEWABLE TABLET 1 TABLET PO (09:04)
[2024-08-27] MEDS: risperiDONE 0.5 MG TABLET PO ×2 (09:04→15:59)
[2024-08-27] MEDS: ENOXAPARIN 40 MG/0.4 ML SYRINGE SUB-Q (09:05)
--- NOTE | 2024-08-27 10:18 | PCSTNOTE ---
Please refer to the Bedside Swallow Evaluation in the EMR. Please note, silent aspiration cannot be ruled out at bedside.
[2024-08-27] MEDS: DOCUSATE SODIUM LIQ 100 MG/10 ML UDC PO (11:15)
[2024-08-27 14:00] VITALS: BP 119/65; PULSE 102; RESP 18; TEMP 36.6; O2SAT 99
--- NOTE | 2024-08-27 15:15 | PM.IMPN ---
Progress Note: A&P Assessment and Plan (1) Septic shock: Code(s): A41.9 - Sepsis, unspecified organism; R65.21 - Severe sepsis with septic shock Status: Acute Assessment and Plan: 0 08/25: Patient is a febrile and holding discharge. Repeated blood culture and urine culture. Escalated antibiotic from ceftriaxone to meropenem. Patient is febrile and will be closely monitor vitals and repeat culture. 08/26: Ordered swallow study and CT chest to rule out aspiration pneumonia. Pending blood culture and urine culture Septic shock secondary to UTI and Gram-negative bacteremia in a patient with chronic indwelling Walker. CT scan shows left ureteral stone with ureteral hydronephrosis History of resistant Pseudomonas and urine in the past Blood cultures are growing Gram-negative bacilli Patient has received IV fluid bolus. Currently on maintenance IV fluids with bicarb which I will discontinue Patient was started on Jose-Synephrine through peripheral IV as he diffuse central venous catheter placement. Jose-Synephrine has been weaned off. Monitor blood pressure Continue empiric meropenem Walker catheter was replaced in the ER Urology was consulted and patient underwent Cystoscopy, left retrograde pyelogram, left stent placement 6 Kosovan contour, Walker catheter placement on 08/22 His lactic acid level has normalized (2) Acute kidney injury: Code(s): N17.9 - Acute kidney failure, unspecified Status: Acute Assessment and Plan: Last recorded baseline creatinine is 1.6 in the chart. Presented with creatinine 4.13 Likely acute kidney injury above chronic kidney disease. CANDIS secondary to sepsis, shock, rhabdo, left ureteral stone causing obstruction Hold further IV fluids. Monitor urine output electrolytes and creatinine. CK level has normalized Ureteral stone and hydronephrosis management as above Urology was consulted and patient underwent Cystoscopy, left retrograde pyelogram, left stent placement 6 Kosovan contour, Walker catheter placement on 08/22 CT scan performed on 08/27:Moderate left hydronephrosis with left ureteral stent. (3) Urinary tract infection: Qualifiers: Encounter type: initial encounter Indwelling urinary catheter type: indwelling urethral catheter Urinary tract infection type: catheter-associated UTI Qualified Code(s): T83.511A - Infection and inflammatory reaction due to indwelling urethral catheter, initial encounter; N39.0 - Urinary tract infection, site not specified Code(s): N39.0 - Urinary tract infection, site not specified Status: Acute Assessment and Plan: See above (4) Ureteral stone with hydronephrosis: Code(s): N13.2 - Hydronephrosis with renal and ureteral calculous obstruction Status: Acute Assessment and Plan: Status post Cystoscopy, left retrograde pyelogram, left stent placement 6 Kosovan contour, Walker catheter placement on 08/22 (5) Type 2 diabetes mellitus: Qualifiers: Diabetes mellitus long term care social worker insulin use: without long term care social worker use Diabetes mellitus complication status: without complication Qualified Code(s): E11.9 - Type 2 diabetes mellitus without complications Code(s): E11.9 - Type 2 diabetes mellitus without complications Status: Chronic Assessment and Plan: Sliding scale insulin (6) Rhabdomyolysis: Code(s): M62.82 - Rhabdomyolysis Status: Acute Assessment and Plan: CK level has normalized DC IV fluids with bicarb (7) Pulmonary nodules: Code(s): R91.8 - Other nonspecific abnormal finding of lung field Status: Acute Assessment and Plan: 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 CT scan shows multiple pulmonary nodules largest measuring 8 mm. Patient states that he is being currently evaluated for cancer and [facility] although results are not available. Records obtained from [facility] where he had bronchoscopy and fine-needle aspiration which were negative for malignancy.Would defer further evaluation and treatment to 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 CT chest shows small bilateral pleural effusion and moderate left hydronephrosis with left ureteral stent. Repeat urine culture negative Review of Systems Review of Systems: All systems reviewed & are unremarkable except as noted in HPI and below (HPI) Exam Narrative: General: Pt is alert awake and in NAD Lungs/Chest: Trachea central Clear BS B/L, No crackles or wheezing. Cardiac: RRR. Normal S1 S2. No murmurs Circulation: Pedal pulses are intact and symmetrical. Abdomen: Normal bowel sounds.. Soft. NT. ND. Extremities: No clubbing, cyanosis or edema. Warm : Walker in place with blood-tinged urine Neurologic: Follows commands. 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 No wheezing or crackles. Cardio: Rate: tachycardic Rhythm: regular rhythm Other: S1-S2 present without murmur, rub, ectopy GI: Other: Abdomen soft, nondistended, nontender. Normoactive bowel sounds in all quadrants. Urinary Catheter: Urinary Catheter: patent and draining, urine dark, urine red and other (Heavy sediment) Skin: General skin exam: normal color and no rashes or lesions noted Wounds: no wounds Neuro: Cranial nerves: Yes Equal, round and reactive pupils present Speech: normal speech Motor exam (neuro): 5/5 motor strength present throughout Sensory Exam: normal sensation Other: A/O self, place, time. Poor situational recall at present. Extrem: General: normal to inspection Psych: Mental Status: mental status grossly normal Other: Blunted affect. Fair insight and judgment. Objective Data Vital Signs Vital Signs: Vital Signs - 24 hr 08/26/24 22:00 08/27/24 06:00 08/27/24 08:00 Temperature 98.7 F 98.0 F Pulse Rate 104 H 98 Respiratory Rate 20 18 Blood Pressure 139/78 122/77 Pulse Oximetry 100 98 Oxygen Delivery Room Air Intake/Output Intake/Output: Intake & Output 08/24/24 08/25/24 08/26/24 08/27/24 23:59 23:59 23:59 23:59 Intake Total 1620 1972 1440 1184 Output Total 1700 2200 800 1125 Balance -80 -228 640 59 Meds/Results Medications: Active Medications Generic Name Dose Route Start Last Admin Trade Name Freq PRN Reason Stop Dose Admin Acetaminophen 1,000 mg 08/21/24 17:17 08/25/24 18:39 Acetaminophen 500 Mg Tablet PO 1,000 mg Q6H PRN Administration Mild Pain (1-3) or Fever Aspirin 81 mg 08/22/24 09:00 08/27/24 09:04 Aspirin 81 Mg Enteric Tablet PO 81 mg QAM ALVARO Administration Atorvastatin Calcium 40 mg 08/22/24 21:00 08/26/24 21:02 Atorvastatin 40 Mg Tablet PO 40 mg HS ALVARO Administration Dextrose 12.5 gm 08/21/24 13:52 Dextrose 50% 25 Gm/50 Ml Syringe IV PUSH PRN PRN Hypoglycemia Protocol Docusate Sodium 100 mg 08/22/24 09:00 08/27/24 11:15 Docusate Sodium Liq 100 Mg/10 Ml Udc PO 100 mg DAILY ALVARO Administration Enoxaparin Sodium 40 mg 08/25/24 09:00 08/27/24 09:05 Enoxaparin 40 Mg/0.4 Ml Syringe SUB-Q 40 mg DAILY ALVARO Administration Fentanyl Citrate 25 mcg 08/22/24 11:24 Fentanyl Citrate Inj (*Crx) 100 Mcg/2 Ml Vial IV PUSH Q2M PRN Pain Ferrous Sulfate 325 mg 08/22/24 09:00 08/27/24 09:04 Ferrous Sulfate [address] BY MOUTH 325 mg BID ALVARO Administration Glucagon 1 mg 08/21/24 13:52 Glucagon For Inj 1 Mg Vial IM PRN PRN Hypoglycemia Protocol Glucose 15 gm 08/21/24 13:52 Glucose Oral Gel 15 Gm Of Glucse In 37.5 Gm Tube PO PRN PRN Hypoglycemia Protocol Dextrose 1,000 mls @ 100 mls/hr 08/21/24 13:52 Dextrose 5% 1,000 Ml IVPB PRN PRN Hypoglycemia Protocol Meropenem 1 gm in 100 mls @ 200 mls/hr 08/25/24 18:00 08/27/24 05:36 IVPB 200 mls/hr Q12H ALVARO Administration Lactobacillus Acidophilus 1 tablet 08/22/24 09:00 08/27/24 09:04 Acidophilus/Bulgaricus Chewable Tablet PO 1 tablet DAILY ALVARO Administration Loratadine 10 mg 08/22/24 09:00 08/27/24 09:04 Loratadine 10 Mg Tablet PO 10 mg DAILY ALVARO Administration Multivitamins/Calcium 1 tablet 08/22/24 09:00 08/27/24 09:04 Therapeutic Multivitamins/Minerals Tab (*Bkc) PO 1 tablet DAILY ALVARO Administration Ondansetron HCl 4 mg 08/22/24 11:24 Ondansetron Inj 4 Mg/2 Ml Vial IV PUSH ONCE PRN Nausea Polyethylene Glycol 8.5 gm 08/21/24 21:07 Polyethylene Glycol 3350 17 Gm Powd.Pack PO DAILY PRN constipation Risperidone 0.5 mg 08/22/24 09:00 08/27/24 09:04 Risperidone 0.5 Mg Tablet PO 0.5 mg BID ALVARO Administration Sodium Chloride 10 ml 08/25/24 22:00 08/27/24 05:36 Saline Lock Flush IV PUSH 10 ml Q8HR ALVARO Administration Sodium Chloride 10 ml 08/25/24 14:45 Saline Lock Flush IV PUSH PRN PRN Flush Sodium Chloride 20 ml 08/25/24 14:45 Saline Lock Flush IV PUSH PRN PRN after blood draws Radiology Results: ITS Impressions Chest X-Ray 08/21/24 08:57 IMPRESSION: 1. Mild right basilar discoid atelectasis. Chest/Abdomen/Pelvis CT 08/22/24 05:33 Impression: 7 mm distal left ureteral stone with moderate left hydroureteronephrosis. 1.3 cm probable hyperdense left renal cysts, though solid mass is not excluded. Consider follow-up pre and postcontrast MR to further evaluate. Possible cystitis versus under distention of the urinary bladder. Correlate with urinalysis. Pulmonary nodules, largest measuring 8 mm, as above. According to Fleischner Society criteria, for a low-risk patient, recommend follow-up CT scan in 3-6 months, then consider additional 18-[address] For a high-risk patient, follow-up CT scans at both 3-6 months and 18-24 months are recommended. Minimal bilateral pleural effusions. Abdomen/Pelvis CT 08/25/24 14:12 Impression: Moderate left hydroureteronephrosis with left ureteral stent in place. 5 mm and 3 mm stones are present in the distal left ureter. Suspected cystitis versus bladder underdistention. Correlate with urinalysis and clinical symptomatology. Increasing small bilateral pleural effusions. Abdomen X-Ray 08/25/24 15:25 IMPRESSION: NO ACUTE ABDOMINAL FINDINGS. Left double-J stent. Chest CT 08/27/24 12:00 Impression: Small bilateral pleural effusions with bibasilar atelectatic change. Stable 8 mm right upper lobe pulmonary nodule. Moderate left hydronephrosis with left ureteral stent. Labs Labs: Laboratory Results - last 24 hr 08/27/24 05:56 WBC 10.6 H RBC 2.88 L Hgb 8.0 L Hct 24.9 L MCV 86.5 MCH 27.8 MCHC 32.1 RDW 15.8 H Plt Count 245 MPV 10.9 H Sodium 139 Potassium 4.0 Chloride 108 H Carbon Dioxide 27 Anion Gap 4 BUN 25 H Creatinine 1.28 Estim Creat Clear Calc 53 Estimated GFR 56 L Glucose 90 Calcium 8.6 Magnesium 1.7 Total Bilirubin 0.9 AST 97 H ALT 103 H Alkaline Phosphatase 151 H Total Creatine Kinase < 20 L Total Protein 5.6 L Albumin 2.5 L Quality VTE Prophylaxis VTE prophylaxis: pharmacologic ordered Hospitalist [facility] Advance Care Plan I have confirmed that the patient's Advanced Care Plan is present, code status is documented, or surrogate decision maker is listed in patient medical record.: Yes Medication Reconciliation I have utilized all available resources to obtain, update and review the patients current medications (includes all prescriptions, OTC, herbals, cannabis, and nutritional supplements).: Yes
[2024-08-27] MEDS: ATORVASTATIN 40 MG TABLET PO (20:20)
[2024-08-27 20:53] VITALS: BP 111/65; PULSE 110; RESP 24; TEMP 37.1; O2SAT 99
[2024-08-28 06:00] VITALS: BP 148/86; PULSE 103; RESP 20; TEMP 36.6; O2SAT 100
[2024-08-28 06:22] LABS: Hematocrit 23.2 % (42.0-52.0); Hemoglobin 7.3 g/dL (14.0-18.0); Mean Corpuscular HGB Conc 31.5 g/dl (32-36); Mean Corpuscular Hemoglobin 27.3 pg (26-34); Mean Corpuscular Volume 86.9 fl (80-100); Mean Platelet Volume 10.5 fl (7.4-10.4); Platelet Count Result 303 k/mm3 (150-375); Red Blood Count 2.67 M/mm3 (4.6-6.20); Red Cell Distribution Width 15.7 % (11.5-14.5); White Blood Count 9.1 K/mm3 (4.5-10.0)
[2024-08-28] MEDS: MEROPENEM 1 GM/NS 100 ML 1 GM/100 ML BAG IVPB (06:27)
[2024-08-28] MEDS: SALINE LOCK FLUSH 10 ML IV PUSH ×2 (06:28→12:55)
[2024-08-28 06:34] LABS: Alanine Aminotransferase 98 U/L (6-50); Albumin Level 2.6 g/dL (3.5-5.1); Alkaline Phosphatase 136 U/L (38-126); Anion Gap 4 mmol/L (4-12); Aspartate Amino Transferase 88 U/L (17-59); Bilirubin,Total 0.9 mg/dL (0.2-1.3); Blood Urea Nitrogen 21 mg/dL (9-20); Calcium 8.5 mg/dL (8.4-10.2); Carbon Dioxide 29 mmol/L (22-30); Chloride 106 mmol/L (98-107); Estimated CRCL calculation 62 ml/min; Estimated Glomerular Filt Rate > 60; Glucose 107 mg/dL (65-110); Potassium 3.7 mmol/L (3.4-5.0); Sodium 139 mmol/L (137-145); Total Protein 5.8 g/dL (6.3-8.2)
[2024-08-28] MEDS: ACIDOPHILUS/BULGARICUS CHEWABLE TABLET 1 TABLET PO (08:18)
[2024-08-28] MEDS: ASPIRIN 81 MG ENTERIC TABLET PO (08:20)
[2024-08-28] MEDS: ENOXAPARIN 40 MG/0.4 ML SYRINGE SUB-Q (08:20)
[2024-08-28] MEDS: FERROUS SULFATE 325 MG TABLET DR BY MOUTH ×2 (08:20→17:24)
[2024-08-28] MEDS: risperiDONE 0.5 MG TABLET PO ×2 (08:20→17:24)
[2024-08-28] MEDS: THERAPEUTIC MULTIVITAMINS/MINERALS TAB (*BKC) 1 TABLET PO (08:20)
[2024-08-28] MEDS: LORATADINE 10 MG TABLET PO (08:20)
[2024-08-28] MEDS: DOCUSATE SODIUM LIQ 100 MG/10 ML UDC PO (08:21)
--- NOTE | 2024-08-28 12:12 | PCSTNOTE ---
Please refer to the Modified Barium Swallow (MBS) Evaluation in the EMR. The pt was seen for an MBS due to possible dx of aspiration pneumonia; Bedside swallow evaluation did not reveal any overt s/s of aspiration. Dentition is adequate but some missing teeth was noted. Vocal quality was soft. Pt conveyed some h/o dysphagia. Pt was seated for a lateral view and was presented with 5 ml of thin liquids via a spoon, pudding consistency barium via a spoon, cracker pieces coated with barium pudding via a spoon, and uncontrolled trials of thin liquids & mildly thick liquids via a cup and a straw. The oral stages were WNL; during the pharyngeal stage the pt exhibited functional swallow with all trials with the exception of thin liquids when taken via a cup. Reduced laryngeal closure was exhibited as evidenced by aspiration during the swallow. Pt coughed excessively and appeared to clear the aspirate but when he swallowed again he aspirated again. Excessive cough occurred; it could not be determined if pt cleared entire amount of aspiration. Pt was then tested with thin liquids again but using the chin tuck posture; no laryngeal penetration/aspiration occurred. Impression: moderate dysphagia due to incidence of aspiration with thin liquids (when without the chin tuck) Recommendations: level 7 regular but easy to chew with level [address] for dysphagia therapy and to teach the chin tuck; when it appears that pt performs chin tuck without cueing then diet can be advanced to level 0.
[2024-08-28] MEDS: ERTAPENEM 1 GM/NS 50 ML 1 GM/50 ML BAG IVPB (12:50)
--- NOTE | 2024-08-28 13:02 | P.PNIM_ITS ---
Progress Note: A&P Assessment and Plan (1) Septic shock: Code(s): A41.9 - Sepsis, unspecified organism; R65.21 - Severe sepsis with septic shock Status: Acute Assessment and Plan: 0 08/25: Patient is a febrile and holding discharge. Repeated blood culture and urine culture. Escalated antibiotic from ceftriaxone to meropenem. Patient is febrile and will be closely monitor vitals and repeat culture. 08/26: Ordered swallow study and CT chest to rule out aspiration pneumonia. Pending blood culture and urine culture Septic shock secondary to UTI and Gram-negative bacteremia in a patient with chronic indwelling Walker. CT scan shows left ureteral stone with ureteral hydronephrosis History of resistant Pseudomonas and urine in the past Blood cultures are growing Gram-negative bacilli Patient has received IV fluid bolus. Currently on maintenance IV fluids with bicarb which I will discontinue Patient was started on Jose-Synephrine through peripheral IV as he diffuse central venous catheter placement. Jose-Synephrine has been weaned off. Monitor blood pressure Continue empiric meropenem Walker catheter was replaced in the ER Urology was consulted and patient underwent Cystoscopy, left retrograde pyelogram, left stent placement 6 [place] contour, Walker catheter placement on 08/22 His lactic acid level has normalized (2) Acute kidney injury: Code(s): N17.9 - Acute kidney failure, unspecified Status: Acute Assessment and Plan: Last recorded baseline creatinine is 1.6 in the chart. Presented with creatinine 4.13 Likely acute kidney injury above chronic kidney disease. CANDIS secondary to sepsis, shock, rhabdo, left ureteral stone causing obstruction Hold further IV fluids. Monitor urine output electrolytes and creatinine. CK level has normalized Ureteral stone and hydronephrosis management as above (3) Urinary tract infection: Qualifiers: Encounter type: initial encounter Indwelling urinary catheter type: indwelling urethral catheter Urinary tract infection type: catheter-associated UTI Qualified Code(s): T83.511A - Infection and inflammatory reaction due to indwelling urethral catheter, initial encounter; N39.0 - Urinary tract infection, site not specified Code(s): N39.0 - Urinary tract infection, site not specified Status: Acute Assessment and Plan: See above (4) Ureteral stone with hydronephrosis: Code(s): N13.2 - Hydronephrosis with renal and ureteral calculous obstruction Status: Acute Assessment and Plan: Status post Cystoscopy, left retrograde pyelogram, left stent placement 6 [place] contour, Walker catheter placement on 08/22 (5) Type 2 diabetes mellitus: Qualifiers: Diabetes mellitus complication status: without complication Diabetes mellitus penitentiary insulin use: without penitentiary use Qualified Code(s): E11.9 - Type 2 diabetes mellitus without complications Code(s): E11.9 - Type 2 diabetes mellitus without complications Status: Chronic Assessment and Plan: Sliding scale insulin (6) Rhabdomyolysis: Code(s): M62.82 - Rhabdomyolysis Status: Acute Assessment and Plan: CK level has normalized DC IV fluids with bicarb (7) Pulmonary nodules: Code(s): R91.8 - Other nonspecific abnormal finding of lung field Status: Acute Assessment and Plan: 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 CT scan shows multiple pulmonary nodules largest measuring 8 mm. Patient states that he is being currently evaluated for cancer and [facility] although results are not available. Records obtained from [facility] where he had bronchoscopy and fine-needle aspiration which were negative for malignancy. I would defer further evaluation and treatment to [facility] (8) Squamous cell carcinoma of supraglottis: Code(s): C32.1 - Malignant neoplasm of supraglottis Status: Acute Assessment and Plan: See above Subjective Date/time seen: 08/28/24 13:02 Interval history: Previously patient antibiotic was deescalated from meropenem to ceftriaxone but unfortunately patient was afebrile and was escalated again to meropenem. Patient is currently doing well. Patient can be discharged with the ertapenem until 09/04/2024. Discussed with the Urology regarding hydronephrosis and reported can be followed up as an outpatient. Patient underwent swallow study today and has evidence of aspiration with thin liquids Review of Systems Review of Systems: All systems reviewed & are unremarkable except as noted in HPI and below (HPI) Exam Narrative: General: Pt is alert awake and in NAD Lungs/Chest: Trachea central Clear BS B/L, No crackles or wheezing. Cardiac: RRR. Normal S1 S2. No murmurs Circulation: Pedal pulses are intact and symmetrical. Abdomen: Normal bowel sounds.. Soft. NT. ND. Extremities: No clubbing, cyanosis or edema. Warm : Walker in place with blood-tinged urine Neurologic: Follows commands. 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 No wheezing or crackles. Cardio: Rate: tachycardic Rhythm: regular rhythm Other: S1-S2 present without murmur, rub, ectopy GI: Other: Abdomen soft, nondistended, nontender. Normoactive bowel sounds in all quadrants. Urinary Catheter: Urinary Catheter: patent and draining, urine dark, urine red and other (Heavy sediment) Skin: General skin exam: normal color and no rashes or lesions noted Wounds: no wounds Neuro: Cranial nerves: Yes Equal, round and reactive pupils present Speech: normal speech Motor exam (neuro): 5/5 motor strength present throughout Sensory Exam: normal sensation Other: A/O self, place, time. Poor situational recall at present. Extrem: General: normal to inspection Psych: Mental Status: mental status grossly normal Other: Blunted affect. Fair insight and judgment. Objective Data Vital Signs Vital Signs: Vital Signs - 24 hr 08/27/24 14:00 08/27/24 20:53 08/28/24 06:00 Temperature 98 F 98.7 F 97.8 F Pulse Rate 102 H 110 H 103 H Respiratory Rate 18 24 H 20 Blood Pressure 119/65 111/65 148/86 H Pulse Oximetry 99 99 100 Oxygen Delivery 08/28/24 08:00 Temperature Pulse Rate Respiratory Rate Blood Pressure Pulse Oximetry Oxygen Delivery Room Air Intake/Output Intake/Output: Intake & Output 08/25/24 08/26/24 08/27/24 08/28/24 23:59 23:59 23:59 23:59 Intake Total 1972 1440 1784 472 Output Total 2206 771 2406 3847 Balance -228 884 -510 -5127 Meds/Results Medications: Active Medications Generic Name Dose Route Start Last Admin Trade Name Freq PRN Reason Stop Dose Admin Acetaminophen 1,000 mg 08/21/24 17:17 08/25/24 18:39 Acetaminophen 500 Mg Tablet PO 1,000 mg Q6H PRN Administration Mild Pain (1-3) or Fever Aspirin 81 mg 08/22/24 09:00 08/28/24 08:20 Aspirin 81 Mg Enteric Tablet PO 81 mg QAM ALVARO Administration Atorvastatin Calcium 40 mg 08/22/24 21:00 08/27/24 20:20 Atorvastatin 40 Mg Tablet PO 40 mg HS ALVARO Administration Dextrose 12.5 gm 08/21/24 13:52 Dextrose 50% 25 Gm/50 Ml Syringe IV PUSH PRN PRN Hypoglycemia Protocol Docusate Sodium 100 mg 08/22/24 09:00 08/28/24 08:21 Docusate Sodium Liq 100 Mg/10 Ml Udc PO 100 mg DAILY ALVARO Administration Enoxaparin Sodium 40 mg 08/25/24 09:00 08/28/24 08:20 Enoxaparin 40 Mg/0.4 Ml Syringe SUB-Q 40 mg DAILY ALVARO Administration Fentanyl Citrate 25 mcg 08/22/24 11:24 Fentanyl Citrate Inj (*Crx) 100 Mcg/2 Ml Vial IV PUSH Q2M PRN Pain Ferrous Sulfate 325 mg 08/22/24 09:00 08/28/24 08:20 Ferrous Sulfate [address] BY MOUTH 325 mg BID ALVARO Administration Glucagon 1 mg 08/21/24 13:52 Glucagon For Inj 1 Mg Vial IM PRN PRN Hypoglycemia Protocol Glucose 15 gm 08/21/24 13:52 Glucose Oral Gel 15 Gm Of Glucse In 37.5 Gm Tube PO PRN PRN Hypoglycemia Protocol Dextrose 1,000 mls @ 100 mls/hr 08/21/24 13:52 Dextrose 5% 1,000 Ml IVPB PRN PRN Hypoglycemia Protocol Ertapenem 1 gm in 50 mls @ 100 mls/hr 08/28/24 12:00 08/28/24 12:50 Invanz 1 Gm/Ns 50 Ml IVPB 09/04/24 09:29 100 mls/hr DAILY ALVARO Administration Lactobacillus Acidophilus 1 tablet 08/22/24 09:00 08/28/24 08:18 Acidophilus/Bulgaricus Chewable Tablet PO 1 tablet DAILY ALVARO Administration Loratadine 10 mg 08/22/24 09:00 08/28/24 08:20 Loratadine 10 Mg Tablet PO 10 mg DAILY ALVARO Administration Multivitamins/Calcium 1 tablet 08/22/24 09:00 08/28/24 08:20 Therapeutic Multivitamins/Minerals Tab (*Bkc) PO 1 tablet DAILY ALVARO Administration Ondansetron HCl 4 mg 08/22/24 11:24 Ondansetron Inj 4 Mg/2 Ml Vial IV PUSH ONCE PRN Nausea Polyethylene Glycol 8.5 gm 08/21/24 21:07 Polyethylene Glycol 3350 17 Gm Powd.Pack PO DAILY PRN constipation Risperidone 0.5 mg 08/22/24 09:00 08/28/24 08:20 Risperidone 0.5 Mg Tablet PO 0.5 mg BID ALVARO Administration Sodium Chloride 10 ml 08/25/24 22:00 08/28/24 12:55 Saline Lock Flush IV PUSH 10 ml Q8HR ALVARO Administration Sodium Chloride 10 ml 08/25/24 14:45 Saline Lock Flush IV PUSH PRN PRN Flush Sodium Chloride 20 ml 08/25/24 14:45 Saline Lock Flush IV PUSH PRN PRN after blood draws Radiology Results: ITS Impressions Chest X-Ray 08/21/24 08:57 IMPRESSION: 1. Mild right basilar discoid atelectasis. Chest/Abdomen/Pelvis CT 08/22/24 05:33 Impression: 7 mm distal left ureteral stone with moderate left hydroureteronephrosis. 1.3 cm probable hyperdense left renal cysts, though solid mass is not excluded. Consider follow-up pre and postcontrast MR to further evaluate. Possible cystitis versus under distention of the urinary bladder. Correlate with urinalysis. Pulmonary nodules, largest measuring 8 mm, as above. According to Fleischner Society criteria, for a low-risk patient, recommend follow-up CT scan in 3-6 months, then consider additional 18-[address] For a high-risk patient, follow -up CT scans at both 3-6 months and 18-24 months are recommended. Minimal bilateral pleural effusions. Abdomen/Pelvis CT 08/25/24 14:12 Impression: Moderate left hydroureteronephrosis with left ureteral stent in place. 5 mm and 3 mm stones are present in the distal left ureter. Suspected cystitis versus bladder underdistention. Correlate with urinalysis and clinical symptomatology. Increasing small bilateral pleural effusions. Abdomen X-Ray 08/25/24 15:25 IMPRESSION: NO ACUTE ABDOMINAL FINDINGS. Left double-J stent. Chest CT 08/27/24 12:00 Impression: Small bilateral pleural effusions with bibasilar atelectatic change. Stable 8 mm right upper lobe pulmonary nodule. Moderate left hydronephrosis with left ureteral stent. 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 Please correlate with speech pathologist findings and specific feeding recommendations. Labs Labs: Laboratory Results - last 24 hr 08/28/24 05:21 WBC 9.1 RBC 2.67 L Hgb 7.3 L Hct 23.2 L MCV 86.9 MCH 27.3 MCHC 31.5 L RDW 15.7 H Plt Count 303 MPV 10.5 H Sodium 139 Potassium 3.7 Chloride 106 Carbon Dioxide 29 Anion Gap 4 BUN 21 H Creatinine 1.08 Estim Creat Clear Calc 62 Estimated GFR > 60 Glucose 107 Calcium 8.5 Total Bilirubin 0.9 AST 88 H ALT 98 H Alkaline Phosphatase 136 H Total Protein 5.8 L Albumin 2.6 L Quality VTE Prophylaxis VTE prophylaxis: pharmacologic ordered Hospitalist [facility] Advance Care Plan I have confirmed that the patient's Advanced Care Plan is present, code status is documented, or surrogate decision maker is listed in patient medical record.: Yes Medication Reconciliation I have utilized all available resources to obtain, update and review the pa tients current medications (includes all prescriptions, OTC, herbals, cannabis, and nutritional supplements).: Yes
[2024-08-28 14:00] VITALS: BP 139/81; PULSE 99; RESP 20; TEMP 36.2; O2SAT 100
--- NOTE | 2024-08-29 07:23 | P.CDI_ITS ---
CDI Query Clarification Request 1) Please clarify if rhabdomyolysis has been ruled in or ruled out 2) If ruled in, Please clarify type of rhabdomyolysis if known: ? Traumatic or muscle compression (e.g., crush syndrome or prolonged immobilization) ? Non-traumatic exertional (e.g., marked exertion in untrained individuals, hyperthermia, or metabolic myopathies) ? Non-traumatic no exertional (e.g., drugs or toxins, infections, or electrolyte disorders) The medical chart reflects the followin-year-old male with history of type 2 diabetes, dementia, CVA, chronic urinary obstruction with chronic indwelling Walker presents to the emergency department for evaluation tachycardia, hypotension and fever. Patient does have an indwelling Walker catheter as passing dark brown urine. EMS was called due to hypotension and tachycardia patient was found to have a blood pressure of 90 sy stolic and heart rate in the 150s (6) Rhabdomyolysis: Code(s): M62.82 - Rhabdomyolysis Status: Acute Assessment and Plan: CK level has normalized DC IV fluids with bicarb CK levels 08/21: 853, 08/22: 533, 08/27: <20 <Kasey Loev RN - Last Filed: 08/29/24 07:30> Clarified Diagnosis Clarified Diagnosis: Rhabdomyolysis ruled in possible to traumatic <Heriberto Arias MD - Last Filed: 10/08/24 17:01>
== END 2024-08-28 17:40 | DRG 466 ==
LOC: ANHED 08:13 → ANHIMU 14:12 → ANHICU 22:50 → ANH3MEDSUR 08-28 13:08 → ANHICU 08-29 09:23 → ANHIMU 08-29 09:23
PROVIDERS: Internal Medicine; Student in an Organized Health Care Education/Training Program; Urology; Admitting Provider Internal Medicine; Emergency Provider Emergency Medicine; PCP Internal Medicine; Visit Provider General Practice
PROC: BT1F1ZZ Fluoroscopy of Left Kidney, Ureter and Bladder using Low Osmolar Contrast (ICD-10-PCS; CPT 52352; principal; 2024-08-22 11:45)
DX: T83.511A Infection and inflammatory reaction due to indwelling urethral catheter, initial encounter (principal); A41.59 Other Gram-negative sepsis; R65.21 Severe sepsis with septic shock; N17.9 Acute kidney failure, unspecified; N13.6 Pyonephrosis; N13.9 Obstructive and reflux uropathy, unspecified; C32.1 Malignant neoplasm of supraglottis; I10 Essential (primary) hypertension; D64.9 Anemia, unspecified; E11.51 Type 2 diabetes mellitus with diabetic peripheral angiopathy without gangrene; M62.82 Rhabdomyolysis; F20.9 Schizophrenia, unspecified; F03.90 Unspecified dementia, unspecified severity, without behavioral disturbance, psychotic disturbance, mood disturbance, and anxiety; Z86.73 Personal history of transient ischemic attack (TIA), and cerebral infarction without residual deficits; Z79.82 Long term (current) use of aspirin; Z79.4 Long term (current) use of insulin
CPT/HCPCS: 36415; 36569; 71045; 71250; 74018; 74176; 74420; 80053; 81001; 82550; 82570; 82948; 83036; 83605; 83735; 84100; 84145; 84156; 84300; 84540; 85025; 85027; 85610; 85730; 86140; 87040; 87086; 87186; 92610; 92611; 93005; 96361; 96365; 96366; 96367; 97161; 99285; A9270; C1751; C1769; C2617; G0378; G0379; J0330; J0696; J1335; J1650; J2003; J2185; J2371; J2470; J7050; J7120; P9047; Q9966